=== PATIENT | female | born 1960 | race African-American/Black ===

== ENCOUNTER 2017-12-29 17:41 | Emergency (ER) | payer BC, SELFPAY ==
[2017-12-29 17:57] VITALS: BP 149/88; PULSE 87; RESP 18; TEMP 36.6; O2SAT 97; BMI 44.8
[2017-12-29 18:03] LABS: UTC Strep Screen (Rapid) Negative (Negative)
--- NOTE | 2017-12-29 18:15 | HMH.EDUTC ---
[facility] – [place] Disposition Clinical Impression: Upper respiratory infection Qualifiers: URI type: unspecified URI Qualified Code(s): J06.9 - Acute upper respiratory infection, unspecified Disposition: Home, Self-Care Condition on Discharge: Good Instructions: Sore Throat Additional Instructions: * Monitor Temp. Tylenol and/or Ibuprofen as needed. ER if fever is no less than 101 despite alternating Tylenol and Ibuprofen * Encourage fluids, water, Gatorade, powerade, pedialyte if /toddler/or child * Warm salt water gargles for throat irritation *Warm fluids *Sore throat lozenges *Sleep elevated *humidifier or vaporizer Lots of rest Increase fluids, water, Gatorade, powerade *Your throat swab was sent to lab for culture. Those results area typically sent to your primary care physician. Be sure to follow up in 2-3 days if no improvement so they can review those results and treat if necessary If you dont have primary care I recommend you get one, but in the mean time you will have to return to a walk in clinic Follow up IMMEDIATELY for new or worsening of symptoms OR no noticeable improvement over the next 48-72 hours. 911 immediately for any life threatening symptoms such as chest pain or difficulty breathing Prescriptions: Azithromycin [Z-Denzel 250mg Tab] 250 mg PO UD DOSE PK #6 tab Referrals: Cornelius Aparicio MD [Primary Care Provider] - Time of Disposition: 18:22 Medical Decision Making - Medical Records Medical records reviewed: Yes: I reviewed the patient's medical records. Vital Signs: 12/29/17 17:57 Temperature 97.9 F Temperature Source Temporal Artery Scan Pulse Rate [Right Radial] 87 Respiratory Rate 18 Blood Pressure [Right Arm] 149/88 Blood Pressure Mean [Right Arm] 108 Blood Pressure Source [Right Arm] Automatic Cuff Blood Pressure Position [Right Arm] Sitting 02 Sat by Pulse Oximetry 97 Oxygen Delivery Method Room Air - Lab Data Lab Results 12/29/17 18:02: Strep Scn Rapid Clinic Negative Orders (Tests/Meds): ORDERS Category Date Time Status Strep Screen Confirmation Stat Micro 12/29/17 18:02 Received - Cj Inquiry Pt receiving controlled substance: No Cj was queried for this patient: No [facility] – [place] HPI - General Stated complaint: sore throat Mode of Arrival: Family Vehicle Source of Information: Patient Limitations: No Limitations Description of Symptoms (Recalled from Triage Doc. by RN): PT C/O SORE THROAT AND BILATERAL EAR PAIN. HEENT Symptoms (Recalled from RN notes): Yes (SORE THROAT AND BILATERAL EAR PAIN) Resp Symptoms (Recalled from RN notes): No Skin Symptoms (Recalled from RN notes): No MS Symptoms (Recalled from RN notes): No Functional Status (Recalled from RN notes): NA - History of Present Illness Provider Complaint: Patient state that she has had sore throat now for over a week State that she has been gargling mouth wash and trying some over the counter cold medication but it has not helped State that her throat is worse and she is having pain in her ears - Related Data Home Medications Medication Instructions Recorded Confirmed Esomeprazole Magnesium 40 mg PO DAILY 12/29/17 12/29/17 Glimepiride [Glimepiride] 4 mg PO DAILY 12/29/17 12/29/17 Losartan/Hydrochlorothiazide 1 each PO DAILY 12/29/17 12/29/17 [Hyzaar 100-12.5 Tablet] Metformin HCl [Fortamet] 1,000 mg PO DAILY 12/29/17 12/29/17 Metoprolol Succinate 100 mg PO DAILY 12/29/17 12/29/17 Oxybutynin Chloride [Oxybutynin 5 mg PO DAILY 12/29/17 12/29/17 Chloride ER] Rosuvastatin Calcium 10 mg PO QHS 12/29/17 12/29/17 Previous Rx's Medication Instructions Recorded Azithromycin [Z-Denzel 250mg Tab] 250 mg PO UD DOSE PK #6 tab 12/29/17 Allergies Allergy/AdvReac Type Severity Reaction Status Date / Time amoxicillin [From AUGMENTIN] Allergy Mild NA-NAUSEA Verified 12/29/17 18:03 clavulanic acid Allergy Mild NA-NAUSEA Verified 12/29/17 18:03 [From AUGMENTIN] hydrocodone [Fr
--- NOTE | 2017-12-29 18:19 | ED_ITS ---
[facility] – [place] Clinical Impression: Upper respiratory infection Qualifiers: URI type: unspecified URI Qualified Code(s): J06.9 - Acute upper respiratory infection, unspecified Disposition: Home, Self-Care Condition on Discharge: Good Instructions: Sore Throat Additional Instructions: * Monitor Temp. Tylenol and/or Ibuprofen as needed. ER if fever is no less than 101 despite alternating Tylenol and Ibuprofen * Encourage fluids, water, Gatorade, powerade, pedialyte if /toddler/or child * Warm salt water gargles for throat irritation *Warm fluids *Sore throat lozenges *Sleep elevated *humidifier or vaporizer Lots of rest Increase fluids, water, Gatorade, powerade *Your throat swab was sent to lab for culture. Those results area typically sent to your primary care physician. Be sure to follow up in 2-3 days if no improvement so they can review those results and treat if necessary If you don? t have primary care I recommend you get one, but in the mean time you will have to return to a walk in clinic Follow up IMMEDIATELY for new or worsening of symptoms OR no noticeable improvement over the next 48-72 hours. 911 immediately for any life threatening symptoms such as chest pain or difficulty breathing Prescriptions: Azithromycin [Z-Denzel 250mg Tab] 250 mg PO UD DOSE PK #6 tab Referrals: Cornelius Aparicio MD [Primary Care Provider] - Time of Disposition: 18:22 Medical Decision Making - Medical Records Medical records reviewed: Yes: I reviewed the patient's medical records. Vital Signs: 12/29/17 17:57 Temperature 97.9 F Temperature Source Temporal Artery Scan Pulse Rate [Right Radial] 87 Respiratory Rate 18 Blood Pressure [Right Arm] 149/88 Blood Pressure Mean [Right Arm] 108 Blood Pressure Source [Right Arm] Automatic Cuff Blood Pressure Position [Right Arm] Sitting 02 Sat by Pulse Oximetry 97 Oxygen Delivery Method Room Air - Lab Data Lab Results 12/29/17 18:02: Strep Scn Rapid Clinic Negative Orders (Tests/Meds): ORDERS Category Date Time Status Strep Screen Confirmation Stat Micro 12/29/17 18:02 Received - Cj Inquiry Pt receiving controlled substance: No Cj was queried for this patient: No [facility] [place] HPI - General Stated complaint: sore throat Mode of Arrival: Family Vehicle Source of Information: Patient Limitations: No Limitations Description of Symptoms (Recalled from Triage Doc. by RN): PT C/O SORE THROAT AND BILATERAL EAR PAIN. HEENT Symptoms (Recalled from RN notes): Yes (SORE THROAT AND BILATERAL EAR PAIN ) Resp Symptoms (Recalled from RN notes): No Skin Symptoms (Recalled from RN notes): No MS Symptoms (Recalled from RN notes): No Functional Status (Recalled from RN notes): NA - History of Present Illness Provider Complaint: Patient state that she has had sore throat now for over a week State that she has been gargling mouth wash and trying some over the counter cold medication but it has not helped State that her throat is worse and she is having pain in her ears - Related Data Home Medications Medication Instructions Recorded Confirmed Esomeprazole Magnesium 40 mg PO DAILY 12/29/17 12/29/17 Glimepiride [Glimepiride] 4 mg PO DAILY 12/29/17 12/29/17 Losartan/Hydrochlorothiazide 1 each PO DAILY 12/29/17 12/29/17 [Hyzaar 100-12.5 Tablet] Metformin HCl [Fortamet] 1,00
== END 2017-12-29 18:32 | disposition home or self-care (01) ==
PROVIDERS: Emergency Provider Nurse Practitioner; Family Provider Emergency Medicine; PCP Emergency Medicine
DX: J06.9 Acute upper respiratory infection, unspecified (principal); E11.9 Type 2 diabetes mellitus without complications; Z79.84 Long term (current) use of oral hypoglycemic drugs; F17.210 Nicotine dependence, cigarettes, uncomplicated; Z88.2 Allergy status to sulfonamides; Z88.1 Allergy status to other antibiotic agents
CPT/HCPCS: 87880; 99202

== ENCOUNTER → 2018-02-27 07:22 | Outpatient (CLI) | payer BC, SELFPAY ==
[2018-02-27 08:26] LABS: Carbon Dioxide 27 mmol/L (21.0-32.0); Creatinine,Serum 0.74 mg/dL (0.55-1.02); Estimated Glomerular Filt Rate 81 ml/min (>60); GFR (African American) 99 ML/MIN (>60)
[2018-02-27 08:49] LABS: Alanine Aminotransferase 33 U/L (12-78); Albumin/Globulin Ratio 0.5 (1.1-1.8); Alkaline Phosphatase 126 U/L (46-116); Aspartate Amino Transferase 23 U/L (15-37); Bilirubin,Total 0.2 mg/dL (0.2-1.0); Blood Urea Nitrogen 18 mg/dL (7-18); Calcium 9.5 mg/dL (8.5-10.1); Chloride 100 mmol/L (98-107); Cholesterol 95 mg/dL (140-200); Globulin 5.6 gm/dl (1.3-3.2); Glucose 165 mg/dL (74-106); HDL Cholesterol 48 mg/dL (29-89); LDL Cholesterol 23 mg/dL (0-130); Sodium 138 mmol/L (136-145); T4 (Thyroxine) 7.1 ug/dl (4.7-13.3); Thyroid Stimulating Hormone 4.02 uIU/ml (0.358-3.740); Total Protein,Serum 8.6 gm/dL (6.4-8.2); Triglycerides 119 mg/dL (30-200); VLDL Cholesterol 24 mg/dL (0-40)
[2018-02-27 08:50] LABS: Basophils # 0.1 K/mm3 (0-0.2); Basophils % 0.7 % (0.1-2.0); Eosinophils # 0.2 K/mm3 (0.0-0.4); Eosinophils % 2.1 % (0.1-12.0); Hematocrit 40.4 % (37.0-47.0); Hemoglobin 12.6 g/dL (12.2-16.2); Lymphocytes # 2.4 K/mm3 (0.7-4.5); Lymphocytes % 31.2 K/mm3 (10-50); Mean Corpuscular HGB Conc 31.2 g/dL (31.8-35.4); Mean Corpuscular Hemoglobin 27.7 pg (27.0-31.2); Mean Corpuscular Volume 88.6 fl (81-99); Monocytes # 0.4 K/mm3 (0.1-1.0); Monocytes % 5.8 % (1.7-9.3); Neutrophils # 4.5 K/mm3 (1.8-7.8); Neutrophils % 60.2 % (37.0-80.0); Platelet Count 328 K/mm3 (142-424); Red Blood Count 4.56 M/mm3 (4.20-5.40); Red Cell Distribution Width 15.2 % (11.5-17.5); White Blood Count 7.5 K/mm3 (4.8-10.8)
[2018-02-28 15:40] LABS: Vitamin D 25 Hydroxy 53.5 ng/mL (30.0-100.0)
== END ==
PROVIDERS: Physician Assistant; Visit Provider Emergency Medicine
DX: E11.9 Type 2 diabetes mellitus without complications (principal)
CPT/HCPCS: 36415; 80053; 80061; 82652; 83036; 84436; 84443; 85025

== ENCOUNTER → 2018-06-27 13:39 | Outpatient (REF) | payer BC, SELFPAY ==
[2018-06-27 19:48] LABS: Free Thyroxine Index 2.5 ug/dL (5.93-13.13); T4 (Thyroxine) 8.2 ug/dl (4.7-13.3); Thyroid Stimulating Hormone 1.49 uIU/ml (0.358-3.740); Triiodothryronine (T3) Uptake 31 % (31-39)
== END ==
LOC: LAB 13:39
PROVIDERS: Visit Provider Nurse Practitioner Family
DX: E03.9 Hypothyroidism, unspecified (principal); F41.9 Anxiety disorder, unspecified
CPT/HCPCS: 84436; 84443; 84479

== ENCOUNTER → 2018-08-21 14:48 | Outpatient (REF) | payer BC, SELFPAY | LOC: LAB 14:48 | PROVIDERS: Visit Provider Physician Assistant | DX: N39.0 Urinary tract infection, site not specified (principal); N89.8 Other specified noninflammatory disorders of vagina; R35.0 Frequency of micturition | CPT/HCPCS: 87086; 87210 ==

== ENCOUNTER → 2019-04-30 18:01 | Outpatient (CLI) | payer BC, SELFPAY ==
[2019-04-30 18:38] LABS: Basophils # 0.1 K/mm3 (0-0.2); Basophils % 0.7 % (0.1-2.0); Eosinophils # 0.2 K/mm3 (0.0-0.4); Hematocrit 37.5 % (37.0-47.0); Hemoglobin 12.1 g/dL (12.2-16.2); Lymphocytes # 2.3 K/mm3 (0.7-4.5); Lymphocytes % 27.6 % (10-50); Mean Corpuscular HGB Conc 32.3 g/dL (31.8-35.4); Mean Corpuscular Hemoglobin 26.6 pg (27.0-31.2); Mean Corpuscular Volume 82.4 fl (81-99); Mean Platelet Volume 7.7 fl (7.4-10.4); Monocytes # 0.4 K/mm3 (0.1-1.0); Monocytes % 5.1 % (1.7-9.3); Neutrophils # 5.4 K/mm3 (1.8-7.8); Neutrophils % 64.7 % (37.0-80.0); Platelet Count 386 K/mm3 (142-424); Red Blood Count 4.55 M/mm3 (4.20-5.40); White Blood Count 8.3 K/mm3 (4.8-10.8)
[2019-04-30 19:37] LABS: Alanine Aminotransferase 30 U/L (12-78); Albumin Level 3.6 gm/dL (3.4-5.0); Albumin/Globulin Ratio 0.8 (1.1-1.8); Alkaline Phosphatase 152 U/L (46-116); Anion Gap 18.4 mEq/L (5-15); Aspartate Amino Transferase 22 U/L (15-37); Bilirubin,Total 0.3 mg/dL (0.2-1.0); Blood Urea Nitrogen 12 mg/dL (7-18); C-Reactive Protein 5.1 mg/L (0.0-0.9); Calcium 9.6 mg/dL (8.5-10.1); Carbon Dioxide 26 mmol/L (21.0-32.0); Chloride 104 mmol/L (98-107); Creatinine,Serum 0.87 mg/dL (0.55-1.02); Estimated Glomerular Filt Rate 67 ml/min (>60); GFR (African American) 81 ML/MIN (>60); Globulin 4.5 gm/dl (1.3-3.2); Glucose 84 mg/dL (74-106); Potassium 4.4 mmoL/L (3.5-5.1); Sodium 144 mmol/L (136-145); Total Protein,Serum 8.1 gm/dL (6.4-8.2)
[2019-04-30 19:58] LABS: Erythrocyte Sedimentation Rate > 140 mm/hr (0-30)
[2019-04-30 20:06] LABS: Hemoglobin A1C 6.8 % (0.0-7.0)
[2019-05-02 14:18] LABS: Anti-Centromere B Antibodies <0.2 AI (0.0-0.9); Anti-Jo-1 <0.2 AI (0.0-0.9); Anti-Smith Antibody <0.2 AI (0.0-0.9); Antichromatin Antibodies <0.2 AI (0.0-0.9); Antiscleroderma-70 Antibodies <0.2 AI (0.0-0.9); RNP Antibodies <0.2 AI (0.0-0.9); Sjogren's Anti-SS-A <0.2 AI (0.0-0.9); Sjogren's Anti-SS-B <0.2 AI (0.0-0.9)
[2019-05-04 06:23] LABS: RA Latex Turbid. <10.0 IU/mL (0.0-13.9); Vitamin B12 >2000 pg/mL (232-1245)
[2019-05-04 06:24] LABS: Anti-Cyclic Citrullinated Pept <1 units (0-19); Anti-DNA (DS) Ab Qn <1 IU/mL (0-9)
== END ==
LOC: LAB.DROPOF 18:01
PROVIDERS: Visit Provider Physician Assistant
DX: E03.9 Hypothyroidism, unspecified (principal); E11.9 Type 2 diabetes mellitus without complications; I10 Essential (primary) hypertension; M25.50 Pain in unspecified joint; Z79.84 Long term (current) use of oral hypoglycemic drugs
CPT/HCPCS: 80053; 82607; 83036; 85025; 85651; 86140; 86200; 86225; 86235; 86431

== ENCOUNTER → 2020-10-08 11:24 | Outpatient (CLI) | payer BC, SELFPAY ==
[2020-10-09 17:33] LABS: Covid-19 Nasal PCR Sendout Lex Not Detected
== END ==
PROVIDERS: PCP Emergency Medicine; Visit Provider Physician Assistant
DX: Z03.818 Encounter for observation for suspected exposure to other biological agents ruled out (principal)
CPT/HCPCS: U0004

== ENCOUNTER → 2021-03-02 07:11 | Outpatient (CLI) | payer BC, SELFPAY ==
--- NOTE | 2021-03-02 07:11 | CT_ITS ---
PROCEDURE: CT ABDOMEN PELVIS WO CON CLINICAL INDICATION: Possible hernia/diastasis X1yr Large bulge mid epigastric No pain per pt. COMPARISON: CT ABDPELW/O CT ABD PELVIS W/O CONTRAST from 05/21/2017 TECHNIQUE: Axial images obtained with sagittal and coronal reformats. All CT scans at the facility use one or more dose reduction, viz: automated exposure control, ma/kV adjustment per patient size (including targeted exams where dose is matched to indication, i.e. head), or iterative reconstruction technique. FINDINGS: LOWER THORAX: There is a 9 mm nodular opacity in the left lateral periareolar region of the breast. Suggest mammogram and ultrasound for further evaluation. Atelectatic or fibrotic changes are present in the right lower lobe. Calcified granulomata are present. ABDOMEN & PELVIS: Hepatic steatosis. No focal liver lesion identified. The spleen shows multiple calcified granulomata. Pancreatic head is somewhat plump and may be better evaluated with an enhanced exam. No renal or ureteral calculi. Unremarkable appearing adrenal glands. No radiopaque gallstones. There is a small appendicoliths but no evidence of appendicitis. No intestinal obstruction or free air. There are scattered colonic diverticula. No evidence of diverticulitis. There has been a prior hysterectomy. The urinary bladder is decompressed. No pelvic mass or abnormal fluid collection. Scattered small nodes are present in the retroperitoneum. There is diastasis of the lower abdominal wall. No definite abdominal wall hernia apparent. There is degenerative disc disease at L5-S1 IMPRESSION: 1. No acute finding. Diastasis of the lower ventral abdominal wall but no evidence of abdominal wall hernia. 2. 9 mm left breast nodule. Suggest mammogram and ultrasound for further evaluation. 3. Other nonacute findings as detailed above. Dictated by: Franklin Montgomery MD 03/03/2021 09:57 Franklin Montgomery MD in [facility] 03/03/2021 09:57
[2021-03-02 08:56] LABS: Creatinine,Urine Random 119 mg/dL (Not Estab.); Hemoglobin A1C 7.2 % (4.0-6.0)
[2021-03-02 09:38] LABS: Thyroid Stimulating Hormone 1.14 uIU/mL (0.465-4.68)
[2021-03-02 10:01] LABS: Vitamin B12 > 1000 pg/mL (239-931)
[2021-03-17 08:46] LABS: 25-OH Vitamin D, Total 49 ng/mL (30-100)
== END ==
LOC: RAD 07:11
PROVIDERS: PCP Emergency Medicine; Visit Provider Surgery
DX: M62.00 Separation of muscle (nontraumatic), unspecified site (principal); R80.9 Proteinuria, unspecified; I10 Essential (primary) hypertension; E11.9 Type 2 diabetes mellitus without complications; E78.5 Hyperlipidemia, unspecified; E66.01 Morbid (severe) obesity due to excess calories; Z68.42 Body mass index [BMI] 45.0-49.9, adult; Z79.84 Long term (current) use of oral hypoglycemic drugs; Z72.0 Tobacco use
CPT/HCPCS: 36415; 74176; 82043; 82306; 82570; 82607; 82652; 83036; 84443

== ENCOUNTER → 2021-03-16 07:47 | Outpatient (CLI) | payer BC, SELFPAY ==
--- NOTE | 2021-03-16 07:48 | CA_ITS ---
APPROVED REPORT EXAM: Comprehensive 2D, Doppler, and color-flow Echocardiogram Adjuster Arbitrator: RAPHAEL Jameson, RVS Ht: 5 ft 2 in Wt: 234lbs BSA: 2.04 BP: 134/71 mmHg Indications: TIA, soa, obesity, htn,DM, smoker, edema 2D Dimensions LVDd 5.28 cm LA Volume 48.80 mL Aortic Root 2.11 cm LA Volume Index 23.90 mL/m2 (M/F) 16-34 Left Atrium 3.33 cm LVOT 1.78 cm (M/F) 1.5-2.5 M-Mode Dimensions RVDd 2.31 cm (0.9-2.6) LA Diam 3.50 cm (1.9-4.0) LVDd 4.92 cm (3.5-5.7) Ao Diam 2.56 cm (2.0-3.7) LVDs 3.11 cm (3.5-5.7) IVSd 0.87 cm (0.6-1.1) PWd 0.84 cm (0.6-1.1) EF (Teich) 66.50% EPSs 0.44 cm FS 36.80% EDV (Teich) 113.90 mL TAPSE 2.15 (<1.7) ESV (Teich) 38.20 mL LV Diastology E Decel Time 187.00 (160-240 msec) E/A Ratio 1.19 MED E' 8.60 (< 7 cm/sec) MED A' 12.10 cm/s E'/MED E' Ratio 8.88 (>14) LAT E' 9.60 (<10 cm/sec) LAT A' 11.70 cm/s E/LAT E' Ratio 7.96 (>14) Aortic Valve LVOT Max 100.00 (70-110 cm/s) LVOT VTI 23.26 cm AoV Peak David. 146.00 (50-130 cm/s) AO Peak GR. 8.50 mmHg AO Mean GR. 4.30 (<5 mmHg) AO VTI 28.98 (18-25 cm) HOMAR (VTI) 2.00 (2.5-4.5 cm2) Mitral Valve MV A Velocity 64.00 (40-130 cm/s) E/A Ratio 1.19 MV Decel. Time 187.00 (160-240 ms) Pulmonary Valve PV Peak Velocity 74.00 (50-150 cm/s) Tricuspid Valve TR P. Velocity 251.00 cm/s RAP Estimate 10.00 mmHg RVSP 35.20 mmHg Left Ventricle Technically difficult study because of the patient factors and poor acoustic windows. Left atrium is mildly enlarged, left ventricle is normal size, mild concentric left ventricular hypertrophy, visually estimated ejection fraction 55% with no regional wall motion abnormality, grade 1 diastolic dysfunction seen without tissue Doppler evidence of raise left atrial pressure. Right Ventricle Right atrium and right ventricle qualitatively mildly enlarged with normal contractility. Aortic Valve Aortic valve is minimally thickened and fibrosed, there is no aortic stenosis or aortic insufficiency. Mitral Valve Mitral valve is grossly normal, there is trace mitral regurgitation. Tricuspid Valve Tricuspid grossly normal, there is trace tricuspid regurgitation, tricuspid regurgitation jet velocity is inadequate for calculation of the right ventricular systolic pressure. Pulmonic Valve Pulmonic valve is poorly visualized. Great Vessels Aortic root is normal size. Pericardium No significant pericardial effusion noted. Conclusion 1. Technically difficult study because of the patient factors and poor acoustic windows. 2. Mild biatrial enlargement, normal left ventricular size, mild concentric left ventricular hypertrophy, visually estimated ejection fraction 55% with no regional wall motion abnormality, grade 1 diastolic dysfunction seen without tissue Doppler evidence of raise left atrial pressure. 3. Mildly enlarged right ventricle with normal contractility. 4. Trace mitral and tricuspid regurgitation. 5. No significant pericardial effusion noted. Electronically signed by : Estuardo Mallory, 03/16/2021 10:08:46
[2021-03-16 08:56] LABS: Basophils # 0.1 K/mm3 (0-0.2); Basophils % 0.6 % (0.1-2.0); Eosinophils # 0.2 K/mm3 (0.0-0.4); Eosinophils % 2.4 % (0.1-12.0); Hematocrit 34.1 % (37.0-47.0); Hemoglobin 10.8 g/dL (12.2-16.2); Lymphocytes # 2.1 K/mm3 (0.7-4.5); Lymphocytes % 26.9 % (10-50); Mean Corpuscular HGB Conc 31.7 g/dL (31.8-35.4); Mean Corpuscular Hemoglobin 25.4 pg (27.0-31.2); Mean Corpuscular Volume 80.2 fl (81-99); Mean Platelet Volume 7.9 fl (7.4-10.4); Monocytes # 0.4 K/mm3 (0.1-1.0); Monocytes % 5.5 % (1.7-9.3); Neutrophils # 5.1 K/mm3 (1.8-7.8); Neutrophils % 64.6 % (37.0-80.0); Platelet Count 311 K/mm3 (142-424); Red Blood Count 4.25 M/mm3 (4.20-5.40); Red Cell Distribution Width 18.7 % (11.5-17.5); White Blood Count 7.9 K/mm3 (4.8-10.8)
[2021-03-16 09:49] LABS: Coronavirus 19 IgG Antibody Positive (Negative); Coronavirus 19 IgM Antibody Negative (Negative)
[2021-03-16 11:17] LABS: Alanine Aminotransferase 24 U/L (12-78); Albumin Level 4.2 g/dl (3.5-5.0); Albumin/Globulin Ratio 1.2 (1.1-1.8); Alkaline Phosphatase 143 U/L (38-126); Anion Gap 14.9 mEq/L (5-15); Aspartate Amino Transferase 34 U/L (14-36); Bilirubin,Total 0.3 mg/dl (0.2-1.3); Blood Urea Nitrogen 18 mg/dl (7-17); Calcium 9.7 mg/dl (8.4-10.2); Carbon Dioxide 23 mmol/L (22.0-30.0); Chloride 106 mmol/L (98-107); Estimated Glomerular Filt Rate 64 ml/min (>60); GFR (African American) 78 ML/MIN (>60); Globulin 3.6 g/dL (1.3-3.2); Glucose 126 mg/dl (74-100); Potassium 3.9 mmoL/L (3.5-5.1); Sodium 140 mmol/L (136-145); Total Protein,Serum 7.8 g/dl (6.3-8.2)
== END ==
PROVIDERS: Surgery; PCP Physician Assistant; Visit Provider Urology
DX: Z01.818 Encounter for other preprocedural examination (principal); Z20.822 Contact with and (suspected) exposure to COVID-19; R06.00 Dyspnea, unspecified; E78.5 Hyperlipidemia, unspecified; I10 Essential (primary) hypertension; R60.9 Edema, unspecified; K21.9 Gastro-esophageal reflux disease without esophagitis; Z72.0 Tobacco use; Z13.810 Encounter for screening for upper gastrointestinal disorder
CPT/HCPCS: 36415; 80053; 85025; 86328; 93306

== ENCOUNTER → 2021-03-18 07:45 | Outpatient (CLI) | payer BC, SELFPAY ==
--- NOTE | 2021-03-18 07:45 | MM_ITS ---
PROCEDURE: MM DIG MAMM BI DX W/CAD Digital Breast Tomosynthesis Included CLINICAL INDICATION: LT breast mass, and Rt breast screening COMPARISON: CT CT ABDOMEN PELVIS WO CON from 03/02/2021 US US BREAST LT COMPLETE from 03/18/2021 TECHNIQUE: Standard CC and MLO images and 3D Tomosynthesis was obtained. R2 CAD reviewed. There is spot-compression views performed on the left. FINDINGS: Average fibroglandular tissue. No malignant appearing mass is evident. There is a benign appearing 5 mm nodule in the upper aspect of the right breast. There are 2 indeterminate clusters of microcalcifications in the mid aspect of the right breast and there is an incomplete area somewhat linear calcifications noted in the deep outer aspect of the left breast near the 3 o'clock position. The patient has had a prior mammogram. Suggest obtaining nose old studies to determine if these are new or old. A nodular opacity was noted in the lateral subareolar region on the CT scan. This is not confirmed on the mammogram Left breast ultrasound: Calcification noted at 11 o'clock and may correspond to a small oil cyst seen on the mammogram no cystic or solid nodules evident in the region interest on the CT scan. There is a 7 by 7 mm subcutaneous nodule at 10 o'clock and may represent a sebaceous cyst. IMPRESSION: Nodule noted on the CT scan is not confirmed by mammogram or ultrasound may represented fibroglandular tissue. There are some indeterminate calcifications bilaterally. Need old mammograms for comparison. BI-RAD Category: 0 Need Additional Imaging Evaluation FOLLOW-UP: Recommend exhaustive search for old mammograms (A letter has been sent to the patient regarding results of the study.) The Dictated by: Franklin Montgomery MD 03/21/2021 17:12 Franklin Montgomery MD in [place] 03/21/2021 17:12
--- NOTE | 2021-03-18 07:45 | CT_ITS ---
PROCEDURE: CT ABDOMEN W CON CLINICAL HISTORY: Panc Protocol Hx IBS Diverticula Attn-pancreatic head Evaluate prominent pancreatic head COMPARISON: CT ABDPELW/O CT ABD PELVIS W/O CONTRAST from 02/26/2015 CT ABDPELW/O CT ABD PELVIS W/O CONTRAST from 05/21/[address] ABDOMEN PELVIS WO CON from 03/02/2021 TECHNIQUE: Axial images obtained with sagittal and coronal reformats. All CT scans at the facility use one or more dose reduction, viz: automated exposure control, ma/kV adjustment per patient size (including targeted exams where dose is matched to indication, i.e. head), or iterative reconstruction technique. FINDINGS: Mild fibrotic change in the right lung base. Fatty liver. No focal liver abnormalities are apparent. The spleen, adrenal glands, and kidneys have an unremarkable appearance. Prominent appearance of the pancreatic head is felt have been due to a combination of unopacified portal vein and duodenum. Along the superior aspect of the uncinate process there is a triangular-shaped area of soft tissue density measuring 14 mm. This may be due to small peripancreatic lymph node or superior lobulation of the pancreas. This is only slightly more prominent compared to an older exam of 02/26/2015. Suggest continued follow-up due to the slight increase in prominence. No pancreatic mass apparent. No ductal dilatation or peripancreatic fluid collection. IMPRESSION: No obvious pancreatic mass or ductal dilatation. Previously noted prominent appearance of the pancreatic head was due to unopacified portal vein and adjacent duodenum. Small peripancreatic nodular density superior to the uncinate process and may represent a peripancreatic lymph node or superior lobulation of the pancreas probably benign. Consider 3 to six-month CT follow-up with contrast for confirmation. Dictated by: Franklin Montgomery MD 03/20/2021 08:42 Franklin Montgomery MD in [place] 03/20/2021 08:42
== END ==
PROVIDERS: PCP Emergency Medicine; Visit Provider Surgery
DX: N63.20 Unspecified lump in the left breast, unspecified quadrant (principal); R93.5 Abnormal findings on diagnostic imaging of other abdominal regions, including retroperitoneum
CPT/HCPCS: 74160; 76641; 77062; 77066; G0279; Q9967

== ENCOUNTER 2021-03-19 06:17 | Day surgery (SDC) | payer BC, SELFPAY ==
[2021-03-12 14:34] VITALS: BMI 42.4
[2021-03-19] VITALS (7 sets, daily range): BP systolic 116–148; BP diastolic 66–88; PULSE 61–95; RESP 16–18; TEMP 36.2–36.3; O2SAT 93–100
[2021-03-19 06:56] LABS: POC Glucose,Bedside 113 (70-110)
--- NOTE | 2021-03-19 07:50 | P.PN_ITS ---
[facility] Anesthesia Checklist - Patient Identification Patient Identification: Arm Band - Structural Data Admitted From: Home Planned Operative Procedure/s: egd/colonoscopy Consent for Planned Operative Procedure(s) Verified: Yes Verified Documents: Surgical Consent, History and Physical - NPO Status Verified Time NPO: 00:00 - Additional verifications Anesthesia Reactions: No - Airway Assessment C-Spine Mobility Assessed: Yes (mp2) TMJ Mobility Assessed: Yes Dentition: Good Dentition - Neurological Assessment Level of Consciousness: Awake, Alert - Anesthesia Plan Anesthesia Risk discussed: Yes Anesthesia Plan: Verified ASA Class: III Anesthesia Type: MAC [facility] History I have reviewed the patient's past medical history: Yes Medical History: Reports:: Anxiety, Depression, Diabetes Mellitus Type 2, Hypertension, Transient Ischemic Attacks (TIA), Urinary Tract Infection Denies:: Cancer, Diabetes Mellitus Type 1, Internal Pacemaker, MRSA *Have you ever received a pneumonia vaccine?: No *Have you received a flu vaccine this season?: Yes Other Medical History: Reports: Arthritis, Hypothyroidism, Other Anesthesia experience/problems:: nac Laterality Cases: Right: Carpal Tunnel Release Other Surgeries: Yes: Cardiac Catheterization, Colonoscopy, Dilation and Curettage, EGD, Hysterectomy-Partial, Tubal Ligation. No: Pacemaker Amputation: No Fractures: No - *Social History Smoking Status: Current every day smoker Tobacco Type: cigarettes # Packs/Day (cigarettes): 1 Alcohol Intake: never Substance Use Type: denies use *Occupational Status:: unemployed Housing: house Household Members: spouse *Travel in the last 8 weeks: None - Psychiatric History Pschychiatric History:: Reports:: Anxiety, Depression Family Hx:: Diabetes
--- NOTE | 2021-03-19 08:22 | P.PCN_ITS ---
- Procedure: Date: 03/19/21 Patient Date of :: 1960 Procedure Performed:: Esophagogastroduodenoscopy with biopsy Colonoscopy with biopsy Indications:: Gastroesophageal reflux History of gastric polyps History of colon polyps Diverticulosis Performing Provider:: Harjit Garcia MD Referring Provider:: . Sedation:: Monitored anesthesia care Procedure:: After informed consent was obtained the patient was taken to the endoscopy suite. Sedation ensued after the patient was transferred to the left lateral decubitus position. Pulse, blood pressure, and oxygen saturation were monitored throughout the procedure. The endoscope was advanced beyond the duodenal bulb. Retroflexion within the gastric lumen was accomplished. The gastroscope was ca refully removed. Digital rectal exam revealed no significant abnormality. The colonoscope was placed in position. The entire colon was evaluated. The colonoscope was carefully removed and the patient was transferred to recovery in stable condition. Please see findings and specimens below for detail. Findings:: Minimal gastritis Small gastric body polyps Focal increased inflammation of antrum Bowel preparation relatively fair Significant spasticity and lack of relaxation Sigmoid diverticulosis Inflamed periappendiceal polyp Specimens:: Adjacent mid gastric body polyps Antral polyp Biopsy of focal inflammation proximal antrum Inflamed periappendiceal polyp Recommendations:: Follow-up pathology Timing of repeat colonoscopy is pending pathology but likely be around 3 years Complications:: No immediate Estimated blood obtained (mL): 1
== END 2021-03-19 09:17 | disposition home or self-care (01) ==
LOC: OUTP 06:18
PROVIDERS: PCP Physician Assistant; Visit Provider Surgery
PROC: 0DJ08ZZ Inspection of Upper Intestinal Tract, Via Natural or Artificial Opening Endoscopic (ICD-10-PCS; CPT 43235; principal; 2021-03-19 07:30)
DX: K31.7 Polyp of stomach and duodenum (principal); K31.9 Disease of stomach and duodenum, unspecified; K29.70 Gastritis, unspecified, without bleeding; K57.30 Diverticulosis of large intestine without perforation or abscess without bleeding; K63.5 Polyp of colon; K58.9 Irritable bowel syndrome, unspecified; Z86.010 Personal history of colon polyps; Z87.19 Personal history of other diseases of the digestive system; E11.9 Type 2 diabetes mellitus without complications; I10 Essential (primary) hypertension; Z86.73 Personal history of transient ischemic attack (TIA), and cerebral infarction without residual deficits; Z90.711 Acquired absence of uterus with remaining cervical stump
CPT/HCPCS: 43239; 45380; 82962; J2704

== ENCOUNTER → 2021-03-20 06:44 | Outpatient (CLI) | payer BC, SELFPAY ==
--- NOTE | 2021-03-20 06:45 | CA_ITS ---
APPROVED REPORT Exam: Pharmacologic Technologist: Yasmin Cortés, Ht: 5 ft 2 in Wt: 225 lbs BSA: 2.01 m2 Rhythm: NSR/ INF T WAVE ABNORMALITIES Medical History Medical History: HTN, Hyperlipidemia, Diabetic ??? Noninsulin Medications: Asa,,,,, Metformin,,,,, Losartan,,,,, Escitalopram,,,,, HCTZ,,,,, Magnesium,,,,, CitrIZINE,,,,, DulaGLUTIDE,,,,, RoSovastatin,,,,, Metoprol,,,,, GlimepERIDE,,,,, Levothyoxine,,,,, Cardiac Risk Factors: HTN, Hyperlipidemia, Diabetes (non-insulin) Stress Test Details Test: LEXISCAN HR Resting HR: 69 bpm Max Heart Rate (APMHR): 162.398912 bpm Max HR Achieved: 121 bpm Target HR (85% APMHR): 137.539269 bpm % of APMHR: 74.69 Recovery HR: 95 bpm BP Resting BP: 136/78 mmHg Max BP: 154/82 mmHg Recovery BP: 134.0/86.0 mmHg ECG Resting ECG: NSR/ INF T WAVE ABNORMALITIES Maximum ST Deviation: 0.0 mm Clinical Reason for Termination: Completed Protocol Exercise duration: 04:03 min Highest Stage Achieved: Stress ECG Conclusion DURING LEXISCAN PT EXPERINCED NO CP. NO ARRHYTHMIAS OR ECTOPY. <1.5MM ST SEGMENT CHANGES. NON DIAGNOSTIC. Test Summary RECOVERY 03:20 . . 95 . 140/ 80 . . REST 08:30 . . 69 . 136/ 78 . . Stage 1 01:00 . . 115 . . . . Stage 2 01:00 . . 113 . 153/ 84 . . Stage 3 01:00 . . 113 . 146/ 81 . . Stage 4 01:00 . . 102 . 145/ 81 . . Stage 4 01:03 . . 98 . 145/ 81 . Stop exercise at 04:03 RECOVERY 01:00 . . 97 . . . . RECOVERY 02:00 . . 98 . 134/ 86 . . RECOVERY 03:00 . . 102 . 140/ 80 . . RECOVERY 03:20 . . 95 . 140/ 80 . . Electronically signed by : Estuardo Mallory, 03/20/2021 10:37:41
--- NOTE | 2021-03-20 06:45 | NM_ITS ---
APPROVED REPORT Exam: Nuclear Stress Test Indication: OBESITY, HTN, DM, HYPERLIPIDEMIA, TOB USE, C.P., SOB Patient Location: Outpatient Stress Tech: Tammy Henkson OR Tech:ROCKY Johnson RT (R)(N)(M) Ht: 5 ft 2 in Wt: 225 lbs Bra Size: DDD HR: 62 bpm BP: 136/78 mmHg BSA: 2.01 m2 BMI: 41.1 History: OBESITY, HTN, DM, HYPERLIPIDEMIA, TOB USE, C.P., SOB Procedure: Patient received a 0.4 mg of intravenous Lexiscan, resting heart rate 62 bpm, resting blood pressure 136/78 mmHg, with Lexiscan maximum heart rate achived was 113 bpm which is Less than 85 % of the maximum predicted heart rate and blood pressure was 153/84 mmHg. With Lexiscan, patient denied any complaint of chest pain. Electrocardiogram Resting electrocardiogram showed sinus rhythm, with Lexiscan there is less than 1.[address] segment depression noted from the baseline EKG. The EKG portion of the Lexiscan is nondiagnostic. Cardiac Stress and Resting SPECT Images: Cardiac Stress and Resting SPECT images were obtained using technetium 99m Myoview 32.1 mCi stress and 10.38 mCi at rest. Gated SPECT for analysis of segmental wall motion and calculation of the ejection fraction also done, prone images were also obtained. Cardiac stress and resting SPECT images show uniform myocardial activity without segmental perfusion abnormality, computer derived ejection fraction is over 65% with no regional wall motion abnormality, right ventricle is normal size and contractility. Conclusion: 1. The EKG portion of the Lexiscan Myoview is nondiagnostic. 2. No scintigraphic evidence of reversible ischemia seen, computer derived ejection fraction is over 65% with no regional wall motion abnormality, right ventricle is normal size and contractility. 3. Normal Lexiscan Myoview study. Electronically signed by : Estuardo Mallory, 03/20/2021 10:40:26
== END ==
PROVIDERS: PCP Emergency Medicine; Visit Provider Urology
DX: I20.9 Angina pectoris, unspecified (principal); I10 Essential (primary) hypertension; E78.5 Hyperlipidemia, unspecified; R60.9 Edema, unspecified; Z72.0 Tobacco use
CPT/HCPCS: 78452; 93017; A9502; J2785

== ENCOUNTER 2021-04-18 21:45 | Emergency (ER) | payer BC, SELFPAY ==
[2021-04-18 21:47] VITALS: BP 151/77; PULSE 91; RESP 18; TEMP 36.8; O2SAT 98; BMI 43.0
[2021-04-18 22:09] VITALS: BP 154/70; PULSE 90; O2SAT 100
--- NOTE | 2021-04-18 22:42 | HMH.EDGENADL ---
ED Disposition Clinical Impression: Shoulder pain, right Qualifiers: Chronicity: acute Qualified Code(s): M25.511 - Pain in right shoulder Disposition: Home, Self-Care Condition on Discharge: Good Instructions: DI for Shoulder Pain Additional Instructions: see pcp and ortho Prescriptions: predniSONE [Prednisone 20mg Tab] 20 mg PO BID #10 tab Transmission Status: Pending to [id number] Referrals: Clementine Kohli PA [Primary Care Provider] - - Critical Care Critical Care Time: No Attestation: On 04/18/21, the high probability of a clinically significant, sudden or life threatening deterioration of the following system(s) required my full and direct attention, intervention and personal management. The time I documented below is in addition to time spent performing reported procedures but includes the following listed in this critical care notation. Medical Decision Making - Medical Records Medical records reviewed: Yes: I reviewed the patient's medical records. - Cj Inquiry Pt receiving controlled substance: No Vital Signs: 04/18/21 21:47 04/18/21 22:09 Temperature 98.3 F Temperature Source Oral Pulse Rate 90 Pulse Rate [Left Brachial] 91 H Respiratory Rate 18 Blood Pressure 154/70 H Blood Pressure [Left Arm] 151/77 H Blood Pressure Mean [Left Arm] 101 Blood Pressure Source [Left Arm] Automatic Cuff Blood Pressure Position [Left Arm] Supine 02 Sat by Pulse Oximetry 98 100 Oxygen Delivery Method Room Air - Lab Data Lab results reviewed: Yes: I reviewed the patient's lab results. Lab Results 04/18/21 22:40: WBC 9.5, RBC 4.19 L, Hgb 11.0 L, Hct 34.3 L, MCV 81.8, MCH 26.2 L, MCHC 32.0, RDW 18.6 H, Plt Count 298, MPV 8.5, Neut % (Auto) 68.5, Lymph % (Auto) 23.6, Coal % (Auto) 4.2, Eos % (Auto) 2.9, Baso % (Auto) 0.7, Neut # (Auto) 6.5, Lymph # (Auto) 2.2, Coal # (Auto) 0.4, Eos # (Auto) 0.3, Baso # (Auto) 0.1, ESR 106 H 04/18/21 22:40: Sodium 140, Potassium 3.9, Chloride 106, Carbon Dioxide 29, Anion Gap 8.9, BUN 16, Creatinine 1.00, Estimated Creat Clear 48, Estimated GFR 57 L, Est GFR ( Amer) 69, Glucose 100, Calcium 9.4, Total Bilirubin 0.4, AST 35, ALT 25, Alkaline Phosphatase 128 H, C-Reactive Protein 30.5 H, Total Protein 7.9, Albumin 4.2, Globulin 3.7 H, Albumin/Globulin Ratio 1.1 Result diagrams: 04/18/21 22:40 04/18/21 22:40 Orders (Tests/Meds): ED MEDICATIONS Discontinued Medications Generic Name Dose Route Start Last Admin Trade Name Cornelio PRN Reason Stop Dose Admin Acetaminophen/Codeine Phosphate 1 brandy 04/18/21 22:56 04/18/21 22:59 Acetaminophen 300mg W/Codeine 30mg Take Home Pack (6) PO 04/18/21 22:57 1 brandy ONCE ONE Administration Ketorolac Tromethamine 30 mg 04/18/21 22:50 04/18/21 22:51 Ketorolac 30mg/Ml Vial IV 04/18/21 22:51 30 mg ONCE ONE Administration Methylprednisolone Sodium Succinate 125 mg 04/18/21 22:50 04/18/21 22:51 Methylprednisolone Sod Succ 125mg Vial IV 04/18/21 22:51 125 mg ONCE ONE Administration ORDERS Category Date Time Status XR shoulder RT min 2V Stat Exams 04/18/21 22:44 Taken CRP [C-Reactive Protein] Stat Lab 04/18/21 22:40 Results Comprehensive Metabolic Panel Stat Lab 04/18/21 22:40 Results Procalcitonin Stat Lab 04/18/21 22:40 Results - Radiology Data #1 Image(s): Shoulder Image Reviewed: Yes I reviewed the patient's radiology image Preliminary Findings: Abnormal (see report ) Medical Decision Narrative: will need ortho eval and see pcp for follow up General Adult HPI - General Chief complaint: PAIN Stated complaint: pain in R arm/rotator cuff Time Seen by Provider: 04/18/21 22:00 Mode of Arrival: Ambulatory Source of Information: Patient, Relative, Medical Record Limitations: No Limitations Description of Symptoms (Recalled from ER Triage Doc. by RN): patient has pain in right shoulder that extends through to her elbow. She states she h
--- NOTE | 2021-04-18 22:44 | XR_ITS ---
PROCEDURE INFORMATION: Exam: XR Right Shoulder Exam date and time: 04/18/2021 10:44 PM Age: 61 years old Clinical indication: Patient HX: Right shoulder pain, decreased rom, HX of falls and rotator cuff injury; Additional info: Shoulder, rotator cuff prev injury TECHNIQUE: Imaging protocol: XR Right shoulder. Views: 2 or more views. Total images: 3 COMPARISON: CR ELBR3 ELBOW-RT-3 VIEWS 09/04/2016 2:36 AM FINDINGS: Bones/joints: Right sided acromioclavicular joint degeneration. Soft tissues: Unremarkable. IMPRESSION: No acute fracture identified.
[2021-04-18 22:47] LABS: Basophils # 0.1 K/mm3 (0-0.2); Basophils % 0.7 % (0.1-2.0); Eosinophils # 0.3 K/mm3 (0.0-0.4); Eosinophils % 2.9 % (0.1-12.0); Hematocrit 34.3 % (37.0-47.0); Lymphocytes # 2.2 K/mm3 (0.7-4.5); Lymphocytes % 23.6 % (10-50); Mean Corpuscular Hemoglobin 26.2 pg (27.0-31.2); Mean Corpuscular Volume 81.8 fl (81-99); Mean Platelet Volume 8.5 fl (7.4-10.4); Monocytes # 0.4 K/mm3 (0.1-1.0); Monocytes % 4.2 % (1.7-9.3); Neutrophils # 6.5 K/mm3 (1.8-7.8); Neutrophils % 68.5 % (37.0-80.0); Platelet Count 298 K/mm3 (142-424); Red Blood Count 4.19 M/mm3 (4.20-5.40); Red Cell Distribution Width 18.6 % (11.5-17.5); White Blood Count 9.5 K/mm3 (4.8-10.8)
[2021-04-18 23:02] LABS: Alanine Aminotransferase 25 U/L (12-78); Albumin Level 4.2 g/dl (3.5-5.0); Albumin/Globulin Ratio 1.1 (1.1-1.8); Alkaline Phosphatase 128 U/L (38-126); Anion Gap 8.9 mEq/L (5-15); Aspartate Amino Transferase 35 U/L (14-36); Bilirubin,Total 0.4 mg/dl (0.2-1.3); Blood Urea Nitrogen 16 mg/dl (7-17); Calcium 9.4 mg/dl (8.4-10.2); Carbon Dioxide 29 mmol/L (22.0-30.0); Chloride 106 mmol/L (98-107); Creatinine Clearance Estimated 48 mL/min (50-200); Estimated Glomerular Filt Rate 57 ml/min (>60); GFR (African American) 69 ML/MIN (>60); Globulin 3.7 g/dL (1.3-3.2); Glucose 100 mg/dl (74-100); Potassium 3.9 mmoL/L (3.5-5.1); Sodium 140 mmol/L (136-145); Total Protein,Serum 7.9 g/dl (6.3-8.2)
[2021-04-18 23:07] LABS: C-Reactive Protein 30.5 mg/L (0-4)
[2021-04-18 23:10] LABS: Erythrocyte Sedimentation Rate 106 mm/hr (0-30)
[2021-04-18 23:18] LABS: Procalcitonin 0.076 ng/mL (0.0-2.0)
[2021-04-18 23:37] VITALS: BP 153/71; PULSE 79; RESP 18; TEMP 36.8; O2SAT 99
== END 2021-04-18 23:39 | disposition home or self-care (01) ==
PROVIDERS: Emergency Provider Emergency Medicine; PCP Physician Assistant
DX: M25.511 Pain in right shoulder (principal); E11.9 Type 2 diabetes mellitus without complications; E03.9 Hypothyroidism, unspecified; I10 Essential (primary) hypertension; F41.8 Other specified anxiety disorders; F17.210 Nicotine dependence, cigarettes, uncomplicated; Z88.2 Allergy status to sulfonamides; Z88.1 Allergy status to other antibiotic agents; Z88.5 Allergy status to narcotic agent; Z79.899 Other long term (current) drug therapy
CPT/HCPCS: 73030; 80053; 84145; 85025; 85651; 86140; 96374; 96375; 99282

== ENCOUNTER → 2021-04-20 06:54 | Outpatient (CLI) | payer BC, SELFPAY ==
[2021-04-20 07:18] LABS: Hematocrit 33.2 % (37.0-47.0); Hemoglobin 10.2 g/dL (12.2-16.2)
[2021-04-20 08:04] LABS: Blood Urea Nitrogen 24 mg/dl (7-17); Estimated Glomerular Filt Rate 73 ml/min (>60); GFR (African American) 89 ML/MIN (>60)
== END ==
PROVIDERS: Visit Provider Surgery
DX: K92.1 Melena (principal)
CPT/HCPCS: 36415; 82565; 84520; 85014; 85018

== ENCOUNTER → 2021-04-20 07:45 | Outpatient (CLI) | payer BC, SELFPAY ==
[2021-04-22 08:00] LABS: Occult Blood,Stool Negative (Negative)
== END ==
PROVIDERS: Visit Provider Surgery
DX: K92.1 Melena (principal)
CPT/HCPCS: 82272; G0328

== ENCOUNTER → 2021-04-21 08:55 | Outpatient (CLI) | payer BC, SELFPAY ==
[2021-04-22 08:00] LABS: Occult Blood,Stool Negative (Negative)
== END ==
PROVIDERS: Visit Provider Surgery
DX: K92.1 Melena (principal)
CPT/HCPCS: 82272; G0328

== ENCOUNTER → 2021-04-22 07:41 | Outpatient (CLI) | payer BC, SELFPAY ==
[2021-04-22 08:00] LABS: Occult Blood,Stool Negative (Negative)
== END ==
PROVIDERS: Visit Provider Surgery
DX: K92.1 Melena (principal)
CPT/HCPCS: 82272; G0328

== ENCOUNTER → 2021-05-12 14:27 | Outpatient (CLI) | payer BC, SELFPAY ==
--- NOTE | 2021-05-12 14:32 | MM_ITS ---
PROCEDURE: REPEAT VIEW MM Digital Breast Tomosynthesis Included CLINICAL INDICATION: Patient return for magnification views of both breasts COMPARISON: MG MM DIG MAMM BI DX W/CAD from 03/18/2021 TECHNIQUE: Standard CC and MLO images and 3D Tomosynthesis was obtained. R2 CAD reviewed. FINDINGS: The microcalcifications in the right breast are better visualized on the Mag views appear to be benign. The somewhat linear collection of microcalcifications deep within the left breast have a somewhat indeterminate appearance with a few amorphous type microcalcs believe biopsy is indicated likely with stereotactic guidance. IMPRESSION: Focal area of microcalcifications with somewhat indeterminate appearance on Mag views and recommend BI-RAD Category: 4 Suspicious Abnormality - Biopsy Considered FOLLOW-UP: BIO Biopsy Recommended (A letter has been sent to the patient regarding results of the study.) Dictated by: Dr. Jose Juan Kaufman MD 05/20/2021 09:40 Dr. Jose Juan Kaufman MD in [place] 05/20/2021 09:40
== END ==
PROVIDERS: PCP Physician Assistant; Visit Provider Surgery
DX: R92.8 Other abnormal and inconclusive findings on diagnostic imaging of breast (principal)

== ENCOUNTER → 2021-05-20 13:03 | Outpatient (CLI) | payer BC, SELFPAY ==
[2021-05-20 13:23] LABS: Hematocrit 36.9 % (37.0-47.0)
== END ==
PROVIDERS: Visit Provider Surgery
DX: D64.9 Anemia, unspecified (principal)
CPT/HCPCS: 36415; 85014; 85018

== ENCOUNTER → 2021-06-02 10:51 | Outpatient (CLI) | payer BC, SELFPAY ==
--- NOTE | 2021-06-02 10:52 | MM_ITS ---
PROCEDURE: MM STEREOTACTIC LOC LT CLINICAL INDICATION: Suspicious calcifications left breast TECHNIQUE: The patient was given 1 mg of Xanax, Lortab 7.5 mg, and analgesia and minor sedation. Following obtaining informed consent and time-out procedure, patient was placed on the stereotactic table and the abnormality was localized in the most appropriate projection. The left breast was prepped in the routine manner, with sterile prep and the overlying skin anesthetized. A 3 to 4 mm skin incision was performed and the 9 gauge sorus vacuum-assisted core biopsy needle was advanced to the region of the calcification. Pre- and post fire images were obtained. After adequate positioning relative to the calcifications was ensured, multiple biopsies were obtained in the region of the calcifications specifically. The core biopsies obtained were sent for specimen mammography. After the calcifications were indeed identified on the specimen mammogram, the procedure was terminated. The patient tolerated the procedure well without complications. Specimen was sent for pathologic analysis . A tiny titanium nonferromagnetic MicroMark was positioned through the mammotome needle into the biopsy site. Pathology: Fibroadenomatoid change with associated microcalcifications, negative for atypia and malignancy IMPRESSION: 1. Successful stereotactic vacuum-assisted core biopsy of the breast calcifications. 2. Successful placement of a titanium metal MicroMark. 3. Pathology shows benign findings. 4. No noted complications. SPECIMEN RADIOGRAPH: The mammographically evident calcifications from the prior study are currently evident within the Gregor dish and within the specimens obtained during mammotome procedure. This is considered an adequate specimen and the procedure was terminated. IMPRESSION: Successful removal of described breast calcifications. BREAST MAMMOGRAM: Two-view mammogram demonstrates interval removal of the suspicious calcifications. Post biopsy changes are present in the deep outer aspect of the left breast with a clip present in the biopsy bed. 5. Adequate placement of the MicroMark clip postbiopsy. 6. Postbiopsy changes within the breast. 7. Recommend six-month follow-up per routine protocol. Dictated by: Franklin Montgomery MD 06/08/2021 09:44 Franklin Montgomery MD in [place] 06/08/2021 09:44
--- NOTE | 2021-06-02 10:55 | MM_ITS ---
This report is currently processing and should be available to review shortly.
--- NOTE | 2021-06-02 10:55 | MM_ITS ---
This report is currently processing and should be available to review shortly.
== END ==
PROVIDERS: PCP Physician Assistant; Visit Provider Surgery
DX: R92.1 Mammographic calcification found on diagnostic imaging of breast (principal)
CPT/HCPCS: 19081; 76098; 77065

== ENCOUNTER → 2021-06-08 10:06 | Outpatient (CLI) | payer BC, SELFPAY ==
--- NOTE | 2021-06-08 10:06 | MR_ITS ---
PROCEDURE: MR SHOULDER RT WO CON CLINICAL INDICATION: evaluate for a rotator cuff tear Limited range of motion and pain COMPARISON: CR XR SHOULDER RT MIN 2V from 04/18/2021 TECHNIQUE: Routine multiplanar multi echo sequences are performed without gadolinium enhancement. FINDINGS: There are prominent osteoarthritic changes of the acromioclavicular joint with prominent spurring and a small amount fluid in the AC joint space. There is severe subacromial stenosis anteriorly secondary to the spurring with resultant severe impingement of the proximal aspect of the supraspinatus tendon and the musculotendinous junction. There is some thickening with increased T2 signal involving the distal aspect of the supraspinatus. Definite tear however is not identified. The subscapularis, teres minor tendon, and infraspinatus tendons have an unremarkable appearance. Osteoarthritic changes are present at the glenohumeral joint with slightly high-riding humeral head. The bicipital tendon is in place. There does appear to be a tear of the anterior aspect of the glenoid labrum 2-3 o'clock position. IMPRESSION: Severe osteoarthritic changes of the acromioclavicular joint with bony hypertrophy causing impingement upon the supraspinatus musculotendinous junction. There is tendinopathy/tendinosis of the supraspinatus but no obvious tendon tear. Associated osteoarthritic changes of the glenohumeral joint. Nondisplaced tear of the anterior glenoid labrum at the 2 to 3 o'clock position Dictated by: Franklin Montgomery MD 06/08/2021 15:48 Franklin Montgomery MD in [place] 06/08/2021 15:48
== END ==
PROVIDERS: PCP Physician Assistant; Visit Provider Orthopaedic Surgery
DX: M25.511 Pain in right shoulder (principal)
CPT/HCPCS: 73221

== ENCOUNTER → 2021-06-24 12:00 | Outpatient (CLI) | payer BC, SELFPAY ==
[2021-06-24 12:41] LABS: Basophils # 0.1 K/mm3 (0-0.2); Eosinophils # 0.2 K/mm3 (0.0-0.4); Eosinophils % 2.3 % (0.1-12.0); Hematocrit 39.4 % (37.0-47.0); Hemoglobin 12.3 g/dL (12.2-16.2); Lymphocytes # 3.1 K/mm3 (0.7-4.5); Lymphocytes % 32.1 % (10-50); Mean Corpuscular HGB Conc 31.2 g/dL (31.8-35.4); Mean Corpuscular Hemoglobin 25.7 pg (27.0-31.2); Mean Corpuscular Volume 82.4 fl (81-99); Mean Platelet Volume 8.4 fl (7.4-10.4); Monocytes # 0.6 K/mm3 (0.1-1.0); Monocytes % 6.6 % (1.7-9.3); Neutrophils # 5.6 K/mm3 (1.8-7.8); Neutrophils % 58.1 % (37.0-80.0); Platelet Count 336 K/mm3 (142-424); Red Blood Count 4.78 M/mm3 (4.20-5.40); Red Cell Distribution Width 17.9 % (11.5-17.5); White Blood Count 9.7 K/mm3 (4.8-10.8)
[2021-06-24 12:51] LABS: Hemoglobin A1C 8.3 % (4.0-6.0)
[2021-06-24 12:59] LABS: Chloride 106 mmol/L (98-107)
[2021-06-24 13:00] LABS: Potassium 4.5 mmoL/L (3.5-5.1); Sodium 141 mmol/L (136-145)
[2021-06-24 13:02] LABS: Alanine Aminotransferase 59 U/L (12-78); Aspartate Amino Transferase 41 U/L (14-36); Blood Urea Nitrogen 35 mg/dl (7-17); Estimated Glomerular Filt Rate 64 ml/min (>60); GFR (African American) 78 ML/MIN (>60)
[2021-06-24 13:03] LABS: Albumin Level 4.8 g/dl (3.5-5.0); Albumin/Globulin Ratio 1.3 (1.1-1.8); Alkaline Phosphatase 147 U/L (38-126); Anion Gap 13.5 mEq/L (5-15); Bilirubin,Total 0.8 mg/dl (0.2-1.3); Calcium 10.2 mg/dl (8.4-10.2); Carbon Dioxide 26 mmol/L (22.0-30.0); Globulin 3.6 g/dL (1.3-3.2); Glucose 85 mg/dl (74-100); Total Protein,Serum 8.4 g/dl (6.3-8.2)
--- NOTE | 2021-06-24 13:08 | XR_ITS ---
PROCEDURE: XR WRIST RT MIN 3V CLINICAL INDICATION: right wrist pain/ CTS COMPARISON: CR XR WRIST LT MIN 3V from 06/24/2021 FINDINGS: No fracture or dislocation. No lytic or blastic change. There is normal mineralization. The joint spaces are well-preserved. No significant degenerative/arthritic changes. No erosive changes evident. Other findings:Mild ulnar minus variant. IMPRESSION: Mild ulnar minus variant otherwise negative wrist Dictated by: Franklin Montgomery MD 06/24/2021 14:01 Franklin Montgomery MD in [place] 06/24/2021 14:01
--- NOTE | 2021-06-24 13:08 | XR_ITS ---
PROCEDURE: XR CHEST 2V CLINICAL HISTORY: hypertension; smoker COMPARISON: CR CXR1 CHEST-PORTABLE from 05/28/2016 CR CXR2 CHEST-AP VIEW ONLY from 07/21/2017 CT CTAC CTA-CHEST from 08/02/2017 CR CXR1 CHEST-PORTABLE from 08/02/2017 CR XR SHOULDER RT MIN 2V from 04/18/2021 FINDINGS: The cardiomediastinal silhouette and pulmonary vascularity are within normal limits. The lungs are clear without infiltrates, suspicious nodules, or pleural effusions. Degenerative changes thoracic spine and right shoulder IMPRESSION: No acute findings. Dictated by: Franklin Montgomery MD 06/24/2021 13:58 Franklin Montgomery MD in [place] 06/24/2021 13:58
--- NOTE | 2021-06-24 13:08 | XR_ITS ---
PROCEDURE: XR WRIST LT MIN 3V CLINICAL INDICATION: left wrist pain COMPARISON: No exams were available for comparison FINDINGS: No fracture or dislocation. No lytic or blastic change. There is normal mineralization. The joint spaces are well-preserved. No significant degenerative/arthritic changes. No erosive changes evident. Other findings:None. IMPRESSION: No acute findings. Dictated by: Franklin Montgomery MD 06/24/2021 13:55 Franklin Montgomery MD in [place] 06/24/2021 13:55
== END ==
PROVIDERS: Orthopaedic Surgery; Visit Provider Surgery
DX: Z01.818 Encounter for other preprocedural examination (principal); M25.532 Pain in left wrist
CPT/HCPCS: 36415; 71046; 73110; 80053; 83036; 85025

== ENCOUNTER → 2021-06-30 09:30 | Outpatient (CLI) | payer BC, SELFPAY | PROVIDERS: Visit Provider Orthopaedic Surgery | DX: Z01.812 Encounter for preprocedural laboratory examination (principal); Z11.52 Encounter for screening for COVID-19; G56.01 Carpal tunnel syndrome, right upper limb | CPT/HCPCS: U0003 ==

== ENCOUNTER 2021-07-02 07:54 | Day surgery (SDC) | payer BC, SELFPAY ==
[2021-06-29 16:55] VITALS: BMI 42.7
[2021-07-02 09:20] VITALS: BP 114/62; PULSE 68; RESP 20; TEMP 36.1; O2SAT 97
--- NOTE | 2021-07-02 09:30 | HMH.ANESCL ---
[facility] Anesthesia Checklist - Patient Identification Patient Identification: Arm Band - Structural Data Admitted From: Home Planned Operative Procedure/s: Carpal tunnel release Consent for Planned Operative Procedure(s) Verified: Yes - NPO Status Verified Time NPO: 00:00 - Additional verifications Anesthesia Reactions: No Hx Blood Transfusions: No Blood Transfusion Reaction: No - Airway Assessment C-Spine Mobility Assessed: Yes TMJ Mobility Assessed: Yes - Neurological Assessment Level of Consciousness: Awake Hx Seizures: No Numbness or tingling in extremities: No - Anesthesia Plan Anesthesia Risk discussed: Yes Anesthesia Plan: Verified ASA Class: III Anesthesia Type: Local & MAC [facility] History I have reviewed the patient's past medical history: Yes Medical History: Reports:: Anxiety, Depression, Diabetes Mellitus Type 2, Gastroesophageal Reflux Disease(GERD), Hypertension, Renal Disease, Transient Ischemic Attacks (TIA), Urinary Tract Infection Denies:: Cancer, Diabetes Mellitus Type 1, Internal Pacemaker, MRSA, Seizures *Have you ever received a pneumonia vaccine?: No *Have you received a flu vaccine this season?: No Other Medical History: Reports: Arthritis, Hypothyroidism, Other. Denies: Blood Transfusion Reaction Anesthesia experience/problems:: None Laterality Cases: Left: Breast Biopsy, Right: Carpal Tunnel Release Other Surgeries: Yes: Cardiac Catheterization, Colonoscopy, Dilation and Curettage, EGD, Hysterectomy-Partial, Tubal Ligation. No: Pacemaker Amputation: No Fractures: No - *Social History Last grade of school completed: Advanced degree Smoking Status: Current every day smoker Tobacco Type: cigarettes # Packs/Day (cigarettes): 1 Alcohol Intake: never Substance Use Type: denies use *Occupational Status:: unemployed Housing: house Household Members: spouse *Travel in the last 8 weeks: None - Psychiatric History Pschychiatric History:: Reports:: Anxiety, Depression Family Hx:: Diabetes
[2021-07-02 09:32] LABS: POC Glucose,Bedside 106 (70-110)
[2021-07-02 12:10] VITALS: BP 113/69; PULSE 85; RESP 18; TEMP 36.1; O2SAT 92
[2021-07-02 12:20] VITALS: BP 104/73; PULSE 57; RESP 18; O2SAT 95
[2021-07-02 12:37] VITALS: BP 107/65; PULSE 61; RESP 18; O2SAT 95
[2021-07-02 12:50] VITALS: BP 111/60; PULSE 60; RESP 18; O2SAT 96
--- NOTE | 2021-07-02 12:53 | SUR.PHASEII ---
DR. MARS SAID FOR PT TO USE TYLENOL AND IBUPROFEN FOR PAIN AT HOME SINCE HAS ALLERGY TO [place]CO.
--- NOTE | 2021-07-02 20:22 | HMH.OPNOTE ---
Date of procedure: 07/02/21 Pre-op Diagnosis:: Recurrent carpal tunnel syndrome, right wrist Post-op Diagnosis:: Same Procedure performed:: Revision open carpal tunnel release, right wrist Surgeon:: Desmond Hay MD SERVICE OBSERVER CHIEF:: Liam Goodman Anesthesia: MAC, local (20 mL of 0.5% Marcaine with epinephrine) Estimated blood loss (mL): 2 Clinical Note:: Patient is a 61-year-old female with recurrent right carpal tunnel syndrome with long-standing symptoms. EMG/NCV studies confirmed moderate carpal tunnel syndrome on the right side. Patient failed to respond adequately to conservative management. Therefore, a revision carpal tunnel release surgery is necessary to relieve symptoms, preserve the remaining fibers of the median nerve, improve function and decrease the pain, paresthesias and weakness and to prevent permanent nerve damage. Operative findings:: The intraoperative findings showed a lot of scarring from the previous surgery. The median nerve was seen to be very tightly compressed and hyperemic. Adhesions and synovitis noted in the carpal tunnel. The flexor retinaculum was noted to be thick and tight. There were no space-occupying lesions within the carpal tunnel. Operative note:: On the day of the surgery the patient was met in the preoperative area. Patient was positively identified and the operative site was marked and initialed by me. A physical examination was performed and the chart was updated. I have again discussed the procedure, risks and benefits and alternatives with the patient. The complications discussed include but are not limited to- bleeding, injury to nerves, blood vessels and tendons, infection, wound dehiscence, incomplete relief/continued pain, persistent numbness, palmar hypersensitivity, pillar pain, DVT/PE, complex regional pain syndrome(CRPS), worsening of nerve damage, failure of the condition to improve, incomplete return of function, bowstringing of tendons, weakness of executive community planning strength, recurrence, failure of the surgery to accomplish the desired goals, decreased use of the hand, loss of use of the arm, loss of the hand or arm, loss of life. Likely need for further surgery in the future has been discussed. I have told her that I will be making a separate and longer incision crossing the wrist crease at an angle and have indicated to the patient where the proposed incision would be made and also discussed the possibility of extending the incision if needed to accomplish an effective release. We have discussed how the goal of surgery is to protect the fibers which have remained healthy and hopefully reverse the symptoms of the fibers which are compromised but still recoverable. We have explained that, fibers that are permanently damaged will not recover. Patient asked appropriate questions and all have been answered by me. Patient understood the risks, agreed to proceed with surgery and no guarantees or assurances were given or implied. The patient was brought to the operating room and placed supine on the operating table. The right upper extremity was placed over a side table. All the bony prominences were well-padded. The patient had a MAC anesthesia administered by the mergers and acquisitions banker. A well-padded tourniquet cuff was placed over the upper arm. The right upper extremity was prepped and draped in the usual sterile fashion. A preprocedure timeout was performed as per hospital policy. Administration of prophylactic antibiotics was confirmed with the mergers and acquisitions banker. The Cosby's landmarks and previous skin incision was marked on the skin with a marker pen. I then marked the proposed new incision more ulnar to the previous scar and extending into the forearm crossing the distal wrist crease at an angle. Local anesthesia was obtained by infiltrating 20 cc of 0.5% Marcaine with epinephrine into the soft tissue along the line of the proposed incision. The limb was exsanguinated with the Esmarch bandage and tourniquet was inflated to [address]
== END 2021-07-02 12:59 | disposition home or self-care (01) ==
PROVIDERS: PCP Physician Assistant; Visit Provider Orthopaedic Surgery
PROC: (CPT 64721; principal; 2021-07-02 09:45)
DX: G56.01 Carpal tunnel syndrome, right upper limb (principal); E11.9 Type 2 diabetes mellitus without complications; Z79.84 Long term (current) use of oral hypoglycemic drugs
CPT/HCPCS: 64721; 82962; 96374; 96375

== ENCOUNTER 2021-07-22 15:30 | Outpatient (RCR) | payer BC, SELFPAY ==
--- NOTE | 2021-05-06 14:36 | HMH.OTOPEV ---
OT Inpatient Evaluation Rehab OT Outpatient Eval Start: 05/06/21 14:23 Freq: Status: Active Protocol: Document 05/06/21 14:24 RMDARIA (Rec: 05/06/21 14:36 [id number] Electronically Signed By Eron Galdamez OT 05/06/21 14:24 Outpatient Therapy Subjective History Subjective History Pt is a 61 year old female who reprots to therapy for initial evaluation to right shoulder. Pt explains 3 years ago she fell at work injuring the right shoulder. The shoulder did heal overtime. However, within the past three weeks she has started having severe pain at right shoulder. She does not recall a specific injury causing the pain. She had so much pain, she went to ER on 04/18/21 to seek medical attention. At the ER, x-rays were taken that showed right sided AC joint degeneration. Pt was given steroids and sling. Pt has been wearing sling off and on. Pt reports her pain has improved some, but is still there daily. Pt does demonstrate with decreased AROM and strength at right shoulder; right side is dominant side. Therapist will see patient twice a week in order to address deficits. Chief Complaint Pain,Stiff,Weakness Symptom Type Ache,Throb,Sharp,Dull Symptoms Relieved By Nothing Symptoms Aggravated By Physical Activity,Lifting Prior Functional Limitations None Current Functional Limitations Reaching,Lifting,Housework, Sleeping,Recreation Activity Symptom Description Intermittent,Activity Dependent Level of pain today (0-10) 4 Pain scale - at its best (0-10) 1 Pain scale - at its worst (0-10) 10 Shoulder/Elbow Eval Shoulder Objective Measurements Shoulder ROM Right Shoulder Abduction Active Range of 95 degrees Motion (degrees) Shoulder Flexion Active Range of Motion 105 degrees (degrees) Query Text: Shoulder External Rotation Active Range 55 degrees of Motion (degrees)
--- NOTE | 2021-06-08 09:36 | HMH.RHREAS ---
Rehab Reassessment Rehab OP Re-assessment Start: 06/08/21 08:52 Freq: Status: Active Protocol: Document 06/08/21 08:52 RMMARIANNL (Rec: 06/08/21 09:36 RMARSHALL [id number]) Electronically Signed By Eron Galdamez OT 06/08/21 08:52 Rehab Re-assessment Subjective Subjective I see some improvements, but not a lot. Objective Objective Notes Pt continues to be seen twice a week in order to address right shoulder deficits. Each session, pt engages in AROM, AAROM, and strengthening exercises at right shoulder. Pt also receives modalities in order to assist with decreasing pain/inflammation. Assessment Progress Assessment Progressing as Expected Assessment Notes Pt does demonstrate some improvement with AROM at right shoulder since initial evaluation. However, pt continues to complain of significant pain causing interruption to ADLs and IADLs . Pt has had other health concerns lately. She had a left breast biopsy last Tuesday, which only allowed her to attend one therapy session last week. She did go see ortho on 06/03/21 for further evaluation to right shoulder. Doctor scheduled a MRI for right shoulder today following therapy appointment. Pt is supposed to be contacted by ortho with results from MRI. Pt still reports pain at a 8/10 at worst during functional activities. She complains of difficutly with reaching overhead in cabinets while cooking, dressing/putting on a bra, heavier home task such as laundry and vacumming ( reaching down into washer). Current AROM R shoulder Flex: 118 degrees Abd: 95 degrees ER: 70 degrees
== END 2021-07-22 15:35 | disposition home or self-care (01) ==
LOC: OT 15:30
PROVIDERS: PCP Physician Assistant; Visit Provider Physician Assistant
DX: M25.511 Pain in right shoulder (principal)
CPT/HCPCS: 97014; 97033; 97110; 97140; 97164; 97166; 97530; G0283

== ENCOUNTER → 2021-08-14 09:26 | Outpatient (CLI) | payer BC, SELFPAY | PROVIDERS: PCP Physician Assistant; Visit Provider Nurse Practitioner | DX: Z20.822 Contact with and (suspected) exposure to COVID-19 (principal) | CPT/HCPCS: C9803; U0003; U0005 ==

== ENCOUNTER → 2021-09-02 11:18 | Outpatient (CLI) | payer BC, SELFPAY ==
[2021-09-02 12:54] LABS: Blood Urea Nitrogen 18 mg/dl (7-17); Estimated Glomerular Filt Rate 86 ml/min (>60); GFR (African American) 104 ML/MIN (>60)
== END ==
PROVIDERS: Visit Provider Surgery
DX: Z01.818 Encounter for other preprocedural examination (principal)
CPT/HCPCS: 36415; 82565; 84520

== ENCOUNTER → 2021-09-03 08:47 | Outpatient (CLI) | payer BC, SELFPAY ==
--- NOTE | 2021-09-03 08:47 | CT_ITS ---
PROCEDURE INFORMATION: Exam: CT Abdomen And Pelvis With Contrast; Pancreas Exam date and time: 09/03/2021 8:47 AM Age: 61 years old Clinical indication: Other: Prominent pancreas; Additional info: Pancreatic protocol TECHNIQUE: Imaging protocol: Computed tomography of the abdomen and pelvis with intravenous contrast. Exam focused on the pancreas. Radiation optimization: All CT scans at this facility use at least one of these dose optimization techniques: automated exposure control; mA and/or kV adjustment per patient size (includes targeted exams where dose is matched to clinical indication); or iterative reconstruction. Contrast material: ISOVUE; Contrast volume: 75 ml; Contrast route: IV; COMPARISON: CT ABDOMEN W CON 03/18/2021 9:45 AM FINDINGS: Lungs: Atelectasis in the right lower lobe Liver: Normal. No mass. Gallbladder and bile ducts: Normal. No calcified stones. No ductal dilation. Pancreas: No mass in the pancreas. Spleen: Normal. No splenomegaly. Adrenals: Normal. No mass. Kidneys and ureters: Normal. No hydronephrosis. Stomach and bowel: Diverticulosis of the rectosigmoid. No alex diverticulitis. Appendix: Normal appendix Intraperitoneal space: Unremarkable. No free air. No significant fluid collection. Lymph nodes: Unremarkable. No enlarged lymph nodes. Vasculature: Unremarkable. No abdominal aortic aneurysm. Bladder: Unremarkable. Reproductive: Surgical resection of the uterus Bones/joints: Unremarkable. No acute fracture. No dislocation. Soft tissues: Unremarkable. IMPRESSION: No mass in the pancreas.
== END ==
PROVIDERS: PCP Physician Assistant; Visit Provider Surgery
DX: R92.1 Mammographic calcification found on diagnostic imaging of breast (principal); R93.5 Abnormal findings on diagnostic imaging of other abdominal regions, including retroperitoneum
CPT/HCPCS: 74177; Q9967

== ENCOUNTER → 2021-09-11 10:48 | Outpatient (CLI) | payer BC, SELFPAY ==
--- NOTE | 2021-09-11 10:49 | CA_ITS ---
APPROVED REPORT Supervisor Capacitor Processing: GERI Laterality: Bilateral Study Quality: Good Indications: dizziness Doppler Spectral Velocity Analysis dICA (R) 91.10/32.70 cm/s dICA (L) 63.80/21.80 cm/s Toña (R) 78.30/27.40 cm/s Toña (L) 79.40/29.60 cm/s pICA (R) 111.90/24.90 cm/s pICA (L) 43.30/12.70 cm/s dCCA (R) 90.10/23.60 cm/s dCCA (L) 96.80/22.70 cm/s pCCA (R) 70.50/19.10 cm/s pCCA (L) 80.10/20.30 cm/s Vert (R) 57.80/20.30 cm/s Vert (L) 68.20/20.80 cm/s ICA/CCA 1.20 ICA/CCA 0.80 Findings The right carotid arterial system appeared to be normal without stenosis of the bulb or internal carotid artery. The left carotid arterial system appeared to be normal without stenosis of the bulb or internal carotid artery. Antegrade flow seen bilateral vertebral arteries. Conclusion The right carotid arterial system appeared to be normal without stenosis of the bulb or internal carotid artery. The left carotid arterial system appeared to be normal without stenosis of the bulb or internal carotid artery. Antegrade flow seen bilateral vertebral arteries. Electronically signed by : Franklin Montgomery MD 09/11/2021 15:45:21
== END ==
PROVIDERS: PCP Physician Assistant; Visit Provider Urology
DX: R42 Dizziness and giddiness (principal)
CPT/HCPCS: 93880

== ENCOUNTER 2021-09-18 15:30 | Outpatient (RCR) | payer BC, SELFPAY ==
--- NOTE | 2021-07-22 15:48 | HMH.OTOPEV ---
OT Inpatient Evaluation Rehab OT Outpatient Eval Start: 07/22/21 15:36 Freq: Status: Active Protocol: Document 07/22/21 15:36 RMARSHALL (Rec: 07/22/21 15:[id number] Electronically Signed By Eron Galdamez OT 07/22/21 15:36 Outpatient Therapy Subjective History Subjective History Pt is a 61 year old female who reports to therapy for initial evaluation to right wrist. Pt is s/p CTR and DOS was 07/02/21. Pt has a 4 and 1/ 2 cm incision on the anterior aspect of wrist/palm of hand. Pt is right hand dominant. Pt just had stitches removed this week. Pt does have a small opening at the bottom aspect of the incision. At this time the opening looks healthy and does not have any draining fluids. Therapist placed a steristrip over this area to assist with healing. Pt does demonstrate with significant decline in AROM and strength at wrist. She is able to make a full fist, but she does have obvious swelling in the fingers. Pt c /o constant pain and continued numbness of hand. Pt will continue to be seen twice a week in order to address all deficits. Chief Complaint Pain,Stiff,Weakness,Decreased Mattress Finisher Strength,Decreased Coordination Symptom Type Ache,Throb,Sharp,Dull Symptoms Relieved By Rest/Positioning,Ice Symptoms Aggravated By Physical Activity,Lifting Prior Functional Limitations None Current Functional Limitations Reaching,Lifting,Housework, Dressing,Desk Work/Reading, Sleeping,Recreation Activity Symptom Description Constant but Variable Level of pain today (0-10) 8 Pain scale - at its best (0-10) 6 Pain scale - at its worst (0-10) 10 Wrist/Hand Eval Wrist Range of Motion Right Wrist Extension Active Range of Motion ( 20 degrees) Wrist Flexion Active Range of Motion ( 35 degrees) Wrist Radial Deviation Active Range of 10 Motion (degrees) W
--- NOTE | 2021-08-21 16:09 | HMH.RHREAS ---
Rehab Reassessment Rehab OP Re-assessment Start: 08/21/21 14:50 Freq: Status: Active Protocol: Document 08/21/21 14:50 JONATHAN (Rec: 08/21/21 16:09 RMMARIANNL [id number]) Electronically Signed By Eron Parker OT 08/21/21 14:50 Rehab Re-assessment Subjective Subjective I am still having pain. Objective Objective Notes Pt continues to be seen twice a week in order to address all deficits at right wrist. Each session, pt received scar massage and PROM manual stretching to right wrist in all directions. AROM/ strengthening exercises have been initiated at right wrist. Modalities are provided in order to decrease pain/ inflammation. Assessment Progress Assessment Progressing as Expected Assessment Notes Pt demonstrates improvement in both AROM and strength in right wrist since starting therapy after surgery. Pt continues to report pain in the wrist and numbness in her fingers. However, she does feel these symptoms have improved slightly. Pt reports her pain is a 4/10 at worst now (improved). Pt goes back to her surgeon on the for re-evaluation of the right wrist. She plans to have her L hand operated on in September for CTS as well. Current AROM and strength: Flex: 54 degrees; 3 Ext: 50 degrees; 3- RD: 18 degrees; 3- UD: 18 degrees; 3- Patient goals met ST-5 Goals Not Met See below Revised Goals LT-5 Plan Plan Continue with OT plan of care at this time. Frequency of Therapy 2x's Duration of therapy 4 more weeks Time and Billing Re-Eval Time 10 Re-Eval Billing Units 1 PHYSICIAN CERTIFICATION: I certify the specified therapy services for Apryl Serrnao are required, authorized, and reviewed every 30 days.
--- NOTE | 2021-09-16 16:31 | HMH.RHREAS ---
Rehab Reassessment Rehab OP Re-assessment Start: 08/21/21 14:50 Freq: Status: Active Protocol: Document 09/16/21 16:23 RMARSHALL (Rec: 09/16/21 16:30 RMARSHALL [id number]) Electronically Signed By Eron Parker OT 09/16/21 16:23 Rehab Re-assessment Subjective Subjective I'm still having pain. Objective Objective Notes Pt continues to be seen twice a week in order to address all deficits at right wrist. Each session, pt receives scar massage and PROM manual stretching to right wrist in all directions. AROM/ strengthening exercises are also completed. Modalities are provided in order to decrease pain/inflammation. Assessment Progress Assessment Progressing as Expected Assessment Notes Pt demonstrates improvement in both AROM and strength in right wrist since last re- assessment. Pt continues to report pain in the wrist and numbness in her fingers. She reports frustration with this. Most of her pain is right over the scar on the anterior wrist. Pt reports her pain is a 7/10 at worst now, which is an increase from last re- assessment. Pt goes back to her surgeon on the 09/22 for re-evaluation. She is planning on having a CTR at L wrist on 10/01/21 Current AROM and strength: Flex: 70 degrees; 4- Ext: 55 degrees; 4- RD: 24 degrees;4- UD: 26 degrees; 4- Patient goals met LT, 3, and 5 ST-5 Goals Not Met See below Revised Goals LT and 4 Strength at right wrist: 4/5 throughout Plan Plan Continue with OT plan of care at this time. Frequency of Therapy 2x's Duration of therapy 4 more weeks Time and Billing Re-Eval Time 10 Re-Eval Billing Units 1
== END 2021-09-18 15:35 | disposition home or self-care (01) ==
LOC: OT 15:30
PROVIDERS: PCP Physician Assistant; Visit Provider Orthopaedic Surgery
DX: G56.01 Carpal tunnel syndrome, right upper limb (principal)
CPT/HCPCS: 97010; 97014; 97035; 97110; 97140; 97164; 97166; G0283

== ENCOUNTER → 2021-09-22 16:29 | Outpatient (CLI) | payer BC, SELFPAY ==
[2021-09-22 16:56] LABS: Basophils # 0.1 K/mm3 (0-0.2); Basophils % 0.9 % (0.1-2.0); Eosinophils # 0.9 K/mm3 (0.0-0.4); Eosinophils % 8.3 % (0.1-12.0); Hematocrit 36.3 % (37.0-47.0); Hemoglobin 11.4 g/dL (12.2-16.2); Lymphocytes # 2.8 K/mm3 (0.7-4.5); Lymphocytes % 25.5 % (10-50); Mean Corpuscular HGB Conc 31.5 g/dL (31.8-35.4); Mean Corpuscular Hemoglobin 27.2 pg (27.0-31.2); Mean Corpuscular Volume 86.4 fl (81-99); Mean Platelet Volume 8.6 fl (7.4-10.4); Monocytes # 0.4 K/mm3 (0.1-1.0); Monocytes % 3.9 % (1.7-9.3); Neutrophils # 6.6 K/mm3 (1.8-7.8); Neutrophils % 61.4 % (37.0-80.0); Platelet Count 351 K/mm3 (142-424); Red Cell Distribution Width 18.4 % (11.5-17.5); White Blood Count 10.8 K/mm3 (4.8-10.8)
[2021-09-22 17:21] LABS: Chloride 104 mmol/L (98-107)
[2021-09-22 17:22] LABS: Potassium 4.4 mmoL/L (3.5-5.1); Sodium 142 mmol/L (136-145)
[2021-09-22 17:23] LABS: Hemoglobin A1C 10.7 % (4.0-6.0)
[2021-09-22 17:24] LABS: Alanine Aminotransferase 18 U/L (12-78); Alkaline Phosphatase 143 U/L (38-126); Anion Gap 16.4 mEq/L (5-15); Aspartate Amino Transferase 26 U/L (14-36); Bilirubin,Total 0.2 mg/dl (0.2-1.3); Blood Urea Nitrogen 17 mg/dl (7-17); Carbon Dioxide 26 mmol/L (22.0-30.0); Estimated Glomerular Filt Rate 46 ml/min (>60); GFR (African American) 56 ML/MIN (>60)
[2021-09-22 17:25] LABS: Albumin Level 4.1 g/dl (3.5-5.0); Albumin/Globulin Ratio 1.2 (1.1-1.8); Calcium 10.1 mg/dl (8.4-10.2); Globulin 3.4 g/dL (1.3-3.2); Glucose 92 mg/dl (74-100); Total Protein,Serum 7.5 g/dl (6.3-8.2)
== END ==
PROVIDERS: Visit Provider Orthopaedic Surgery
DX: Z01.818 Encounter for other preprocedural examination (principal)
CPT/HCPCS: 36415; 80053; 83036; 85025

== ENCOUNTER → 2021-09-29 12:18 | Outpatient (CLI) | payer BC, SELFPAY ==
[2021-09-29 16:05] LABS: Hemoglobin A1C 6.6 % (4.0-6.0)
== END ==
PROVIDERS: Physician Assistant; Visit Provider Orthopaedic Surgery
DX: Z01.818 Encounter for other preprocedural examination (principal); Z11.52 Encounter for screening for COVID-19; E11.9 Type 2 diabetes mellitus without complications; Z79.84 Long term (current) use of oral hypoglycemic drugs
CPT/HCPCS: 83036; C9803; U0003; U0005

== ENCOUNTER 2021-10-01 07:27 | Day surgery (SDC) | payer BC, SELFPAY ==
[2021-09-23 10:52] VITALS: BMI 42.7
--- NOTE | 2021-10-01 07:12 | P.PN_ITS ---
[facility] Anesthesia Checklist - Patient Identification Patient Identification: Arm Band - Structural Data Admitted From: Home Planned Operative Procedure/s: Carpal tunnel release Consent for Planned Operative Procedure(s) Verified: Yes - NPO Status Verified Time NPO: 00:00 - Additional verifications Anesthesia Reactions: No Hx Blood Transfusions: No Blood Transfusion Reaction: No - Airway Assessment C-Spine Mobility Assessed: Yes TMJ Mobility Assessed: Yes - Neurological Assessment Level of Consciousness: Awake Hx Seizures: No Numbness or tingling in extremities: No - Anesthesia Plan Anesthesia Risk discussed: Yes Anesthesia Plan: Verified ASA Class: III Anesthesia Type: MAC w/Block [facility] History I have reviewed the patient's past medical history: Yes Medical History: Reports:: Anxiety, Depression, Diabetes Mellitus Type 2, Gastroesophageal Reflux Disease(GERD), Hypertension, Renal Disease, Transient Ischemic Attacks (TIA), Urinary Tract Infection Denies:: Cancer, Diabetes Mellitus Type 1, Internal Pacemaker, MRSA, Seizures *Have you ever received a pneumonia vaccine?: No *Have you received a flu vaccine this season?: Yes Other Medical History: Reports: Arthritis, Hypothyroidism, Other. Denies: Blood Transfusion Reaction Anesthesia experience/problems:: None Laterality Cases: Left: Breast Biopsy, Right: Carpal Tunnel Release Other Surgeries: Yes: Cardiac Catheterization, Colonoscopy, Dilation and Curetta ge, EGD, Hysterectomy-Partial, Tubal Ligation. No: Pacemaker Amputation: No Fractures: No - *Social History Last grade of school completed: Advanced degree Smoking Status: Current every day smoker Tobacco Type: cigarettes # Packs/Day (cigarettes): 1 Alcohol Intake: never Substance Use Type: denies use *Occupational Status:: unemployed Housing: house Household Members: spouse *Travel in the last 8 weeks: None - Psychiatric History Pschychiatric History:: Reports:: Anxiety, Depression Family Hx:: Diabetes
[2021-10-01 07:41] VITALS: BP 147/91; PULSE 77; RESP 18; TEMP 36.2; O2SAT 95
--- NOTE | 2021-10-01 08:34 | HMH.ANESCL ---
[facility] Anesthesia Checklist - Patient Identification Patient Identification: Arm Band - Structural Data Admitted From: Home Planned Operative Procedure/s: Left CTR Consent for Planned Operative Procedure(s) Verified: Yes Verified Documents: Surgical Consent, History and Physical - NPO Status Verified Time NPO: 00:00 - Additional verifications Anesthesia Reactions: No Hx Blood Transfusions: No Blood Transfusion Reaction: No - Airway Assessment C-Spine Mobility Assessed: Yes (mp2) TMJ Mobility Assessed: Yes Dentition: Good Dentition - Neurological Assessment Level of Consciousness: Awake, Alert - Anesthesia Plan Anesthesia Risk discussed: Yes Anesthesia Plan: Verified ASA Class: III Anesthesia Type: Local & MAC [facility] History I have reviewed the patient's past medical history: Yes Medical History: Reports:: Anxiety, Depression, Diabetes Mellitus Type 2, Gastroesophageal Reflux Disease(GERD), Hypertension, Renal Disease, Transient Ischemic Attacks (TIA), Urinary Tract Infection Denies:: Cancer, Diabetes Mellitus Type 1, Internal Pacemaker, MRSA, Seizures *Have you ever received a pneumonia vaccine?: No *Have you received a flu vaccine this season?: Yes Other Medical History: Reports: Arthritis, Hypothyroidism, Other. Denies: Blood Transfusion Reaction Anesthesia experience/problems:: nac Laterality Cases: Left: Breast Biopsy, Right: Carpal Tunnel Release Other Surgeries: Yes: Cardiac Catheterization, Colonoscopy, Dilation and Curettage, EGD, Hysterectomy-Partial, Tubal Ligation. No: Pacemaker Amputation: No Fractures: No - *Social History Last grade of school completed: Advanced degree Smoking Status: Current every day smoker Tobacco Type: cigarettes # Packs/Day (cigarettes): 1 Alcohol Intake: never Substance Use Type: denies use *Occupational Status:: unemployed Housing: house Household Members: spouse *Travel in the last 8 weeks: None - Psychiatric History Pschychiatric History:: Reports:: Anxiety, Depression Family Hx:: Diabetes
[2021-10-01 10:05] VITALS: TEMP 38
[2021-10-01 10:23] VITALS: BP 93/48; PULSE 95; RESP 16; TEMP 36.3; O2SAT 89
[2021-10-01 10:38] VITALS: BP 105/59; PULSE 64; RESP 16; O2SAT 95
[2021-10-01 10:53] VITALS: BP 103/56; PULSE 61; RESP 16; O2SAT 96
[2021-10-01 11:23] VITALS: BP 110/66; PULSE 56; RESP 16; TEMP 36.3; O2SAT 98
--- NOTE | 2021-10-01 22:39 | HMH.OPNOTE ---
Date of procedure: 10/01/21 Pre-op Diagnosis:: Carpal tunnel syndrome, left Post-op Diagnosis:: Same Procedure performed:: Open carpal tunnel release, left wrist Surgeon:: Desmond Hay MD Manager Multimedia(s):: Michelle Wolf PA-C NEONATAL NURSE:: José Miguel Borges Anesthesia: LMA Estimated blood loss (mL): 2 Clinical Note:: Patient is a 61-year-old female with left carpal tunnel syndrome with long-standing symptoms. The clinical findings are consistent with the diagnosis of carpal tunnel syndrome. EMG/NCV studies confirmed moderate carpal tunnel syndrome on the LEFT side. Patient failed to respond adequately to conservative management. Therefore, carpal tunnel release surgery is necessary to relieve symptoms, preserve the remaining fibers of the median nerve, improve function and decrease the pain, paresthesias and weakness and to prevent permanent nerve damage. Patient had a revision carpal tunnel surgery on the right side couple of months ago. Please refer to my office note for full details. Operative findings:: The intraoperative findings showed the median nerve to be very tightly compressed and hyperemic. The flexor retinaculum was noted to be thick and tight. There was mild synovitis in the carpal tunnel. There was no evidence of any space-occupying lesions within the carpal tunnel. Operative note:: On the day of the surgery the patient was met in the preoperative area. Patient was positively identified and the operative site was marked and initialed by me. A physical examination was performed and the chart was updated. I have again discussed the procedure, risks, benefits and alternatives with the patient. The complications discussed include but are not limited to- bleeding, injury to nerves, blood vessels and tendons, infection, wound dehiscence, incomplete relief/continued pain, persistent numbness, palmar hypersensitivity, pillar pain, DVT/PE, complex regional pain syndrome(CRPS), worsening of nerve damage, failure of the condition to improve, incomplete return of function, bowstringing of tendons, weakness of wildlife biologist strength, recurrence, failure of the surgery to accomplish the desired goals, decreased use of the hand, loss of use of the arm, loss of the hand or arm, loss of life. Likely need for further surgery in the future has been discussed. I've indicated to the patient where the proposed incision would be made and also discussed the possibility of extending the incision if needed to accomplish an effective release. We have discussed how the goal of surgery is to protect the fibers which have remained healthy and hopefully reverse the symptoms of the fibers which are compromised but still recoverable. We have explained that, fibers that are permanently damaged will not recover. Patient asked appropriate questions and all have been answered by me. Patient wished to proceed with the surgery. Patient understood the risks, agreed to proceed with surgery and no guarantees or assurances were given or implied. The patient was brought to the operating room and placed supine on the operating table. The left upper extremity was placed over a side table. All the bony prominences were well-padded. The patient had a general anesthesia administered by the social work msw. A well-padded tourniquet cuff was placed over the upper arm. The left upper extremity was prepped and draped in the usual sterile fashion. A preprocedure timeout was performed as per hospital policy. Administration of prophylactic antibiotics was confirmed with the social work msw. The skin incision was marked using the Cosby's landmarks, just ulnar to the thenar crease. The limb was exsanguinated with the Esmarch bandage and tourniquet was inflated to 250 mmHg. Please see nursing records for the total tourniquet time. Cosby's landmarks were utilized and a skin incision was made parallel and just ulnar to the thenar crease with a 15 blade. Blunt tissue dissection was carried through the subcutaneous tissue down
[2022-08-26 10:54] LABS: POC Glucose,Bedside 138 (70-110)
== END 2021-10-01 11:25 | disposition home or self-care (01) ==
LOC: OR 07:28
PROVIDERS: PCP Physician Assistant; Visit Provider Orthopaedic Surgery
PROC: (CPT 64721; principal; 2021-10-01 09:00)
DX: G56.02 Carpal tunnel syndrome, left upper limb (principal)
CPT/HCPCS: 64721; 82962; 96374; J0131; J2405; J2704

== ENCOUNTER → 2021-12-22 11:53 | Outpatient (CLI) | payer BC, SELFPAY | PROVIDERS: PCP Physician Assistant; Visit Provider Nurse Practitioner | DX: Z20.822 Contact with and (suspected) exposure to COVID-19 (principal) | CPT/HCPCS: C9803; U0003; U0005 ==

== ENCOUNTER → 2022-01-18 13:41 | Outpatient (CLI) | payer BC, SELFPAY ==
--- NOTE | 2022-01-18 13:42 | US_ITS ---
PROCEDURE INFORMATION: Exam: US Right Breast, Complete US Left Breast, Complete MG Bilateral Diagnostic Breast Tomosynthesis Exam date and time: 01/18/2022 1:42 PM Age: 61 years old Clinical indication: Short-term follow-up for right breast calcifications TECHNIQUE: Imaging protocol: Complete ultrasound of all four quadrants of the Right breast and the retroareolar regions, including ultrasound of the axilla when performed. Complete ultrasound of all four quadrants of the Left breast and the retroareolar regions, including ultrasound of the axilla when performed. Bilateral Diagnostic tomosynthesis and 2D mammography including computer-aided detection (CAD) when performed. Unilateral or bilateral exam. COMPARISON: 1. MG MM CLIP PLACEMENT LT 06/02/2021 11:17 AM 2. MG REPEAT VIEW MM 05/12/2021 2:32 PM FINDINGS: MAMMOGRAPHY: The breast tissue is almost entirely fatty. There is no stellate mass or architectural distortion in either breast to suggest malignancy. 2 groups of punctate calcifications in the middle to posterior third of the right approximate 9 o'clock axis are approximately 2.8 cm apart and are stable compared to prior mammogram. No skin thickening or axillary adenopathy. ULTRASOUND: Sonographic images of both breasts including the retroareolar regions, all 4 quadrants and the axilla do not demonstrate any solid or cystic masses. No architectural distortion or acoustical shadowing. No skin thickening or axillary adenopathy. IMPRESSION: Stable calcifications in the right lateral breast compared to prior mammogram dated 03/18/2021. A six-month follow-up diagnostic right mammogram with magnification views are recommended for continued close surveillance unless otherwise clinically indicated.. ASSESSMENT: BI-RADS Category 3: Probably benign
== END ==
LOC: RAD 13:42
PROVIDERS: PCP Physician Assistant; Visit Provider Surgery
DX: R92.1 Mammographic calcification found on diagnostic imaging of breast (principal)
CPT/HCPCS: 76641; 77062; 77066; G0279

== ENCOUNTER 2022-02-03 18:10 | Emergency (ER) | payer BC, SELFPAY ==
[2022-02-03 19:38] VITALS: BP 149/91; PULSE 91; RESP 19; TEMP 36.8; O2SAT 95; BMI 36.9
[2022-02-03 19:51] LABS: Adenovirus,PCR Not Detected (NotDetected); Bordetella Pertussis Not Detected (NotDetected); Chlamydophila Pneumoniae, PCR Not Detected (NotDetected); Coronavirus 19, PCR Not Detected (NotDetected); Coronavirus 229E Not Detected (NotDetected); Coronavirus NL63 Not Detected (NotDetected); Coronavirus OC43 Not Detected (NotDetected); Coronovirus HKU1,PCR Not Detected (NotDetected); Human Metapneumovirus Not Detected (NotDetected); Influenza A, PCR Not Detected (NotDetected); Influenza AH1, 2009 Not Detected (NotDetected); Influenza AH1, PCR Not Detected (NotDetected); Influenza AH3,PCR Not Detected (NotDetected); Influenza B, PCR Not Detected (NotDetected); Mycoplasma Pneumoniae, PCR Not Detected (NotDetected); Parainfluenza 1, PCR Not Detected (NotDetected); Parainfluenza 2, PCR Not Detected (NotDetected); Parainfluenza 3, PCR Not Detected (NotDetected); Parainfluenza 4, PCR Not Detected (NotDetected); Respiratory Syncytial Virus Not Detected (NotDetected); Rhinovirus/Enterovirus Not Detected (NotDetected)
--- NOTE | 2022-02-03 19:53 | HMH.EDUTC ---
[facility] [place] Impression: Viral syndrome, Bronchitis Disposition: Home, Self-Care Condition on Discharge: Good Instructions: DI for Acute Bronchitis, Acute Bronchitis, DI for Viral Syndrome Additional Instructions: Drink plenty of fluids. Take tylenol for pain or fever. Take the medications as directed. Follow up with your regular doctor. GO TO THE ER FOR ANY WORSENING SYMPTOMS Quarantine until you know the results of your covid-19 test. Notify your school or workplace of your results and follow their instructions regarding return to work/school. Prescriptions: Benzonatate [Benzonatate 100mg cap] 100 mg PO TIDP PRN #30 cap PRN Reason: Cough Transmission Status: Pending to [id number] guaiFENesin [Mucinex 600mg tablet] 1 - 2 tab PO BIDP PRN #30 tab PRN Reason: Congestion Transmission Status: Pending to [facility] Azithromycin [Z-Denzel 250mg Tab*] 250 mg PO UD DOSE PK #6 tab Transmission Status: Pending to [facility] Referrals: Clementine Kohli PA [Primary Care Provider] - Time of Disposition: 21:05 Medical Decision Making - Medical Records Medical records reviewed: No: I reviewed the patient's medical records. - Cj Inquiry Pt receiving controlled substance: No Vital Signs: 02/03/22 19:38 Temperature 98.3 F Temperature Source Oral Pulse Rate [Right Radial] 91 H Respiratory Rate 19 Blood Pressure [Right Arm] 149/91 H Blood Pressure Mean [Right Arm] 110 Blood Pressure Source [Right Arm] Automatic Cuff Blood Pressure Position [Right Arm] Sitting 02 Sat by Pulse Oximetry 95 Oxygen Delivery Method Room Air - Lab Data Lab results reviewed: Yes: I reviewed the patient's lab results. Lab Results 02/03/22 20:21: Strep Scn Rapid Clinic Negative Orders (Tests/Meds): ORDERS Category Date Time Status Full Resp Panel w/COVID ([facility]) Routine Lab 02/03/22 19:44 Received Strep Screen Confirmation Stat Micro 02/03/22 20:21 [place] [facility] [place] - General Stated complaint: cough, bodyaches, headaches, congestion Time Seen by Provider: 02/03/22 19:53 Mode of Arrival: Ambulatory Source of Information: Patient Limitations: No Limitations Description of Symptoms (Recalled from Triage Doc. by RN): C/O bodyaches, chills, cough x3 days HEENT Symptoms (Recalled from RN notes): No Resp Symptoms (Recalled from RN notes): Yes (cough) Skin Symptoms (Recalled from RN notes): No MS Symptoms (Recalled from RN notes): Yes (bodyaches) Functional Status (Recalled from RN notes): n/a - History of Present Illness Provider Complaint: She has been feeling bad for the past 2 days. She has body aches, chills, low grade fever and a nonproductive cough. She has been vaccinated against covdi-19. - Related Data Home Medications Medication Instructions Recorded Confirmed Aspirin [Aspirin 81mg chewable 81 mg PO DAILY 08/03/18 12/08/21 tab] Dulaglutide [Trulicity] 0.7 units SQ WEEKLY 08/03/18 12/08/21 Glimepiride [Amaryl 2mg tablet] 2 mg PO DAILY 08/03/18 12/08/21 levothyroxine 25 mcg capsule 75 mcg PO DAILY cap 04/30/19 12/08/21 metformin 500 mg tablet 500 mg PO BID tab 03/25/21 12/08/21 Losartan Potassium [Cozaar 100mg 100 mg PO DAILY 06/29/21 12/08/21 Tablets] Rosuvastatin Calcium 10 mg PO DAILY 06/29/21 12/08/21 fluticasone propionate 50 1 spray INTRANASAL DAILY PRN ml 09/02/21 12/08/21 mcg/actuation nasal spray,suspension hydroCHLOROthiazide 12.5 mg PO DAILY 09/23/21 12/08/21 [Hydrochlorothiazide 12.5mg Tab] Previous Rx's Medication Instructions Recorded cetirizine 10 mg tablet 10 mg PO QDAY #90 tab 06/04/20 metoprolol succinate 100 mg 100 mg PO DAILY #90 tab 09/29/21 tablet,extended release 24 hr acetaminophen 300 mg-codeine 30 mg 1 tab PO Q6H PRN #14 tab 10/01/21 tablet esomeprazole magnesium 40 mg 40 mg PO DAILY #30 cap 10/20/21 capsule,delayed release oxybutynin chloride 10 mg 10 mg PO DAILY
[2022-02-03 20:34] LABS: UTC Strep Screen (Rapid) Negative (Negative)
[2022-02-03 21:05] LABS: UTC Influenza A Antigen Negative (Negative); UTC Influenza B Antigen Negative (Negative)
[2022-02-03 21:06] VITALS: BP 149/91; PULSE 91; RESP 19; TEMP 36.8; O2SAT 95
== END 2022-02-03 21:15 | disposition home or self-care (01) ==
PROVIDERS: Emergency Provider Nurse Practitioner Family; PCP Physician Assistant
DX: J20.9 Acute bronchitis, unspecified (principal); B34.9 Viral infection, unspecified; Z88.2 Allergy status to sulfonamides
CPT/HCPCS: 87581; 87632; 87798; 87804; 87880; 99212; C9803; G0463; U0003; U0005

== ENCOUNTER 2022-02-07 11:01 | Emergency (ER) | payer BC, SELFPAY ==
[2022-02-07 11:17] VITALS: BP 127/75; PULSE 85; RESP 18; TEMP 36.8; O2SAT 97; BMI 43.0
--- NOTE | 2022-02-07 11:25 | HMH.EDUTC ---
[facility] [place] Clinical Impression: Bronchitis Sinusitis Qualifiers: Sinusitis location: unspecified location Chronicity: unspecified Qualified Code(s): J32.9 - Chronic sinusitis, unspecified Disposition: Home, Self-Care Condition on Discharge: Good Instructions: Sinusitis, DI for Sinusitis, DI for Acute Bronchitis Additional Instructions: ? Start antibiotic today. Be sure to complete entire prescription even if feeling better ? Monitor temp. Tylenol every 4 hours as needed and / or ibuprofen every 6 hours as needed ( As long as your primary care physician has told you that it ok to take both. For fever/aches/pains ER if no less than 101 despite Tylenol or Motrin ? Humidifier/vaporizer or hot steamy shower *Tessalon Perles will not cause drowsiness but use at bedtime to help stop cough so that you may get some rest. *Start steroid today. Helps with inflammation therefore, cough and wheezing. Follow directions on the package. Reviewed side effects. Patient reports taking them before. Follow up IMMEDIATELY for new or worsening of symptoms OR no noticeable improvement over the next 48-72 hours. 911 immediately for any life threatening symptoms such as chest pain or difficulty breathing Prescriptions: Doxycycline Monohydrate [Doxycycline [place] 100mg Tab] 100 mg PO BID #20 tab [facility] Status[id number] predniSONE [Prednisone 20mg Tab] 20 mg PO BID #10 tab Transmission Status: Pending to [id number] Referrals: Clementine Kohli PA [Primary Care Provider] - As needed Time of Disposition: 11:38 Medical Decision Making - Cj Inquiry Pt receiving controlled substance: No Cj was queried for this patient: No Vital Signs: 02/07/22 11:17 Temperature 98.2 F Temperature Source Oral Pulse Rate [Left] 85 Respiratory Rate 18 Blood Pressure [Right Arm] 127/75 Blood Pressure Mean [Right Arm] 92 02 Sat by Pulse Oximetry 97 Medical Decision Narrative: Patient states that she is a diabetic but has taken steriods in the past also has taken Doxy without complications [facility] [place] - General Stated complaint: cough, congestion, sore throat, fever, [place] Time Seen by Provider: 02/07/22 11:25 Mode of Arrival: Ambulatory Source of Information: Patient Limitations: No Limitations Description of Symptoms (Recalled from Triage Doc. by RN): pt states she is being treated for a URI on the . pt states her symptoms are persisting. HEENT Symptoms (Recalled from RN notes): Yes Resp Symptoms (Recalled from RN notes): Yes Skin Symptoms (Recalled from RN notes): No MS Symptoms (Recalled from RN notes): No Functional Status (Recalled from RN notes): wnl - History of Present Illness Provider Complaint: Patient state that she was treated for URI on 02/03 States that she only has a dose left of her azithromycin and she is still not feeling any better States that she is still having sinus pain and pressure along with drainage in the back of her throat and feels like it is trying to move into her chest States that she isnt coughing anything up but wanted to come back in to see if there is another medication that she can take that may help better and her PCP sometimes gives her steriods to help dry her up - Related Data Home Medications Medication Instructions Recorded Confirmed Aspirin [Aspirin 81mg chewable 81 mg PO DAILY 08/03/18 12/08/21 tab] Dulaglutide [Trulicity] 0.7 units SQ WEEKLY 08/03/18 12/08/21 Glimepiride [Amaryl 2mg tablet] 2 mg PO DAILY 08/03/18 12/08/21 levothyroxine 25 mcg capsule 75 mcg PO DAILY cap 04/30/19 12/08/21 metformin 500 mg tablet 500 mg PO BID tab 03/25/21 12/08/21 Losartan Potassium [Cozaar 100mg 100 mg PO DAILY 06/29/21 12/08/21 Tablets] Rosuvastatin Calcium 10 mg PO DAILY 06/29/21 12/08/21 fluticasone propionate 50 1 spray INTRANASAL DAILY PRN ml 09/02/21 12/08/21 mcg/actuation nasal spray,suspension hydroCHLOROthiazide 12.5 mg PO DELMAR
[2022-02-07 11:46] VITALS: BP 127/75; PULSE 85; RESP 18; TEMP 36.8
== END 2022-02-07 11:49 | disposition home or self-care (01) ==
PROVIDERS: Emergency Provider Nurse Practitioner; PCP Physician Assistant
DX: J20.9 Acute bronchitis, unspecified (principal); J32.9 Chronic sinusitis, unspecified; F41.8 Other specified anxiety disorders; E11.9 Type 2 diabetes mellitus without complications; K21.9 Gastro-esophageal reflux disease without esophagitis; I10 Essential (primary) hypertension; E03.9 Hypothyroidism, unspecified; F17.210 Nicotine dependence, cigarettes, uncomplicated; Z79.899 Other long term (current) drug therapy
CPT/HCPCS: 99213; G0463

== ENCOUNTER → 2022-02-15 12:19 | Outpatient (CLI) | payer BC, SELFPAY ==
[2022-02-15 12:54] LABS: Basophils # 0.1 K/mm3 (0-0.2); Basophils % 0.9 % (0.1-2.0); Eosinophils # 0.4 K/mm3 (0.0-0.4); Eosinophils % 4.6 % (0.1-12.0); Hematocrit 36.7 % (37.0-47.0); Hemoglobin 11.5 g/dL (12.2-16.2); Lymphocytes # 2.5 K/mm3 (0.7-4.5); Lymphocytes % 31.4 % (10-50); Mean Corpuscular HGB Conc 31.4 g/dL (31.8-35.4); Mean Corpuscular Hemoglobin 26.2 pg (27.0-31.2); Mean Corpuscular Volume 83.6 fl (81-99); Mean Platelet Volume 8.7 fl (7.4-10.4); Monocytes # 0.5 K/mm3 (0.1-1.0); Monocytes % 5.6 % (1.7-9.3); Neutrophils # 4.6 K/mm3 (1.8-7.8); Neutrophils % 57.5 % (37.0-80.0); Platelet Count 287 K/mm3 (142-424); Red Blood Count 4.39 M/mm3 (4.20-5.40); Red Cell Distribution Width 18.8 % (11.5-17.5)
[2022-02-15 13:29] LABS: Alanine Aminotransferase 39 U/L (12-78); Albumin Level 3.5 g/dl (3.5-5.0); Albumin/Globulin Ratio 1.3 (1.1-1.8); Alkaline Phosphatase 128 U/L (38-126); Aspartate Amino Transferase 34 U/L (14-36); Bilirubin,Total 0.3 mg/dl (0.2-1.3); Blood Urea Nitrogen 14 mg/dl (7-17); Calcium 9.6 mg/dl (8.4-10.2); Carbon Dioxide 29 mmol/L (22.0-30.0); Chloride 102 mmol/L (98-107); Chol/HDL Ratio 2.3 (1-3.5); Cholesterol 89 mg/dl (140-200); Estimated Glomerular Filt Rate 73 ml/min (>60); GFR (African American) 89 ML/MIN (>60); Globulin 2.7 g/dL (1.3-3.2); Glucose 189 mg/dl (74-100); HDL Cholesterol 38 mg/dl (40-60); Sodium 138 mmol/L (136-145); Total Protein,Serum 6.2 g/dl (6.3-8.2); Triglycerides 214 mg/dl (30-150); VLDL Cholesterol 43 mg/dL (0-40)
[2022-02-15 13:42] LABS: Direct LDL Cholesterol < 30.00 mg/dL (100-129)
[2022-02-15 13:47] LABS: 25-OH Vitamin D, Total 48.5 ng/mL (30-100)
[2022-02-15 14:00] LABS: Thyroid Stimulating Hormone 2.14 uIU/mL (0.465-4.68)
[2022-02-15 14:18] LABS: Vitamin B12 878 pg/mL (239-931)
[2022-02-15 14:23] LABS: Hemoglobin A1C 8.5 % (4.0-6.0)
== END ==
LOC: LAB 12:20
PROVIDERS: Visit Provider Physician Assistant
DX: E11.9 Type 2 diabetes mellitus without complications (principal); E66.9 Obesity, unspecified; Z68.41 Body mass index [BMI] 40.0-44.9, adult; Z79.84 Long term (current) use of oral hypoglycemic drugs
CPT/HCPCS: 36415; 80053; 80061; 82043; 82306; 82607; 83036; 84443; 85025

== ENCOUNTER → 2022-05-20 07:14 | Outpatient (CLI) | payer BC, SELFPAY ==
[2022-05-19 17:23] LABS: Basophils # 0.1 K/mm3 (0-0.2); Basophils % 1.7 % (0.1-2.0); Eosinophils # 0.3 K/mm3 (0.0-0.4); Eosinophils % 3.6 % (0.1-12.0); Hematocrit 33.7 % (37.0-47.0); Hemoglobin 10.8 g/dL (12.2-16.2); Lymphocytes % 26.2 % (10-50); Mean Corpuscular HGB Conc 32.1 g/dL (31.8-35.4); Mean Corpuscular Hemoglobin 26.8 pg (27.0-31.2); Mean Corpuscular Volume 83.6 fl (81-99); Mean Platelet Volume 8.4 fl (7.4-10.4); Monocytes # 0.5 K/mm3 (0.1-1.0); Monocytes % 7.1 % (1.7-9.3); Neutrophils # 4.6 K/mm3 (1.8-7.8); Neutrophils % 61.4 % (37.0-80.0); Platelet Count 314 K/mm3 (142-424); Red Blood Count 4.03 M/mm3 (4.20-5.40); Red Cell Distribution Width 18.5 % (11.5-17.5); White Blood Count 7.5 K/mm3 (4.8-10.8)
[2022-05-19 18:21] LABS: Alanine Aminotransferase 30 U/L (12-78); Albumin Level 3.8 g/dl (3.5-5.0); Albumin/Globulin Ratio 1.2 (1.1-1.8); Alkaline Phosphatase 134 U/L (38-126); Anion Gap 12.4 mEq/L (5-15); Aspartate Amino Transferase 30 U/L (14-36); Blood Urea Nitrogen 17 mg/dl (7-17); Calcium 9.6 mg/dl (8.4-10.2); Carbon Dioxide 26 mmol/L (22.0-30.0); Chloride 108 mmol/L (98-107); Chol/HDL Ratio 2.4 (1-3.5); Cholesterol 88 mg/dl (140-200); Estimated Glomerular Filt Rate 64 ml/min (>60); GFR (African American) 77 ML/MIN (>60); Globulin 3.3 g/dL (1.3-3.2); Glucose 86 mg/dl (74-100); HDL Cholesterol 37 mg/dl (40-60); Potassium 4.4 mmoL/L (3.5-5.1); Sodium 142 mmol/L (136-145); Total Protein,Serum 7.1 g/dl (6.3-8.2); Triglycerides 105 mg/dl (30-150); VLDL Cholesterol 21 mg/dL (0-40)
[2022-05-19 18:22] LABS: Bilirubin,Total < 0.1 mg/dl (0.2-1.3)
[2022-05-19 18:26] LABS: Erythrocyte Sedimentation Rate 140 mm/hr (0-30)
[2022-05-19 18:33] LABS: C-Reactive Protein 67.3 mg/L (0-4)
[2022-05-19 18:39] LABS: 25-OH Vitamin D, Total 65.2 ng/mL (30-100)
[2022-05-19 18:43] LABS: Direct LDL Cholesterol < 30.00 mg/dL (100-129)
[2022-05-19 18:52] LABS: Thyroid Stimulating Hormone 0.58 uIU/mL (0.465-4.68)
[2022-05-19 19:11] LABS: Vitamin B12 750 pg/mL (239-931)
[2022-05-19 19:29] LABS: Hemoglobin A1C 7.2 % (4.0-6.0)
[2022-05-21 09:34] LABS: RA Latex Turbid. <10.0 IU/mL (<14.0)
[2022-05-21 12:10] LABS: Anti-Centromere B Antibodies <0.2 AI (0.0-0.9); Anti-DNA (DS) Ab Qn <1 IU/mL (0-9); Anti-Jo-1 <0.2 AI (0.0-0.9); Anti-Smith Antibody <0.2 AI (0.0-0.9); Antichromatin Antibodies <0.2 AI (0.0-0.9); Antiscleroderma-70 Antibodies <0.2 AI (0.0-0.9); RNP Antibodies 0.2 AI (0.0-0.9); Sjogren's Anti-SS-A <0.2 AI (0.0-0.9); Sjogren's Anti-SS-B <0.2 AI (0.0-0.9)
[2022-05-22 00:08] LABS: Anti-Cyclic Citrullinated Pept 4 units (0-19)
== END ==
LOC: LAB.DROPOF 07:14
PROVIDERS: PCP Physician Assistant; Visit Provider Physician Assistant
DX: M25.50 Pain in unspecified joint (principal); R29.90 Unspecified symptoms and signs involving the nervous system; E11.9 Type 2 diabetes mellitus without complications; E66.9 Obesity, unspecified; I10 Essential (primary) hypertension; Z68.41 Body mass index [BMI] 40.0-44.9, adult; Z79.84 Long term (current) use of oral hypoglycemic drugs; B96.20 Unspecified Escherichia coli [E. coli] as the cause of diseases classified elsewhere
CPT/HCPCS: 80053; 80061; 82306; 82607; 83036; 84443; 85025; 85651; 86140; 86200; 86225; 86235; 86431; 87086; 87088; 87186

== ENCOUNTER 2022-05-21 01:48 | Emergency (ER) | payer BC, SELFPAY ==
[2022-05-21 02:11] VITALS: BP 118/70; PULSE 83; RESP 18; TEMP 36.8; O2SAT 97; BMI 42.0
[2022-05-21 02:32] LABS: Basophils # 0.1 K/mm3 (0-0.2); Basophils % 1.4 % (0.1-2.0); Eosinophils # 0.4 K/mm3 (0.0-0.4); Eosinophils % 3.7 % (0.1-12.0); Hematocrit 38.6 % (37.0-47.0); Hemoglobin 12.2 g/dL (12.2-16.2); Lymphocytes # 2.3 K/mm3 (0.7-4.5); Lymphocytes % 22.2 % (10-50); Mean Corpuscular HGB Conc 31.5 g/dL (31.8-35.4); Mean Corpuscular Hemoglobin 26.3 pg (27.0-31.2); Mean Corpuscular Volume 83.5 fl (81-99); Mean Platelet Volume 7.9 fl (7.4-10.4); Monocytes # 0.4 K/mm3 (0.1-1.0); Neutrophils # 7.2 K/mm3 (1.8-7.8); Neutrophils % 68.7 % (37.0-80.0); Platelet Count 377 K/mm3 (142-424); Red Blood Count 4.63 M/mm3 (4.20-5.40); Red Cell Distribution Width 18.3 % (11.5-17.5); White Blood Count 10.4 K/mm3 (4.8-10.8)
[2022-05-21 02:33] LABS: Microscopic, Urine URINE MICROSCOPIC (MICROSCOPIC)
[2022-05-21 02:39] LABS: Appearance,Urine CLEAR (Clear); Bilirubin,Urine Negative (Negative); Blood, Urine Negative (Negative); Color,Urine YELLOW (Yellow); Glucose,Urine (UA) Negative (Negative); Ketones,Urine Negative (Negative); Leukocyte Esterase,Urine Negative (Negative); Nitrate,Urine Negative (Negative); Protein,Urine Negative (Negative); Specific Gravity, Urine >= 1.030 (1.005-1.030); Urobilinogen,Urine 0.2 EU/dl (0.2)
--- NOTE | 2022-05-21 02:42 | ECG_ITS ---
APPROVED REPORT Exam: Resting ECG HR:75 bpm ECG Measurements Heart Rate 75 AXES [place] 186 P 41 QRSd 115 QRS -23 QT 376 T -12 QTc 406 Conclusion SINUS RHYTHM MODERATE VOLTAGE CRITERIA FOR LVH, Old anteroseptal changes BORDERLINE ECG UNCONFIRMED REPORT Electronically signed by : Giuseppe Perez MD 05/21/2022 17:31:08
[2022-05-21 02:44] LABS: Alanine Aminotransferase 30 U/L (12-78); Albumin Level 4.2 g/dl (3.5-5.0); Albumin/Globulin Ratio 1.1 (1.1-1.8); Alkaline Phosphatase 146 U/L (38-126); Amylase 73 U/L (30-110); Anion Gap 14.2 mEq/L (5-15); Aspartate Amino Transferase 32 U/L (14-36); Blood Urea Nitrogen 20 mg/dl (7-17); Carbon Dioxide 27 mmol/L (22.0-30.0); Chloride 102 mmol/L (98-107); Creatinine Clearance Estimated 47 mL/min (50-200); Estimated Glomerular Filt Rate 57 ml/min (>60); GFR (African American) 68 ML/MIN (>60); Glucose 130 mg/dl (74-100); Lipase 253 U/L (23-300); Potassium 4.2 mmoL/L (3.5-5.1); Sodium 139 mmol/L (136-145); Total Protein,Serum 8.2 g/dl (6.3-8.2)
[2022-05-21 02:46] LABS: Bilirubin,Total < 0.1 mg/dl (0.2-1.3)
[2022-05-21 02:50] LABS: C-Reactive Protein 61.7 mg/L (0-4)
[2022-05-21 02:57] LABS: Erythrocyte Sedimentation Rate 73 mm/hr (0-30); Troponin I < 0.01 ng/ml (0.00-0.034)
[2022-05-21 03:01] LABS: Procalcitonin 0.106 ng/mL (0.0-2.0)
--- NOTE | 2022-05-21 03:06 | PC.NURSE ---
Pt given pillow and blanket for comfort. No new needs at this time.
--- NOTE | 2022-05-21 03:07 | HMH.EDNVD ---
ED Disposition Clinical Impression: Abdominal pain Qualifiers: Abdominal location: epigastric Qualified Code(s): R10.13 - Epigastric pain Disposition: Home, Self-Care Condition on Discharge: Good Instructions: DI for Abdominal Pain-Adult Additional Instructions: fluids and call pcp for urine culture results Referrals: Clementine Kohli PA [Primary Care Provider] - - Critical Care Critical Care Time: No Attestation: On 05/21/22, the high probability of a clinically significant, sudden or life threatening deterioration of the following system(s) required my full and direct attention, intervention and personal management. The time I documented below is in addition to time spent performing reported procedures but includes the following listed in this critical care notation. Medical Decision Making - Medical Records Medical records reviewed: Yes: I reviewed the patient's medical records. - Cj Inquiry Pt receiving controlled substance: No Vital Signs: 05/21/22 02:11 Temperature 98.2 F Temperature Source Oral Pulse Rate [Apical] 83 Respiratory Rate 18 Blood Pressure [Right Arm] 118/70 Blood Pressure Mean [Right Arm] 86 Blood Pressure Source [Right Arm] Automatic Cuff Blood Pressure Position [Right Arm] Sitting 02 Sat by Pulse Oximetry 97 - Lab Data Lab results reviewed: Yes: I reviewed the patient's lab results. Lab Results 05/21/22 02:05: Urine Color Yellow, Urine Appearance Clear, Urine pH 6.0, Ur Specific Se[place] >= 1.030, Urine Protein Negative, Urine Glucose (UA) Negative, Urine Ketones Negative, Urine Blood Negative, Urine Nitrate Negative, Urine Bilirubin Negative, Urine Urobilinogen 0.2, Ur Leukocyte Esterase Negative, Urine WBC 3-5, Ur Squamous Epith Cells 3-5, Urine Bacteria 1+, Urine Mucus 1+ 05/21/22 02:24: WBC 10.4 D, RBC 4.63, Hgb 12.2, Hct 38.6, MCV 83.5, MCH 26.3 L, MCHC 31.5 L, RDW 18.3 H, Plt Count 377, MPV 7.9, Neut % (Auto) 68.7, Lymph % (Auto) 22.2, [place] % (Auto) 4.0, Eos % (Auto) 3.7, Baso % (Auto) 1.4, Neut # (Auto) 7.2, Lymph # (Auto) 2.3, [place] # (Auto) 0.4, Eos # (Auto) 0.4, Baso # (Auto) 0.1 05/21/22 02:24: Sodium 139, Potassium 4.2, Chloride 102, Carbon Dioxide 27, Anion Gap 14.2, BUN 20 H, Creatinine 1.00, Estimated Creat Clear 47, Estimated GFR 57 L, Est GFR ( Amer) 68, Glucose 130 H, Calcium 10.0, Total Bilirubin < 0.1 L, AST 32, ALT 30, Alkaline Phosphatase 146 H, Total Protein 8.2, Albumin 4.2 D, Globulin 4.0 H, Albumin/Globulin Ratio 1.1, Amylase 73, Lipase 253 05/21/22 02:24: ESR 73 H 05/21/22 02:24: Troponin I < 0.01, C-Reactive Protein 61.7 H, Procalcitonin 0.106 Result diagrams: 05/21/22 02:24 05/21/22 02:24 Orders (Tests/Meds): ED MEDICATIONS Generic Name Dose Route Start Last Admin Trade Name Freq PRN Reason Stop Dose Admin Sodium Chloride 1,000 mls @ 999 mls/hr 05/21/22 02:30 05/21/22 02:29 Sod Chlor 0.9% 1000ml Bag IV 05/21/22 03:30 999 mls/hr .Q1H1M VARGHESE Administration Sodium Chloride 8 ml 05/21/22 02:35 Sodium Chloride 0.9% 10ml Vial IV 06/20/22 02:34 NEEDED PRN dilute pepcid Discontinued Medications Generic Name Dose Route Start Last Admin Trade Name Freq PRN Reason Stop Dose Admin Famotidine 20 mg 05/21/22 02:35 05/21/22 02:43 Famotidine 20mg/2ml Vial IV 05/21/22 02:36 20 mg ONCE ONE Administration Ketorolac Tromethamine 30 mg 05/21/22 02:35 05/21/22 02:44 Ketorolac 30mg/Ml Vial IV 05/21/22 02:36 30 mg ONCE ONE Administration Metoclopramide HCl 10 mg 05/21/22 02:35 05/21/22 02:42 Metoclopramide Hcl 10mg/2ml Vial IVP 05/21/22 02:36 10 mg ONCE ONE Administration Ondansetron HCl 4 mg 05/21/22 02:20 05/21/22 02:29 Ondansetron 4mg/2ml Vial IV 05/21/22 02:21 4 mg ONCE ONE Administration ORDERS Category Date Time Status CT abdomen pelvis w con Stat Cat Scan 05/21/22 03:13 Stop Req Troponin I Q3H Lab 05/21/22 05:45 Ordered Troponin I Q3H Lab 05/21/22
[2022-05-21 03:10] LABS: Bacteria,Urine 1+ /lpf; Mucus,Urine 1+ /lpf
--- NOTE | 2022-05-21 03:13 | PC.NURSE ---
Patient refused ct of abdomen pelvis
[2022-05-21 03:29] VITALS: BP 115/68; PULSE 79; RESP 18; TEMP 36.8; O2SAT 99
== END 2022-05-21 03:36 | disposition home or self-care (01) ==
PROVIDERS: Emergency Provider Emergency Medicine; PCP Physician Assistant
DX: R10.13 Epigastric pain (principal); R11.2 Nausea with vomiting, unspecified; R19.7 Diarrhea, unspecified; Z88.1 Allergy status to other antibiotic agents; Z88.2 Allergy status to sulfonamides; Z88.6 Allergy status to analgesic agent; Z88.8 Allergy status to other drugs, medicaments and biological substances; F41.9 Anxiety disorder, unspecified; F32.A Depression, unspecified; E11.9 Type 2 diabetes mellitus without complications; I10 Essential (primary) hypertension; K21.9 Gastro-esophageal reflux disease without esophagitis
CPT/HCPCS: 80053; 81001; 82150; 83690; 84145; 84484; 85025; 85651; 86140; 87086; 93005; 96365; 96375; 99284; J2405

== ENCOUNTER → 2022-07-14 19:08 | Outpatient (CLI) | payer BC, SELFPAY | PROVIDERS: PCP Physician Assistant; Visit Provider Physician Assistant | DX: R39.9 Unspecified symptoms and signs involving the genitourinary system (principal); B96.29 Other Escherichia coli [E. coli] as the cause of diseases classified elsewhere | CPT/HCPCS: 87086; 87088; 87186 ==

== ENCOUNTER → 2022-07-19 13:30 | Outpatient (CLI) | payer BC, SELFPAY ==
--- NOTE | 2022-07-19 13:31 | MM_ITS ---
PROCEDURE INFORMATION: Exam: MG Right Diagnostic Breast Tomosynthesis Exam date and time: 07/19/2022 1:33 PM Age: 62 years old Clinical indication: Short-term radiographic followup; Right breast; calcifications TECHNIQUE: Imaging protocol: Right Diagnostic tomosynthesis and 2D mammography including computer-aided detection (CAD) when performed. Unilateral or bilateral exam. COMPARISON: 1. MG MM DIG MAMM BI DX W/CAD 01/18/2022 2:03 PM 2. MG REPEAT VIEW MM 05/12/2021 2:32 PM FINDINGS: MAMMOGRAPHY: The breast tissue is almost entirely fatty. There is no stellate mass or architectural distortion to suggest malignancy. Magnification views of the posterior right upper outer quadrant demonstrates 2 stable clusters of calcifications. No new calcifications are seen. No skin thickening or axillary adenopathy. IMPRESSION: Stable calcifications in the right breast compared to prior mammograms dating back to and including 05/12/2021. A six-month follow-up diagnostic bilateral mammogram with magnification views of the right breast are recommended for continued close surveillance of the right-sided calcifications as well as part of an annual screening schedule ASSESSMENT: BI-RADS Category 3: Probably benign
== END ==
LOC: RAD 13:31
PROVIDERS: PCP Physician Assistant; Visit Provider Surgery
DX: R92.8 Other abnormal and inconclusive findings on diagnostic imaging of breast (principal)
CPT/HCPCS: 77061; 77065; G0279

== ENCOUNTER 2022-07-25 09:09 | Emergency (ER) | payer BC, SELFPAY ==
[2022-07-25 09:26] VITALS: BP 153/83; PULSE 82; RESP 17; TEMP 36.7; O2SAT 96; BMI 41.5
--- NOTE | 2022-07-25 09:38 | EXP.UTC ---
Discharge Plan Disposition Patient Disposition: Home, Self-Care Condition: Good Prescriptions Prescriptions: New benzonatate [benzonatate] 100 mg capsule 100 mg PO TIDP PRN (Reason: Cough) Qty: 30 0RF ondansetron 4 mg Tablet,Disintegrating 4 mg PO Q8H PRN (Reason: Nausea) Qty: 20 0RF No Action levothyroxine [Euthyrox] 75 mcg tablet 75 mcg PO DAILY Label Comments: TAKE 1 TABLET BY MOUTH ONCE DAILY IN THE MORNING ON AN EMPTY STOMACH 30-60 MINUTES BEFORE EATING. MUST KEEP FOLLOW-UP APPOINTMENT FOR REFILLS metformin 500 mg tablet 500 mg PO BID fluticasone propionate 50 mcg/actuation spray,suspension 1 spray NS DAILY PRN (Reason: allergies) Rx Instructions: administer into each nostril cetirizine 10 mg tablet 10 mg PO QDAY Qty: 90 0RF metoprolol succinate 100 mg tablet extended release 24 hr 100 mg PO DAILY Qty: 90 3RF Rx Instructions: Take 1 tablet by mouth once daily esomeprazole magnesium 40 mg capsule,delayed release(DR/EC) 40 mg PO DAILY Qty: 30 5RF escitalopram oxalate 20 mg tablet 20 mg PO DAILY Qty: 90 0RF rosuvastatin 10 mg tablet See Rx Instructions .ROUTE .COMPLEX Qty: 90 0RF Dose Instruction: TAKE 1 TABLET BY MOUTH AT BEDTIME FOR CHOLESTEROL Rx Instructions: TAKE 1 TABLET BY MOUTH AT BEDTIME FOR CHOLESTEROL nitrofurantoin monohyd/m-cryst [Macrobid] 100 mg capsule 100 mg PO BID 10 Days Qty: 20 0RF Rx Instructions: must administer with a meal/food glimepiride 2 tablet 2 mg PO DAILY aspirin 81 MG tablet,chewable 81 mg PO DAILY dulaglutide 1.5 pen injector 0.7 units SQ WEEKLY losartan 100 MG tablet See Rx Instructions .Route .COMPLEX Rx Instructions: Take 1 tablet by mouth once daily hydrochlorothiazide 12.5 MG tablet See Rx Instructions .Route .COMPLEX Rx Instructions: Take 1 tablet by mouth once daily Referrals Follow up/Referrals: Clementine Kohli PA [Primary Care Provider] - See instructions Activity Restrictions/Add. Instructions Additional Instructions/Restrictions: Drink plenty of fluids. Take tylenol or ibuprofen for pain or fever. Take the medications as directed. Follow up with your regular doctor. GO TO THE ER FOR ANY WORSENING SYMPTOMS Quarantine until you know the results of your covid-19 test. Notify your school or workplace of your results and follow their instructions regarding return to work/school. Clinical Impressions Clinical Impression: COVID-19 Instructions Patient Instructions: Coronavirus Disease 2019, Preventing the Spread of Coronavirus Discharge Instructions Discharge ED Provider: Kvng [place] [facility] [place] Stated complaint: no taste or smell,body aches,sore throat Mode of Arrival: Ambulatory Source of Information: Patient Limitations: No Limitations Time Seen by Provider: 07/25/22 09:26 Description of Symptoms (Recalled from Triage Doc. by RN): pt here for pcr covid test. pt had at home positive test last night. HEENT Symptoms (Recalled from RN notes): Yes Resp Symptoms (Recalled from RN notes): Yes Skin Symptoms (Recalled from RN notes): No MS Symptoms (Recalled from RN notes): No Functional Status (Recalled from RN notes): n/a History of Present Illness Provider Complaint: She is here to have a pcr covid test for her employer. She started feeling bad 2 days ago. She tested positive on a covid-19 test last night. Related Data Home Medications Medication Instructions Recorded Confirmed aspirin 81 mg chewable tablet 81 mg PO DAILY Blood thinner 08/03/18 07/14/22 dulaglutide 1.5 mg/0.5 mL 0.7 units SQ WEEKLY Diabetes 08/03/18 07/14/22 subcutaneous pen injector glimepiride 2 mg tablet 2 mg PO DAILY Diabetes 08/03/18 07/14/22 metformin 500 mg tablet 500 mg PO BID Diabetes 03/25/21 07/14/22 fluticasone propionate 50 1 spray intranasal DAILY PRN 09/02/21 07/14/22 mcg/actuation nasal allerg
[2022-07-25 09:42] VITALS: BP 153/83; PULSE 82; RESP 17; TEMP 36.7
== END 2022-07-25 09:51 | disposition home or self-care (01) ==
PROVIDERS: Emergency Provider Nurse Practitioner Family; PCP Physician Assistant
DX: U07.1 COVID-19 (principal); E11.65 Type 2 diabetes mellitus with hyperglycemia; L30.1 Dyshidrosis [pompholyx]; J02.9 Acute pharyngitis, unspecified; M79.10 Myalgia, unspecified site; R05.9 Cough, unspecified; R11.0 Nausea; Z79.84 Long term (current) use of oral hypoglycemic drugs; Z79.899 Other long term (current) drug therapy; Z88.0 Allergy status to penicillin; Z88.1 Allergy status to other antibiotic agents; Z88.2 Allergy status to sulfonamides; Z88.3 Allergy status to other anti-infective agents; Z88.6 Allergy status to analgesic agent; Z88.8 Allergy status to other drugs, medicaments and biological substances
CPT/HCPCS: 99213; C9803; G0463; U0003; U0005

== ENCOUNTER 2022-09-14 15:08 | Emergency (ER) | payer BC, SELFPAY ==
--- NOTE | 2022-09-14 16:21 | PC.NURSE ---
Pt brought back to room at this time. Pt was delayed coming back to bed due to ED volume and no bed availability.
--- NOTE | 2022-09-14 16:40 | HMH.EDGENADL ---
Discharge Plan Disposition Patient Disposition: Home, Self-Care Condition: Fair Prescriptions Prescriptions: New ondansetron [ondansetron] 4 mg tablet,disintegrating 4 mg PO TIDP PRN (Reason: Nausea) Qty: 10 0RF No Action levothyroxine [Euthyrox] 75 mcg tablet 75 mcg PO DAILY Label Comments: TAKE 1 TABLET BY MOUTH ONCE DAILY IN THE MORNING ON AN EMPTY STOMACH 30-60 MINUTES BEFORE EATING. MUST KEEP FOLLOW-UP APPOINTMENT FOR REFILLS metformin 500 mg tablet 500 mg PO BID fluticasone propionate 50 mcg/actuation spray,suspension 1 spray NS DAILY PRN (Reason: allergies) Rx Instructions: administer into each nostril cetirizine 10 mg tablet 10 mg PO QDAY Qty: 90 0RF metoprolol succinate 100 mg tablet extended release 24 hr 100 mg PO DAILY Qty: 90 3RF Rx Instructions: Take 1 tablet by mouth once daily nitrofurantoin monohyd/m-cryst [Macrobid] 100 mg capsule 100 mg PO BID 10 Days Qty: 20 0RF Rx Instructions: must administer with a meal/food cefdinir 300 mg capsule 300 mg PO BID 10 Days Qty: 20 0RF doxycycline monohydrate 100 mg tablet 100 mg PO BID Qty: 20 0RF escitalopram oxalate 20 mg tablet 20 mg PO DAILY Qty: 90 0RF esomeprazole magnesium 40 mg capsule,delayed release(DR/EC) 40 mg PO DAILY Qty: 30 5RF rosuvastatin 10 mg tablet See Rx Instructions .ROUTE .COMPLEX Qty: 90 0RF Dose Instruction: TAKE 1 TABLET BY MOUTH AT BEDTIME FOR CHOLESTEROL Rx Instructions: TAKE 1 TABLET BY MOUTH AT BEDTIME FOR CHOLESTEROL glimepiride 2 tablet 2 mg PO DAILY aspirin 81 MG tablet,chewable 81 mg PO DAILY dulaglutide 1.5 pen injector 0.7 units SQ WEEKLY losartan 100 MG tablet See Rx Instructions .Route .COMPLEX Rx Instructions: Take 1 tablet by mouth once daily hydrochlorothiazide 12.5 MG tablet See Rx Instructions .Route .COMPLEX Rx Instructions: Take 1 tablet by mouth once daily benzonatate [benzonatate] 100 mg capsule 100 mg PO TIDP PRN (Reason: Cough) Qty: 30 0RF ondansetron 4 mg Tablet,Disintegrating 4 mg PO Q8H PRN (Reason: Nausea) Qty: 20 0RF Referrals Follow up/Referrals: Clementine Kohli PA [Primary Care Provider] - See instructions Activity Restrictions/Add. Instructions Additional Instructions/Restrictions: You have been diagnosed with enteritis which could also be contributed with your IBS. I recommend that he continue to do your symptomatic care but I also arrange for a prescription for Zofran to help with any nausea. This should resolve over the next couple of days. Please return with any new or worsening symptoms. Clinical Impressions Clinical Impression: Enteritis Instructions Patient Instructions: DI for Acute Abdominal Pain Discharge ED Provider: Vaibhav Miller General Adult HPI General Chief complaint: Abdominal Pain Stated complaint: ibs FLARE UP WITH DIARRHEANWITHMBLOOD Time Seen by Provider: 09/14/22 16:35 History of Present Illness HPI narrative: Patient is a 62-year-old female with a past medical history of diabetes, hypertension, hypothyroidism, CVA who presents with concern for IBS flare. She says that she has a history of IBS and has had flareups like this before. Usually resolves with ibuprofen and heat pack on her abdomen. She says that she was concerned because she started to have diarrhea today after she ate and noticed that her stools were a little elmo colored. She says that she is having diffuse abdominal pain that might be a little bit worse than her epigastrium and right upper quadrant. She denies any fever or chills. Denies any chest pain or shortness of breath. She has never noticed that she has had elmo colored stools in the past. Denies any bright red blood per rectum. Related Data Home Medications Medication Instructions Recorded Confirmed aspirin 81 mg chewable tablet 81 mg PO DAILY Blood thinner
[2022-09-14 16:42] VITALS: BP 146/81; PULSE 82; RESP 18; TEMP 36.8; O2SAT 97; BMI 42.2
--- NOTE | 2022-09-14 16:47 | CT_ITS ---
PROCEDURE INFORMATION: Exam: CT Abdomen And Pelvis With Contrast Exam date and time: 09/14/2022 5:07 PM Age: 62 years old Clinical indication: Other: Diarrhea; Abdominal pain; Additional info: Abdominal pain; Diarrhea TECHNIQUE: Imaging protocol: Computed tomography of the abdomen and pelvis with contrast. Radiation optimization: All CT scans at this facility use at least one of these dose optimization techniques: automated exposure control; mA and/or kV adjustment per patient size (includes targeted exams where dose is matched to clinical indication); or iterative reconstruction. Contrast material: ISOVUE; Contrast volume: 75 ml; Contrast route: IV; COMPARISON: CT ABDOMEN PELVIS W CON 09/03/2021 8:54 AM FINDINGS: Liver: Possible hepatic steatosis. Gallbladder and bile ducts: Normal. No calcified stones. No ductal dilation. Pancreas: Normal. No ductal dilation. Spleen: Normal. No splenomegaly. Adrenal glands: Normal. No mass. Kidneys and ureters: Normal. No hydronephrosis. Stomach and bowel: Moderate sigmoid diverticulosis without diverticulitis. Liquid fecal contents of the colon most likely representing diarrhea. Fluid-filled and mildly dilated segments of distal small bowel without a transition point suggest ileus. Widespread small bowel wall thickening. Small amount of free fluid in the abdomen and pelvis likely related to bowel pathology. Appendix: Unremarkable appendix. Intraperitoneal space: Unremarkable. No free air. No significant fluid collection. Vasculature: The arteries demonstrate mild atherosclerotic disease. Lymph nodes: Unremarkable. No enlarged lymph nodes. Urinary bladder: Unremarkable as visualized. Reproductive: Status post hysterectomy. Bones/joints: Unremarkable. No acute fracture. Soft tissues: Unremarkable. Other findings: Stigmata of old granulomatous disease. IMPRESSION: Findings most likely represent enteritis with ileus.
[2022-09-14 16:56] LABS: Basophils # 0.1 K/mm3 (0-0.2); Basophils % 0.7 % (0.1-2.0); Eosinophils # 0.2 K/mm3 (0.0-0.4); Eosinophils % 2.9 % (0.1-12.0); Hematocrit 38.5 % (37.0-47.0); Lymphocytes # 1.7 K/mm3 (0.7-4.5); Lymphocytes % 21.1 % (10-50); Mean Corpuscular HGB Conc 31.1 g/dL (31.8-35.4); Mean Corpuscular Hemoglobin 25.7 pg (27.0-31.2); Mean Corpuscular Volume 82.6 fl (81-99); Mean Platelet Volume 8.3 fl (7.4-10.4); Monocytes # 0.4 K/mm3 (0.1-1.0); Monocytes % 4.2 % (1.7-9.3); Neutrophils # 5.9 K/mm3 (1.8-7.8); Neutrophils % 71.1 % (37.0-80.0); Platelet Count 359 K/mm3 (142-424); Red Blood Count 4.66 M/mm3 (4.20-5.40); Red Cell Distribution Width 18.8 % (11.5-17.5); White Blood Count 8.2 K/mm3 (4.8-10.8)
[2022-09-14 17:01] LABS: Alanine Aminotransferase 25 U/L (12-78); Albumin/Globulin Ratio 1.1 (1.1-1.8); Alkaline Phosphatase 132 U/L (38-126); Anion Gap 14.1 mEq/L (5-15); Aspartate Amino Transferase 34 U/L (14-36); Bilirubin,Total 0.4 mg/dl (0.2-1.3); Blood Urea Nitrogen 22 mg/dl (7-17); Carbon Dioxide 27 mmol/L (22.0-30.0); Chloride 103 mmol/L (98-107); Creatinine Clearance Estimated 59 mL/min (50-200); Estimated Glomerular Filt Rate 73 ml/min (>60); GFR (African American) 89 ML/MIN (>60); Globulin 3.8 g/dL (1.3-3.2); Glucose 182 mg/dl (74-100); Lipase 426 U/L (23-300); Potassium 4.1 mmoL/L (3.5-5.1); Sodium 140 mmol/L (136-145); Total Protein,Serum 7.8 g/dl (6.3-8.2)
[2022-09-14 17:07] LABS: C-Reactive Protein 35.7 mg/L (0-4)
[2022-09-14 17:18] LABS: Troponin I < 0.01 ng/ml (0.00-0.034)
[2022-09-14 18:27] LABS: Microscopic, Urine URINE MICROSCOPIC (MICROSCOPIC)
[2022-09-14 18:29] LABS: Appearance,Urine CLEAR (Clear); Bilirubin,Urine Negative (Negative); Blood, Urine Negative (Negative); Color,Urine YELLOW (Yellow); Glucose,Urine (UA) Negative (Negative); Ketones,Urine Negative (Negative); Leukocyte Esterase,Urine Negative (Negative); Nitrate,Urine Negative (Negative); Protein,Urine Negative (Negative); Urobilinogen,Urine 0.2 EU/dl (0.2)
--- NOTE | 2022-09-14 18:47 | PC.NURSE ---
ROUNDED ON PT AT THIS TIME. PT ON PHONE, DENIES NEEDS AT THIS TIME
--- NOTE | 2022-09-14 19:04 | PC.NURSE ---
PT DOING A PO CHALLENGE AT THIS TIME
[2022-09-14 19:05] LABS: Bacteria,Urine 3+ /lpf
--- NOTE | 2022-09-14 19:33 | PC.NURSE ---
Second trop drawn and sent to lab
[2022-09-14 20:07] LABS: Troponin I < 0.01 ng/ml (0.00-0.034)
[2022-09-14 20:56] VITALS: BP 146/81; PULSE 81; RESP 18; TEMP 36.6; O2SAT 98
== END 2022-09-14 20:59 | disposition home or self-care (01) ==
PROVIDERS: Emergency Provider Student in an Organized Health Care Education/Training Program; PCP Physician Assistant
DX: K58.9 Irritable bowel syndrome, unspecified (principal); R05.9 Cough, unspecified; I10 Essential (primary) hypertension; E03.9 Hypothyroidism, unspecified; E11.9 Type 2 diabetes mellitus without complications; G62.9 Polyneuropathy, unspecified; L30.1 Dyshidrosis [pompholyx]; Z79.51 Long term (current) use of inhaled steroids; Z79.52 Long term (current) use of systemic steroids; Z88.0 Allergy status to penicillin; Z79.899 Other long term (current) drug therapy; Z88.1 Allergy status to other antibiotic agents; Z88.2 Allergy status to sulfonamides; Z88.3 Allergy status to other anti-infective agents; Z88.5 Allergy status to narcotic agent; Z88.6 Allergy status to analgesic agent; Z88.8 Allergy status to other drugs, medicaments and biological substances; Z86.73 Personal history of transient ischemic attack (TIA), and cerebral infarction without residual deficits
CPT/HCPCS: 74177; 80053; 81001; 83690; 84484; 85025; 86140; 87086; 87088; 87186; 96361; 96374; 99285; J2405; Q9967

== ENCOUNTER 2022-11-09 16:00 | Outpatient (RCR) | payer BC, SELFPAY | END 2022-11-09 16:05 | disposition home or self-care (01) | LOC: PT 16:00 | PROVIDERS: PCP Physician Assistant; Visit Provider Physician Assistant | DX: M25.561 Pain in right knee (principal); M25.562 Pain in left knee; G89.29 Other chronic pain | CPT/HCPCS: 97010; 97014; 97110; 97163; 97164; G0283 ==

== ENCOUNTER 2022-11-18 18:44 | Emergency (ER) | payer BC, SELFPAY ==
--- NOTE | 2022-11-18 19:18 | EXP.UTC ---
Discharge Plan Disposition Patient Disposition: Home, Self-Care Condition: Good Prescriptions Prescriptions: New promethazine-DM 6.25-15 mg/5 mL Syrup 5 ml PO Q6H PRN (Reason: Cough) Qty: 240 0RF azithromycin [Zithromax] 250 mg tablet 250 mg PO UD DOSE PK Qty: 6 0RF Rx Instructions: Take two (2) tablets today, then one (1) tablet days #2 thru #5 benzonatate [benzonatate] 100 mg capsule 100 mg PO TIDP PRN (Reason: Cough) Qty: 30 0RF methylprednisolone 4 mg Tablets,Dose Pack 4 mg PO DIRECTED Qty: 21 0RF No Action levothyroxine [Euthyrox] 75 mcg tablet 75 mcg PO DAILY Label Comments: TAKE 1 TABLET BY MOUTH ONCE DAILY IN THE MORNING ON AN EMPTY STOMACH 30-60 MINUTES BEFORE EATING. MUST KEEP FOLLOW-UP APPOINTMENT FOR REFILLS metformin 500 mg tablet 500 mg PO BID cetirizine 10 mg tablet 10 mg PO QDAY Qty: 90 0RF nitrofurantoin monohyd/m-cryst [Macrobid] 100 mg capsule 100 mg PO BID 10 Days Qty: 20 0RF Rx Instructions: must administer with a meal/food cefdinir 300 mg capsule 300 mg PO BID 10 Days Qty: 20 0RF escitalopram oxalate 20 mg tablet 20 mg PO DAILY Qty: 90 0RF esomeprazole magnesium 40 mg capsule,delayed release(DR/EC) 40 mg PO DAILY Qty: 30 5RF rosuvastatin 10 mg tablet See Rx Instructions .ROUTE .COMPLEX Qty: 90 0RF Dose Instruction: TAKE 1 TABLET BY MOUTH AT BEDTIME FOR CHOLESTEROL Rx Instructions: TAKE 1 TABLET BY MOUTH AT BEDTIME FOR CHOLESTEROL metoprolol succinate 100 mg tablet extended release 24 hr 100 mg PO DAILY Qty: 90 3RF Rx Instructions: Take 1 tablet by mouth once daily Mucinex DM 30-600 mg tablet extended release 12 hr 1 tab PO Q12H Qty: 20 0RF fluticasone propionate [Flonase Allergy Relief] 50 mcg/actuation spray,suspension 1 spray intranasal QDAY 30 Days Qty: 9.9 0RF Rx Instructions: administer into each nostril doxycycline monohydrate 100 mg tablet 100 mg PO BID Qty: 20 0RF glimepiride 2 tablet 2 mg PO DAILY aspirin 81 MG tablet,chewable 81 mg PO DAILY dulaglutide 1.5 pen injector 0.7 units SQ WEEKLY losartan 100 MG tablet See Rx Instructions .Route .COMPLEX Rx Instructions: Take 1 tablet by mouth once daily hydrochlorothiazide 12.5 MG tablet See Rx Instructions .Route .COMPLEX Rx Instructions: Take 1 tablet by mouth once daily benzonatate [benzonatate] 100 mg capsule 100 mg PO TIDP PRN (Reason: Cough) Qty: 30 0RF ondansetron 4 mg Tablet,Disintegrating 4 mg PO Q8H PRN (Reason: Nausea) Qty: 20 0RF ondansetron [ondansetron] 4 mg tablet,disintegrating 4 mg PO TIDP PRN (Reason: Nausea) Qty: 10 0RF Referrals Follow up/Referrals: Clementine Kohli PA [Primary Care Provider] - See instructions Activity Restrictions/Add. Instructions Additional Instructions/Restrictions: Drink plenty of fluids. Take tylenol for pain or fever. Take the medications as directed. Follow up with your regular doctor. GO TO THE ER FOR ANY WORSENING SYMPTOMS Azithromycine (z-pack) is the antibiotic. The Methylprednisone is the oral steroids. The cough medication (promethazine dm) will make you drowsy, so don't drive or operate heavy machinery after taking it. Clinical Impressions Clinical Impression: Sinusitis, Bronchitis Instructions Patient Instructions: Sinusitis, DI for Sinusitis, DI for Acute Bronchitis Discharge ED Provider: Kvng Glasgow [facility] [place] HPI General Stated complaint: COUGH, CONGESTION, RUNNY NOSE Time Seen by Provider: 11/18/22 19:18 Description of Symptoms (Recalled from Triage Doc. by RN): She states that for the past 1 week she has had sinus congestion and a productive cough. Related Data Home Medications Medication Instructions Recorded Confirmed aspirin 81 mg chewable tablet 81 mg PO DAILY Blood thinner 08/03/18 07/14/22 dulaglutide 1.5 mg/0.5 mL 0.7 units
[2022-11-18 19:20] VITALS: BP 125/78; PULSE 95; RESP 17; TEMP 36.9; O2SAT 100; BMI 40.2
[2022-11-18 20:07] VITALS: BP 125/78; PULSE 95; RESP 17; TEMP 36.9
== END 2022-11-18 20:08 | disposition home or self-care (01) ==
PROVIDERS: Emergency Provider Nurse Practitioner Family; PCP Physician Assistant
DX: J40 Bronchitis, not specified as acute or chronic (principal); J32.9 Chronic sinusitis, unspecified
CPT/HCPCS: 96372; 99212; G0463

== ENCOUNTER 2022-12-05 19:22 | Emergency (ER) | payer BC, SELFPAY ==
[2022-12-05] VITALS (10 sets, daily range): BP systolic 111–135; BP diastolic 59–91; PULSE 61–88; RESP 16; TEMP 36.3; O2SAT 97–99; BMI 42.0
[2022-12-05 19:42] LABS: POC Glucose,Bedside 276 (70-110)
--- NOTE | 2022-12-05 19:49 | CT_ITS ---
PROCEDURE INFORMATION: Exam: CT Abdomen And Pelvis With Contrast Exam date and time: 12/05/2022 8:25 PM Age: 62 years old Clinical indication: Abdominal pain; Additional info: Abd pain v/d TECHNIQUE: Imaging protocol: Computed tomography of the abdomen and pelvis with contrast. Radiation optimization: All CT scans at this facility use at least one of these dose optimization techniques: automated exposure control; mA and/or kV adjustment per patient size (includes targeted exams where dose is matched to clinical indication); or iterative reconstruction. Contrast material: ISOVUE; Contrast volume: 75 ml; Contrast route: IV; COMPARISON: CT ABDOMEN PELVIS W CON 09/14/2022 5:07 PM FINDINGS: Liver: Normal. No mass. Gallbladder and bile ducts: Normal. No calcified stones. No ductal dilation. Pancreas: Normal. No ductal dilation. Spleen: Normal. No splenomegaly. Adrenal glands: Normal. No mass. Kidneys and ureters: Normal. No hydronephrosis. Stomach and bowel: There is moderate sigmoid diverticulosis, without evidence of diverticulitis. No evidence of bowel obstruction. Appendix: No evidence of appendicitis. Intraperitoneal space: Unremarkable. No free air. No significant fluid collection. Vasculature: Unremarkable. No abdominal aortic aneurysm. Lymph nodes: Unremarkable. No enlarged lymph nodes. Urinary bladder: Unremarkable as visualized. Reproductive: The uterus is surgically absent. No adnexal abnormality seen. Bones/joints: Significant degenerative changes are noted in the bilateral sacroiliac joints, pubic symphysis, L4-L5 disc space and bilateral L4-L5 facet joints. Ossification of the ligamentum flavum produces stable severe central canal stenosis in the lower thoracic spine. Soft tissues: Unremarkable. IMPRESSION: Stable chronic findings, including severe degenerative changes of the lumbosacral junction and bony pelvis as well as stable chronic spinal stenosis in the lower thoracic region. No acute abnormality evident in the abdomen or pelvis.
[2022-12-05 19:59] LABS: Basophils # 0.1 K/mm3 (0-0.2); Basophils % 1.5 % (0.1-2.0); Eosinophils # 0.2 K/mm3 (0.0-0.4); Eosinophils % 2.8 % (0.1-12.0); Hematocrit 38.5 % (37.0-47.0); Hemoglobin 12.2 g/dL (12.2-16.2); Lymphocytes # 0.8 K/mm3 (0.7-4.5); Lymphocytes % 15.6 % (10-50); Mean Corpuscular HGB Conc 31.7 g/dL (31.8-35.4); Mean Corpuscular Volume 81.9 fl (81-99); Mean Platelet Volume 8.5 fl (7.4-10.4); Monocytes # 0.3 K/mm3 (0.1-1.0); Monocytes % 5.5 % (1.7-9.3); Neutrophils % 74.7 % (37.0-80.0); Platelet Count 287 K/mm3 (142-424); Red Cell Distribution Width 19.1 % (11.5-17.5); White Blood Count 5.4 K/mm3 (4.8-10.8)
[2022-12-05 20:09] LABS: Alanine Aminotransferase 38 U/L (12-78); Albumin/Globulin Ratio 1.1 (1.1-1.8); Alkaline Phosphatase 129 U/L (38-126); Anion Gap 14.6 mEq/L (5-15); Aspartate Amino Transferase 35 U/L (14-36); Bilirubin,Total 0.4 mg/dl (0.2-1.3); Blood Urea Nitrogen 25 mg/dl (7-17); Calcium 8.6 mg/dl (8.4-10.2); Carbon Dioxide 25 mmol/L (22.0-30.0); Chloride 103 mmol/L (98-107); Creatinine Clearance Estimated 47 mL/min (50-200); Estimated Glomerular Filt Rate 57 ml/min (>60); GFR (African American) 68 ML/MIN (>60); Globulin 3.5 g/dL (1.3-3.2); Glucose 296 mg/dl (74-100); Potassium 3.6 mmoL/L (3.5-5.1); Sodium 139 mmol/L (136-145); Total Protein,Serum 7.5 g/dl (6.3-8.2)
[2022-12-05 20:23] LABS: Erythrocyte Sedimentation Rate 54 mm/hr (0-30)
[2022-12-05 20:27] LABS: Procalcitonin 0.315 ng/mL (0.0-2.0)
[2022-12-05 20:40] LABS: Acetone, Serum (Rapid) None Detected (None Detect)
--- NOTE | 2022-12-05 20:52 | HMH.EDGENADL ---
Discharge Plan Disposition Patient Disposition: Home, Self-Care Prescriptions Prescriptions: New clindamycin HCl 300 mg capsule 300 mg PO Q8H Qty: 30 0RF No Action levothyroxine [Euthyrox] 75 mcg tablet 75 mcg PO DAILY Label Comments: TAKE 1 TABLET BY MOUTH ONCE DAILY IN THE MORNING ON AN EMPTY STOMACH 30-60 MINUTES BEFORE EATING. MUST KEEP FOLLOW-UP APPOINTMENT FOR REFILLS metformin 500 mg tablet 500 mg PO BID cetirizine 10 mg tablet 10 mg PO QDAY Qty: 90 0RF nitrofurantoin monohyd/m-cryst [Macrobid] 100 mg capsule 100 mg PO BID 10 Days Qty: 20 0RF Rx Instructions: must administer with a meal/food cefdinir 300 mg capsule 300 mg PO BID 10 Days Qty: 20 0RF escitalopram oxalate 20 mg tablet 20 mg PO DAILY Qty: 90 0RF esomeprazole magnesium 40 mg capsule,delayed release(DR/EC) 40 mg PO DAILY Qty: 30 5RF rosuvastatin 10 mg tablet See Rx Instructions .ROUTE .COMPLEX Qty: 90 0RF Dose Instruction: TAKE 1 TABLET BY MOUTH AT BEDTIME FOR CHOLESTEROL Rx Instructions: TAKE 1 TABLET BY MOUTH AT BEDTIME FOR CHOLESTEROL metoprolol succinate 100 mg tablet extended release 24 hr 100 mg PO DAILY Qty: 90 3RF Rx Instructions: Take 1 tablet by mouth once daily Mucinex DM 30-600 mg tablet extended release 12 hr 1 tab PO Q12H Qty: 20 0RF fluticasone propionate [Flonase Allergy Relief] 50 mcg/actuation spray,suspension 1 spray intranasal QDAY 30 Days Qty: 9.9 0RF Rx Instructions: administer into each nostril doxycycline monohydrate 100 mg tablet 100 mg PO BID Qty: 20 0RF glimepiride 2 tablet 2 mg PO DAILY aspirin 81 MG tablet,chewable 81 mg PO DAILY dulaglutide 1.5 pen injector 0.7 units SQ WEEKLY losartan 100 MG tablet See Rx Instructions .Route .COMPLEX Rx Instructions: Take 1 tablet by mouth once daily hydrochlorothiazide 12.5 MG tablet See Rx Instructions .Route .COMPLEX Rx Instructions: Take 1 tablet by mouth once daily benzonatate [benzonatate] 100 mg capsule 100 mg PO TIDP PRN (Reason: Cough) Qty: 30 0RF ondansetron 4 mg Tablet,Disintegrating 4 mg PO Q8H PRN (Reason: Nausea) Qty: 20 0RF promethazine-DM 6.25-15 mg/5 mL Syrup 5 ml PO Q6H PRN (Reason: Cough) Qty: 240 0RF azithromycin [Zithromax] 250 mg tablet 250 mg PO UD DOSE PK Qty: 6 0RF Rx Instructions: Take two (2) tablets today, then one (1) tablet days #2 thru #5 benzonatate [benzonatate] 100 mg capsule 100 mg PO TIDP PRN (Reason: Cough) Qty: 30 0RF methylprednisolone 4 mg Tablets,Dose Pack 4 mg PO DIRECTED Qty: 21 0RF ondansetron [ondansetron] 4 mg tablet,disintegrating 4 mg PO TIDP PRN (Reason: Nausea) Qty: 10 0RF Referrals Follow up/Referrals: Clementine Kohli PA [Primary Care Provider] - See instructions Clinical Impressions Clinical Impression: Dental infection, Diabetes Instructions Patient Instructions: DI for Dental Pain Discharge ED Provider: Cornelius Aparicio General Adult HPI General Chief complaint: PAIN Stated complaint: vomiting, sweating, Time Seen by Provider: 12/05/22 20:52 Mode of Arrival: Ambulatory Source of Information: Patient and Medical Record Limitations: No Limitations Description of Symptoms (Recalled from ER Triage Doc. by RN): pt c/o increasing blood sugar after taking steriods, abd pain with v/d, and lost filling in bottom rt tooth and causing pain History of Present Illness HPI narrative: has dental pain on rt lower and also has some abd pain with vomiting - pt is diabetic Onset (ago): hour(s) Location: abdomen Severity: moderate Associated symptoms: denies other symptoms Related Data Home Medications Medication Instructions Recorded Confirmed aspirin 81 mg chewable tablet 81 mg PO DAILY Blood thinner 08/03/18 07/14/22 dulaglutide 1.5 mg/0.5 mL 0.7 units SQ WEEKLY Diabetes 08/03/18 07/14/22 subcutaneous pen in
== END 2022-12-05 23:32 | disposition home or self-care (01) ==
PROVIDERS: Emergency Provider Emergency Medicine; PCP Physician Assistant
DX: K04.7 Periapical abscess without sinus (principal); E11.40 Type 2 diabetes mellitus with diabetic neuropathy, unspecified; F17.210 Nicotine dependence, cigarettes, uncomplicated
CPT/HCPCS: 74177; 80053; 82009; 82962; 84145; 85025; 85651; 86140; 96360; 99285; J0696; Q9967

== ENCOUNTER → 2023-01-21 15:07 | Outpatient (CLI) | payer BC, SELFPAY ==
--- NOTE | 2023-01-21 15:07 | MM_ITS ---
PROCEDURE INFORMATION: Exam: MG Bilateral Diagnostic Breast Tomosynthesis Exam date and time: 01/21/2023 3:12 PM Age: 62 years old Clinical indication: Six-month follow-up for right breast calcifications from 03/18/2021. History of benign left needle biopsy. TECHNIQUE: Imaging protocol: Bilateral Diagnostic tomosynthesis and 2D mammography including computer-aided detection (CAD) when performed. Unilateral or bilateral exam. Limited positioning related to mobility impairment.Magnification views added. COMPARISON: 1. MG MM DIG MAMM DX UNILAT RT CAD 07/19/2022 1:33 PM 2. MG MM DIG MAMM BI DX W/CAD 01/18/2022 2:03 PM 3. MG MM STEREOTACTIC LOC LT 06/02/2021 12:11 PM MG REPEAT VIEW MM 05/12/2021 2:32 PM MG MM DIG MAMM BI DX W/CAD 03/18/2021 7:50 AM FINDINGS: MAMMOGRAPHY: Breast composition: The breasts are almost entirely fatty. Mass: No suspicious mass. Architectural distortion: None. Calcifications: 2 groupings of punctate calcifications in the middle to posterior 3rd of the right breast at approximately 9 o'clock, 2-3 cm part, show no significant change compared to magnification views of 01/18/2022 and 05/12/2021. No suspicious calcifications. Asymmetric density: None. Skin thickening: None. Axillary adenopathy: None. IMPRESSION: Stable probably benign right calcifications since 05/12/2021, continued six-month follow-up right diagnostic magnification views in CC and true lateral are recommended, unless otherwise clinically indicated. ASSESSMENT: BI-RADS Category 3: Probably benign
== END ==
LOC: RAD 15:07
PROVIDERS: PCP Physician Assistant; Visit Provider Surgery
DX: R92.8 Other abnormal and inconclusive findings on diagnostic imaging of breast (principal)
CPT/HCPCS: 77062; 77066; G0279

== ENCOUNTER 2023-02-09 11:06 | Emergency (ER) | payer BC, SELFPAY ==
[2023-02-09 11:15] VITALS: BP 117/69; PULSE 102; RESP 20; TEMP 37.1; O2SAT 96; BMI 43.5
--- NOTE | 2023-02-09 11:25 | EXP.UTC ---
Discharge Plan Disposition Patient Disposition: Home, Self-Care Condition: Good Prescriptions Prescriptions: New clindamycin HCl 300 mg capsule 300 mg PO Q8H Qty: 30 0RF methylprednisolone 4 mg Tablets,Dose Pack 4 mg PO DIRECTED Qty: 21 0RF No Action levothyroxine [Euthyrox] 75 mcg tablet 75 mcg PO DAILY Label Comments: TAKE 1 TABLET BY MOUTH ONCE DAILY IN THE MORNING ON AN EMPTY STOMACH 30-60 MINUTES BEFORE EATING. MUST KEEP FOLLOW-UP APPOINTMENT FOR REFILLS metformin 500 mg tablet 500 mg PO BID cetirizine 10 mg tablet 10 mg PO QDAY Qty: 90 0RF esomeprazole magnesium 40 mg capsule,delayed release(DR/EC) 40 mg PO DAILY Qty: 30 5RF metoprolol succinate 100 mg tablet extended release 24 hr 100 mg PO DAILY Qty: 90 3RF Rx Instructions: Take 1 tablet by mouth once daily fluticasone propionate [Flonase Allergy Relief] 50 mcg/actuation spray,suspension 1 spray intranasal QDAY 30 Days Qty: 9.9 0RF Rx Instructions: administer into each nostril escitalopram oxalate 20 mg tablet See Rx Instructions .ROUTE .COMPLEX Qty: 90 0RF Dose Instruction: Take 1 tablet by mouth once daily Rx Instructions: Take 1 tablet by mouth once daily rosuvastatin 10 mg tablet See Rx Instructions .ROUTE .COMPLEX Qty: 90 3RF Dose Instruction: TAKE 1 TABLET BY MOUTH AT BEDTIME FOR CHOLESTEROL Rx Instructions: TAKE 1 TABLET BY MOUTH AT BEDTIME FOR CHOLESTEROL glimepiride 2 tablet 2 mg PO DAILY aspirin 81 MG tablet,chewable 81 mg PO DAILY dulaglutide 1.5 pen injector 0.7 units SQ WEEKLY losartan 100 MG tablet See Rx Instructions .Route .COMPLEX Rx Instructions: Take 1 tablet by mouth once daily hydrochlorothiazide 12.5 MG tablet See Rx Instructions .Route .COMPLEX Rx Instructions: Take 1 tablet by mouth once daily Referrals Follow up/Referrals: Clementine Kohli PA [Primary Care Provider] - See instructions Activity Restrictions/Add. Instructions Additional Instructions/Restrictions: Drink plenty of fluids. Take tylenol or ibuprofen for pain or fever. Take the medications as directed. Follow up with your regular doctor. GO TO THE ER FOR ANY WORSENING SYMPTOMS Throw your tooth brush away and get a new one. Clinical Impressions Clinical Impression: Strep throat Stand Alone Forms Stand Alone Forms: Work/School Release Instructions Patient Instructions: DI for Strep Throat Discharge ED Provider: Kvng Glasgow [facility] [place] HPI General Stated complaint: sore throat, dizzy, chills Time Seen by Provider: 02/09/23 11:23 History of Present Illness Provider Complaint: She states that for the past 2 days she has had worsening sore throat, chills and a cough. Related Data Home Medications Medication Instructions Recorded Confirmed aspirin 81 mg chewable tablet 81 mg PO DAILY Blood thinner 08/03/18 07/14/22 dulaglutide 1.5 mg/0.5 mL 0.7 units SQ WEEKLY Diabetes 08/03/18 07/14/22 subcutaneous pen injector glimepiride 2 mg tablet 2 mg PO DAILY Diabetes 08/03/18 07/14/22 metformin 500 mg tablet 500 mg PO BID Diabetes 03/25/21 07/14/22 levothyroxine 75 mcg tablet 75 mcg PO DAILY hypothyroidism 05/19/22 07/14/22 (Euthyrox) hydrochlorothiazide 12.5 mg tablet See Rx Instructions .Route 05/21/22 07/14/22 .COMPLEX htn losartan 100 mg tablet See Rx Instructions .Route 05/21/22 07/14/22 .COMPLEX htn Previous Rx's Medication Instructions Recorded cetirizine 10 mg tablet 10 mg PO QDAY allergies #90 tabs 06/04/20 esomeprazole magnesium 40 mg 40 mg PO DAILY ACID REFLUX #30 caps 09/01/22 capsule,delayed release metoprolol succinate 100 mg 100 mg PO DAILY High blood 10/01/22 tablet,extended release 24 hr pressure #90 tabs fluticasone propionate 50 1 spray intranasal QDAY 30 days 11/16/22 mcg/actuation nasal #9.9 grams spray,suspension (Flonase Allergy Relief) es
[2023-02-09 11:33] LABS: UTC Strep Screen (Rapid) Positive (Negative)
[2023-02-09 12:19] VITALS: BP 117/69; PULSE 102; RESP 20; TEMP 37.1; O2SAT 96
== END 2023-02-09 12:19 | disposition home or self-care (01) ==
PROVIDERS: Emergency Provider Nurse Practitioner Family; PCP Physician Assistant
DX: J02.0 Streptococcal pharyngitis (principal); R42 Dizziness and giddiness; R11.0 Nausea; R50.9 Fever, unspecified; F17.210 Nicotine dependence, cigarettes, uncomplicated
CPT/HCPCS: 87880; 99212; 99214; G0463

== ENCOUNTER 2023-02-17 19:42 | Emergency (ER) | payer BC, SELFPAY ==
[2023-02-17 19:56] VITALS: BP 157/83; PULSE 96; RESP 18; TEMP 36.6; O2SAT 97; BMI 43.5
--- NOTE | 2023-02-17 20:13 | EXP.UTC ---
Discharge Plan Disposition Patient Disposition: Home, Self-Care Condition: Good Prescriptions Prescriptions: No Action levothyroxine [Euthyrox] 75 mcg tablet 75 mcg PO DAILY Label Comments: TAKE 1 TABLET BY MOUTH ONCE DAILY IN THE MORNING ON AN EMPTY STOMACH 30-60 MINUTES BEFORE EATING. MUST KEEP FOLLOW-UP APPOINTMENT FOR REFILLS metformin 500 mg tablet 500 mg PO BID cetirizine 10 mg tablet 10 mg PO QDAY Qty: 90 0RF esomeprazole magnesium 40 mg capsule,delayed release(DR/EC) 40 mg PO DAILY Qty: 30 5RF metoprolol succinate 100 mg tablet extended release 24 hr 100 mg PO DAILY Qty: 90 3RF Rx Instructions: Take 1 tablet by mouth once daily fluticasone propionate [Flonase Allergy Relief] 50 mcg/actuation spray,suspension 1 spray intranasal QDAY 30 Days Qty: 9.9 0RF Rx Instructions: administer into each nostril escitalopram oxalate 20 mg tablet See Rx Instructions .ROUTE .COMPLEX Qty: 90 0RF Dose Instruction: Take 1 tablet by mouth once daily Rx Instructions: Take 1 tablet by mouth once daily rosuvastatin 10 mg tablet See Rx Instructions .ROUTE .COMPLEX Qty: 90 3RF Dose Instruction: TAKE 1 TABLET BY MOUTH AT BEDTIME FOR CHOLESTEROL Rx Instructions: TAKE 1 TABLET BY MOUTH AT BEDTIME FOR CHOLESTEROL hydrochlorothiazide 12.5 mg tablet See Rx Instructions .Route .COMPLEX Qty: 90 3RF Rx Instructions: Take 1 tablet by mouth once daily losartan 100 mg tablet See Rx Instructions .Route .COMPLEX Qty: 90 3RF Rx Instructions: Take 1 tablet by mouth once daily glimepiride 2 tablet 2 mg PO DAILY aspirin 81 MG tablet,chewable 81 mg PO DAILY dulaglutide 1.5 pen injector 0.7 units SQ WEEKLY clindamycin HCl 300 mg capsule 300 mg PO Q8H Qty: 30 0RF methylprednisolone 4 mg Tablets,Dose Pack 4 mg PO DIRECTED Qty: 21 0RF Referrals Follow up/Referrals: Clementine Kohli PA [Primary Care Provider] - See instructions Activity Restrictions/Add. Instructions Additional Instructions/Restrictions: DO not stick anything in your Ear Follow up with your Family Doctor or ENT if you continue to have problems Return if needed Straight to ER if any life threatening symptoms Clinical Impressions Clinical Impression: Ear problem Discharge ED Provider: Lilia Charles [facility] [place] HPI General Stated complaint: LT ear bleeding Mode of Arrival: Ambulatory Source of Information: Patient Limitations: No Limitations Time Seen by Provider: 02/17/23 20:13 Description of Symptoms (Recalled from Triage Doc. by RN): pt reports bleeding in her L ear that started today HEENT Symptoms (Recalled from RN notes): Yes Resp Symptoms (Recalled from RN notes): No Skin Symptoms (Recalled from RN notes): No MS Symptoms (Recalled from RN notes): No Functional Status (Recalled from RN notes): wnl History of Present Illness Provider Complaint: Patient states that she was using a qtip to clean her ear and she noticed some blood on her qtip states that she waited a minute and again noticed small amount of blood on her qtip States that he ear isnt hurting or anything but it scared her due to seeing the blood so she came in to get it looked at Related Data Home Medications Medication Instructions Recorded Confirmed aspirin 81 mg chewable tablet 81 mg PO DAILY Blood thinner 08/03/18 07/14/22 dulaglutide 1.5 mg/0.5 mL 0.7 units SQ WEEKLY Diabetes 08/03/18 07/14/22 subcutaneous pen injector glimepiride 2 mg tablet 2 mg PO DAILY Diabetes 08/03/18 07/14/22 metformin 500 mg tablet 500 mg PO BID Diabetes 03/25/21 07/14/22 levothyroxine 75 mcg tablet 75 mcg PO DAILY hypothyroidism 05/19/22 07/14/22 (Euthyrox) Previous Rx's Medication Instructions Recorded cetirizine 10 mg tablet 10 mg PO QDAY allergies #90 tabs 06/04/20 esomeprazole magnesium 40 mg 40 mg PO DAILY ACID REFLUX #30 caps 09/01/22 capsule,delayed release
[2023-02-17 20:34] VITALS: BP 152/80; PULSE 82; RESP 18; TEMP 37; O2SAT 98
== END 2023-02-17 20:45 | disposition home or self-care (01) ==
PROVIDERS: Emergency Provider Nurse Practitioner; PCP Physician Assistant
DX: S00.412A Abrasion of left ear, initial encounter (principal)
CPT/HCPCS: 99212; G0463

== ENCOUNTER 2023-05-11 18:19 | Emergency (ER) | payer BC, SELFPAY ==
[2023-05-11 18:21] VITALS: BP 138/80; PULSE 84; RESP 17; TEMP 36.8; O2SAT 96; BMI 43.3
[2023-05-11 18:32] LABS: POC Glucose,Bedside 256 (70-110)
[2023-05-11 18:42] LABS: Basophils # 0.1 K/mm3 (0-0.2); Basophils % 0.6 % (0.1-2.0); Eosinophils # 0.3 K/mm3 (0.0-0.4); Eosinophils % 3.5 % (0.1-12.0); Hematocrit 37.5 % (37.0-47.0); Hemoglobin 11.8 g/dL (12.2-16.2); Lymphocytes # 2.2 K/mm3 (0.7-4.5); Lymphocytes % 24.4 % (10-50); Mean Corpuscular HGB Conc 31.5 g/dL (31.8-35.4); Mean Corpuscular Hemoglobin 25.8 pg (27.0-31.2); Mean Corpuscular Volume 81.8 fl (81-99); Mean Platelet Volume 8.7 fl (7.4-10.4); Monocytes # 0.4 K/mm3 (0.1-1.0); Neutrophils # 5.9 K/mm3 (1.8-7.8); Neutrophils % 67.5 % (37.0-80.0); Platelet Count 302 K/mm3 (142-424); Red Blood Count 4.58 M/mm3 (4.20-5.40); Red Cell Distribution Width 18.7 % (11.5-17.5); White Blood Count 8.8 K/mm3 (4.8-10.8)
[2023-05-11 18:43] LABS: Acetone, Serum (Rapid) None Detected (None Detect)
[2023-05-11 18:49] LABS: Alanine Aminotransferase 39 U/L (12-78); Albumin Level 4.5 g/dl (3.5-5.0); Albumin/Globulin Ratio 1.1 (1.1-1.8); Alkaline Phosphatase 149 U/L (38-126); Aspartate Amino Transferase 47 U/L (14-36); Bilirubin,Total 0.3 mg/dl (0.2-1.3); Blood Urea Nitrogen 16 mg/dl (7-17); Calcium 9.2 mg/dl (8.4-10.2); Carbon Dioxide 26 mmol/L (22.0-30.0); Chloride 101 mmol/L (98-107); Creatinine Clearance Estimated 47 mL/min (50-200); Estimated Glomerular Filt Rate 73 ml/min (>60); GFR (African American) 88 ML/MIN (>60); Glucose 223 mg/dl (74-100); Sodium 140 mmol/L (136-145); Total Protein,Serum 8.5 g/dl (6.3-8.2)
[2023-05-11 19:09] LABS: Hemoglobin A1C 8.2 % (4.0-6.0)
--- NOTE | 2023-05-11 19:37 | HMH.EDGENADL ---
Discharge Plan Disposition Patient Disposition: Home, Self-Care Condition: Good Prescriptions Prescriptions: New moxifloxacin 400 mg tablet 400 mg PO DAILY 10 Days Qty: 10 0RF prednisone 50 mg tablet 50 mg PO DAILY 7 Days Qty: 7 0RF No Action levothyroxine [Euthyrox] 75 mcg tablet 75 mcg PO DAILY Label Comments: TAKE 1 TABLET BY MOUTH ONCE DAILY IN THE MORNING ON AN EMPTY STOMACH 30-60 MINUTES BEFORE EATING. MUST KEEP FOLLOW-UP APPOINTMENT FOR REFILLS metformin 500 mg tablet 500 mg PO BID cetirizine 10 mg tablet 10 mg PO QDAY Qty: 90 0RF metoprolol succinate 100 mg tablet extended release 24 hr 100 mg PO DAILY Qty: 90 3RF Rx Instructions: Take 1 tablet by mouth once daily fluticasone propionate [Flonase Allergy Relief] 50 mcg/actuation spray,suspension 1 spray intranasal QDAY 30 Days Qty: 9.9 0RF Rx Instructions: administer into each nostril rosuvastatin 10 mg tablet See Rx Instructions .ROUTE .COMPLEX Qty: 90 3RF Dose Instruction: TAKE 1 TABLET BY MOUTH AT BEDTIME FOR CHOLESTEROL Rx Instructions: TAKE 1 TABLET BY MOUTH AT BEDTIME FOR CHOLESTEROL hydrochlorothiazide 12.5 mg tablet See Rx Instructions .Route .COMPLEX Qty: 90 3RF Rx Instructions: Take 1 tablet by mouth once daily losartan 100 mg tablet See Rx Instructions .Route .COMPLEX Qty: 90 3RF Rx Instructions: Take 1 tablet by mouth once daily esomeprazole magnesium 40 mg capsule,delayed release(DR/EC) 40 mg PO DAILY Qty: 30 5RF azithromycin [Zithromax Z-Denzel] 250 mg tablet See Rx Instructions PO .COMPLEX Qty: 6 0RF Rx Instructions: For 250 mg dose pack: take 500 mg today (day 1), then 250 mg for 4 days (days 2-5) PO escitalopram oxalate 20 mg tablet See Rx Instructions .ROUTE .COMPLEX Qty: 90 0RF Dose Instruction: Take 1 tablet by mouth once daily Rx Instructions: Take 1 tablet by mouth once daily glimepiride 2 tablet 2 mg PO DAILY aspirin 81 MG tablet,chewable 81 mg PO DAILY dulaglutide 1.5 pen injector 0.7 units SQ WEEKLY Referrals Follow up/Referrals: Joellen Haley PA [Primary Care Provider] - See instructions Clinical Impressions Clinical Impression: Acute sinusitis, Hyperglycemia Instructions Patient Instructions: Sinus Headache, DI for Sinusitis, DI for Hyperglycemia -- Adult Discharge ED Provider: Jose Whitfield General Adult HPI General Chief complaint: Hyper/Hypoglycemia Stated complaint: sugar is high, headache on right side, shoulder pa Time Seen by Provider: 05/11/23 19:25 Mode of Arrival: Ambulatory Source of Information: Patient Limitations: No Limitations Description of Symptoms (Recalled from ER Triage Doc. by RN): 63 F presents from home with complaints of chronic pain to her shoulders, issues with her glucose levels being too high or too low, and a new headache to the right side of her head which has almost gone at this point. History of Present Illness HPI narrative: This is a 63-year-old female with a history of chronic pain who stated that she has been treated for a sinus infection but has not gotten better. Patient also states that she had a hard time controlling her glucose level when asked what they used to treated for her sinus infection she said Z-Denzel. Patient in no obvious distress patient with a lot of complaints. Related Data Home Medications Medication Instructions Recorded Confirmed aspirin 81 mg chewable tablet 81 mg PO DAILY Blood thinner 08/03/18 07/14/22 dulaglutide 1.5 mg/0.5 mL 0.7 units SQ WEEKLY Diabetes 08/03/18 07/14/22 subcutaneous pen injector glimepiride 2 mg tablet 2 mg PO DAILY Diabetes 08/03/18 07/14/22 metformin 500 mg tablet 500 mg PO BID Diabetes 03/25/21 07/14/22 levothyroxine 75 mcg tablet 75 mcg PO DAILY hypothyroidism 05/19/22 07/14/22 (Euthyrox) Previous Rx's Medication Instructions Recorded cetirizine 10 mg tabl
[2023-05-11 19:41] LABS: POC Glucose,Bedside 195 (70-110)
[2023-05-11 20:10] VITALS: BP 121/72; PULSE 81; RESP 17; TEMP 36.8; O2SAT 96
== END 2023-05-11 20:11 | disposition home or self-care (01) ==
PROVIDERS: Emergency Provider Emergency Medicine; PCP Physician Assistant
DX: E11.65 Type 2 diabetes mellitus with hyperglycemia (principal); J01.90 Acute sinusitis, unspecified; E11.40 Type 2 diabetes mellitus with diabetic neuropathy, unspecified; F17.210 Nicotine dependence, cigarettes, uncomplicated
CPT/HCPCS: 80053; 82009; 82962; 83036; 85025; 96361; 96374; 99284; 99285

== ENCOUNTER → 2023-06-01 14:32 | Outpatient (CLI) | payer BC, SELFPAY ==
[2023-06-01 13:16] LABS: Creatinine,Urine Random 153 mg/dL (Not Estab.); Microalbumin/Creatinine Ratio 46.1
[2023-06-01 13:21] LABS: Basophils % 0.6 % (0.1-2.0); Eosinophils # 0.3 K/mm3 (0.0-0.4); Eosinophils % 3.8 % (0.1-12.0); Hematocrit 38.7 % (37.0-47.0); Hemoglobin 11.9 g/dL (12.2-16.2); Lymphocytes # 1.6 K/mm3 (0.7-4.5); Lymphocytes % 22.2 % (10-50); Mean Corpuscular HGB Conc 30.9 g/dL (31.8-35.4); Mean Corpuscular Hemoglobin 25.6 pg (27.0-31.2); Mean Corpuscular Volume 82.9 fl (81-99); Mean Platelet Volume 9.2 fl (7.4-10.4); Monocytes # 0.4 K/mm3 (0.1-1.0); Monocytes % 6.1 % (1.7-9.3); Neutrophils # 4.8 K/mm3 (1.8-7.8); Neutrophils % 67.3 % (37.0-80.0); Platelet Count 230 K/mm3 (142-424); Red Blood Count 4.66 M/mm3 (4.20-5.40); Red Cell Distribution Width 18.6 % (11.5-17.5); White Blood Count 7.1 K/mm3 (4.8-10.8)
[2023-06-01 14:08] LABS: Alanine Aminotransferase 34 U/L (12-78); Albumin Level 4.1 g/dl (3.5-5.0); Albumin/Globulin Ratio 1.3 (1.1-1.8); Alkaline Phosphatase 159 U/L (38-126); Anion Gap 16.5 mEq/L (5-15); Aspartate Amino Transferase 32 U/L (14-36); Bilirubin,Total 0.2 mg/dl (0.2-1.3); Blood Urea Nitrogen 16 mg/dl (7-17); C-Reactive Protein 32.5 mg/L (0-4); Calcium 9.4 mg/dl (8.4-10.2); Carbon Dioxide 26 mmol/L (22.0-30.0); Chloride 102 mmol/L (98-107); Estimated Glomerular Filt Rate 85 ml/min (>60); GFR (African American) 103 ML/MIN (>60); Globulin 3.2 g/dL (1.3-3.2); Glucose 253 mg/dl (74-100); Potassium 4.5 mmoL/L (3.5-5.1); Sodium 140 mmol/L (136-145); Total Protein,Serum 7.3 g/dl (6.3-8.2)
[2023-06-01 14:53] LABS: Erythrocyte Sedimentation Rate 45 mm/hr (0-30)
[2023-06-01 14:54] LABS: Vitamin B12 923 pg/mL (239-931)
[2023-06-01 14:57] LABS: Folate 8.99 ng/mL
[2023-06-02 09:53] LABS: Intact Parathyroid Hormone 58.7 pg/mL (7.5-53.5)
[2023-06-02 12:11] LABS: Anti-Cyclic Citrullinated Pept 3 units (0-19)
[2023-06-02 15:47] LABS: Anti-Centromere B Antibodies <0.2 AI (0.0-0.9); Anti-DNA (DS) Ab Qn <1 IU/mL (0-9); Anti-Jo-1 <0.2 AI (0.0-0.9); Anti-Smith Antibody <0.2 AI (0.0-0.9); Antichromatin Antibodies <0.2 AI (0.0-0.9); Antiscleroderma-70 Antibodies <0.2 AI (0.0-0.9); RA Latex Turbid. <10.0 IU/mL (<14.0); RNP Antibodies <0.2 AI (0.0-0.9); Sjogren's Anti-SS-A <0.2 AI (0.0-0.9); Sjogren's Anti-SS-B <0.2 AI (0.0-0.9)
[2023-06-03 13:10] LABS: Peripheral Smear Review Scanned Result
== END ==
LOC: LAB.DROPOF 14:33
PROVIDERS: PCP Physician Assistant; Visit Provider Physician Assistant
DX: M25.50 Pain in unspecified joint (principal); E11.9 Type 2 diabetes mellitus without complications; Z79.84 Long term (current) use of oral hypoglycemic drugs
CPT/HCPCS: 80053; 82043; 82570; 82607; 82746; 83970; 85025; 85651; 86140; 86200; 86225; 86235; 86431; 87086

== ENCOUNTER → 2023-06-16 09:11 | Outpatient (CLI) | payer BC, SELFPAY ==
--- NOTE | 2023-06-16 09:31 | NM_ITS ---
FINAL REPORT CLINICAL HISTORY: Elevated PTH 10:15 am 20.8 mci tc sestamibi injected into rt ant FINDINGS: 20.8 mCi Technetium Sestamibi was administered. Planar imaging was performed early and two-hour delayed of the neck and upper thorax. Early imaging shows physiologic uptake within the upper neck involving the salivary glands and lower neck involving the thyroid gland. On delayed imaging there is no abnormal retained activity in the lower neck or mediastinum to localize parathyroid adenoma. IMPRESSION: No scintigraphic evidence of parathyroid adenoma. Reviewed, Interpreted and Dictated by Taryn Castillo MD Transcribed by Bianka Turk Authenticated and [facility]
[2023-06-16 10:29] LABS: Alanine Aminotransferase 32 U/L (12-78); Alkaline Phosphatase 149 U/L (38-126); Aspartate Amino Transferase 33 U/L (14-36); Bilirubin,Indirect 0.2 mg/dL (0.0-0.9); Bilirubin,Total 0.2 mg/dl (0.2-1.3); Bilirubin,Unconjugated 0.3 mg/dL (0.0-1.1); Estimated Glomerular Filt Rate 73 ml/min (>60); GFR (African American) 88 ML/MIN (>60); Total Protein,Serum 6.9 g/dl (6.3-8.2)
[2023-06-16 16:22] LABS: Basophils # 0.1 K/mm3 (0-0.2); Basophils % 0.7 % (0.1-2.0); Eosinophils # 0.2 K/mm3 (0.0-0.4); Eosinophils % 2.9 % (0.1-12.0); Hematocrit 39.1 % (37.0-47.0); Hemoglobin 11.7 g/dL (12.2-16.2); Lymphocytes # 1.9 K/mm3 (0.7-4.5); Lymphocytes % 24.6 % (10-50); Mean Corpuscular Hemoglobin 25.8 pg (27.0-31.2); Mean Corpuscular Volume 85.8 fl (81-99); Mean Platelet Volume 9.5 fl (7.4-10.4); Monocytes # 0.5 K/mm3 (0.1-1.0); Monocytes % 6.3 % (1.7-9.3); Neutrophils # 4.9 K/mm3 (1.8-7.8); Neutrophils % 65.4 % (37.0-80.0); Platelet Count 353 K/mm3 (142-424); Red Blood Count 4.55 M/mm3 (4.20-5.40); Red Cell Distribution Width 17.9 % (11.5-17.5); White Blood Count 7.5 K/mm3 (4.8-10.8)
== END ==
LOC: RAD 09:12
PROVIDERS: Physician Assistant; PCP Physician Assistant; Visit Provider Physician Assistant
DX: R79.89 Other specified abnormal findings of blood chemistry (principal)
CPT/HCPCS: 36415; 78070; 80076; 82565; 85025; A9500

== ENCOUNTER → 2023-06-24 10:42 | Outpatient (CLI) | payer BC, SELFPAY ==
[2023-06-26 21:07] LABS: Calprotectin, Fecal 228 ug/g (0-120)
[2023-06-27 22:41] LABS: Pancreatic Elastase, Fecal 202 (>200)
== END ==
PROVIDERS: PCP Physician Assistant; Visit Provider Nurse Practitioner
DX: R10.9 Unspecified abdominal pain (principal); K58.9 Irritable bowel syndrome, unspecified
CPT/HCPCS: 82656; 83993

== ENCOUNTER → 2023-06-30 08:54 | Outpatient (CLI) | payer BC, SELFPAY ==
--- NOTE | 2023-06-30 08:55 | XR_ITS ---
FINAL REPORT CLINICAL HISTORY: elevated liver enzymes COMPARISON: None FINDINGS: Using L1-4, the bone mineral density of the spine is 1.123 g/cm2, corresponding to T-score of 0.7, within normal limits. Using the left hip, the bone mineral density of the femoral neck is 0.791 g/cm2, corresponding to a T-score of -0.5, within normal limits. Using the right hip, the bone mineral density of the femoral neck is 0.803 g/cm2, corresponding to a T-score of -0.4, within normal limits. FRAX not reported as all T-scores are at or above -1.0. NOTE: T-score: Standard deviation compared with peak bone mass of young adult mean. *Following the recommendations of the International Society of Bone densitometry, classification of hip BMD is based on the lower of two T-scores; total hip or femoral neck. IMPRESSION: Normal bone mineral density of the lumbar spine and hips. Reviewed, Interpreted and Dictated by Will Hansen III, MD Transcribed by Luly May Authenticated and . [facility]
--- NOTE | 2023-06-30 08:55 | MM_ITS ---
PROCEDURE INFORMATION: Exam: MG Right Diagnostic Breast Tomosynthesis Exam date and time: 06/30/2023 8:48 AM Age: 63 years old Clinical indication: Short-term radiographic followup; Right breast; calcifications TECHNIQUE: Imaging protocol: Right Diagnostic tomosynthesis and 2D mammography including computer-aided detection (CAD) when performed. Unilateral or bilateral exam. COMPARISON: 1. MG MM DIG MAMM BI DX W/CAD 01/21/2023 3:12 PM 2. MG MM DIG MAMM DX UNILAT RT CAD 07/19/2022 1:33 PM FINDINGS: MAMMOGRAPHY: The breast tissue is almost entirely fatty. There is no stellate mass or architectural distortion to suggest malignancy. Magnification views of the right breast demonstrate 2 stable groupings of calcifications. Their long-term stability are compatible with a benign etiology. No skin thickening or axillary adenopathy. IMPRESSION: No mammographic evidence of malignancy. Benign calcifications.Annual bilateral mammographic screening is recommended in December 2023 unless otherwise clinically indicated. ASSESSMENT: BI-RADS Category 2: Benign
== END ==
LOC: RAD 08:55
PROVIDERS: PCP Physician Assistant; Visit Provider Physician Assistant
DX: R92.1 Mammographic calcification found on diagnostic imaging of breast (principal); R74.8 Abnormal levels of other serum enzymes
CPT/HCPCS: 77061; 77065; 77080; G0279

== ENCOUNTER → 2023-07-05 15:08 | Outpatient (POV) | payer BC, SELFPAY | PROVIDERS: Visit Provider Dermatology | DX: Z00.00 Encounter for general adult medical examination without abnormal findings (principal) ==

== ENCOUNTER → 2023-07-06 10:43 | Outpatient (CLI) | payer BC, SELFPAY ==
[2023-07-06 11:28] LABS: Basophils # 0.1 K/mm3 (0-0.2); Basophils % 0.9 % (0.1-2.0); Eosinophils # 0.5 K/mm3 (0.0-0.4); Eosinophils % 6.5 % (0.1-12.0); Hematocrit 38.2 % (37.0-47.0); Hemoglobin 11.6 g/dL (12.2-16.2); Lymphocytes # 2.1 K/mm3 (0.7-4.5); Lymphocytes % 27.9 % (10-50); Mean Corpuscular HGB Conc 30.4 g/dL (31.8-35.4); Mean Corpuscular Hemoglobin 25.7 pg (27.0-31.2); Mean Corpuscular Volume 84.7 fl (81-99); Mean Platelet Volume 9.1 fl (7.4-10.4); Monocytes # 0.3 K/mm3 (0.1-1.0); Monocytes % 3.9 % (1.7-9.3); Neutrophils # 4.5 K/mm3 (1.8-7.8); Neutrophils % 60.8 % (37.0-80.0); Platelet Count 285 K/mm3 (142-424); Red Blood Count 4.51 M/mm3 (4.20-5.40); Red Cell Distribution Width 17.9 % (11.5-17.5); White Blood Count 7.3 K/mm3 (4.8-10.8)
[2023-07-06 13:01] LABS: Alanine Aminotransferase 29 U/L (12-78); Albumin Level 3.9 g/dl (3.5-5.0); Albumin/Globulin Ratio 1.3 (1.1-1.8); Alkaline Phosphatase 165 U/L (38-126); Anion Gap 15.6 mEq/L (5-15); Aspartate Amino Transferase 31 U/L (14-36); Bilirubin,Total 0.2 mg/dl (0.2-1.3); Blood Urea Nitrogen 17 mg/dl (7-17); Calcium 9.6 mg/dl (8.4-10.2); Carbon Dioxide 26 mmol/L (22.0-30.0); Chloride 104 mmol/L (98-107); Estimated Glomerular Filt Rate 85 ml/min (>60); GFR (African American) 103 ML/MIN (>60); Globulin 3.1 g/dL (1.3-3.2); Glucose 243 mg/dl (74-100); Potassium 4.6 mmoL/L (3.5-5.1); Sodium 141 mmol/L (136-145)
[2023-07-09 12:58] LABS: QuantiFERON-TB Gold Plus Negative (Negative)
== END ==
PROVIDERS: PCP Physician Assistant; Referring Provider Physician Assistant; Visit Provider Dermatology
DX: L40.0 Psoriasis vulgaris (principal); Z79.899 Other long term (current) drug therapy
CPT/HCPCS: 36415; 80053; 85025; 86480

== ENCOUNTER → 2023-10-18 15:48 | Outpatient (CLI) | payer BC, SELFPAY ==
[2023-10-18 18:15] LABS: Alanine Aminotransferase 35 U/L (12-78); Albumin Level 4.2 g/dl (3.5-5.0); Albumin/Globulin Ratio 1.3 (1.1-1.8); Alkaline Phosphatase 201 U/L (38-126); Anion Gap 14.8 mEq/L (5-15); Aspartate Amino Transferase 43 U/L (14-36); Bilirubin,Total 0.2 mg/dl (0.2-1.3); Blood Urea Nitrogen 20 mg/dl (7-17); Calcium 9.5 mg/dl (8.4-10.2); Carbon Dioxide 29 mmol/L (22.0-30.0); Chloride 100 mmol/L (98-107); Estimated Glomerular Filt Rate 56 ml/min (>60); GFR (African American) 68 ML/MIN (>60); Globulin 3.3 g/dL (1.3-3.2); Glucose 196 mg/dl (74-100); Potassium 4.8 mmoL/L (3.5-5.1); Sodium 139 mmol/L (136-145); Total Protein,Serum 7.5 g/dl (6.3-8.2)
[2023-10-18 18:20] LABS: 25-OH Vitamin D, Total 57.1 ng/mL (30-100)
[2023-10-18 18:24] LABS: Free T4 (Free Thyroxine) 1.21 ng/dl (0.78-2.19)
[2023-10-18 18:40] LABS: Thyroid Stimulating Hormone 0.82 uIU/mL (0.465-4.68)
== END ==
LOC: LAB 15:49
PROVIDERS: PCP Physician Assistant; Visit Provider Internal Medicine Endocrinology, Diabetes & Metabolism
DX: E11.9 Type 2 diabetes mellitus without complications (principal); E03.8 Other specified hypothyroidism; E06.3 Autoimmune thyroiditis; Z68.41 Body mass index [BMI] 40.0-44.9, adult; Z79.84 Long term (current) use of oral hypoglycemic drugs; Z79.85 Long-term (current) use of injectable non-insulin antidiabetic drugs
CPT/HCPCS: 36415; 80053; 82306; 84439; 84443

== ENCOUNTER → 2023-11-15 23:00 | Outpatient (CLI) | payer BC, SELFPAY ==
[2023-11-15 18:30] LABS: Adenovirus,PCR Not Detected (NotDetected); Coronavirus 19, PCR Not Detected (NotDetected); Coronavirus 229E Not Detected (NotDetected); Coronavirus NL63 Not Detected (NotDetected); Coronavirus OC43 Not Detected (NotDetected); Coronovirus HKU1,PCR Not Detected (NotDetected); Human Metapneumovirus Not Detected (NotDetected); Influenza A, PCR Not Detected (NotDetected); Influenza AH1, PCR Not Detected (NotDetected); Influenza AH3,PCR Not Detected (NotDetected); Influenza B, PCR Not Detected (NotDetected); Parainfluenza 1, PCR Not Detected (NotDetected); Parainfluenza 2, PCR Not Detected (NotDetected); Parainfluenza 3, PCR Not Detected (NotDetected); Parainfluenza 4, PCR Not Detected (NotDetected); Respiratory Syncytial Virus Not Detected (NotDetected); Rhinovirus/Enterovirus Not Detected (NotDetected)
[2023-11-15 21:23] LABS: Influenza AH1, 2009 Detected (NotDetected)
== END ==
LOC: LAB.DROPOF 11-16 00:02
PROVIDERS: PCP Physician Assistant; Visit Provider Internal Medicine
DX: R05.1 Acute cough (principal); J09.X2 Influenza due to identified novel influenza A virus with other respiratory manifestations
CPT/HCPCS: 87632; 87635

== ENCOUNTER 2024-01-19 18:12 | Emergency (ER) | payer BC, SELFPAY ==
[2024-01-19 19:30] VITALS: BP 121/86; PULSE 89; RESP 18; TEMP 36.8; O2SAT 100; BMI 34.9
--- NOTE | 2024-01-19 19:47 | EXP.UTC ---
Discharge Plan Disposition Patient Disposition: Home, Self-Care Condition: Good Prescriptions Prescriptions: New azithromycin [Zithromax Z-Denzel] 250 mg tablet See Rx Instructions .ROUTE .COMPLEX 5 Days Qty: 6 0RF Rx Instructions: For 250 mg dose pack: take 500 mg today (day 1), then 250 mg for 4 days (days 2-5) No Action levothyroxine [Euthyrox] 75 mcg tablet 75 mcg PO DAILY Patient Comments: TAKE 1 TABLET BY MOUTH ONCE DAILY IN THE MORNING ON AN EMPTY STOMACH 30-60 MINUTES BEFORE EATING. MUST KEEP FOLLOW-UP APPOINTMENT FOR REFILLS meloxicam 7.5 mg tablet 7.5 mg PO DAILY Jardiance 10 mg tablet 10 mg PO DAILY insulin glargine [Basaglar KwikPen U-100 Insulin] 100 unit/mL (3 mL) insulin pen 16 unit SQ DAILY Patient Comments: INJECT 10 UNITS UNDER THE SKIN ONE TIMES EACH DAY IN THE MORNING. TOTAL DAILY DOSE 30 UNITS benzonatate 100 mg capsule 100 mg PO TID PRN (Reason: cough) Qty: 30 2RF fluticasone propionate [Flonase Allergy Relief] 50 mcg/actuation spray,suspension 1 spray intranasal QDAY 30 Days Qty: 9.9 0RF Rx Instructions: administer into each nostril metformin 500 mg tablet 500 mg PO BID dicyclomine 10 mg capsule 20 mg PO TID PRN (Reason: abdominal pain) Qty: 90 2RF Rx Instructions: Use no more than 3 times a day as needed for abdominal cramping. Tremfya 100 mg/mL auto-injector 100 mg SQ clobetasol 0.05 % ointment topical rosuvastatin [Crestor] 5 mg tablet 5 mg PO DAILY hydrochlorothiazide 12.5 mg tablet See Rx Instructions .Route .COMPLEX Qty: 90 3RF Rx Instructions: Take 1 tablet by mouth once daily losartan 100 mg tablet See Rx Instructions .Route .COMPLEX Qty: 90 3RF Rx Instructions: Take 1 tablet by mouth once daily esomeprazole magnesium 40 mg capsule,delayed release(DR/EC) 40 mg PO DAILY Qty: 30 12RF metoprolol succinate 100 mg tablet extended release 24 hr 100 mg PO DAILY Qty: 30 5RF Rx Instructions: Take 1 tablet by mouth once daily escitalopram oxalate 20 mg tablet See Rx Instructions .ROUTE .COMPLEX Qty: 90 0RF Dose Instruction: Take 1 tablet by mouth once daily Rx Instructions: Take 1 tablet by mouth once daily dulaglutide 1.5 pen injector 0.7 units SQ WEEKLY Referrals Follow up/Referrals: Clementine Kohli PA [Primary Care Provider] - See instructions Activity Restrictions/Add. Instructions Additional Instructions/Restrictions: *Monitor Temp, Over the counter Motrin or Tylenol as directed/as needed Tylenol every 4 hours and Motrin every 6 hours (as long as your family doctor has told you that you can take it) for fever or pain. and straight to ER if unable to lower temp less than 101.0 after medication given *Warm salt water gargles may help to soothe the throat *Throat Lozenges? *Warm fluids like tea with honey may help to soothe the throat? *Sleep elevated *Humidifier/Vaporizer *Take medication as prescribed Your throat swab was sent for culture. Those results are typically sent to your primary care. Be sure to follow up in 2-3 days with your family doctor/primary care physician if no improvement so they can review those result and treat if necessary. If you don?t have a primary care doctor, I recommend you get one but in the mean time, you will have to return to a walk in clinic Follow up IMMEDIATELY for new or worsening symptoms or no Noticeable improvement over the next 48-72 hours. 911 for difficulty breathing or swallowing Clinical Impressions Clinical Impression: Otitis media Qualifiers: Otitis media type: unspecified Laterality: right Qualified Code(s): H66.91 - Otitis media, unspecified, right ear Instructions Patient Instructions: Middle Ear Infection, Sore Throat Discharge ED Provider: Lilia Charles [facility] General Stated complaint: sore throat, ear ache Mode of Arrival: Ambulatory Source of Information: Patient Limitations: No Limitations Time Seen by Provider: 01/19/24 19:47 Description of Symptoms (Recalled from Triage Doc. by RN): PATIENT C/O EAR PAIN AND SORE THROAT X 2 DAYS HEENT Symptoms (Recalled from RN notes): Yes Resp Symptoms (Recalled from RN notes): No Skin Symptoms (Recalled from RN notes): No MS Symptoms (Recalled from RN notes): No Functional Status (Recalled from RN notes): WNL History of Present Illness Provider Complaint: Patient states that she has been having pain in her right ear States that she had school nurse to look at it and she told her it looked red and she was around her son that has strep throat so she came in to get it checked Related Data Home Medications Medication Instructions Recorded Confirmed dulaglutide 1.5 mg/0.5 mL 0.7 units SQ WEEKLY Diabetes 08/03/18 11/15/23 subcutaneous pen injector metformin 500 mg tablet 500 mg PO BID Diabetes 03/25/21 11/15/23 levothyroxine 75 mcg tablet 75 mcg PO DAILY hypothyroidism 05/19/22 11/15/23 (Euthyrox) meloxicam 7.5 mg tablet 7.5 mg PO DAILY 06/01/23 11/15/23 clobetasol 0.05 % topical ointment topical 08/04/23 11/15/23 guselkumab 100 mg/mL subcutaneous 100 mg SQ 08/04/23 11/15/23 auto-injector (Tremfya) rosuvastatin 5 mg tablet (Crestor) 5 mg PO DAILY 08/04/23 11/15/23 empagliflozin 10 mg tablet 10 mg PO DAILY 11/15/23 11/15/23 (Jardiance) insulin glargine 100 unit/mL (3 16 unit SQ DAILY 11/15/23 11/15/23 mL) subcutaneous pen (Basaglar KwikPen U-100 Insulin) Previous Rx's Medication Instructions Recorded hydrochlorothiazide 12.5 mg tablet See Rx Instructions .Route 02/16/23 .COMPLEX htn #90 tabs losartan 100 mg tablet See Rx Instructions .Route 02/16/23 .COMPLEX htn #90 tabs dicyclomine 10 mg capsule 20 mg PO TID PRN abdominal pain 06/23/23 #90 caps esomeprazole magnesium 40 mg 40 mg PO DAILY ACID REFLUX #30 caps 07/26/23 capsule,delayed release metoprolol succinate 100 mg 100 mg PO DAILY High blood 11/09/23 tablet,extended release 24 hr pressure #30 tabs benzonatate 100 mg capsule 100 mg PO TID PRN cough #30 caps 11/15/23 fluticasone propionate 50 1 spray intranasal QDAY 30 days 11/15/23 mcg/actuation nasal #9.9 grams spray,suspension (Flonase Allergy Relief) escitalopram oxalate 20 mg tablet See Rx Instructions .Route 12/06/23 .COMPLEX #90 tabs azithromycin 250 mg tablet See Rx Instructions PO .COMPLEX 5 01/19/24 (Zithromax Z-Denzel) days #6 tabs Allergies Allergy/AdvReac Type Severity Reaction Status Date / Time amoxicillin [From AUGMENTIN] Allergy Mild NA-NAUSEA Verified 08/04/23 15:39 cefdinir Allergy Mild Verified 08/04/23 15:39 clavulanic acid Allergy Mild NA-NAUSEA Verified 08/04/23 15:39 [From AUGMENTIN] hydrocodone [From NORCO] Allergy Mild HIVES,ITCHI Verified 08/04/23 15:39 NG naproxen [NAPROXEN] Allergy Mild HIVES,ITCHI Verified 08/04/23 15:39 NG Sulfa (Sulfonamide Allergy Mild HIVES,ITCHI Verified 08/04/23 15:39 Antibiotics) NG [SULFA (SULFONAMIDE ANTIBIOTICS)] aspirin Allergy Verified 08/04/23 15:39 Cephalosporins Allergy unknown Verified 08/04/23 15:39 Worker's Comp Is this a Worker's Comp case?: No [facility] Disclaimer: The information contained in this section may have been updated after the patient was seen, as this information can be updated by other users. Medical History Diabetes Dyshidrotic eczema Elevated parathyroid hormone Encounter for screening breast examination Neuropathy Polyarthralgia Surgical History History of colonoscopy Social History Smoking Status: Current every day smoker tobacco type: cigarettes packs per day: 1 second hand exposure: No alcohol intake: never substance use type: denies use current occupational status: unemployed Travel in the last 8 weeks: None household members: spouse housing: house current occupation: school system current occupational exposures/hazards: No caffeine: Yes ROS Obtained: Yes All systems reviewed & no additional complaints except as documented and Yes Systems reviewed as appropriate & no additional complaints except as documented Constitutional Constitutional: Reports system reviewed and no additional complaints, except as documented and Reports as per HPI ENT Ears, Nose, Mouth, and Throat: Reports system reviewed and no additional complaints, except as documented, Reports as per HPI, Reports otalgia and Reports sore throat Cardiovascular Cardiovascular: Reports system reviewed and no additional complaints, except as documented and Reports as per HPI Respiratory Respiratory: Reports system reviewed and no additional complaints, except as documented and Reports as per HPI Gastrointestinal Gastrointestingal: Reports system reviewed and no additional complaints, except as documented and as per HPI Genitourinary Female Genitourinary: Reports system reviewed and no additional complaints, except as documented and Reports as per HPI Physical Exam General General appearance: alert and in no apparent distress ENT ENT exam: Present mucous membranes moist Expanded ENT Exam TM/Canal exam: Right TM: erythema and bulging Throat exam: Present tonsillar erythema Respiratory Respiratory exam: Present normal lung sounds bilaterally; Absent respiratory distress or wheezes Cardiovascular Cardiovascular exam: Present regular rate, normal rhythm and normal heart sounds Neurological Exam Neurological exam: Present alert, oriented X3 and normal gait Medical Decision Making Cj Inquiry Pt receiving controlled substance: No Cj was queried for this patient: No Vital Signs: 01/19/24 19:30 Temperature 98.3 F Temperature Source Oral Pulse Rate [Left Brachial] 89 Respiratory Rate 18 Blood Pressure [Left Arm] 121/86 Blood Pressure Mean [Left Arm] 97 Blood Pressure Source [Left Arm] Automatic Cuff Blood Pressure Position [Left Arm] Sitting 02 Sat by Pulse Oximetry 100 Oxygen Delivery Method Room Air Lab Data Lab results reviewed: Yes I reviewed the patient's lab results. Medical Decision Narrative: Patient states that she has taken azithromycin in the past without complications or reactions with her current medications
[2024-01-19 19:53] LABS: UTC Strep Screen (Rapid) Negative (Negative)
[2024-01-19 19:58] VITALS: BP 121/86; PULSE 89; RESP 18; TEMP 36.8; O2SAT 100
== END 2024-01-19 20:04 | disposition home or self-care (01) ==
PROVIDERS: Emergency Provider Nurse Practitioner; PCP Physician Assistant
DX: H66.91 Otitis media, unspecified, right ear (principal); R07.0 Pain in throat; F17.210 Nicotine dependence, cigarettes, uncomplicated; E11.9 Type 2 diabetes mellitus without complications; E03.9 Hypothyroidism, unspecified; Z79.84 Long term (current) use of oral hypoglycemic drugs; Z79.4 Long term (current) use of insulin
CPT/HCPCS: 87880; 99212; 99214; G0463

== ENCOUNTER 2024-01-23 12:57 | Outpatient (CLI) | payer BC, SELFPAY ==
--- NOTE | 2024-01-23 12:57 | MM_ITS ---
PROCEDURE INFORMATION: Exam: MG Bilateral Screening 3D Mammography Exam date and time: 01/23/2024 12:45 PM Age: 63 years old Clinical indication: Screening. History benign left biopsy. TECHNIQUE: Imaging protocol: Bilateral Screening tomosynthesis and 2D mammography including computer-aided detection (CAD) when performed. COMPARISON: 1. MG MM DIG MAMM DX UNILAT RT CAD 06/30/2023 8:48 AM 2. MG MM DIG MAMM BI DX W/CAD 01/21/2023 3:12 PM 3. MG MM DIG MAMM DX UNILAT RT CAD 07/19/2022 1:33 PM 4. MG MM DIG MAMM BI DX W/CAD 01/18/2022 2:03 PM FINDINGS: MAMMOGRAPHY: Breast composition: The breasts are almost entirely fatty. Mass: No suspicious mass. Architectural distortion: None. Calcifications: No suspicious calcifications. Asymmetric density: None. Skin thickening: None. Axillary adenopathy: None. IMPRESSION: No mammographic evidence of malignancy, annual screening mammogram recommended unless otherwise clinically indicated. ASSESSMENT: BI-RADS Category 1: Negative
== END 2024-01-23 23:59 ==
LOC: RAD 12:57
PROVIDERS: PCP Physician Assistant; Visit Provider Surgery
DX: Z12.31 Encounter for screening mammogram for malignant neoplasm of breast (principal)
CPT/HCPCS: 77063; 77067

== ENCOUNTER 2024-03-24 02:53 | Emergency (ER) | payer BC, SELFPAY ==
[2024-03-24 02:54] VITALS: BP 135/77; PULSE 75; RESP 18; TEMP 36.4; O2SAT 95; BMI 41.8
[2024-03-24 02:58] VITALS: BP 135/77; PULSE 75; RESP 18; O2SAT 95
[2024-03-24 03:00] VITALS: BP 128/76; PULSE 78; RESP 16; O2SAT 95
--- NOTE | 2024-03-24 03:11 | HMH.EDGENADL ---
Discharge Plan Disposition Patient Disposition: Left Against Medical Advice Prescriptions Prescriptions: New ondansetron HCl 4 mg tablet 4 mg PO Q8H PRN (Reason: nausea and vomiting) 5 Days Qty: 30 0RF No Action levothyroxine [Euthyrox] 75 mcg tablet 75 mcg PO DAILY Patient Comments: TAKE 1 TABLET BY MOUTH ONCE DAILY IN THE MORNING ON AN EMPTY STOMACH 30-60 MINUTES BEFORE EATING. MUST KEEP FOLLOW-UP APPOINTMENT FOR REFILLS meloxicam 7.5 mg tablet 7.5 mg PO DAILY Jardiance 10 mg tablet 10 mg PO DAILY insulin glargine [Basaglar KwikPen U-100 Insulin] 100 unit/mL (3 mL) insulin pen 16 unit SQ DAILY Patient Comments: INJECT 10 UNITS UNDER THE SKIN ONE TIMES EACH DAY IN THE MORNING. TOTAL DAILY DOSE 30 UNITS benzonatate 100 mg capsule 100 mg PO TID PRN (Reason: cough) Qty: 30 2RF fluticasone propionate [Flonase Allergy Relief] 50 mcg/actuation spray,suspension 1 spray intranasal QDAY 30 Days Qty: 9.9 0RF Rx Instructions: administer into each nostril metformin 500 mg tablet 500 mg PO BID dicyclomine 10 mg capsule 20 mg PO TID PRN (Reason: abdominal pain) Qty: 90 2RF Rx Instructions: Use no more than 3 times a day as needed for abdominal cramping. Tremfya 100 mg/mL auto-injector 100 mg SQ clobetasol 0.05 % ointment topical esomeprazole magnesium 40 mg capsule,delayed release(DR/EC) 40 mg PO DAILY Qty: 30 12RF metoprolol succinate 100 mg tablet extended release 24 hr 100 mg PO DAILY Qty: 30 5RF Rx Instructions: Take 1 tablet by mouth once daily rosuvastatin [Crestor] 5 mg tablet 5 mg PO DAILY Qty: 90 0RF losartan 100 mg tablet See Rx Instructions .ROUTE .COMPLEX Qty: 90 3RF Dose Instruction: Take 1 tablet by mouth once daily Rx Instructions: Take 1 tablet by mouth once daily hydrochlorothiazide 12.5 mg tablet See Rx Instructions .ROUTE .COMPLEX Qty: 90 3RF Dose Instruction: Take 1 tablet by mouth once daily Rx Instructions: Take 1 tablet by mouth once daily escitalopram oxalate 20 mg tablet See Rx Instructions .ROUTE .COMPLEX Qty: 90 3RF Dose Instruction: Take 1 tablet by mouth once daily Rx Instructions: Take 1 tablet by mouth once daily fluconazole 150 mg tablet 150 mg PO Q3D Qty: 2 0RF Rx Instructions: may repeat second dose 72 hrs after first dose if symptoms persist varenicline [Chantix Starting Month Box] 0.5 mg (11)- 1 mg (42) tablets,dose pack See Rx Instructions PO PER PKG DIR Qty: 53 0RF Rx Instructions: PO PER PKG DIR dulaglutide 1.5 pen injector 0.7 units SQ WEEKLY Referrals Follow up/Referrals: Clementine Kohli PA [Primary Care Provider] - See instructions Activity Restrictions/Add. Instructions Additional Instructions/Restrictions: Please return to the emergency department if you develop any new or worsening symptoms or become concerned for your health. Please take Zofran as needed for nausea and vomiting. Clinical Impressions Clinical Impression: Dilated bowel Abdominal pain Qualifiers: Abdominal location: generalized Qualified Code(s): R10.84 - Generalized abdominal pain Instructions Patient Instructions: DI for Acute Abdominal Pain Discharge ED Provider: Austin Phillips Adult HPI General Chief complaint: Abdominal Pain Stated complaint: abd pain, nausea, sweats Time Seen by Provider: 03/24/24 02:55 Mode of Arrival: Ambulatory Source of Information: Patient Limitations: No Limitations Description of Symptoms (Recalled from ER Triage Doc. by RN): Pt states she has stomach pain that started approx 6 hours ago. Pt states she takes Dicyclomine for stomach pain and it's not working this morning. Pt is A&O*4 at this time. History of Present Illness HPI narrative: 63-year-old female with history of IBS, obesity, diabetes, diverticulitis, on Ozempic presents with generalized abdominal pain, bloating, cramping. Symptoms started around 9 PM, approximately 6 hours ago she reports nausea but denies vomiting. She had a small bowel movement earlier after onset of pain but reports it did not help her symptoms. She reports that the cramps come and go. She has had issues like this before but never this severe. she took her dicyclomine but it did not help at all. She denies any recent fever or illness. She denies any history of abdominal surgery. She denies any urinary symptoms. Related Data Home Medications Medication Instructions Recorded Confirmed dulaglutide 1.5 mg/0.5 mL 0.7 units SQ WEEKLY Diabetes 08/03/18 02/01/24 subcutaneous pen injector metformin 500 mg tablet 500 mg PO BID Diabetes 03/25/21 02/01/24 levothyroxine 75 mcg tablet 75 mcg PO DAILY hypothyroidism 05/19/22 02/01/24 (Euthyrox) meloxicam 7.5 mg tablet 7.5 mg PO DAILY 06/01/23 02/01/24 clobetasol 0.05 % topical ointment topical 08/04/23 02/01/24 guselkumab 100 mg/mL subcutaneous 100 mg SQ 08/04/23 02/01/24 auto-injector (Tremfya) empagliflozin 10 mg tablet 10 mg PO DAILY 11/15/23 02/01/24 (Jardiance) insulin glargine 100 unit/mL (3 16 unit SQ DAILY 11/15/23 02/01/24 mL) subcutaneous pen (Basaglar KwikPen U-100 Insulin) Previous Rx's Medication Instructions Recorded dicyclomine 10 mg capsule 20 mg (2 x 10 mg) PO TID PRN 06/23/23 abdominal pain #90 caps esomeprazole magnesium 40 mg 40 mg PO DAILY ACID REFLUX #30 caps 07/26/23 capsule,delayed release metoprolol succinate 100 mg 100 mg PO DAILY High blood 11/09/23 tablet,extended release 24 hr pressure #30 tabs benzonatate 100 mg capsule 100 mg PO TID PRN cough #30 caps 11/15/23 fluticasone propionate 50 1 spray intranasal QDAY 30 days 11/15/23 mcg/actuation nasal #9.9 grams spray,suspension (Flonase Allergy Relief) rosuvastatin 5 mg tablet (Crestor) 5 mg PO DAILY Cholesterol #90 tabs 01/27/24 hydrochlorothiazide 12.5 mg tablet See Rx Instructions .Route 02/20/24 .COMPLEX #90 tabs losartan 100 mg tablet See Rx Instructions .Route 02/20/24 .COMPLEX #90 tabs escitalopram oxalate 20 mg tablet See Rx Instructions .Route 02/24/24 .COMPLEX #90 tabs fluconazole 150 mg tablet 150 mg PO Q3D yeast infection 2 03/09/24 doses #2 tabs varenicline 0.5 mg (11)-1 mg (42) See Rx Instructions PO PER PKG DIR 03/14/24 tablets in a dose pack (Chantix #53 tabs Starting Month Box) ondansetron HCl 4 mg tablet 4 mg PO Q8H PRN nausea and 03/24/24 vomiting 5 days #30 tabs Allergies Allergy/AdvReac Type Severity Reaction Status Date / Time amoxicillin [From AUGMENTIN] Allergy Mild NA-NAUSEA Verified 02/01/24 15:15 cefdinir Allergy Mild Verified 02/01/24 15:15 clavulanic acid Allergy Mild NA-NAUSEA Verified 02/01/24 15:15 [From AUGMENTIN] hydrocodone [From NORCO] Allergy Mild HIVES,ITCHI Verified 02/01/24 15:15 NG naproxen [NAPROXEN] Allergy Mild HIVES,ITCHI Verified 02/01/24 15:15 NG Sulfa (Sulfonamide Allergy Mild HIVES,ITCHI Verified 02/01/24 15:15 Antibiotics) NG [SULFA (SULFONAMIDE ANTIBIOTICS)] aspirin Allergy Verified 02/01/24 15:15 Cephalosporins Allergy unknown Verified 02/01/24 15:15 [facility] Disclaimer: The information contained in this section may have been updated after the patient was seen, as this information can be updated by other users. Medical History Elevated parathyroid hormone Encounter for screening breast examination Dyshidrotic eczema Neuropathy Polyarthralgia Diabetes Surgical History History of colonoscopy Social History Smoking Status: Current every day smoker tobacco type: cigarettes packs per day: 1 second hand exposure: No alcohol intake: never substance use type: denies use current occupational status: unemployed Travel in the last 8 weeks: None household members: spouse housing: house current occupation: school system current occupational exposures/hazards: No caffeine: Yes ROS Obtained: Yes All systems reviewed & no additional complaints except as documented Physical Exam General General appearance: alert and obese Comment: Uncomfortable appearing Head Head exam: atraumatic and normocephalic Eye Eye exam: Present normal appearance, PERRL and EOMI ENT ENT exam: Present normal oropharynx and normal external ear exam Neck Neck exam: Present normal inspection and full ROM Chest Chest inspection: Present normal inspection and symmetric chest wall rise; Absent tenderness Respiratory Respiratory exam: Present normal lung sounds bilaterally; Absent respiratory distress Cardiovascular Cardiovascular exam: Present regular rate and normal rhythm Abdominal Exam Abdominal exam: Present soft, distention and tenderness (Generalized, without peritonitis); Absent guarding Extremities Exam Extremities exam: Present normal inspection; Absent edema or joint swelling Back Exam Back exam: Present normal inspection; Absent tenderness Neurological Exam Neurological exam: Present alert and oriented X3; Absent motor sensory deficit Psychiatric Psychiatric exam: Present normal affect and normal mood Skin Skin exam: Present warm, dry and normal color Lymphatic Lymphatic Findings: no adenopathy Medical Decision Making Medical Records Medical records reviewed: Yes I reviewed the patient's medical records. Cj Inquiry Pt receiving controlled substance: No Cj was queried for this patient: No Vital Signs: 03/24/24 02:54 03/24/24 02:58 03/24/24 03:00 Temperature 97.6 F Temperature Source Oral Pulse Rate 75 78 Pulse Rate [Left] 75 Respiratory Rate 18 18 16 Blood Pressure 135/77 128/76 Blood Pressure [Right Arm] 135/77 Blood Pressure Mean 100 92 Blood Pressure Mean [Right Arm] 96 02 Sat by Pulse Oximetry 95 95 95 Oxygen Delivery Method Room Air Room Air Room Air Lab Data Lab results reviewed: Yes I reviewed the patient's lab results. Lab Results 03/24/24 03:02: WBC 11.6 H, RBC 5.38, Hgb 13.7, Hct 44.7, MCV 83.1, MCH 25.4 L, MCHC 30.5 L, RDW 18.1 H, Plt Count 358, MPV 8.4, Neut % (Auto) 82.2 H, Lymph % (Auto) 11.1, Wharton % (Auto) 3.6, Eos % (Auto) 2.3, Baso % (Auto) 0.8, Neut # (Auto) 9.5 H, Lymph # (Auto) 1.3, Wharton # (Auto) 0.4, Eos # (Auto) 0.3, Baso # (Auto) 0.1, Sodium 140, Potassium 4.6, Chloride 103, Carbon Dioxide 29, Anion Gap 12.6, BUN 23 H, Creatinine 1.00, Estimated Creat Clear 47, Estimated GFR 56 L, Est GFR ( Amer) 68, Glucose 288 H, Calcium 10.5 H, Total Bilirubin 0.4, AST 35, ALT 36, Alkaline Phosphatase 153 H, Total Protein 8.8 H, Albumin 4.5, Globulin 4.3 H, Albumin/Globulin Ratio 1.0 L, Lipase 314 H 03/24/24 03:02 03/24/24 03:02 Orders (Tests/Meds): ED MEDICATIONS Generic Name Dose Route Start Last Admin Trade Name Freq PRN Reason Stop Dose Admin Sodium Chloride 10 ml 03/24/24 03:31 03/24/24 03:32 Sodium Chloride 0.9% 10ml Syr (Rad Only) IV 04/23/24 03:30 10 ml NEEDED PRN Administration Maintain IV Site Discontinued Medications Generic Name Dose Route Start Last Admin Trade Name Freq PRN Reason Stop Dose Admin Lactated Ringer's 1,000 mls @ 999 mls/hr 03/24/24 03:15 03/24/24 03:56 Lactated Ringer's 1000 Ml Bag IV 03/24/24 04:15 999 mls/hr .Q1H1M VARGHESE Administration Iopamidol 100 ml 03/24/24 03:31 03/24/24 03:32 Iopamidol-370 (76%);100ml Bottle IV 03/24/24 03:32 100 ml ONCE ONE Administration Ondansetron HCl 4 mg 03/24/24 03:09 03/24/24 03:56 Ondansetron 4mg/2ml Vial IV 03/24/24 03:10 4 mg ONCE ONE Administration Sodium Chloride 50 ml 03/24/24 03:31 03/24/24 03:32 0.9 % Sodium Chloride 50 Ml Vial IV 03/24/24 03:32 50 ml ONCE ONE Administration ORDERS Category Date Time Status CT angio abdomen pelvis Stat Cat Scan 03/24/24 03:12 Completed CBC w/Auto Diff [Complete Blood Count Auto Diff] Stat Lab 03/24/24 03:02 Completed CMP [Comprehensive Metabolic Panel] Stat Lab 03/24/24 03:02 Completed Lipase Stat Lab 03/24/24 03:02 Completed Medical Decision Narrative: 63-year-old female, presentation complicated by history of IBS diabetes on Ozempic diverticulitis obesity above presents with acute onset severe generalized abdominal pain, cramping. History was obtained interactive discussion with patient, chart review. On arrival, patient is [afebrile, hemodynamically stable, satting appropriately, alert, oriented x4, GCS 15], moving all extremities spontaneously. Full physical exam performed and significant for abdominal distention, soft, mild generalized tenderness. Differential includes but is not limited to gastroenteritis, pancreatitis, cholecystitis, appendicitis, diverticulitis bowel obstruction, IBS, mesenteric ischemia. Patient was given Zofran, fluid bolus for symptomatic management and correction of underlying abnormalities. Workup initiated including CBC CMP lipase CT angio abdomen and pelvis.. On re-evaluation, patient sleeping comfortably, reports symptomatic improvement but not resolution. Continues to have abdominal distention, tenderness improved, no peritonitis Laboratory workup independently interpreted by me and significant for minimally elevated lipase, not consistent with pancreatitis, improved from prior, minimal leukocytosis, minimally elevated alk phos Imaging independently interpreted by me and significant for no evidence of acute aortic pathology to suggest mesenteric ischemia. Diffusely dilated and fluid-filled small and large bowel noted without obvious transition point. No evidence of cholecystitis, appendicitis, pancreatitis, diverticulitis. I had an interactive discussion with radiology who reports concern for a small bowel obstruction with a transition point in the lower abdomen. Given the diffuse nature of the dilated bowel, there is also concern for enteritis/colitis. Given patient history, exam and workup, patient's presentation most likely represents enteritis/colitis, with concern for focal small bowel obstruction. She is still passing gas, is reporting improvement in her abdominal pain. I had extensive and repeated discussion with patient regarding her presentation. I am concerned she could have small bowel obstruction and repeatedly recommended that she be admitted to the hospital for observation/further evaluation. I communicated to patient the risk of injury or if she left. She reports that she understands these dangers and that she feels much better than she when she came in. She reports that she lives very close and will just come back if she feels worse. Given this, patient ultimately decided to leave [facility]. I prescribed her Zofran. Procedures Risk/Benefits of Procedure(s) Were Explained: Yes Critical Care Critical Care Time Critical Care Time: No
--- NOTE | 2024-03-24 03:12 | CT_ITS ---
PROCEDURE INFORMATION: Exam: CTA Abdomen and Pelvis With Contrast Exam date and time: 03/24/2024 3:23 AM Age: 63 years old Clinical indication: Abdominal pain; Acute; Additional info: Severe abd pain, cramping TECHNIQUE: Imaging protocol: Computed tomographic angiography of the abdomen and pelvis with contrast. Exam focused on the arteries. 3D rendering (Not supervised by radiologist): MIP and/or 3D reconstructed images were created by the technologist. Radiation optimization: All CT scans at this facility use at least one of these dose optimization techniques: automated exposure control; mA and/or kV adjustment per patient size (includes targeted exams where dose is matched to clinical indication); or iterative reconstruction. Contrast material: ISOUVE 370; Contrast volume: 100 ml; Contrast route: INTRAVENOUS (IV); COMPARISON: CT ABDOMEN PELVIS W CON 12/05/2022 8:25 PM FINDINGS: Lungs: Lingular scarring/atelectasis. [id number]-left basilar scarring/atelectasis. Aorta: No aortic aneurysm. No aortic dissection. Celiac trunk and mesenteric arteries: No occlusion or significant stenosis. Renal arteries: No occlusion or significant stenosis. Right iliac arteries: No occlusion or significant stenosis. Left iliac arteries: No occlusion or significant stenosis. Liver: Diffuse hepatic steatosis. Gallbladder and bile ducts: Unremarkable. No calcified stones. No ductal dilation. Pancreas: Unremarkable. No mass. No ductal dilation. Spleen: Multiple calcified splenic granulomas. Adrenal glands: Unremarkable. No mass. Kidneys and ureters: Unremarkable. No solid mass. No hydronephrosis. Stomach and bowel: Diverticulosis without evidence of diverticulitis. Colon is filled with fluid. Lower abdominal short-segment dilated loop of small bowel reaching up to 3.1 cm in dilation. There is no focal transition point, gradual transition is noted at both ends of the dilated loops. No associated wall thickening or concerning enhancement. There is mild interloop ascites, as well as mesenteric mild inflammatory change. Scattered fluid-filled loops of small bowel throughout the abdomen is additionally noted. Appendix: No evidence of appendicitis. Intraperitoneal space: See Stomach and bowel finding. Lymph nodes: Unremarkable. No enlarged lymph nodes. Urinary bladder: Unremarkable. No mass. Reproductive: Unremarkable as visualized. Bones/joints: Diffuse degenerative change of the visualized osseous structures, most severe at the lower lumbar spine sequela of granulomatous disease. Osteitis condensans ophelia. Soft tissues: Unremarkable. IMPRESSION: 1. Findings suspicious for small bowel obstruction in the lower abdomen without transition points. Recommend surgical consultation. 2. Additional findings of enteritis and colitis are appreciated. Correlate with clinical history. 3. Additional findings as above.
[2024-03-24 03:17] LABS: Chloride 103 mmol/L (98-107); Potassium 4.6 mmoL/L (3.5-5.1); Sodium 140 mmol/L (136-145)
[2024-03-24 03:18] LABS: Basophils # 0.1 K/mm3 (0-0.2); Basophils % 0.8 % (0.1-2.0); Eosinophils # 0.3 K/mm3 (0.0-0.4); Eosinophils % 2.3 % (0.1-12.0); Hematocrit 44.7 % (37.0-47.0); Hemoglobin 13.7 g/dL (12.2-16.2); Lymphocytes # 1.3 K/mm3 (0.7-4.5); Lymphocytes % 11.1 % (10-50); Mean Corpuscular HGB Conc 30.5 g/dL (31.8-35.4); Mean Corpuscular Hemoglobin 25.4 pg (27.0-31.2); Mean Corpuscular Volume 83.1 fl (81-99); Mean Platelet Volume 8.4 fl (7.4-10.4); Monocytes # 0.4 K/mm3 (0.1-1.0); Monocytes % 3.6 % (1.7-9.3); Neutrophils # 9.5 K/mm3 (1.8-7.8); Neutrophils % 82.2 % (37.0-80.0); Platelet Count 358 K/mm3 (142-424); Red Blood Count 5.38 M/mm3 (4.20-5.40); Red Cell Distribution Width 18.1 % (11.5-17.5); White Blood Count 11.6 K/mm3 (4.8-10.8)
[2024-03-24 03:19] LABS: Blood Urea Nitrogen 23 mg/dl (7-17)
[2024-03-24 03:20] LABS: Alanine Aminotransferase 36 U/L (12-78); Albumin Level 4.5 g/dl (3.5-5.0); Alkaline Phosphatase 153 U/L (38-126); Anion Gap 12.6 mEq/L (5-15); Aspartate Amino Transferase 35 U/L (14-36); Bilirubin,Total 0.4 mg/dl (0.2-1.3); Calcium 10.5 mg/dl (8.4-10.2); Carbon Dioxide 29 mmol/L (22.0-30.0); Creatinine Clearance Estimated 47 mL/min (50-200); Estimated Glomerular Filt Rate 56 ml/min (>60); GFR (African American) 68 ML/MIN (>60); Globulin 4.3 g/dL (1.3-3.2); Glucose 288 mg/dl (74-100); Lipase 314 U/L (23-300); Total Protein,Serum 8.8 g/dl (6.3-8.2)
[2024-03-24] MEDS: IOPAMIDOL-370 (76%);100ML BOTTLE 100 ML IV (03:32)
[2024-03-24] MEDS: 0.9 % SODIUM CHLORIDE 50 ML VIAL IV (03:32)
[2024-03-24] MEDS: SODIUM CHLORIDE 0.9% 10ML SYR (RAD ONLY) 10 ML IV (03:32)
[2024-03-24] MEDS: LACTATED RINGERS 1000ML 1,000 ML 999 ML IV (03:56)
[2024-03-24] MEDS: ONDANSETRON 4MG/2ML VIAL 4 MG IV (03:56)
[2024-03-24 04:39] VITALS: BP 117/62; PULSE 79; RESP 18; TEMP 36.4; O2SAT 100
== END 2024-03-24 04:48 | disposition left against medical advice (07) ==
PROVIDERS: Emergency Provider Emergency Medicine; PCP Physician Assistant
DX: R10.84 Generalized abdominal pain (principal); K59.39 Other megacolon; E11.40 Type 2 diabetes mellitus with diabetic neuropathy, unspecified; F17.210 Nicotine dependence, cigarettes, uncomplicated; Z79.84 Long term (current) use of oral hypoglycemic drugs; Z79.85 Long-term (current) use of injectable non-insulin antidiabetic drugs
CPT/HCPCS: 74174; 80053; 83690; 85025; 96361; 96374; 99284; J2405; Q9967

== ENCOUNTER 2024-03-30 06:57 | Outpatient (CLI) | payer BC, SELFPAY ==
[2024-03-30 07:59] LABS: INR 0.91 (0.9-1.1); Prothrombin Time 9.9 seconds (10.1-12.5)
[2024-03-31 08:16] LABS: AFP, Tumor Marker <1.8 ng/mL (0.0-9.2)
[2024-04-05 15:20] LABS: Fibrosis Score 0.02; Fibrosis Stage F0-NO FIBROSIS
[2024-04-05 15:21] LABS: NASH Grade N1-MILD NASH; NASH Score 0.34; Steatosis Grade S2-S3; Steatosis Score 0.67
[2024-04-05 15:22] LABS: Alpha 2-Macroglobulins, Qn 155; Apolipoprotein A-1 148; Bilirubin, Total 0.1; GGT 13; Haptoglobin 371
[2024-04-05 15:23] LABS: ALT (SGPT) P5P 18; AST (SGOT) P5P 20; Cholesterol, Total 99; Triglycerides 139
[2024-04-05 15:24] LABS: Glucose 186
== END 2024-03-30 23:59 | disposition home or self-care (01) ==
PROVIDERS: PCP Physician Assistant; Visit Provider Nurse Practitioner
DX: K76.0 Fatty (change of) liver, not elsewhere classified (principal)
CPT/HCPCS: 36415; 82105; 85610

== ENCOUNTER 2024-04-06 08:34 | Outpatient (CLI) | payer BC, SELFPAY ==
--- NOTE | 2024-04-06 08:35 | FL_ITS ---
FINAL REPORT CLINICAL HISTORY: eval SBO- previous loop and fluid collect 03/24 3.49 min DAP 9272.31 FINDINGS: UPPER GI WITH SBFT UPPER GI EXAM HISTORY: Abdominal pain, nausea. PROCEDURE: The patient ingested barium. Effervescent crystals were also administered. Spot and overhead films were obtained. FINDINGS: The esophagus is normal. There is no hiatal hernia. There is moderate gastroesophageal reflux. Peristalsis is normal. The rugal fold pattern of the stomach is normal. There are prominent thickened duodenal folds. Fluoroscopy time: 3.49 minutes Fluoro dose: 9272.31 DAP in uGym2 IMPRESSION: 1. Moderate gastroesophageal reflux. 2. Thickened duodenal folds may represent enteritis. 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 There is no evidence of obstruction. Again noted are prominent and thickened duodenal folds which may represent enteritis. The patient experienced discomfort with palpation of the terminal ileum but no definite radiographic abnormality is noted in this region. IMPRESSION: Prominent duodenal folds may represent enteritis. Films reviewed , interpreted and dictated by Dr. Hansen Transcribed by Mark Culp PA-C. Reviewed, Interpreted and Dictated by Will Hansen III, MD Transcribed by HORACE Ramos Authenticated and [facility]
[2024-04-06] MEDS: BARIUM SULFATE(LIQUID E-Z-PAQUE);355ML BOTTLE 355 ML PO (09:07)
[2024-04-06] MEDS: BARIUM SULFATE (E-Z-HD 340GM);135ML BOTTLE 135 ML PO (09:08)
[2024-04-06] MEDS: E-Z-GASII EFFERVESCENT GRANULES;1PK 1 EACH PO (09:08)
[2024-04-06] MEDS: DIATRIZOATE MEG 66% & DIATRIZOATE NA 10% 30ML UDC 15 ML PO (09:41)
== END 2024-04-06 23:59 | disposition home or self-care (01) ==
LOC: RAD 08:35
PROVIDERS: PCP Physician Assistant; Visit Provider Nurse Practitioner
DX: R10.9 Unspecified abdominal pain (principal)
CPT/HCPCS: 74246; 74248

== ENCOUNTER 2024-05-07 10:01 | Inpatient (IN) | payer BC, SELFPAY ==
[2024-05-07] VITALS (11 sets, daily range): BP systolic 97–145; BP diastolic 44–84; PULSE 64–80; RESP 16–18; TEMP 36.4–36.7; O2SAT 91–98; BMI 41.7; BMI 42.5
--- NOTE | 2024-05-07 10:14 | PC.NURSE ---
dr cruz at bedside
--- NOTE | 2024-05-07 10:19 | CT_ITS ---
FINAL REPORT TECHNIQUE: After the administration of intravenous contrast, axial images were obtained through the abdomen and pelvis by computed tomography. This study was performed with technique to keep radiation doses as low as reasonably achievable, (ALARA). Individualized dose reduction techniques using automated exposure control or adjustment of the MA and/or KV according to the patient's size were employed. CLINICAL HISTORY: diffuse abd pain COMPARISON: 12/06/2022 FINDINGS: Abdomen: The lung bases are clear. The liver is fatty infiltrated with sparing adjacent to the gallbladder fossa.. The spleen is unremarkable. The adrenals are normal. The pancreas is unremarkable. The kidneys enhance appropriately. The aorta is normal in caliber. There is no free fluid or adenopathy. There are multiple colonic diverticula. Moderate distention is seen of air and fluid-filled small bowel loops. Distal small bowel is decompressed. Findings are consistent with partial small bowel obstruction. Pelvis: The appendix is normal. There is wall thickening of the small bowel at the transition point which may represent inflammatory bowel disease or other inflammatory process. Neoplasm considered less likely. Patient is status post hysterectomy. The urinary bladder is unremarkable. There is no free fluid or adenopathy. IMPRESSION: Wall thickening of the small bowel at transition point which may represent inflammatory bowel disease or other inflammatory process. Neoplasm considered less likely. Moderate distention of air and fluid-filled small bowel loops, distal small bowel decompressed. Findings consistent with small bowel obstruction. Reviewed, Interpreted and Dictated by Will Hansen III, MD Transcribed by Peyton Mcgowan Authenticated and [facility]
--- NOTE | 2024-05-07 10:19 | HMH.EDGENADL ---
Discharge Plan Disposition Patient Disposition: Admitted Prescriptions Prescriptions: No Action levothyroxine [Euthyrox] 75 mcg tablet 75 mcg PO DAILY Patient Comments: TAKE 1 TABLET BY MOUTH ONCE DAILY IN THE MORNING ON AN EMPTY STOMACH 30-60 MINUTES BEFORE EATING. MUST KEEP FOLLOW-UP APPOINTMENT FOR REFILLS fluticasone propionate [Flonase Allergy Relief] 50 mcg/actuation spray,suspension 1 spray intranasal QDAY 30 Days Qty: 9.9 0RF Rx Instructions: administer into each nostril insulin glargine [Basaglar KwikPen U-100 Insulin] 100 unit/mL (3 mL) insulin pen 30 unit SQ DAILY Patient Comments: INJECT 10 UNITS UNDER THE SKIN ONE TIMES EACH DAY IN THE MORNING. TOTAL DAILY DOSE 30 UNITS Tremfya 100 mg/mL auto-injector See Rx Instructions .ROUTE .COMPLEX Rx Instructions: see rx instructions Ozempic 0.25 mg or 0.5 mg (2 mg/3 mL) pen injector See Rx Instructions .ROUTE .COMPLEX Patient Comments: INJECT 0.5 MG SUBCUTANEOUSLY ONCE A WEEK Rx Instructions: see rx instructions metformin 500 mg tablet extended release 24 hr 500 mg PO TID Jardiance 25 mg tablet 25 mg PO DAILY esomeprazole magnesium 40 mg capsule,delayed release(DR/EC) 40 mg PO DAILY Qty: 30 12RF metoprolol succinate 100 mg tablet extended release 24 hr 100 mg PO DAILY Qty: 30 5RF Rx Instructions: Take 1 tablet by mouth once daily losartan 100 mg tablet See Rx Instructions .ROUTE .COMPLEX Qty: 90 3RF Dose Instruction: Take 1 tablet by mouth once daily Rx Instructions: Take 1 tablet by mouth once daily hydrochlorothiazide 12.5 mg tablet See Rx Instructions .ROUTE .COMPLEX Qty: 90 3RF Dose Instruction: Take 1 tablet by mouth once daily Rx Instructions: Take 1 tablet by mouth once daily escitalopram oxalate 20 mg tablet See Rx Instructions .ROUTE .COMPLEX Qty: 90 3RF Dose Instruction: Take 1 tablet by mouth once daily Rx Instructions: Take 1 tablet by mouth once daily rosuvastatin 5 mg tablet See Rx Instructions .ROUTE .COMPLEX Qty: 90 0RF Dose Instruction: TAKE 1 TABLET BY MOUTH ONCE DAILY FOR CHOLESTEROL Rx Instructions: TAKE 1 TABLET BY MOUTH ONCE DAILY FOR CHOLESTEROL fluconazole 100 mg tablet 100 mg PO DAILY 3 Days Qty: 3 0RF phenazopyridine [Pyridium] 200 mg tablet 200 mg PO Q8H 2 Days Qty: 6 0RF nitrofurantoin monohyd/m-cryst [Macrobid] 100 mg Capsule 100 mg PO BID Qty: 10 0RF Rx Instructions: must administer with a meal/food Referrals Follow up/Referrals: Clementine Kohli PA [Primary Care Provider] - See instructions Clinical Impressions Clinical Impression: Small bowel obstruction Instructions Patient Instructions: DI for Acute Abdominal Pain Discharge ED Provider: Silvino Chauhan General Adult HPI General Chief complaint: Abdominal Pain Stated complaint: abd pain Time Seen by Provider: 05/07/24 10:14 Mode of Arrival: Ambulatory Source of Information: Patient Limitations: No Limitations Description of Symptoms (Recalled from ER Triage Doc. by RN): Patient reports she thinks that she has gastritis again. States that her stomach began hurting yesterday and began getting worse this morning. States she took a bentyl with no relief of her cramping. Complaint of some nausea, but denies vomiting or diarrhea. History of Present Illness HPI narrative: Patient is a 64-year-old female presents today with abdominal pain. States she has had intermittent episodes of abdominal pain for several years she is followed by gastroenterology and general surgery. Of note she was recently in the ED at the end of February where she had a CT scan that was concerning for possible small bowel obstruction the patient decided to leave [place]. She did however follow-up with Dr. Romero had a small bowel follow-through which was unremarkable there were evidence of dilated loops of bowel but no definitive evidence of a high-grade small bowel obstruction. Patient states that her pain worsened yesterday. It is diffuse in nature. She has not had any significant changes in her bowel movements or flatus. No vomiting no fevers or chills. Denies any melena hematochezia hematemesis etc. States that she has been treated for IBS in the past. Her medications at home including dicyclomine have not been helpful. Related Data Home Medications Medication Instructions Recorded Confirmed levothyroxine 75 mcg tablet 75 mcg PO DAILY hypothyroidism 05/19/22 04/28/24 (Euthyrox) guselkumab 100 mg/mL subcutaneous See Rx Instructions .Route .COMPLEX 08/04/23 04/28/24 auto-injector (Tremfya) empagliflozin 25 mg tablet 25 mg PO DAILY 03/29/24 04/28/24 (Jardiance) insulin glargine 100 unit/mL (3 30 unit SQ DAILY 03/29/24 04/28/24 mL) subcutaneous pen (Basaglar KwikPen U-100 Insulin) metformin 500 mg tablet,extended 500 mg PO TID 03/29/24 04/28/24 release 24 hr semaglutide 0.25 mg or 0.5 mg (2 See Rx Instructions .Route .COMPLEX 03/29/24 04/28/24 mg/3 mL) subcutaneous pen injector (Ozempic) Previous Rx's Medication Instructions Recorded esomeprazole magnesium 40 mg 40 mg PO DAILY ACID REFLUX #30 caps 07/26/23 capsule,delayed release metoprolol succinate 100 mg 100 mg PO DAILY High blood 11/09/23 tablet,extended release 24 hr pressure #30 tabs fluticasone propionate 50 1 spray intranasal QDAY 30 days 11/15/23 mcg/actuation nasal #9.9 grams spray,suspension (Flonase Allergy Relief) hydrochlorothiazide 12.5 mg tablet See Rx Instructions .Route 02/20/24 .COMPLEX #90 tabs losartan 100 mg tablet See Rx Instructions .Route 02/20/24 .COMPLEX #90 tabs escitalopram oxalate 20 mg tablet See Rx Instructions .Route 02/24/24 .COMPLEX #90 tabs rosuvastatin 5 mg tablet See Rx Instructions .Route 04/24/24 .COMPLEX #90 tabs fluconazole 100 mg tablet 100 mg PO DAILY 3 days #3 tabs 04/28/24 nitrofurantoin 100 mg PO BID #10 caps 04/28/24 monohydrate/macrocrystals 100 mg capsule (Macrobid) phenazopyridine 200 mg tablet 200 mg PO Q8H 2 days #6 tabs 04/28/24 (Pyridium) Allergies Allergy/AdvReac Type Severity Reaction Status Date / Time amoxicillin [From AUGMENTIN] Allergy Mild NA-NAUSEA Verified 04/28/24 11:20 cefdinir Allergy Mild Verified 04/28/24 11:20 clavulanic acid Allergy Mild NA-NAUSEA Verified 04/28/24 11:20 [From AUGMENTIN] hydrocodone [From NORCO] Allergy Mild HIVES,ITCHI Verified 04/28/24 11:20 NG naproxen [NAPROXEN] Allergy Mild HIVES,ITCHI Verified 04/28/24 11:20 NG Sulfa (Sulfonamide Allergy Mild HIVES,ITCHI Verified 04/28/24 11:20 Antibiotics) NG [SULFA (SULFONAMIDE ANTIBIOTICS)] aspirin Allergy Verified 04/28/24 11:20 Cephalosporins Allergy unknown Verified 04/28/24 11:20 [facility] Disclaimer: The information contained in this section may have been updated after the patient was seen, as this information can be updated by other users. Medical History Constipation Abdominal pain Elevated parathyroid hormone Encounter for screening breast examination Dyshidrotic eczema Neuropathy Polyarthralgia Diabetes Surgical History History of colonoscopy Family History Family/Other Bleeding disorder Diabetes FHx: mental illness Hypertension Mother Tuberculosis Social History Smoking Status: Current every day smoker tobacco type: cigarettes packs per day: 1 second hand exposure: No alcohol intake: never substance use type: denies use current occupational status: unemployed Travel in the last 8 weeks: None household members: spouse housing: house current occupation: school system current occupational exposures/hazards: No caffeine: Yes ROS Obtained: Yes All systems reviewed & no additional complaints except as documented Physical Exam General General appearance: alert Respiratory Respiratory exam: Present normal lung sounds bilaterally Cardiovascular Cardiovascular exam: Present regular rate and normal rhythm Abdominal Exam Abdominal exam: Present soft and tenderness (Patient diffusely tender in all quadrants no rebound or guarding) Neurological Exam Neurological exam: Present alert and oriented X3 Medical Decision Making Cj Inquiry Pt receiving controlled substance: No Vital Signs: 05/07/24 10:01 05/07/24 10:30 05/07/24 10:45 Temperature 97.5 F L Temperature Source Oral Pulse Rate 66 64 Pulse Rate [Radial] 70 Respiratory Rate 16 16 Blood Pressure 139/78 139/78 Blood Pressure [Right Arm] 134/78 Blood Pressure Mean Blood Pressure Mean [Right Arm] 96 Blood Pressure Source [Right Arm] Automatic Cuff Blood Pressure Position [Right Arm] Sitting 02 Sat by Pulse Oximetry 96 98 93 L Oxygen Delivery Method Room Air Room Air 05/07/24 11:30 Temperature Temperature Source Pulse Rate 64 Pulse Rate [Radial] Respiratory Rate Blood Pressure 129/64 Blood Pressure [Right Arm] Blood Pressure Mean 85 Blood Pressure Mean [Right Arm] Blood Pressure Source [Right Arm] Blood Pressure Position [Right Arm] 02 Sat by Pulse Oximetry 92 L Oxygen Delivery Method Lab Data Lab results reviewed: Yes I reviewed the patient's lab results. Lab Results 05/07/24 10:20: WBC 8.4, RBC 4.93, Hgb 12.6, Hct 40.6, MCV 82.4, MCH 25.6 L, MCHC 31.0 L, RDW 19.2 H, Plt Count 328, MPV 8.6, Neut % (Auto) 70.7, Lymph % (Auto) 20.4, [place] % (Auto) 3.7, Eos % (Auto) 4.2, Baso % (Auto) 1.0, Neut # (Auto) 5.9, Lymph # (Auto) 1.7, [place] # (Auto) 0.3, Eos # (Auto) 0.4, Baso # (Auto) 0.1, Sodium 140, Potassium 4.3, Chloride 104, Carbon Dioxide 26, Anion Gap 14.3, BUN 22 H, Creatinine 1.10 H, Estimated Creat Clear 42, Estimated GFR 50 L, Est GFR ( Amer) 61, Glucose 219 H, Lactate 1.5, Calcium 9.9, Total Bilirubin 0.4, AST 30, ALT 27, Alkaline Phosphatase 148 H, Troponin I < 0.01, Total Protein 8.7 H, Albumin 4.5, Globulin 4.2 H, Albumin/Globulin Ratio 1.1 05/07/24 10:20 05/07/24 10:20 Orders (Tests/Meds): ED MEDICATIONS Generic Name Dose Route Start Last Admin Trade Name Freq PRN Reason Stop Dose Admin Lactated Ringer's 1,000 mls @ 75 mls/hr 05/07/24 13:15 Lactated Ringer's 1000 Ml Bag IV 06/06/24 13:14 .[id number] VARGHESE Sodium Chloride 10 ml 05/07/24 10:26 Sodium Chloride 0.9% 10ml Flush Syringe IV 06/06/24 10:25 NEEDED PRN Maintain IV Site Sodium Chloride 10 ml 05/07/24 11:00 05/07/24 11:05 Sodium Chloride 0.9% 10ml Syr (Rad Only) IV 06/06/24 10:59 10 ml NEEDED PRN Administration Maintain IV Site Discontinued Medications Generic Name Dose Route Start Last Admin Trade Name Freq PRN Reason Stop Dose Admin Belladonna Alkaloids 60 ml 05/07/24 10:19 05/07/24 10:33 Belladonna Alkaloids 60 Ml Ml PO 05/07/24 10:20 60 ml ONCE ONE Administration Lactated Ringer's 1,000 mls @ 999 mls/hr 05/07/24 10:30 05/07/24 10:33 Lactated Ringer's 1000 Ml Bag IV 05/07/24 11:30 999 mls/hr .Q1H1M VARGHESE Administration Iopamidol 75 ml 05/07/24 11:00 05/07/24 11:05 Iopamidol-370 (76%);100ml Bottle IV 05/07/24 11:01 75 ml ONCE ONE Administration Morphine Sulfate 4 mg 05/07/24 10:19 05/07/24 10:33 Morphine 4mg/Ml Syringe IV 05/07/24 10:20 4 mg ONCE ONE Administration Ondansetron HCl 4 mg 05/07/24 10:19 05/07/24 10:33 Ondansetron 4mg/2ml Vial IV 05/07/24 10:20 4 mg ONCE ONE Administration ORDERS Category Date Time Status CT abdomen pelvis w con Stat Cat Scan 05/07/24 10:19 Completed CBC w/Auto Diff [Complete Blood Count Auto Diff] Stat Lab 05/07/24 10:20 Completed CMP [Comprehensive Metabolic Panel] Stat Lab 05/07/24 10:20 Completed Complete Blood Count Auto Diff AMLAB Lab 05/08/24 06:00 Ordered Comprehensive Metabolic Panel AMLAB Lab 05/08/24 06:00 Ordered Lactic Acid Stat Lab 05/07/24 10:20 Completed Magnesium AMLAB Lab 05/08/24 06:00 Ordered Trop I [Troponin I] Stat Lab 05/07/24 10:20 Completed Troponin I Q3H Lab 05/07/24 13:30 Ordered Troponin I Q3H Lab 05/07/24 16:30 Ordered Medical Decision Narrative: Patient is a 64-year-old female presenting today with diffuse abdominal pain. She was recently evaluated for possible partial small bowel obstruction and ultimately was deemed to not have a large or high-grade small bowel obstruction was treated nonoperatively. Worsening of this condition is on the differential. Colitis diverticulitis cholecystitis appendicitis ruptured or perforated viscus etc. are on the differential as well will obtain a CT scan with contrast for further evaluation and management of this. IV fluids pain medicine nausea medicine including a GI cocktail have been administered and will reassess. CT scan performed which I personally interpreted. There is evidence of a small bowel obstruction. Stomach is relatively decompressed. I spoke with Dr. Tsang who is on-call we will place an NG tube and will admit the patient to hospital medicine for further evaluation and treatment. She does feel somewhat better abdominal exam while not benign is improved still has some tenderness but is not peritonitic. Critical Care Critical Care Time Critical Care Time: Yes Attestation: On 05/07/24, the high probability of a clinically significant, sudden or life threatening deterioration of the following system(s) required my full and direct attention, intervention and personal management. The time I documented below is in addition to time spent performing reported procedures but includes the following listed in this critical care notation. Total Time Total Critical Care Time: 35
[2024-05-07 10:32] LABS: Basophils # 0.1 K/mm3 (0-0.2); Eosinophils # 0.4 K/mm3 (0.0-0.4); Eosinophils % 4.2 % (0.1-12.0); Hematocrit 40.6 % (37.0-47.0); Hemoglobin 12.6 g/dL (12.2-16.2); Lymphocytes # 1.7 K/mm3 (0.7-4.5); Lymphocytes % 20.4 % (10-50); Mean Corpuscular Hemoglobin 25.6 pg (27.0-31.2); Mean Corpuscular Volume 82.4 fl (81-99); Mean Platelet Volume 8.6 fl (7.4-10.4); Monocytes # 0.3 K/mm3 (0.1-1.0); Monocytes % 3.7 % (1.7-9.3); Neutrophils # 5.9 K/mm3 (1.8-7.8); Neutrophils % 70.7 % (37.0-80.0); Platelet Count 328 K/mm3 (142-424); Red Blood Count 4.93 M/mm3 (4.20-5.40); Red Cell Distribution Width 19.2 % (11.5-17.5); White Blood Count 8.4 K/mm3 (4.8-10.8)
[2024-05-07] MEDS: BELLADONNA ALKALOIDS 60 ML ML PO (10:33)
[2024-05-07] MEDS: ONDANSETRON 4MG/2ML VIAL 4 MG IV (10:33)
[2024-05-07] MEDS: MORPHINE 4MG/ML SYRINGE 4 MG IV ×3 (10:33→21:42)
[2024-05-07] MEDS: LACTATED RINGERS 1000ML 1,000 ML 999 ML IV (10:33)
[2024-05-07 10:40] LABS: Chloride 104 mmol/L (98-107); Potassium 4.3 mmoL/L (3.5-5.1); Sodium 140 mmol/L (136-145)
[2024-05-07 10:43] LABS: Alanine Aminotransferase 27 U/L (12-78); Albumin Level 4.5 g/dl (3.5-5.0); Albumin/Globulin Ratio 1.1 (1.1-1.8); Alkaline Phosphatase 148 U/L (38-126); Anion Gap 14.3 mEq/L (5-15); Aspartate Amino Transferase 30 U/L (14-36); Bilirubin,Total 0.4 mg/dl (0.2-1.3); Blood Urea Nitrogen 22 mg/dl (7-17); Carbon Dioxide 26 mmol/L (22.0-30.0); Creatinine Clearance Estimated 42 mL/min (50-200); Estimated Glomerular Filt Rate 50 ml/min (>60); GFR (African American) 61 ML/MIN (>60); Globulin 4.2 g/dL (1.3-3.2); Total Protein,Serum 8.7 g/dl (6.3-8.2)
[2024-05-07 10:44] LABS: Calcium 9.9 mg/dl (8.4-10.2); Glucose 219 mg/dl (74-100); Lactic Acid 1.5 mmol/L (0.7-2.1)
--- NOTE | 2024-05-07 10:57 | PC.NURSE ---
Patient to radiology.
[2024-05-07 11:00] LABS: Troponin I < 0.01 ng/ml (0.00-0.034)
[2024-05-07] MEDS: SODIUM CHLORIDE 0.9% 10ML SYR (RAD ONLY) 10 ML IV (11:05)
[2024-05-07] MEDS: IOPAMIDOL-370 (76%);100ML BOTTLE 75 ML IV (11:05)
--- NOTE | 2024-05-07 12:14 | PC.NURSE ---
Rounded on pt and pt asked for some blankets.. some were delivered to her
--- NOTE | 2024-05-07 12:30 | PC.NURSE ---
Dr. Tsang pagelópez
--- NOTE | 2024-05-07 12:31 | PC.NURSE ---
Dr. Chauhan speaking with Dr. Tsang
--- NOTE | 2024-05-07 12:34 | PC.NURSE ---
Dr. Chauhan called to speak with hospitalist, but was unavailable at this time and would call back when available.
--- NOTE | 2024-05-07 12:45 | EXP.SURG.CON ---
History of Present Illness *Admission Date: 05/07/24 *Reason for visit:: Possible bowel obstruction *History of present illness: Patient is a 64-year-old female with a relatively longstanding history of abdominal pain with bloating and distention. She has been seen by Dr. Garcia for variety of issues but had noted these type symptoms as early as 2021 according to the record. She had a couple of ER visits in 2021 for these type symptoms and had been able to be managed as an outpatient. She has seen Jazlyn Sullivan for the symptoms and managed for functional bowel disorder/irritable bowel syndrome. More recently there were concerns for a possible mechanical obstruction as she described the symptoms along with foul breath odor and feculent taste in her mouth. She had a CT scan done on 03/04/2024 revealed findings suspicious for small bowel obstruction in the lower abdomen. She subsequently did follow-up in the digestive health clinic and it was at that time there was concern for possible mechanical etiology for her symptoms. She did have an upper GI with small bowel follow-through as an outpatient on 04/06/2024 which revealed moderate gastroesophageal reflux and thickened duodenal folds without any evidence of bowel obstruction. She had followed up with Dr. Garcia after that. Consideration was being given for possible EGD and colonoscopy by gastroenterology/digestive health service as an outpatient. Patient has never had any abdominal surgery. Patient present to the emergency department today with onset of abdominal pain beginning in the evening of 05/06/2024 and worsening today. Described as diffuse. She had taken Bentyl with no relief. She underwent a CT scan which revealed wall thickening of the small bowel at transition point which may represent inflammatory bowel disease or other inflammatory process. Neoplasm considered less likely. Moderate distention of air and fluid-filled small bowel loops, distal small bowel decompressed. Findings consistent with small bowel obstruction. Arrangements are being made for admission to hospitalist service and surgical consultation was requested. [facility] Disclaimer: The information contained in this section may have been updated after the patient was seen, as this information can be updated by other users. Medical History Constipation Abdominal pain Elevated parathyroid hormone Encounter for screening breast examination Dyshidrotic eczema Neuropathy Polyarthralgia Diabetes Surgical History History of colonoscopy Family History Family/Other Bleeding disorder Diabetes FHx: mental illness Hypertension Mother Tuberculosis Social History Smoking Status: Current every day smoker tobacco type: cigarettes packs per day: 1 second hand exposure: No alcohol intake: never substance use type: denies use current occupational status: unemployed Travel in the last 8 weeks: None household members: spouse housing: house 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 current occupational exposures/hazards: No caffeine: Yes Meds Home Medications and Allergies Home Medications Medication Instructions Recorded Confirmed Type levothyroxine 75 mcg tablet 75 mcg PO DAILY 05/19/22 05/07/24 History (Euthyrox) guselkumab 100 mg/mL subcutaneous 100 mg SQ DIRECTED 08/04/23 05/07/24 History auto-injector (Tremfya) empagliflozin 25 mg tablet 25 mg PO DAILY 03/29/24 05/07/24 History (Jardiance) insulin glargine 100 unit/mL (3 34 unit SQ DAILY 03/29/24 05/07/24 History mL) subcutaneous pen (Basaglar KwikPen U-100 Insulin) metformin 500 mg tablet,extended 100 mg PO QPMWITHMEAL 03/29/24 05/07/24 History release 24 hr semaglutide 0.25 mg or 0.5 mg (2 0.5 mg SQ WEEKLY 03/29/24 05/07/24 History mg/3 mL) subcutaneous pen injector (Ozempic) escitalopram oxalate 20 mg tablet 20 mg PO DAILY 05/07/24 05/07/24 History esomeprazole magnesium 40 mg 40 mg PO DAILY 05/07/24 05/07/24 History capsule,delayed release hydrochlorothiazide 12.5 mg tablet 12.5 mg PO DAILY 05/07/24 05/07/24 History losartan 100 mg tablet 100 mg PO DAILY 05/07/24 05/07/24 History metformin 500 mg tablet 500 mg PO DAILY 05/07/24 05/07/24 History metoprolol succinate 100 mg 100 mg PO DAILY 05/07/24 05/07/24 History tablet,extended release 24 hr rosuvastatin 5 mg tablet 5 mg PO DAILY 05/07/24 05/07/24 History New Prescriptions to Start Prescriptions: Allergies Allergy/AdvReac Type Severity Reaction Status Date / Time amoxicillin [From AUGMENTIN] Allergy Mild NA-NAUSEA Verified 04/28/24 11:20 cefdinir Allergy Mild Verified 04/28/24 11:20 clavulanic acid Allergy Mild NA-NAUSEA Verified 04/28/24 11:20 [From AUGMENTIN] hydrocodone [From NORCO] Allergy Mild HIVES,ITCHI Verified 04/28/24 11:20 NG naproxen [NAPROXEN] Allergy Mild HIVES,ITCHI Verified 04/28/24 11:20 NG Sulfa (Sulfonamide Allergy Mild HIVES,ITCHI Verified 04/28/24 11:20 Antibiotics) NG [SULFA (SULFONAMIDE ANTIBIOTICS)] aspirin Allergy Verified 04/28/24 11:20 Cephalosporins Allergy unknown Verified 04/28/24 11:20 Exam (Inpt) Vital signs and Labs for Last 24 Hours: Temp Pulse Resp BP Pulse Ox O2 Del Method 97.5 F L 64 16 129/64 92 L Room Air 05/07/24 10:01 05/07/24 11:30 05/07/24 10:30 05/07/24 11:30 05/07/24 11:30 05/07/24 10:30 Laboratory Results - last 24 hr 05/07/24 10:20: WBC 8.4, RBC 4.93, Hgb 12.6, Hct 40.6, MCV 82.4, MCH 25.6 L, MCHC 31.0 L, RDW 19.2 H, Plt Count 328, MPV 8.6, Neut % (Auto) 70.7, Lymph % (Auto) 20.4, [place] % (Auto) 3.7, Eos % (Auto) 4.2, Baso % (Auto) 1.0, Neut # (Auto) 5.9, Lymph # (Auto) 1.7, [place] # (Auto) 0.3, Eos # (Auto) 0.4, Baso # (Auto) 0.1, Sodium 140, Potassium 4.3, Chloride 104, Carbon Dioxide 26, Anion Gap 14.3, BUN 22 H, Creatinine 1.10 H, Estimated Creat Clear 42, Estimated GFR 50 L, Est GFR ( Amer) 61, Glucose 219 H, Lactate 1.5, Calcium 9.9, Total Bilirubin 0.4, AST 30, ALT 27, Alkaline Phosphatase 148 H, Troponin I < 0.01, Total Protein 8.7 H, Albumin 4.5, Globulin 4.2 H, Albumin/Globulin Ratio 1.1 I & O for Labs for Last 24 Hours: Intake & Output 05/05/24 05/06/24 05/07/24 05/08/24 11:59 11:59 11:59 11:59 Weight 228 lb Constitutional: no acute distress GI: Present soft Comments:: Abdomen slightly distended. Diffuse tenderness without guarding or rebound seemingly most apparent in the mid upper abdomen. Relatively normal bowel sounds. Results Labs 05/07/24 10:20 05/07/24 10:20 Labs: Laboratory Results - last 24 hr 05/07/24 10:20: WBC 8.4, RBC 4.93, Hgb 12.6, Hct 40.6, MCV 82.4, MCH 25.6 L, MCHC 31.0 L, RDW 19.2 H, Plt Count 328, MPV 8.6, Neut % (Auto) 70.7, Lymph % (Auto) 20.4, [place] % (Auto) 3.7, Eos % (Auto) 4.2, Baso % (Auto) 1.0, Neut # (Auto) 5.9, Lymph # (Auto) 1.7, [place] # (Auto) 0.3, Eos # (Auto) 0.4, Baso # (Auto) 0.1, Sodium 140, Potassium 4.3, Chloride 104, Carbon Dioxide 26, Anion Gap 14.3, BUN 22 H, Creatinine 1.10 H, Estimated Creat Clear 42, Estimated GFR 50 L, Est GFR ( Amer) 61, Glucose 219 H, Lactate 1.5, Calcium 9.9, Total Bilirubin 0.4, AST 30, ALT 27, Alkaline Phosphatase 148 H, Troponin I < 0.01, Total Protein 8.7 H, Albumin 4.5, Globulin 4.2 H, Albumin/Globulin Ratio 1.1 Assessment and Plan *Assessment and plan (1) Small bowel obstruction: Status: Acute Category: Medical Code(s): K56.609 - Unspecified intestinal obstruction, unspecified as to partial versus complete obstruction Plan No indications for surgical intervention at this time. Plan for nasogastric tube placement with serial abdominal exams.
--- NOTE | 2024-05-07 13:02 | PC.NURSE ---
DR LUGO SPEAKING WITH DR HENDRICKSON FOR ADMISSION
--- NOTE | 2024-05-07 13:03 | PC.NURSE ---
DR LUGO AT BEDSIDE TO UPDATE PT
--- NOTE | 2024-05-07 13:05 | EXP.HP ---
History of Present Illness *Admission Date: 05/07/24 *Reason for visit:: abdominal pain, nausea *History of present illness: Ms. gutiérrez is a pleasant 64-year-old female with history of diabetes, hypertension, hypothyroid. Has previously been seen by GI and surgery for abdominal pain and bloating and distention. Recently seen by Dr. Romero for a variety of issues with her abdomen. Symptoms with her abdomen began over 2 years ago. Was seen in the ER today due to worsening abdominal pain and nausea. CT obtained showing bowel obstruction with air-fluid levels. Medicine and surgery consulted for admission and further management. NG placed for decompression. Review of her chart shows that she recently saw GI at [facility] with concern for IBS and functional bowel disorder. Possible mechanical obstruction given foul breath and feculent taste in her mouth. Previous CT in February showed findings suspicious for small bowel obstruction. Small bowel follow-through however as an outpatient in March showed GERD but no evidence of obstruction. Upon arrival to the floor, patient is complaining of sore throat from her NG. Denies any nausea. Does complain of some pain. No shortness of breath, confusion, chest pain, weakness. Reports long history of poorly controlled diabetes. Most recent A1c a month ago of 8. States this is the best that numbers been since she was diagnosed with diabetes. -Last bowel movement this morning, reports constipation PFSH PFSH Disclaimer: The information contained in this section may have been updated after the patient was seen, as this information can be updated by other users. Medical History Constipation Abdominal pain Elevated parathyroid hormone Encounter for screening breast examination Dyshidrotic eczema Neuropathy Polyarthralgia Diabetes Surgical History History of colonoscopy Family History Family/Other Bleeding disorder Diabetes FHx: mental illness Hypertension Mother Tuberculosis Social History Smoking Status: Current every day smoker tobacco type: cigarettes packs per day: 1 second hand exposure: No alcohol intake: never substance use type: denies use current occupational status: unemployed Travel in the last 8 weeks: None household members: spouse housing: house current occupation: school system current occupational exposures/hazards: No caffeine: Yes Review of Systems Review of Systems Review of systems (narrative): 14 point review of systems performed, pertinent positives and negatives as per [facility] Meds Home Medications and Allergies Home Medications Medication Instructions Recorded Confirmed Type levothyroxine 75 mcg tablet 75 mcg PO DAILY 05/19/22 05/07/24 History (Euthyrox) guselkumab 100 mg/mL subcutaneous 100 mg SQ DIRECTED 08/04/23 05/07/24 History auto-injector (Tremfya) empagliflozin 25 mg tablet 25 mg PO DAILY 03/29/24 05/07/24 History (Jardiance) insulin glargine 100 unit/mL (3 34 unit SQ DAILY 03/29/24 05/07/24 History mL) subcutaneous pen (Basaglar KwikPen U-100 Insulin) metformin 500 mg tablet,extended 100 mg PO QPMWITHMEAL 03/29/24 05/07/24 History release 24 hr semaglutide 0.25 mg or 0.5 mg (2 0.5 mg SQ WEEKLY 03/29/24 05/07/24 History mg/3 mL) subcutaneous pen injector (Ozempic) escitalopram oxalate 20 mg tablet 20 mg PO DAILY 05/07/24 05/07/24 History esomeprazole magnesium 40 mg 40 mg PO DAILY 05/07/24 05/07/24 History capsule,delayed release hydrochlorothiazide 12.5 mg tablet 12.5 mg PO DAILY 05/07/24 05/07/24 History losartan 100 mg tablet 100 mg PO DAILY 05/07/24 05/07/24 History metformin 500 mg tablet 500 mg PO DAILY 05/07/24 05/07/24 History metoprolol succinate 100 mg 100 mg PO DAILY 05/07/24 05/07/24 History tablet,extended release 24 hr rosuvastatin 5 mg tablet 5 mg PO DAILY 05/07/24 05/07/24 History New Prescriptions to Start Prescriptions: Allergies Allergy/AdvReac Type Severity Reaction Status Date / Time amoxicillin [From AUGMENTIN] Allergy Mild NA-NAUSEA Verified 04/28/24 11:20 cefdinir Allergy Mild Verified 04/28/24 11:20 clavulanic acid Allergy Mild NA-NAUSEA Verified 04/28/24 11:20 [From AUGMENTIN] hydrocodone [From NORCO] Allergy Mild HIVES,ITCHI Verified 04/28/24 11:20 NG naproxen [NAPROXEN] Allergy Mild HIVES,ITCHI Verified 04/28/24 11:20 NG Sulfa (Sulfonamide Allergy Mild HIVES,ITCHI Verified 04/28/24 11:20 Antibiotics) NG [SULFA (SULFONAMIDE ANTIBIOTICS)] aspirin Allergy Verified 04/28/24 11:20 Cephalosporins Allergy unknown Verified 04/28/24 11:20 Exam Data for Last 24 hours Vital signs and Labs for Last 24 Hours: Temp Pulse Resp BP Pulse Ox O2 Del Method 97.5 F L 64 16 129/64 92 L Room Air 05/07/24 10:01 05/07/24 11:30 05/07/24 10:30 05/07/24 11:30 05/07/24 11:30 05/07/24 10:30 Laboratory Results - last 24 hr 05/07/24 10:20: WBC 8.4, RBC 4.93, Hgb 12.6, Hct 40.6, MCV 82.4, MCH 25.6 L, MCHC 31.0 L, RDW 19.2 H, Plt Count 328, MPV 8.6, Neut % (Auto) 70.7, Lymph % (Auto) 20.4, [place] % (Auto) 3.7, Eos % (Auto) 4.2, Baso % (Auto) 1.0, Neut # (Auto) 5.9, Lymph # (Auto) 1.7, [place] # (Auto) 0.3, Eos # (Auto) 0.4, Baso # (Auto) 0.1, Sodium 140, Potassium 4.3, Chloride 104, Carbon Dioxide 26, Anion Gap 14.3, BUN 22 H, Creatinine 1.10 H, Estimated Creat Clear 42, Estimated GFR 50 L, Est GFR ( Amer) 61, Glucose 219 H, Lactate 1.5, Calcium 9.9, Total Bilirubin 0.4, AST 30, ALT 27, Alkaline Phosphatase 148 H, Troponin I < 0.01, Total Protein 8.7 H, Albumin 4.5, Globulin 4.2 H, Albumin/Globulin Ratio 1.1 I & O for Last 24 hours: Intake & Output 05/04/24 05/05/24 05/06/24 05/07/24 23:59 23:59 23:59 23:59 Weight 103.419 kg Constitutional Constitutional: no acute distress, obese and cooperative *Routine HEENT Exam Head: Present normocephalic Eye: Present EOMI and PERRL ENT: Present mucous membranes moist Comments: NG in right nare *Routine Neck Exam Neck: Present supple; Absent lymphadenopathy *Routine Respiratory Exam Respiratory: Present CTA bilaterally; Absent rhonchi, wheezes or crackles *Routine Cardiovascular Exam Cardiovascular: Present RRR *Routine Abdominal Exam Abdominal: Present soft and tenderness (Epigastric) Comments: Hypoactive bowel sounds *Routine Rectal Exam Rectal:: deferred *Routine Genitalia Exam Genitalia:: deferred *Routine Extremities Exam Extremities: Absent cyanosis, clubbing or edema *Routine Skin Exam Skin: Present warm; Absent rash *Routine Neurological Exam Neurological: Present alert, oriented X3 and moving all extremities; Absent altered mental status Assessment and Plan *Assessment and plan (1) Small bowel obstruction: Status: Acute Category: Medical Code(s): K56.609 - Unspecified intestinal obstruction, unspecified as to partial versus complete obstruction (2) Constipation: Status: Acute Qualifiers: Constipation type: unspecified constipation type Qualified Code(s): K59.00 - Constipation, unspecified Category: Medical Code(s): K59.00 - Constipation, unspecified (3) HLD (hyperlipidemia): Status: Chronic Qualifiers: Hyperlipidemia type: mixed hyperlipidemia Qualified Code(s): E78.2 - Mixed hyperlipidemia Category: Medical Code(s): E78.5 - Hyperlipidemia, unspecified (4) Hypothyroidism: Status: Chronic Qualifiers: Hypothyroidism type: unspecified Qualified Code(s): E03.9 - Hypothyroidism, unspecified Category: Medical Code(s): E03.9 - Hypothyroidism, unspecified (5) Type 2 diabetes mellitus: Status: Chronic Category: Medical Code(s): E11.9 - Type 2 diabetes mellitus without complications (6) Hypertension: Status: Chronic Qualifiers: Hypertension type: unspecified Qualified Code(s): I10 - Essential (primary) hypertension Category: Medical Code(s): I10 - Essential (primary) hypertension (7) Anxiety: Status: Chronic Category: Medical Code(s): F41.9 - Anxiety disorder, unspecified (8) Class 3 obesity: Status: Acute Category: Medical Code(s): E66.01 - Morbid (severe) obesity due to excess calories Plan 64-year-old female with diabetes, hypertension, hypothyroid, obesity who presented with abdominal pain and nausea. CT image showed concern for small bowel obstruction with transition zone. Discussed case with ER physician, request admission for serial exams and decompression. Surgery consulted to assist with care. NG in place. Patient's last bowel movement this morning. No vomiting at this time. Still having abdominal pain and cramping. Problems addressed as follows: Small bowel obstruction -Patient has been seen by GI and surgery previously with small bowel follow-through with no identified etiology for her abdominal pain and previous episode. -CT personally reviewed showing air-fluid levels and transition point. -Continue NG to low wall suction -Zofran 4 mg as needed every 8 hours for nausea -Morphine 4 mg every 4 hours as needed IV for pain, monitor for toxicity -N.p.o. Monitor for bowel output and volume of NG output. -Surgery consulted to assist with care, serial exams. Reevaluate in the morning for possible intervention versus medical management and decompression -Etiologies include but are not exhaustive concerning for medication induced secondary to her Ozempic, gastroparesis due to her uncontrolled diabetes, infectious etiology/viral gastroenteritis Type 2 diabetes: A1c pending. Fingerstick glucose with sliding scale insulin. Resume Lantus at lower dose of 10 units nightly. Resume empagliflozin 25 mg daily; holding Ozempic, will consider discontinuing at discharge pending management of bowel obstruction Anxiety: Continue Lexapro 20 mg daily Hypothyroid: TSH pending. Continue levothyroxine 75 mcg daily Hypertension: Continue metoprolol 100 mg daily and irbesartan at decreased dose of 75 mg daily (formulary conversion for losartan) Hyperlipidemia: Continue Crestor 5 mg daily Class III obesity complicates all of her care Full code N.p.o. Holding anticoagulation in the setting of possible surgery
--- NOTE | 2024-05-07 13:08 | PC.NURSE ---
FOOT DOCTOR NOTIFIED OF ADMISSION
--- NOTE | 2024-05-07 13:20 | HMH.PHAINT1 ---
Pharmacy Intervention Comments: MEDICATION RECONCILIATION COMPLETED ON PATIENT USING EXTERNAL FILL HISTORY FROM PHARMACY. -SHAKIRA DINH, PAXTOND
--- NOTE | 2024-05-07 13:30 | PC.NURSE ---
Report called to Sharifa Wells RN on Med Surg.
--- NOTE | 2024-05-07 13:38 | PC.NURSE ---
arrived by w/c from ED
--- NOTE | 2024-05-07 14:24 | XR_ITS ---
FINAL REPORT CLINICAL HISTORY: new placement on NG COMPARISON: None FINDINGS: SINGLE VIEW ABDOMEN A single view of the abdomen was obtained. NG tube is present with the tip in the body of the stomach. IMPRESSION: NG tube tip in the body of the stomach. Reviewed, Interpreted and Dictated by Will Hansen III, MD Transcribed by Luly May Authenticated and [facility]
[2024-05-07] MEDS: LACTATED RINGERS 1000ML 1,000 ML 75 ML IV (14:46)
[2024-05-07 16:54] LABS: POC Glucose,Bedside 119 (70-110)
[2024-05-07] MEDS: BENZOCAINE 20% 57GM SPRAY MM ×2 (17:03→21:51)
--- NOTE | 2024-05-07 17:30 | PC.NURSE ---
Pt sitting up in bed. 16 fr NG to (R) nare @ 58 cm to continuous low wall suction. Pt has c/o abdominal and back discomfort this evening. notified. New orders received and carried out. Pt was also educated on NPO status and to pause on eating ice chips at this time.
[2024-05-07 17:58] LABS: Thyroid Stimulating Hormone 0.63 uIU/mL (0.465-4.68)
[2024-05-07] MEDS: PANTOPRAZOLE 40MG TABLET 40 MG PO (21:41)
[2024-05-07] MEDS: ATORVASTATIN 10MG TABLET 10 MG PO (21:43)
[2024-05-07 23:03] LABS: POC Glucose,Bedside 120 (70-110)
[2024-05-08 04:00] VITALS: BP 112/54; PULSE 66; RESP 16; TEMP 36.7; O2SAT 94; BMI 42.5
[2024-05-08] MEDS: MORPHINE 4MG/ML SYRINGE 4 MG IV ×2 (04:47→22:11)
[2024-05-08] MEDS: LACTATED RINGERS 1000ML 1,000 ML 75 ML IV (04:55)
[2024-05-08 05:55] LABS: POC Glucose,Bedside 115 (70-110)
--- NOTE | 2024-05-08 06:24 | PC.NURSE ---
Pt is alert and oriented and tolerating room air. Pt has called out twice for abdominal pain and meds provided via MAR. Pt has an NG in the right fields and is currently on low wall suction. Pt states she has been passing gas throughout the night.
[2024-05-08 06:58] LABS: Basophils # 0.1 K/mm3 (0-0.2); Basophils % 0.7 % (0.1-2.0); Eosinophils # 0.1 K/mm3 (0.0-0.4); Eosinophils % 1.7 % (0.1-12.0); Hematocrit 36.3 % (37.0-47.0); Lymphocytes # 1.8 K/mm3 (0.7-4.5); Lymphocytes % 24.1 % (10-50); Mean Corpuscular HGB Conc 31.1 g/dL (31.8-35.4); Mean Corpuscular Hemoglobin 25.2 pg (27.0-31.2); Mean Corpuscular Volume 81.1 fl (81-99); Mean Platelet Volume 8.4 fl (7.4-10.4); Monocytes # 0.4 K/mm3 (0.1-1.0); Monocytes % 5.1 % (1.7-9.3); Neutrophils # 5.2 K/mm3 (1.8-7.8); Neutrophils % 68.5 % (37.0-80.0); Platelet Count 289 K/mm3 (142-424); Red Blood Count 4.48 M/mm3 (4.20-5.40); Red Cell Distribution Width 19.3 % (11.5-17.5); White Blood Count 7.6 K/mm3 (4.8-10.8)
[2024-05-08 07:07] LABS: Chloride 105 mmol/L (98-107); Potassium 3.6 mmoL/L (3.5-5.1); Sodium 139 mmol/L (136-145)
--- NOTE | 2024-05-08 07:07 | EXP.SURG.PN ---
Subjective Patient reports: no new complaints and flatus Exam Data for Last 24 hours Vital signs and Labs for Last 24 Hours: Temp Pulse Resp BP Pulse Ox O2 Del Method 98.1 F 66 16 112/54 L 94 L Room Air 05/08/24 04:00 05/08/24 04:00 05/08/24 04:00 05/08/24 04:00 05/08/24 04:00 05/08/24 07:00 Laboratory Results - last 24 hr 05/07/24 10:20: WBC 8.4, RBC 4.93, Hgb 12.6, Hct 40.6, MCV 82.4, MCH 25.6 L, MCHC 31.0 L, RDW 19.2 H, Plt Count 328, MPV 8.6, Neut % (Auto) 70.7, Lymph % (Auto) 20.4, [place] % (Auto) 3.7, Eos % (Auto) 4.2, Baso % (Auto) 1.0, Neut # (Auto) 5.9, Lymph # (Auto) 1.7, [place] # (Auto) 0.3, Eos # (Auto) 0.4, Baso # (Auto) 0.1, Sodium 140, Potassium 4.3, Chloride 104, Carbon Dioxide 26, Anion Gap 14.3, BUN 22 H, Creatinine 1.10 H, Estimated Creat Clear 42, Estimated GFR 50 L, Est GFR ( Amer) 61, Glucose 219 H, Hemoglobin A1c 9.0 H, Lactate 1.5, Calcium 9.9, Total Bilirubin 0.4, AST 30, ALT 27, Alkaline Phosphatase 148 H, Troponin I < 0.01, Total Protein 8.7 H, Albumin 4.5, Globulin 4.2 H, Albumin/Globulin Ratio 1.1, TSH 0.63 05/07/24 16:45: POC Glucose 119 H 05/07/24 22:55: POC Glucose 120 H 05/08/24 04:57: POC Glucose 115 H I & O for Last 24 hours: Intake & Output 05/05/24 05/06/24 05/07/24 05/08/24 11:59 11:59 11:59 11:59 Intake Total 995 / 995 Output Total 600 / 600 Balance 395 / 395 Weight 228 lb 231 lb 4 oz Constitutional Constitutional: no acute distress *Routine Respiratory Exam Respiratory: Absent respiratory distress *Routine Cardiovascular Exam Cardiovascular: Absent tachycardia *Routine Abdominal Exam Abdominal: Present soft Progress Note: A&P Assessment and plan (1) Small bowel obstruction: Status: Acute Assessment and plan: She continues to pass flatus. Small bowel follow-through last month revealed no evidence of obstruction. Most recent CT scan reveals some small bowel thickening at transition to nondistended bowel concerning for possible inflammatory bowel disease or other inflammatory process. Overall, the patient has evidence of a chronic gastrointestinal anomaly that is waxing and waning . Continue medical management Recommend gastroenterology evaluation for possible inflammatory bowel disease (or other chronic anomaly) She continues to pass flatus and has no evidence of complete obstruction; however, if she does not continue to improve she will benefit from transfer to tertiary center with full gastroenterology and complex surgical capabilities. (2) Constipation: Status: Acute (3) HLD (hyperlipidemia): Status: Chronic (4) Hypothyroidism: Status: Chronic (5) Type 2 diabetes mellitus: Status: Chronic (6) Hypertension: Status: Chronic (7) Anxiety: Status: Chronic (8) Class 3 obesity: Status: Acute
[2024-05-08 07:09] LABS: Alanine Aminotransferase 19 U/L (12-78); Aspartate Amino Transferase 26 U/L (14-36); Blood Urea Nitrogen 15 mg/dl (7-17); Creatinine Clearance Estimated 44 mL/min (50-200); Estimated Glomerular Filt Rate 63 ml/min (>60); GFR (African American) 77 ML/MIN (>60)
[2024-05-08 07:10] LABS: Albumin Level 3.9 g/dl (3.5-5.0); Albumin/Globulin Ratio 1.1 (1.1-1.8); Alkaline Phosphatase 113 U/L (38-126); Anion Gap 12.6 mEq/L (5-15); Bilirubin,Total 0.4 mg/dl (0.2-1.3); Calcium 9.3 mg/dl (8.4-10.2); Carbon Dioxide 25 mmol/L (22.0-30.0); Globulin 3.6 g/dL (1.3-3.2); Glucose 112 mg/dl (74-100); Total Protein,Serum 7.5 g/dl (6.3-8.2)
[2024-05-08 07:28] LABS: Hemoglobin 11.3 g/dL (12.2-16.2)
[2024-05-08 08:00] VITALS: BP 131/68; PULSE 72; RESP 20; TEMP 36.5; O2SAT 100
[2024-05-08] MEDS: EMPAGLIFLOZIN 10MG TABLET 20 MG PO (09:34)
[2024-05-08] MEDS: CITALOPRAM 40MG TABLET 40 MG PO (09:34)
[2024-05-08] MEDS: IRBESARTAN 75MG TABLET 75 MG PO (09:34)
[2024-05-08] MEDS: METOPROLOL SUCCINATE XL 100MG TABLET 100 MG PO (09:34)
[2024-05-08] MEDS: INSULIN GLARGINE 100 UNITS/ML 3ML FLEXPEN 10 UNIT SQ (09:34)
[2024-05-08] MEDS: LEVOTHYROXINE 75MCG (0.075MG) TAB 75 MCG PO (09:36)
[2024-05-08] MEDS: BENZOCAINE 20% 57GM SPRAY MM (09:37)
[2024-05-08 09:55] LABS: POC Glucose,Bedside 118 (70-110)
[2024-05-08 11:34] LABS: POC Glucose,Bedside 121 (70-110)
--- NOTE | 2024-05-08 14:00 | PC.NURSE ---
Removed patient NG tube at 1230. Patient tolerated well. Complains of pain in the throat from tube, educated on NG effects and numbing spray provided.
[2024-05-08 16:00] VITALS: BP 110/64; PULSE 76; RESP 18; TEMP 36.7; O2SAT 93
[2024-05-08 16:33] LABS: POC Glucose,Bedside 102 (70-110)
--- NOTE | 2024-05-08 16:45 | P.PN_ITS ---
Subjective *Date: 05/08/24 *Time: 16:45 Interval history: patient is seen at bedside, denied Nausea vomiting, complains of abdominal pain Exam Data for Last 24 hours Vital signs and Labs for Last 24 Hours: Temp Pulse Resp BP Pulse Ox O2 Del Method 98.1 F 76 18 110/64 93 L Room Air 05/08/24 16:00 05/08/24 16:00 05/08/24 16:00 05/08/24 16:00 05/08/24 16:00 05/08/24 16:00 Laboratory Results - last 24 hr 05/07/24 10:20: Hemoglobin A1c 9.0 H, TSH 0.63 05/07/24 16:45: POC Glucose 119 H 05/07/24 22:55: POC Glucose 120 H 05/08/24 04:57: POC Glucose 115 H 05/08/24 05:39: WBC 7.6, RBC 4.48, Hgb 11.3 L D, Hct 36.3 L, MCV 81.1, MCH 25.2 L, MCHC 31.1 L, RDW 19.3 H, Plt Count 289, MPV 8.4, Neut % (Auto) 68.5, Lymph % (Auto) 24.1, [place] % (Auto) 5.1, Eos % (Auto) 1.7, Baso % (Auto) 0.7, Neut # (Auto) 5.2, Lymph # (Auto) 1.8, [place] # (Auto) 0.4, Eos # (Auto) 0.1, Baso # (Auto) 0.1, Sodium 139, Potassium 3.6, Chloride 105, Carbon Dioxide 25, Anion Gap 12.6, BUN 15 D, Creatinine 0.90, Estimated Creat Clear 44, Estimated GFR 63, Est GFR ( Amer) 77 D, Glucose 112 H D, Calcium 9.3, Magnesium 2.0, Total Bilirubin 0.4, AST 26, ALT 19 D, Alkaline Phosphatase 113, Total Protein 7.5, Albumin 3.9 D, Globulin 3.6 H, Albumin/Globulin Ratio 1.1 05/08/24 09:45: POC Glucose 118 H 05/08/24 11:20: POC Glucose 121 H 05/08/24 16:26: POC Glucose 102 I & O for Last 24 hours: Intake & Output 05/05/24 05/06/24 05/07/24 05/08/24 23:59 23:59 23:59 23:59 Intake Total 995 / 995 Output Total 350 / 350 250 / 250 Balance -350 / -350 745 / 745 Weight 104.78 kg 104.893 kg *Routine Abdominal Exam Comments: mild tenderness generalized Assessment and Plan *Assessment and plan (1) Small bowel obstruction: Status: Acute Category: Medical Code(s): K56.609 - Unspecified intestinal obstruction, unspecified as to partial versus complete obstruction (2) Constipation: Status: Acute Qualifiers: Constipation type: unspecified constipation type Qualified Code(s): K59.00 - Constipation, unspecified Category: Medical Code(s): K59.00 - Constipation, unspecified (3) HLD (hyperlipidemia): Status: Chronic Qualifiers: Hyperlipidemia type: mixed hyperlipidemia Qualified Code(s): E78.2 - Mixed hyperlipidemia Category: Medical Code(s): E78.5 - Hyperlipidemia, unspecified (4) Hypothyroidism: Status: Chronic Qualifiers: Hypothyroidism type: unspecified Qualified Code(s): E03.9 - Hypothyroi dism, unspecified Category: Medical Code(s): E03.9 - Hypothyroidism, unspecified (5) Type 2 diabetes mellitus: Status: Chronic Category: Medical Code(s): E11.9 - Type 2 diabetes mellitus without complications (6) Hypertension: Status: Chronic Qualifiers: Hypertension type: unspecified Qualified Code(s): I10 - Essential (primary) hypertension Category: Medical Code(s): I10 - Essential (primary) hypertension (7) Anxiety: Status: Chronic Category: Medical Code(s): F41.9 - Anxiety disorder, unspecified (8) Class 3 obesity: Status: Acute Category: Medical Code(s): E66.01 - Morbid (severe) obesity due to excess calories Plan 64-year-old female with diabetes, hypertension, hypothyroid, obesity who presented with abdominal pain and nausea. CT image showed concern for small bowel obstruction with transition zone. Discussed case with ER physician, reque st admission for serial exams and decompression. Surgery consulted to assist with care. NG in place. Patient's last bowel movement this morning. No vomiting at this time. Still having abdominal pain and cramping. Problems addressed as follows: Small bowel obstruction -Patient has been seen by GI and surgery previously with small bowel follow- through with no identified etiology for her abdominal pain and previous episode. -CT personally reviewed showing air-fluid levels and transition point. -Continue NG to low wall suction -Zofran 4 mg as needed every 8 hours for nausea -Morphine 4 mg every 4 hours as needed IV for pain, monitor for toxicity -N.p.o. Monitor for bowel output and volume of NG output. -Surgery consulted to assist with care, serial exams. Reevaluate in the morning for possible intervention versus medical management and decompression -Etiologies include but are not exhaustive concerning for medication induced secondary to her Ozempic, gastroparesis due to her uncontrolled diabetes, infectious etiology/viral gastroenteritis Type 2 diabetes: A1c pending. Fingerstick glucose with sliding scale insulin. Resume Lantus at lower dose of 10 units nightly. Resume empagliflozin 25 mg daily; holding Ozempic, will consider discontinuing at discharge pending management of bowel obstruction Anxiety: Continue Lexapro 20 mg daily Hypothyroid: TSH pending. Continue levothyroxine 75 mcg daily Hypertension: Continue metoprolol 100 mg daily and irbesartan at decreased dose of 75 mg daily (formulary conversion for losartan) Hyperlipidemia: Continue Crestor 5 mg daily Class III obesity complicates all of her care Full code N.p.o. Holding anticoagulation in the setting of possible surgery if no improvement by tomorrow will likely transfer for GI evaluation
[2024-05-08 20:00] VITALS: BP 121/66; PULSE 80; RESP 18; TEMP 36.6; O2SAT 94
[2024-05-08 20:37] LABS: POC Glucose,Bedside 121 (70-110)
[2024-05-08] MEDS: PANTOPRAZOLE 40MG TABLET 40 MG PO (20:56)
[2024-05-08] MEDS: ATORVASTATIN 10MG TABLET 10 MG PO (20:56)
--- NOTE | 2024-05-09 01:09 | PC.NURSE ---
PATIENT C/O NOT ABLE TO SLEEP. Silvino HARVEY ACNP NOTIFIED.
[2024-05-09] MEDS: TRAZODONE 50MG TABLET 50 MG PO (01:16)
[2024-05-09] MEDS: LACTATED RINGERS 1000ML 1,000 ML 75 ML IV (01:19)
[2024-05-09 04:00] VITALS: BP 115/59; PULSE 81; RESP 18; TEMP 36.7; O2SAT 95; BMI 42.9
--- NOTE | 2024-05-09 05:01 | PC.NURSE ---
medicated at 2211 with morphine 4 mg ivp for pain/cramping lower abdomen 06/06. Med effective. No further c/o pain. Vital signs stable/afebrile. Reports passing gas. Hypoactive bowel sounds x 4. No reports of N/V. Tolerating clear liq diet.
[2024-05-09 05:43] LABS: POC Glucose,Bedside 95 (70-110)
[2024-05-09] MEDS: LEVOTHYROXINE 75MCG (0.075MG) TAB 75 MCG PO (06:25)
--- NOTE | 2024-05-09 06:47 | EXP.SURG.PN ---
Subjective Narrative: Overall, she states that she feels somewhat better. She continues to pass flatus and is less cramping . She still has some mild lower abdominal cramping. Her nasogastric tube was removed yesterday and she has experienced no emesis and essentially no nausea since. Exam Data for Last 24 hours Vital signs and Labs for Last 24 Hours: Temp Pulse Resp BP Pulse Ox O2 Del Method 98.1 F 81 18 115/59 L 95 Room Air 05/09/24 04:00 05/09/24 04:00 05/09/24 04:00 05/09/24 04:00 05/09/24 04:00 05/09/24 06:43 Laboratory Results - last 24 hr 05/08/24 05:39: WBC 7.6, RBC 4.48, Hgb 11.3 L D, Hct 36.3 L, MCV 81.1, MCH 25.2 L, MCHC 31.1 L, RDW 19.3 H, Plt Count 289, MPV 8.4, Neut % (Auto) 68.5, Lymph % (Auto) 24.1, [place] % (Auto) 5.1, Eos % (Auto) 1.7, Baso % (Auto) 0.7, Neut # (Auto) 5.2, Lymph # (Auto) 1.8, [place] # (Auto) 0.4, Eos # (Auto) 0.1, Baso # (Auto) 0.1, Sodium 139, Potassium 3.6, Chloride 105, Carbon Dioxide 25, Anion Gap 12.6, BUN 15 D, Creatinine 0.90, Estimated Creat Clear 44, Estimated GFR 63, Est GFR ( Amer) 77 D, Glucose 112 H D, Calcium 9.3, Magnesium 2.0, Total Bilirubin 0.4, AST 26, ALT 19 D, Alkaline Phosphatase 113, Total Protein 7.5, Albumin 3.9 D, Globulin 3.6 H, Albumin/Globulin Ratio 1.1 05/08/24 09:45: POC Glucose 118 H 05/08/24 11:20: POC Glucose 121 H 05/08/24 16:26: POC Glucose 102 05/08/24 20:30: POC Glucose 121 H 05/09/24 05:32: POC Glucose 95 I & O for Last 24 hours: Intake & Output 05/06/24 05/07/24 05/08/2412/24 11:59 11:59 11:59 11:59 Intake Total 995 / 995 2610 / 2610 Output Total 600 / 600 Balance 395 / 395 2607 / 2607 Weight 228 lb 231 lb 4 oz 233 lb 3.2 oz Constitutional Constitutional: no acute distress *Routine Respiratory Exam Respiratory: Absent respiratory distress *Routine Cardiovascular Exam Cardiovascular: Absent tachycardia *Routine Abdominal Exam Abdominal: Present soft Progress Note: A&P Assessment and plan (1) Small bowel obstruction: Status: Acute Assessment and plan: She continues to pass flatus. Symptoms somewhat improved this a.m. Small bowel follow-through last month revealed no evidence of obstruction. Most recent CT scan reveals some small bowel thickening at transition to nondistended bowel concerning for possible inflammatory bowel disease or other inflammatory process. Overall, the patient has evidence of a chronic gastrointestinal anomaly that is waxing and waning . Continue medical management Recommend gastroenterology evaluation for possible inflammatory bowel disease (or other chronic anomaly) She continues to pass flatus and has no evidence of complete obstruction. She has improved over the last 24 hours in terms of symptomatology. Possibly stable for discharge soon with outpatient (gastroenterology) follow-up. However, if she does not continue to improve she will benefit from transfer to tertiary center with full gastroenterology and complex surgical capabilities. (2) Constipation: Status: Acute
[2024-05-09 08:00] VITALS: BP 123/66; PULSE 80; RESP 17; TEMP 36.7; O2SAT 92
[2024-05-09] MEDS: IRBESARTAN 75MG TABLET 75 MG PO (09:36)
[2024-05-09] MEDS: CITALOPRAM 40MG TABLET 40 MG PO (09:36)
[2024-05-09] MEDS: METOPROLOL SUCCINATE XL 100MG TABLET 100 MG PO (09:36)
[2024-05-09] MEDS: EMPAGLIFLOZIN 10MG TABLET 20 MG PO (09:36)
[2024-05-09] MEDS: INSULIN GLARGINE 100 UNITS/ML 3ML FLEXPEN 10 UNIT SQ (09:40)
[2024-05-09 09:44] LABS: POC Glucose,Bedside 209 (70-110)
[2024-05-09 11:39] LABS: POC Glucose,Bedside 198 (70-110)
--- NOTE | 2024-05-09 11:52 | P.DS_ITS ---
General Admission date:: 05/07/24 Discharge date: 05/09/24 HPI HPI HPI: Ms. gutiérrez is a pleasant 64-year-old female with history of diabetes, hypertension, hypothyroid. Has previously been seen by GI and surgery for abdominal pain and bloating and distention. Recently seen by Dr. Romero for a variety of issues with her abdomen. Symptoms with her abdomen began over 2 years ago. Was seen in the ER today due to worsening abdominal pain and nausea. CT obtained showing bowel obstruction with air-fluid levels. Medicine and surgery consulted for admission and further management. NG placed for decompression. Review of her chart shows that she recently saw GI at [facility] with concern for IBS and functional bowel disorder. Possible mechanical obstruction given foul breath and feculent taste in her mouth. Previous CT in February showed findings suspicious for small bowel obstruction. Small bowel follow-through however as an outpatient in March showed GERD but no evidence of obstruction. Upon arrival to the floor, patient is complaining of sore throat from her NG. Denies any nausea. Does complain of some pain. No shortness of breath, confusion, chest pain, weakness. Reports long history of poorly controlled diabetes. Most recent A1c a month ago of 8. States this is the best that numbers been since she was diagnosed with diabetes. -Last bowel movement this morning, reports constipation Hospital Course Hospital Course Hospital Course: 64-year-old female with diabetes, hypertension, hypothyroid, obesity who presented with abdominal pain and nausea. CT image showed concern for small bowel obstruction with transition zone. Discussed case with ER physician, request admission for serial exams and decompression. Surgery consulted to assist with care. NG in place. Patient's last bowel movement this morning. No vomiting at this time. Still having abdominal pain and cramping. Problems addressed as follows: Small bowel obstruction According to the patient her abdominal pain has resolved and she has been passing flatus, she has regular diabetic diet in the morning which she tolerated, patient also had lunch which was tolerated, patient wants to be discharged, general surgery cleared patient for dc given patient is improving Exam Data for Last 24 hours Vital signs and Labs for Last 24 Hours: Temp Pulse Resp BP Pulse Ox O2 Del Method 98.0 F 80 17 123/66 92 L Room Air 05/09/24 08:00 05/09/24 08:00 05/09/24 08:00 05/09/24 08:00 05/09/24 08:00 05/09/24 11:00 Laboratory Results - last 24 hr 05/08/24 16:26: POC Glucose 102 05/08/24 20:30: POC Glucose 121 H 05/09/24 05:32: POC Glucose 95 05/09/24 09:29: POC Glucose 209 H 05/09/24 11:28: POC Glucose 198 H I & O for Last 24 hours: Intake & Output 05/06/24 05/07/24 05/08/24 05/09/24 23:59 23:59 23:59 23:59 Intake Total 2454 / 3079 1511 / 1511 Output Total 350 / 350 252 / 252 Balance -350 / -350 2202 / 2827 1510 / 1510 Weight 104.78 kg 104.893 kg 105.778 kg Constitutional Constitutional: no acute distress *Routine HEENT Exam Head: Present normocephalic Eye: Present EOMI and PERRL ENT: Present mucous membranes moist *Routine Neck Exam Neck: Present supple; Absent lymphadenopathy *Routine Respiratory Exam Respiratory: Present CTA bilaterally *Routine Cardiovascular Exam Cardiovascular: Present RRR *Routine Abdominal Exam Abdominal: Present soft and normoactive bowel sounds; Absent tenderness *Routine Extremities Exam Extremities: Absent cyanosis, clubbing or edema *Routine Skin Exam Skin: Present warm; Absent rash *Routine Neurological Exam Neurological: Present alert and oriented X3 Results Data Completed and Pending Labs on day of discharge: Labs from last 24 hours 05/09/24 05/09/24 05/09/24 11:28 09:29 05:32 POC Glucose 198 H 209 H 95 05/08/24 05/08/24 20:30 16:26 POC Glucose 121 H 102 DS: Diagnosis Discharge Diagnosis (1) Small bowel obstruction: Status: Acute Code(s): K56.609 - Unspecified intestinal obstruction, unspecified as to partial versus complete obstruction (2) Constipation: Status: Acute Code(s): K59.00 - Constipation, unspecified Qualifiers: Constipation type: unspecified constipation type Qualified Code(s): K59.00 - Constipation, unspecified Meds Home Medications and Allergies Home Medications Medication Instructions Recorded Confirmed Type levothyroxine 75 mcg tablet 75 mcg PO DAILY 05/19/22 05/07/24 History (Euthyrox) guselkumab 100 mg/mL subcutaneous 100 mg SQ DIRECTED 08/04/23 05/07/24 History auto-injector (Tremfya) empagliflozin 25 mg tablet 25 mg PO DAILY 03/29/24 05/07/24 History (Jardiance) insulin glargine 100 unit/mL (3 34 unit SQ DAILY 03/29/24 05/07/24 History mL) subcutaneous pen (Basaglar KwikPen U-100 Insulin) metformin 500 mg tablet,extended 100 mg PO QPMWITHMEAL 03/29/24 05/07/24 History release 24 hr semaglutide 0.25 mg or 0.5 mg (2 0.5 mg SQ WEEKLY 03/29/24 05/07/24 History mg/3 mL) subcutaneous pen injector (Ozempic) escitalopram oxalate 20 mg tablet 20 mg PO DAILY 05/07/24 05/07/24 History esomeprazole magnesium 40 mg 40 mg PO DAILY 05/07/24 05/07/24 History capsule,delayed release hydrochlorothiazide 12.5 mg tablet 12.5 mg PO DAILY 05/07/24 05/07/24 History losartan 100 mg tablet 100 mg PO DAILY 05/07/24 05/07/24 History metformin 500 mg tablet 500 mg PO DAILY 05/07/24 05/07/24 History metoprolol succinate 100 mg 100 mg PO DAILY 05/07/24 05/07/24 History tablet,extended release 24 hr rosuvastatin 5 mg tablet 5 mg PO DAILY 05/07/24 05/07/24 History New Prescriptions to Start Prescriptions: Allergies Allergy/AdvReac Type Severity Reaction Status Date / Time amoxicillin [From AUGMENTIN] Allergy Mild NA-NAUSEA Verified 04/28/24 11:20 cefdinir Allergy Mild Verified 04/28/24 11:20 clavulanic acid Allergy Mild NA-NAUSEA Verified 04/28/24 11:20 [From AUGMENTIN] hydrocodone [From NORCO] Allergy Mild HIVES,ITCHI Verified 04/28/24 11:20 NG naproxen [NAPROXEN] Allergy Mild HIVES,ITCHI Verified 04/28/24 11:20 NG Sulfa (Sulfonamide Allergy Mild HIVES,ITCHI Verified 04/28/24 11:20 Antibiotics) NG [SULFA (SULFONAMIDE ANTIBIOTICS)] aspirin Allergy Verified 04/28/24 11:20 Cephalosporins Allergy unknown Verified 04/28/24 11:20 Discharge Plan Disposition Patient Disposition: Home, Self-Care Condition: Good Discharge Order Discharge Orders: Discharge Order (Routine); Ordered 05/09/24 Ordered By: Alok Tobin Follow up Plan Follow up with: Clementine Kohli PA [Primary Care Provider] - 1 week Prescriptions/Medication Reconciliation: Continued levothyroxine [Euthyrox] 75 mcg tablet 75 mcg PO DAILY insulin glargine [Basaglar KwikPen U-100 Insulin] 100 unit/mL (3 mL) insulin pen 34 unit SQ DAILY Tremfya 100 mg/mL auto-injector 100 mg SQ DIRECTED Ozempic 0.25 mg or 0.5 mg (2 mg/3 mL) pen injector 0.5 mg SQ WEEKLY metformin 500 mg tablet extended release 24 hr 100 mg PO QPMWITHMEAL Jardiance 25 mg tablet 25 mg PO DAILY metformin 500 mg tablet 500 mg PO DAILY Patient Comments: TAKE 1 TABLET BY MOUTH TWICE DAILY WITH BREAKFAST AND 2 TABLETS BY MOUTH WITH SUPPER metoprolol succinate 100 mg tablet extended release 24 hr 100 mg PO DAILY esomeprazole magnesium 40 mg capsule,delayed release(DR/EC) 40 mg PO DAILY losartan 100 mg tablet 100 mg PO DAILY escitalopram oxalate 20 mg tablet 20 mg PO DAILY rosuvastatin 5 mg tablet 5 mg PO DAILY hydrochlorothiazide 12.5 mg tablet 12.5 mg PO DAILY Problem Reconciliation Problems Reviewed?: Yes Patient Discharge Instructions ACTIVITY: Ambulate as tolerated DIET: continue same diet Patient Instructions: Small Bowel Obstruction, DI for Small Bowel Obstruction Providers Primary Care Provider: Clementine Kohli Admit Provider: Kvng Hoffmann Attending Provider: Kvng Hoffmann
[2024-05-09] MEDS: humaLOG 100 UNITS/ML 10ML VIAL (SSI) SQ (11:58)
--- NOTE | 2024-05-10 15:07 | CARE MANAGER ---
Called and spoke with patient regarding recent discharge. Patient states that she is doing better today and was aware of scheduled f/u appt. No questions or concerns voiced at this time.
== END 2024-05-09 13:15 | disposition home or self-care (01) | DRG 390 ==
LOC: ER 13:08 → 2ND 13:24
PROVIDERS: Admitting Provider Internal Medicine Adolescent Medicine; Emergency Provider Student in an Organized Health Care Education/Training Program; PCP Physician Assistant; Visit Provider Internal Medicine Adolescent Medicine
DX: K56.609 Unspecified intestinal obstruction, unspecified as to partial versus complete obstruction (principal); E11.40 Type 2 diabetes mellitus with diabetic neuropathy, unspecified; F17.210 Nicotine dependence, cigarettes, uncomplicated; E03.9 Hypothyroidism, unspecified; Z79.85 Long-term (current) use of injectable non-insulin antidiabetic drugs; Z79.4 Long term (current) use of insulin; Z79.84 Long term (current) use of oral hypoglycemic drugs
CPT/HCPCS: 36415; 74018; 74177; 80053; 82962; 83036; 83605; 83735; 84443; 84484; 85025; 99291; J2270; J2405; J7120; Q9967

== ENCOUNTER 2024-05-17 09:19 | Day surgery (SDC) | payer BC, SELFPAY ==
[2024-05-17 10:01] VITALS: BP 115/66; PULSE 64; RESP 18; TEMP 36.2; O2SAT 100; BMI 42.0
[2024-05-17] MEDS: LACTATED RINGERS 1000ML 1,000 ML 25 ML IV (10:06)
--- NOTE | 2024-05-17 10:17 | EXP.ANES.CKL ---
[facility] Disclaimer: The information contained in this section may have been updated after the patient was seen, as this information can be updated by other users. Medical History (Updated 05/17/24 @ 09:51 by Sada Harley RN) History of left heart catheterization (LHC) Constipation Abdominal pain Elevated parathyroid hormone Encounter for screening breast examination Dyshidrotic eczema Neuropathy Polyarthralgia Diabetes Surgical History (Updated 05/17/24 @ 09:51 by Sada Harley RN) H/O tubal ligation History of hysterectomy History of colonoscopy Family History Family/Other Bleeding disorder Diabetes FHx: mental illness Hypertension Mother Tuberculosis Social History Smoking Status: Current every day smoker tobacco type: cigarettes packs per day: 1 second hand exposure: No alcohol intake: never substance use type: denies use current occupational status: unemployed Travel in the last 8 weeks: None household members: spouse housing: house current occupation: school system current occupational exposures/hazards: No caffeine: Yes [facility] Anesthesia Checklist Patient Identification Patient Identification: Arm Band Structural Data Admitted From: Home Planned Operative Procedure/s: EGD/Colonoscopy Consent for Planned Operative Procedure(s) Verified: Yes Verified Documents: Surgical Consent and History and Physical NPO Status Verified Time NPO: 00:00 Additional verifications Anesthesia Reactions: No Hx Blood Transfusions: No Blood Transfusion Reaction: No Airway Assessment Mallampati Score:: Class II C-Spine Mobility Assessed: Yes TMJ Mobility Assessed: Yes Dentition: Good Dentition Neurological Assessment Level of Consciousness: Awake, Alert and Appropriate Anesthesia Plan Anesthesia Risk discussed: Yes Anesthesia Plan: Verified ASA Class: III Anesthesia Type: MAC
[2024-05-17 10:19] VITALS: O2SAT 100
--- NOTE | 2024-05-17 10:42 | HMH.SCOPE ---
Procedure: Date: 05/17/24 Patient Date of :: 1960 Procedure Performed:: EGD & biopsies Indications:: Abdominal pain Performing Provider:: Jose Valadez MD Referring Provider:: Jazlyn Valadez APRN Sedation:: Propofol Procedure:: The gastroscope was gently passed through the incisoral orifice into the oral cavity and under direct visualization the esophagus was intubated. The endoscope was passed down the esophagus, through the stomach, and into the duodenum. Color, texture, mucosa, and anatomy of the esophagus, stomach, and duodenum were carefully examined with the scope. Findings:: Oropharynx: normal Esophagus: normal EG Junction: intact at 40 cm Cardia: normal Fundus: normal Body: normal, biopsied for h.pylori Antrum: normal Duodenal bulb: normal Duodenum (second and third portion): normal Impression: Normal EGD, no evidence of outlet obstruction Gastroparesis Symptoms secondary to Ozempic Specimens:: Gastric Recommendations:: Avoid Ozempic type medication due to adverse reactions Complications:: None Estimated blood obtained (mL): 0 Colonoscopy Component Colonoscopy Component Was a colonoscopy performed during today's procedure?: No
[2024-05-17 10:45] VITALS: BP 93/63; PULSE 80; RESP 16; TEMP 36.2; O2SAT 94
--- NOTE | 2024-05-17 10:45 | HMH.SCOPE ---
Procedure: Date: 05/17/24 Patient Date of :: 1960 Procedure Performed:: Screening colonoscopy Indications:: Colon cancer screening Recent xrays showing evidence of SBO Performing Provider:: Jose Valadez MD Referring Provider:: Jazlyn Valadez APRN Sedation:: Propofol Procedure:: After placing the patient in the left lateral decubitus position, the colonoscopy was gently inserted into the rectum and under direct visualization advanced to the cecum which was identified by transillumination in the right lower quadrant, identification of the ileocecal valve, appendiceal orifice, and cecal strap. Color, texture, mucosa, and anatomy of the colon were carefully examined with the scope. Findings:: Anal canal: normal Rectum: normal Sigmoid colon: normal without polyps or inflammatory changes Descending colon: normal without polyps or inflammatory changes Splenic flexure: normal Transverse colon: normal without polyps or inflammatory changes Hepatic flexure: normal Ascending colon: normal without polyps or inflammatory changes Cecum: normal Terminal ileum: not visualized Impression: Normal colonoscopy Ileus type symptoms likely related to Ozempic use Recommendations:: Follow up examination in about TEN years or so, sooner if clinically indicated. Complications:: None Estimated blood obtained (mL): 0 Colonoscopy Component Colonoscopy Component Was a colonoscopy performed during today's procedure?: Yes Recommended follow up colonoscopy of at least 10 years?: Yes
[2024-05-17 10:50] VITALS: BP 102/63; PULSE 81; RESP 18; O2SAT 96
[2024-05-17 11:05] VITALS: BP 113/71; PULSE 74; RESP 18; O2SAT 96
[2024-05-17 11:15] VITALS: BP 118/71; PULSE 64; RESP 18; O2SAT 96
[2024-05-17 18:48] LABS: POC Glucose,Bedside 105 (70-110)
== END 2024-05-17 11:15 | disposition home or self-care (01) ==
PROVIDERS: PCP Physician Assistant; Visit Provider Internal Medicine Gastroenterology
PROC: 0DJ08ZZ Inspection of Upper Intestinal Tract, Via Natural or Artificial Opening Endoscopic (ICD-10-PCS; CPT 43235; principal; 2024-05-17 10:30)
DX: R10.9 Unspecified abdominal pain (principal); Z79.85 Long-term (current) use of injectable non-insulin antidiabetic drugs; R93.5 Abnormal findings on diagnostic imaging of other abdominal regions, including retroperitoneum; E11.9 Type 2 diabetes mellitus without complications
CPT/HCPCS: 43239; 45378; 82962; J7120

== ENCOUNTER 2024-06-04 13:56 | Outpatient (CLI) | payer BC, SELFPAY | END 2024-06-04 23:59 | disposition home or self-care (01) | LOC: LAB.DROPOF 13:56 | PROVIDERS: PCP Physician Assistant; Visit Provider Physician Assistant | DX: N39.0 Urinary tract infection, site not specified (principal); B37.31 Acute candidiasis of vulva and vagina | CPT/HCPCS: 87086; 87088; 87186 ==

== ENCOUNTER 2024-07-19 16:42 | Emergency (ER) | payer BC, SELFPAY ==
[2024-07-19 16:42] VITALS: BP 131/65; PULSE 77; RESP 19; TEMP 36.6; O2SAT 98; BMI 43.4
--- NOTE | 2024-07-19 16:42 | ECG_ITS ---
APPROVED REPORT Exam: Resting ECG HR:73 bpm ECG Measurements Heart Rate 73 AXES UT 164 P 47 QRSd 90 QRS -19 QT 364 T -6 QTc 390 Conclusion SINUS RHYTHM LOW QRS VOLTAGE IN PRECORDIAL LEADS [QRS DEFLECTION < 1.0 mV IN CHEST LEADS] MODERATE VOLTAGE CRITERIA FOR LVH, CONSIDER NORMAL VARIANT [MEETS CRITERIA IN ONE OF: R(aVL), S(V1), R(V5), R(V5/V6)+S(V1)] POSSIBLE ANTERIOR MYOCARDIAL INFARCTION , PROBABLY OLD [30 ms Q WAVE IN V3/V4, OR R < 0.2 mV IN V4] BORDERLINE ECG Electronically signed by : KRISTINA MARIE, 07/20/2024 23:19:37
[2024-07-19 17:00] VITALS: BP 113/63; PULSE 70; RESP 22; O2SAT 96
--- NOTE | 2024-07-19 17:04 | XR_ITS ---
PROCEDURE INFORMATION: Exam: XR Chest Exam date and time: 07/19/2024 5:08 PM Age: 64 years old Clinical indication: Pain; Chest pressure; Additional info: Chest tightness TECHNIQUE: Imaging protocol: Radiologic exam of the chest. Views: 2 views. COMPARISON: CR XR CHEST 2V 06/24/2021 1:24 PM FINDINGS: Lungs: No evidence of acute pulmonary disease or infiltrates Pleural spaces: No large effusion or pneumothorax. Heart/Mediastinum: No evidence of mediastinal widening or cardiac silhouette enlargement; the mediastinum and heart appear within normal limits for contour and size. Bones/joints: No evidence of acute osseous abnormalities within the visualized portions of the thoracic spine and ribs. Osseous structures appear appropriate for patient age. IMPRESSION: No dense parenchymal consolidation, pleural effusion, or pneumothorax.
[2024-07-19 17:11] LABS: Albumin Level 4.3 g/dl (3.5-5.0); Chloride 107 mmol/L (98-107); Sodium 140 mmol/L (136-145)
[2024-07-19 17:16] LABS: Basophils # 0.1 K/mm3 (0-0.2); Eosinophils # 0.2 K/mm3 (0.0-0.4); Eosinophils % 3.1 % (0.1-12.0); Hematocrit 39.7 % (37.0-47.0); Hemoglobin 11.7 g/dL (12.2-16.2); Lymphocytes # 1.6 K/mm3 (0.7-4.5); Lymphocytes % 22.6 % (10-50); Mean Corpuscular HGB Conc 29.4 g/dL (31.8-35.4); Mean Corpuscular Hemoglobin 24.8 pg (27.0-31.2); Mean Corpuscular Volume 84.2 fl (81-99); Monocytes # 0.3 K/mm3 (0.1-1.0); Monocytes % 4.4 % (1.7-9.3); Neutrophils % 68.9 % (37.0-80.0); Platelet Count 374 K/mm3 (142-424); Red Blood Count 4.71 M/mm3 (4.20-5.40); Red Cell Distribution Width 18.8 % (11.5-17.5); White Blood Count 7.2 K/mm3 (4.8-10.8)
[2024-07-19 17:18] LABS: Coronavirus 19, PCR Not Detected (NotDetected); Influenza A, PCR Not Detected (NotDetected); Influenza B, PCR Not Detected (NotDetected)
[2024-07-19 17:30] VITALS: BP 105/64; RESP 14
[2024-07-19 17:30] LABS: Alanine Aminotransferase 21 U/L (12-78); Albumin/Globulin Ratio 1.1 (1.1-1.8); Aspartate Amino Transferase 30 U/L (14-36); Bilirubin,Total 0.4 mg/dl (0.2-1.3); Blood Urea Nitrogen 24 mg/dl (7-17); Carbon Dioxide 25 mmol/L (22.0-30.0); Creatinine Clearance Estimated 44 mL/min (50-200); Estimated Glomerular Filt Rate 63 ml/min (>60); GFR (African American) 77 ML/MIN (>60); Globulin 3.9 g/dL (1.3-3.2); Glucose 293 mg/dl (74-100); Total Protein,Serum 8.2 g/dl (6.3-8.2); Troponin I < 0.01 ng/ml (0.00-0.034)
[2024-07-19 17:31] LABS: Alkaline Phosphatase 128 U/L (38-126)
[2024-07-19 18:00] VITALS: BP 112/62; PULSE 63; RESP 20; O2SAT 97
--- NOTE | 2024-07-19 18:23 | HMH.EDGENADL ---
Discharge Plan Disposition Patient Disposition: Home, Self-Care Prescriptions Prescriptions: No Action levothyroxine [Euthyrox] 75 mcg tablet 75 mcg PO DAILY insulin glargine [Basaglar KwikPen U-100 Insulin] 100 unit/mL (3 mL) insulin pen 30 unit SQ DAILY Tremfya 100 mg/mL auto-injector 100 mg SQ DIRECTED Jardiance 25 mg tablet 25 mg PO DAILY insulin aspart U-100 [Novolog FlexPen U-100 Insulin] 100 unit/mL (3 mL) insulin pen SQ Patient Comments: INJECT 10 UNITS SUBCUTANEOUSLY THREE TIMES DAILY WITH MEALS levofloxacin 500 mg tablet 500 mg PO Q24H 7 Days Qty: 7 0RF fluconazole 150 mg tablet 150 mg PO .QOD 6 Days Qty: 3 0RF rosuvastatin 5 mg tablet See Rx Instructions .ROUTE .COMPLEX Qty: 90 0RF Dose Instruction: TAKE 1 TABLET BY MOUTH ONCE DAILY FOR CHOLESTEROL Rx Instructions: TAKE 1 TABLET BY MOUTH ONCE DAILY FOR CHOLESTEROL aspirin 81 mg Capsule 81 mg PO DAILY metformin 500 mg tablet 500 mg PO BID Patient Comments: TAKE 1 TABLET BY MOUTH TWICE DAILY WITH BREAKFAST AND 2 TABLETS BY MOUTH WITH SUPPER metoprolol succinate 100 mg tablet extended release 24 hr 100 mg PO DAILY esomeprazole magnesium 40 mg capsule,delayed release(DR/EC) 40 mg PO DAILY losartan 100 mg tablet 100 mg PO DAILY escitalopram oxalate 20 mg tablet 20 mg PO DAILY hydrochlorothiazide 12.5 mg tablet 12.5 mg PO DAILY Referrals Follow up/Referrals: Clementine Kohli PA [Primary Care Provider] - See instructions Activity Restrictions/Add. Instructions Additional Instructions/Restrictions: No emergent medical condition identified today your symptoms are most likely secondary to a viral syndrome. Please take Tylenol and ibuprofen as needed at home return with any significant worsening of your symptoms such as inability to keep fluids down persistent diarrhea or low blood pressure with systolic blood pressures less than 90 on a consistent fashion or other concerns. Clinical Impressions Clinical Impression: Headache, Atypical chest pain, Diarrhea, Dehydration, Acute hypotension Print Language Print Language: Hungarian Discharge ED Provider: Silvino Chauhan General Adult HPI General Chief complaint: Chest Pain Stated complaint: chest pain Time Seen by Provider: 07/19/24 18:05 Mode of Arrival: Ambulatory Source of Information: Patient Limitations: No Limitations Description of Symptoms (Recalled from ER Triage Doc. by RN): pt presents to ED with c/o chest tightness, hypotension, headache, fever, chills, possible UTI. pt reports all symptoms began today History of Present Illness HPI narrative: Patient is a 64-year-old female present today with multiple complaints. Primarily she is complaining of hypotension. States her blood pressure typically runs about 110 systolic but it has been running anywhere from 70-90 systolic at home. She is complaining of multiple other things including diarrhea little bit of chest discomfort and a mild headache. Blood pressure prior to my evaluation was normal from historical standpoint. Tmax is 99 at home she states. Related Data Home Medications ?Medication ?Instructions ?Recorded ?Confirmed levothyroxine 75 mcg tablet 75 mcg PO DAILY 05/19/22 06/04/24 (Euthyrox) guselkumab 100 mg/mL subcutaneous 100 mg SQ DIRECTED 08/04/23 06/04/24 auto-injector (Tremfya) empagliflozin 25 mg tablet 25 mg PO DAILY 03/29/24 06/04/24 (Jardiance) insulin glargine 100 unit/mL (3 30 unit SQ DAILY 03/29/24 06/04/24 mL) subcutaneous pen (Basaglar KwikPen U-100 Insulin) escitalopram oxalate 20 mg tablet 20 mg PO DAILY 05/07/24 06/04/24 esomeprazole magnesium 40 mg 40 mg PO DAILY 05/07/24 06/04/24 capsule,delayed release hydrochlorothiazide 12.5 mg tablet 12.5 mg PO DAILY 05/07/24 06/04/24 losartan 100 mg tablet 100 mg PO DAILY 05/07/24 06/04/24 metformin 500 mg tablet 500 mg PO BID 05/07/24 06/04/24 metoprolol succinate 100 mg 100 mg PO DAILY 05/07/24 06/04/24 tablet,extended release 24 hr aspirin 81 mg capsule 81 mg PO DAILY 05/17/24 06/04/24 insulin aspart U-100 100 unit/mL SQ 06/04/24 06/04/24 (3 mL) subcutaneous pen (Novolog FlexPen U-100 Insulin aspart) Previous Rx's ?Medication ?Instructions ?Recorded fluconazole 150 mg tablet 150 mg PO .QOD 6 days #3 tabs 06/04/24 levofloxacin 500 mg tablet 500 mg PO Q24H 7 days #7 tabs 06/04/24 rosuvastatin 5 mg tablet See Rx Instructions .Route 07/18/24 .COMPLEX #90 tabs Allergies Allergy/AdvReac Type Severity Reaction Status Date / Time amoxicillin [From AUGMENTIN] Allergy Mild NA-NAUSEA Verified 06/04/24 12:58 cefdinir Allergy Mild Verified 06/04/24 12:58 clavulanic acid Allergy Mild NA-NAUSEA Verified 06/04/24 12:58 [From AUGMENTIN] hydrocodone [From NORCO] Allergy Mild HIVES,ITCHI Verified 06/04/24 12:58 NG naproxen [NAPROXEN] Allergy Mild HIVES,ITCHI Verified 06/04/24 12:58 NG Sulfa (Sulfonamide Allergy Mild HIVES,ITCHI Verified 06/04/24 12:58 Antibiotics) NG [SULFA (SULFONAMIDE ANTIBIOTICS)] aspirin Allergy Verified 06/04/24 12:58 Cephalosporins Allergy unknown Verified 06/04/24 12:58 [facility] Disclaimer: The information contained in this section may have been updated after the patient was seen, as this information can be updated by other users. Medical History (Updated 07/19/24 @ 18:26 by Silvino Chauhan MD) History of left heart catheterization (LHC) Constipation Abdominal pain Elevated parathyroid hormone Encounter for screening breast examination Dyshidrotic eczema Neuropathy Polyarthralgia Diabetes Surgical History H/O tubal ligation History of hysterectomy History of colonoscopy Family History Family/Other Bleeding disorder Diabetes FHx: mental illness Hypertension Mother Tuberculosis Social History Smoking Status: Current every day smoker tobacco type: cigarettes packs per day: 1 second hand exposure: No alcohol intake: never substance use type: denies use current occupational status: unemployed Travel in the last 8 weeks: None household members: spouse housing: house current occupation: school system current occupational exposures/hazards: No caffeine: Yes ROS Obtained: Yes All systems reviewed & no additional complaints except as documented Physical Exam General General appearance: alert and in no apparent distress Respiratory Respiratory exam: Present normal lung sounds bilaterally; Absent respiratory distress Cardiovascular Cardiovascular exam: Present regular rate; Absent normal rhythm Abdominal Exam Abdominal exam: Present soft; Absent distention or tenderness Neurological Exam Neurological exam: Present alert, oriented X3 and normal gait; Absent CN II-XII intact or motor sensory deficit Medical Decision Making Cj Inquiry Pt receiving controlled substance: No Vital Signs: 07/19/24 16:42 07/19/24 17:00 07/19/24 17:30 Temperature 97.8 F Temperature Source Oral Pulse Rate 70 Pulse Rate [Left Radial] 77 Respiratory Rate 19 22 14 Blood Pressure 113/63 105/64 L Blood Pressure [Right Arm] 131/65 Blood Pressure Mean [Right Arm] 87 02 Sat by Pulse Oximetry 98 96 Oxygen Delivery Method Room Air 07/19/24 18:00 07/19/24 18:30 Temperature Temperature Source Pulse Rate 63 69 Pulse Rate [Left Radial] Respiratory Rate 20 13 Blood Pressure 112/62 120/73 Blood Pressure [Right Arm] Blood Pressure Mean [Right Arm] 02 Sat by Pulse Oximetry 97 98 Oxygen Delivery Method Room Air Lab Data Lab results reviewed: Yes I reviewed the patient's lab results. Lab Results 07/19/24 16:46: WBC 7.2, RBC 4.71, Hgb 11.7 L, Hct 39.7, MCV 84.2, MCH 24.8 L, MCHC 29.4 L, RDW 18.8 H, Plt Count 374, MPV 8.0, Neut % (Auto) 68.9, Lymph % (Auto) 22.6, [place] % (Auto) 4.4, Eos % (Auto) 3.1, Baso % (Auto) 1.0, Neut # (Auto) 5.0, Lymph # (Auto) 1.6, [place] # (Auto) 0.3, Eos # (Auto) 0.2, Baso # (Auto) 0.1, Sodium 140, Potassium 4.0, Chloride 107, Carbon Dioxide 25, Anion Gap 12.0, BUN 24 H, Creatinine 0.90, Estimated Creat Clear 44, Estimated GFR 63, Est GFR ( Amer) 77, Glucose 293 H, Calcium 9.0, Total Bilirubin 0.4, AST 30, ALT 21, Alkaline Phosphatase 128 H, Troponin I < 0.01, Total Protein 8.2, Albumin 4.3, Globulin 3.9 H, Albumin/Globulin Ratio 1.1 07/19/24 17:10: SARS-CoV-2 (PCR) Not detected, Influenza A Untype (PCR) Not detected, Influenza Type B (PCR) Not detected 07/19/24 16:46 07/19/24 16:46 Orders (Tests/Meds): ED MEDICATIONS Discontinued Medications Generic Name Dose Route Start Last Admin Trade Name Cornelio PRN Reason Stop Dose Admin Diphenhydramine HCl 12.5 mg 07/19/24 18:22 07/19/24 18:41 Diphenhydramine 50mg/Ml Vial IV 07/19/24 18:23 12.5 mg ONCE ONE Administration Lactated Ringer's 1,000 mls @ 999 mls/hr 07/19/24 18:30 07/19/24 18:40 Lactated Ringer's 1000 Ml Bag IV 07/19/24 19:30 999 mls/hr .Q1H1M VARGHESE Administration Ondansetron HCl 4 mg 07/19/24 18:22 07/19/24 18:41 Ondansetron 4mg/2ml Vial IV 07/19/24 18:23 4 mg ONCE ONE Administration Prochlorperazine Edisylate 5 mg 07/19/24 18:22 07/19/24 18:42 Prochlorperazine 10mg/2ml Vial IV 07/19/24 18:23 5 mg ONCE ONE Administration ORDERS Category Date Time Status XR chest 2V Stat Exams 07/19/24 17:04 Completed Complete Blood Count Auto Diff Stat Lab 07/19/24 16:46 Completed Comprehensive Metabolic Panel Stat Lab 07/19/24 16:46 Completed Rapid PCR Covid and Flu A/B Stat Lab 07/19/24 17:10 Completed Troponin I Q3H Lab 07/19/24 20:15 Ordered Troponin I Q3H Lab 07/19/24 23:15 Ordered Troponin I Stat Lab 07/19/24 16:46 Completed Urinalysis and Microscopic Stat Lab 07/19/24 17:04 Ordered Medical Decision Narrative: Well-appearing 64-year-old female presented with motor complaints including headache mild chest discomfort diarrhea low-grade fever which she states is a Tmax of 99 and subjective hypotension with her home monitor. She is normotensive here and is very nontoxic as benign abdominal exam normal cardiovascular exam and is nonfocal from a neurologic standpoint. Will give her a migraine cocktail and assess for possible acute coronary syndrome which is extremely unlikely and will get basic blood work and obtain rapid COVID and flu as her symptoms are most likely consistent with a viral syndrome. Will reassess Reassessment 7:33 PM patient feeling significantly better after migraine cocktail. Chest x-ray was performed to person interpreted also reviewed radiology read which was unremarkable. Labs unremarkable including negative COVID and flu test and negative troponin. Overall this is not consistent with a emergent medical condition at this point. Most likely a viral syndrome she has been offered symptomatic medicines to go home with but declined. Patient was discharged in stable and improved condition with return precautions emphasized Critical Care Critical Care Time Critical Care Time: No
[2024-07-19 18:30] VITALS: BP 120/73; PULSE 69; RESP 13; O2SAT 98
[2024-07-19] MEDS: LACTATED RINGERS 1000ML 1,000 ML 999 ML IV (18:40)
[2024-07-19] MEDS: diphenhydrAMINE 50MG/ML VIAL 12.5 MG IV (18:41)
[2024-07-19] MEDS: ONDANSETRON 4MG/2ML VIAL 4 MG IV (18:41)
[2024-07-19] MEDS: PROCHLORPERAZINE 10MG/2ML VIAL 5 MG IV (18:42)
[2024-07-19 19:45] VITALS: BP 108/62; PULSE 70; RESP 22; TEMP 36.6; O2SAT 96
== END 2024-07-19 19:45 | disposition home or self-care (01) ==
PROVIDERS: Emergency Provider Student in an Organized Health Care Education/Training Program; PCP Physician Assistant
DX: R07.9 Chest pain, unspecified (principal); I95.9 Hypotension, unspecified; R51.9 Headache, unspecified; E86.0 Dehydration; R19.7 Diarrhea, unspecified; F17.210 Nicotine dependence, cigarettes, uncomplicated
CPT/HCPCS: 71046; 80053; 84484; 85025; 87636; 93005; 96361; 96374; 96375; 99284; J0780; J1200; J2405; J7120

== ENCOUNTER 2024-08-28 13:45 | Outpatient (CLI) | payer BC, SELFPAY ==
[2024-08-28 13:54] LABS: Basophils # 0.1 K/mm3 (0-0.2); Basophils % 0.8 % (0.1-2.0); Eosinophils # 0.2 K/mm3 (0.0-0.4); Eosinophils % 3.3 % (0.1-12.0); Hematocrit 37.8 % (37.0-47.0); Hemoglobin 11.5 g/dL (12.2-16.2); Lymphocytes # 1.8 K/mm3 (0.7-4.5); Lymphocytes % 25.5 % (10-50); Mean Corpuscular HGB Conc 30.4 g/dL (31.8-35.4); Mean Corpuscular Hemoglobin 25.6 pg (27.0-31.2); Mean Corpuscular Volume 84.3 fl (81-99); Mean Platelet Volume 8.4 fl (7.4-10.4); Monocytes # 0.4 K/mm3 (0.1-1.0); Monocytes % 6.1 % (1.7-9.3); Neutrophils # 4.6 K/mm3 (1.8-7.8); Neutrophils % 64.3 % (37.0-80.0); Platelet Count 322 K/mm3 (142-424); Red Blood Count 4.48 M/mm3 (4.20-5.40); Red Cell Distribution Width 18.9 % (11.5-17.5); White Blood Count 7.2 K/mm3 (4.8-10.8)
[2024-08-28 14:03] LABS: Alanine Aminotransferase 17 U/L (12-78); Albumin Level 4.1 g/dl (3.5-5.0); Albumin/Globulin Ratio 1.2 (1.1-1.8); Alkaline Phosphatase 126 U/L (38-126); Anion Gap 9.7 mEq/L (5-15); Aspartate Amino Transferase 25 U/L (14-36); Bilirubin,Total 0.4 mg/dl (0.2-1.3); Blood Urea Nitrogen 21 mg/dl (7-17); Calcium 9.9 mg/dl (8.4-10.2); Carbon Dioxide 30 mmol/L (22.0-30.0); Chloride 104 mmol/L (98-107); Chol/HDL Ratio 1.9 (1-3.5); Cholesterol 118 mg/dl (140-200); Estimated Glomerular Filt Rate 56 ml/min (>60); GFR (African American) 68 ML/MIN (>60); Globulin 3.4 g/dL (1.3-3.2); Glucose 135 mg/dl (74-100); HDL Cholesterol 61 mg/dl (40-60); Potassium 4.7 mmoL/L (3.5-5.1); Sodium 139 mmol/L (136-145); Total Protein,Serum 7.5 g/dl (6.3-8.2); Triglycerides 100 mg/dl (30-150); VLDL Cholesterol 20 mg/dL (0-40)
[2024-08-28 14:16] LABS: Direct LDL Cholesterol < 30.00 mg/dL (100-129)
[2024-08-28 14:20] LABS: Free T4 (Free Thyroxine) 1.41 ng/dl (0.78-2.19)
[2024-08-28 14:34] LABS: Thyroid Stimulating Hormone 0.81 uIU/mL (0.465-4.68)
[2024-08-28 14:41] LABS: Hemoglobin A1C 8.7 % (4.0-6.0)
[2024-08-28 16:37] LABS: 25-OH Vitamin D, Total 53.8 ng/mL (30-100)
== END 2024-08-28 23:59 | disposition home or self-care (01) ==
LOC: LAB.DROPOF 13:46
PROVIDERS: PCP Internal Medicine; Visit Provider Internal Medicine
DX: Z00.00 Encounter for general adult medical examination without abnormal findings (principal); Z13.29 Encounter for screening for other suspected endocrine disorder; Z13.21 Encounter for screening for nutritional disorder; Z13.220 Encounter for screening for lipoid disorders; E11.9 Type 2 diabetes mellitus without complications; Z79.84 Long term (current) use of oral hypoglycemic drugs; Z79.4 Long term (current) use of insulin
CPT/HCPCS: 80050; 80053; 80061; 82306; 83036; 84439; 84443; 85025

== ENCOUNTER 2024-10-04 19:35 | Emergency (ER) | payer BC, SELFPAY ==
[2024-10-04 19:54] VITALS: BP 135/67; PULSE 91; RESP 20; TEMP 36.8; O2SAT 99; BMI 46.4
[2024-10-04 20:06] LABS: Microscopic, Urine URINE MICROSCOPIC (MICROSCOPIC)
[2024-10-04 20:08] LABS: Appearance,Urine CLEAR (Clear); Bilirubin,Urine Negative (Negative); Blood, Urine 3+ (Negative); Color,Urine YELLOW (Yellow); Glucose,Urine (UA) 3+ (Negative); Ketones,Urine Negative (Negative); Leukocyte Esterase,Urine Negative (Negative); Nitrate,Urine Negative (Negative); Protein,Urine Negative (Negative); Specific Gravity, Urine 1.015 (1.005-1.030); Urobilinogen,Urine 0.2 EU/dl (0.2)
[2024-10-04 20:22] LABS: Bacteria,Urine 1+ /lpf; RBC,Urine TNTC #/hpf (0-3); Yeast,Urine 1+ /lpf
--- NOTE | 2024-10-04 20:52 | ED_ITS ---
Discharge Plan Disposition Patient Disposition: Home, Self-Care Chief Complaint: Vaginal Bleeding Prescriptions Prescriptions: No Action levothyroxine [Euthyrox] 75 mcg tablet 75 mcg PO DAILY insulin glargine [Basaglar KwikPen U-100 Insulin] 100 unit/mL (3 mL) insulin pen 30 unit SQ DAILY magnesium 250 mg tablet 250 mg PO DAILY famotidine 20 mg tablet 20 mg PO DAILY cholecalciferol (vitamin D3) 50 mcg (2,000 unit) capsule 50 mcg PO DAILY B-complex with vitamin C Tablet 1 tab PO DAILY (DME) Dexcom G7 Cafeteria Worker Misc See Rx Instructions .Route Qty: 1 0RF Rx Instructions: As directed (DME) pen needle, diabetic [BD Ultra-Fine Micro Pen Needle] 32 gauge x 1/4 needle See Rx Instructions .ROUTE .MEDSUPPLY Qty: 100 Patient Comments: USE 1 PEN NEEDLE 4 TIMES DAILY Rx Instructions: As directed conjugated estrogens 0.625 mg/gram cream 0.625 mg vaginal DAILY Qty: 30 2RF Rx Instructions: discard applicator. insert blueberry sized amount into the vagina nightly for 2 weeks, then twice weekly. Jardiance 25 mg tablet 25 mg PO DAILY metoprolol succinate 25 mg tablet extended release 24 hr 25 mg PO DAILY Qty: 30 2RF Trulicity 0.75 mg/0.5 mL pen injector 0.75 mg SQ WEEKLY Qty: 2.5 0RF rosuvastatin 5 mg tablet See Rx Instructions .ROUTE .COMPLEX Qty: 90 0RF Dose Instruction: TAKE 1 TABLET BY MOUTH ONCE DAILY FOR CHOLESTEROL Rx Instructions: TAKE 1 TABLET BY MOUTH ONCE DAILY FOR CHOLESTEROL (DME) Omnipod 5 G6 Pods (Gen 5) Cartridge See Rx Instructions .Route Qty: 5 0RF Rx Instructions: As directed (DME) Omnipod 5 G6 Intro Kit (Gen 5) Cartridge See Rx Instructions .ROUTE .COMPLEX Qty: 1 0RF Dose Instruction: USE DIRECTED Rx Instructions: USE DIRECTED (DME) Dexcom G7 Sensor Device See Rx Instructions .Route Qty: 9 1RF Rx Instructions: As directed estradiol [Vagifem] 10 mcg tablet 10 mcg vaginal .twice weekly Qty: 30 1RF aspirin 81 mg Capsule 81 mg PO DAILY metformin 500 mg tablet 500 mg PO BID Patient Comments: TAKE 1 TABLET BY MOUTH TWICE DAILY WITH BREAKFAST AND 2 TABLETS BY MOUTH WITH SUPPER esomeprazole magnesium 40 mg capsule,delayed release(DR/EC) 40 mg PO DAILY losartan 100 mg tablet 100 mg PO DAILY escitalopram oxalate 20 mg tablet 20 mg PO DAILY hydrochlorothiazide 12.5 mg tablet 12.5 mg PO DAILY Referrals Follow up/Referrals: Prasad Preston DO [Primary Care Provider] - See instructions Activity Restrictions/Add. Instructions Additional Instructions/Restrictions: Call your family doctor to establish care for this visit to the emergency department and schedule follow-up within 48 hours to ensure improvement. If you have any worsening of your condition or any other concerning signs or symptoms, return to the emergency department or your primary care doctor for further evaluation. Clinical Impressions Clinical Impression: Vaginal laceration Print Language Print Language: Indian Discharge ED Provider: Colt Bean General Adult HPI General Chief complaint: Vaginal Bleeding Stated complaint: put on new medicine now with heavy vaginal bleedin Time Seen by Provider: 10/04/24 19:39 Mode of Arrival: Ambulatory Source of Information: Patient Limitations: No Limitations Description of Symptoms (Recalled from ER Triage Doc. by RN): Pt ambulatory to ED with cc of vaginal bleeding. Pt states she started vaginal estrogen approx 14 days ago. Pt states she had some spotting but starting today she has had heavy bleeding. Pt states she has bleed through 2 pads in 3hrs. Pt states when she wipes the toilet paper is full. Pt states the blood is bright red. Pt reports having a partial hysterectomy with removal of her uterus. Pt reports having light cramping. Pt also reports having a sinus infection for approx a week. History of Present Illness HPI narrative: Please note that above description of symptoms, in this electronic medical record under categorization of recalled from ER triage doctor by RN are reflective of an initial nursing assessment, however, is not reflective of my full history and physical exam that was personally taken and clarified. Consequentially, this preceding description of symptoms, which may include the patient's categorized chief complaint in the EMR, do not reflect my personal clinical impression, and the ultimate description of history of present illness and patient stated complaints should be deferred to this section of the note. Unless stated otherwise or congruent with this section of the note, additional signs, symptoms, or incongruence should be interpreted as inaccurate with my clinical impression. Related Data Home Medications ?Medication ?Instructions ?Recorded ?Confirmed levothyroxine 75 mcg tablet 75 mcg PO DAILY 05/19/22 09/26/24 (Euthyrox) empagliflozin 25 mg tablet 25 mg PO DAILY 03/29/24 09/26/24 (Jardiance) insulin glargine 100 unit/mL (3 30 unit SQ DAILY 03/29/24 09/26/24 mL) subcutaneous pen (Basaglar KwikPen U-100 Insulin) escitalopram oxalate 20 mg tablet 20 mg PO DAILY 05/07/24 09/26/24 esomeprazole magnesium 40 mg 40 mg PO DAILY 05/07/24 09/26/24 capsule,delayed release hydrochlorothiazide 12.5 mg tablet 12.5 mg PO DAILY 05/07/24 09/26/24 losartan 100 mg tablet 100 mg PO DAILY 05/07/24 09/26/24 metformin 500 mg tablet 500 mg PO BID 05/07/24 09/26/24 aspirin 81 mg capsule 81 mg PO DAILY 05/17/24 09/26/24 B-complex with vitamin C 1 tab PO DAILY 08/23/24 09/26/24 cholecalciferol (vitamin D3) 50 50 mcg PO DAILY 08/23/24 09/26/24 mcg (2,000 unit) capsule famotidine 20 mg tablet 20 mg PO DAILY Stomach problems 08/23/24 09/26/24 magnesium 250 mg tablet 250 mg PO DAILY Leg cramps 08/23/24 09/26/24 pen needle, diabetic 32 gauge x #100 ea 09/13/24 09/26/2412/01 (BD Ultra-Fine Micro Pen Needle) Previous Rx's ?Medication ?Instructions ?Recorded rosuvastatin 5 mg tablet See Rx Instructions .Route 07/18/24 .COMPLEX #90 tabs blood-glucose meter,continuous #1 ea 08/23/24 (Dexcom G7 Cafeteria Worker) insulin pump cart,automated,BT #5 ea 08/30/24 (Omnipod 5 G6 Pods (Gen 5) subcutaneous cartridge) metoprolol succinate 25 mg 25 mg PO DAILY #30 tabs 09/11/24 tablet,extended release 24 hr conjugated estrogens 0.625 mg/gram 0.625 mg vaginal DAILY #30 grams 09/13/24 vaginal cream insulin pump cartridge,automated #1 ea 09/25/24 dose,BT with controller subcutaneous (Omnipod 5 G6 Intro Kit (Gen 5) subcutaneous cartridge with controller) dulaglutide 0.75 mg/0.5 mL 0.75 mg (0.5 mL) SQ WEEKLY #2.5 mL 09/26/24 subcutaneous pen injector (TrSibaritus) blood-glucose sensor (Dexcom G7 #9 ea 10/01/24 Sensor device) estradiol 10 mcg vaginal tablet 10 mcg vaginal .twice weekly #30 10/03/24 (Vagifem) tabs Allergies Allergy/AdvReac Type Severity Reaction Status Date / Time amoxicillin [From AUGMENTIN] Allergy Mild NA-NAUSEA Verified 09/26/24 15:31 cefdinir Allergy Mild Verified 09/26/24 15:31 clavulanic acid Allergy Mild NA-NAUSEA Verified 09/26/24 15:31 [From AUGMENTIN] hydrocodone [From NORCO] Allergy Mild HIVES,ITCHI Verified 09/26/24 15:31 NG naproxen [NAPROXEN] Allergy Mild HIVES,ITCHI Verified 09/26/24 15:31 NG Sulfa (Sulfonamide Allergy Mild HIVES,ITCHI Verified 09/26/24 15:31 Antibiotics) NG [SULFA (SULFONAMIDE ANTIBIOTICS)] aspirin Allergy Verified 09/26/24 15:31 Cephalosporins Allergy unknown Verified 09/26/24 15:31 [facility] Disclaimer: The information contained in this section may have been updated after the patient was seen, as this information can be updated by other users. Medical History History of left heart catheterization (LHC) Constipation Abdominal pain Elevated parathyroid hormone Encounter for screening breast examination Dyshidrotic eczema Neuropathy Polyarthralgia Diabetes Surgical History H/O tubal ligation History of hysterectomy History of colonoscopy Family History Family/Other Bleeding disorder Diabetes FHx: mental illness Hypertension Mother Tuberculosis Social History Smoking Status: Current every day smoker tobacco type: cigarettes packs per day: 1 second hand exposure: No alcohol intake: never substance use type: denies use current occupational status: unemployed Travel in the last 8 weeks: None household members: spouse housing: house current occupation: school system current occupational exposures/hazards: No caffeine: Yes Other Medical History Have you received the Flu Vaccine for this season: No Have you received the Pneumonia Vaccine: No ROS Obtained: Yes All systems reviewed & no additional complaints except as documented Physical Exam General General appearance: alert Head Head exam: atraumatic and normocephalic Eye Eye exam: Present normal appearance, PERRL and EOMI Neck Neck exam: Present normal inspection, full ROM and trachea midline Respiratory Respiratory exam: Absent respiratory distress, wheezes, stridor, accessory muscle use or prolonged expiratory phase Cardiovascular Cardiovascular exam: Present other (Pulses equal symmetric in upper and lower extremities) Abdominal Exam Abdominal exam: Present soft; Absent distention, tenderness or pulsatile mass Extremities Exam Extremities exam: Absent edema Neurological Exam Neurological exam: Present alert, oriented X3 and CN II-XII intact; Absent motor sensory deficit Skin Skin exam: Present warm and dry; Absent diaphoresis or erythema Medical Decision Making Medical Records Medical records reviewed: Yes I reviewed the patient's medical records. Screening: Per USPSTF and CDC recommendations, given the prevalence of disease in our region, it is our hospital?s policy to screen for HIV and viral Hepatitis for all patients aged 18 and over and those with ongoing risk factors. Cj Inquiry Pt receiving controlled substance: No Cj was queried for this patient: No Vital Signs: 10/04/24 19:54 Temperature 98.2 F Temperature Source Oral Pulse Rate [Left Radial] 91 H Respiratory Rate 20 Blood Pressure [Right Arm] 135/67 Blood Pressure Mean [Right Arm] 89 Blood Pressure Source [Right Arm] Automatic Cuff Blood Pressure Position [Right Arm] Sitting 02 Sat by Pulse Oximetry 99 Oxygen Delivery Method Room Air Lab Data Lab Results 10/04/24 19:58: Urine Color Yellow, Urine Appearance Clear, Urine pH 6.0, Ur Specific [place] 1.015, Urine Protein Negative, Urine Glucose (UA) 3+, Urine Ketones Negative, Urine Blood 3+ A, Urine Nitrate Negative, Urine Bilirubin Negative, Urine Urobilinogen 0.2, Ur Leukocyte Esterase Negative, Urine RBC Tntc, Urine WBC 3-5, Ur Squamous Epith Cells 5-10, Urine Bacteria 1+, Urine Yeast 1+ Orders (Tests/Meds): ORDERS Category Date Time Status UA [Urinalysis and Microscopic] Stat Lab 10/04/24 19:58 Completed Medical Decision Narrative: This is a 64-year-old female history of hysterectomy, atrophic vaginitis currently on vaginal estrogen presenting with vaginal bleeding. Patient states that she started vaginal estrogen about 14 days ago. Now having vaginal bleeding. Started yesterday, with spotting and through today, larger clots are passing. No abdominal pain, cramping, urinary symptoms, or any other concern. History obtained the patient. On arrival, patient very well-appearing. She states that OIL EXTRACTOR recommended she come in given the vaginal bleeding. States that she has been saturating about 1 pad an hour. Intermittent pains when administering the vaginal estrogen, however no current pain in bleeding seems to be painless. Abdomen soft, nontender, nondistended. No overlying skin changes. Vaginal exam with vaginal laceration superficially extending from right labia minora proximally into the vagina approximately 3 to 4 cm. No active bleeding. differential includes vaginal laceration, malignancy, cuff dehiscence, among others. Because patient has uncomplicated nonbleeding vaginal laceration that superficial and does not violate subcutaneous tissue, no need for repair. Patient deemed appropriate for outpatient management. Because patient at baseline without signs or symptoms of clinical decompensation, deemed appropriate for discharge. Results were relayed to patient who voiced understanding and were agreeable to outpatient management and follow up. I discussed my clinical impression with patient and answered all questions. At this time, the evidence for any other entities in the differential is insufficient to warrant any further testing or ED observation. This was expl ained as well. Advisory was given that persistent or worsening symptoms require further evaluation. I confirmed the understanding of this discussion. Community Support Specialist disclaimer Much of this encounter note is an electronic protection manager spoken language to printed text. Electronic protection manager of the spoken language may permit errors. Although I have reviewed the note, some errors may still exist. Critical Care Critical Care Time Critical Care Time: No
[2024-10-04 21:51] VITALS: BP 126/68; PULSE 90; RESP 20; TEMP 36.8; O2SAT 96
[2024-10-04] MEDS: DEXAMETHASONE 4MG TABLET 10 MG PO (21:51)
== END 2024-10-04 21:53 | disposition home or self-care (01) ==
PROVIDERS: Emergency Provider Emergency Medicine; PCP Internal Medicine
DX: N93.9 Abnormal uterine and vaginal bleeding, unspecified (principal)
CPT/HCPCS: 81001; 99283; J8540

== ENCOUNTER 2024-10-10 03:12 | Emergency (ER) | payer BC, SELFPAY ==
[2024-10-10 03:14] VITALS: BP 148/89; PULSE 72; RESP 20; TEMP 36.6; O2SAT 97; BMI 43.3
--- NOTE | 2024-10-10 03:18 | ED_ITS ---
Discharge Plan Disposition Patient Disposition: Home, Self-Care Prescriptions Prescriptions: New doxycycline hyclate 100 mg capsule 100 mg PO BID 7 Days Qty: 14 0RF No Action levothyroxine [Euthyrox] 75 mcg tablet 75 mcg PO DAILY insulin glargine [Basaglar KwikPen U-100 Insulin] 100 unit/mL (3 mL) insulin pen 30 unit SQ DAILY magnesium 250 mg tablet 250 mg PO DAILY famotidine 20 mg tablet 20 mg PO DAILY cholecalciferol (vitamin D3) 50 mcg (2,000 unit) capsule 50 mcg PO DAILY B-complex with vitamin C Tablet 1 tab PO DAILY (DME) Dexcom G7 Oil Truck Driver Misc See Rx Instructions .Route Qty: 1 0RF Rx Instructions: As directed (DME) pen needle, diabetic [BD Ultra-Fine Micro Pen Needle] 32 gauge x 1/4 needle See Rx Instructions .ROUTE .MEDSUPPLY Qty: 100 Patient Comments: USE 1 PEN NEEDLE 4 TIMES DAILY Rx Instructions: As directed conjugated estrogens 0.625 mg/gram cream 0.625 mg vaginal DAILY Qty: 30 2RF Rx Instructions: discard applicator. insert blueberry sized amount into the vagina nightly for 2 weeks, then twice weekly. Jardiance 25 mg tablet 25 mg PO DAILY metoprolol succinate 25 mg tablet extended release 24 hr 25 mg PO DAILY Qty: 30 2RF Trulicity 0.75 mg/0.5 mL pen injector 0.75 mg SQ WEEKLY Qty: 2.5 0RF rosuvastatin 5 mg tablet See Rx Instructions .ROUTE .COMPLEX Qty: 90 0RF Dose Instruction: TAKE 1 TABLET BY MOUTH ONCE DAILY FOR CHOLESTEROL Rx Instructions: TAKE 1 TABLET BY MOUTH ONCE DAILY FOR CHOLESTEROL (DME) Omnipod 5 G6 Pods (Gen 5) Cartridge See Rx Instructions .Route Qty: 5 0RF Rx Instructions: As directed (DME) Omnipod 5 G6 Intro Kit (Gen 5) Cartridge See Rx Instructions .ROUTE .COMPLEX Qty: 1 0RF Dose Instruction: USE DIRECTED Rx Instructions: USE DIRECTED (DME) Dexcom G7 Sensor Device See Rx Instructions .Route Qty: 9 1RF Rx Instructions: As directed estradiol [Vagifem] 10 mcg tablet 10 mcg vaginal .twice weekly Qty: 30 1RF aspirin 81 mg Capsule 81 mg PO DAILY metformin 500 mg tablet 500 mg PO BID Patient Comments: TAKE 1 TABLET BY MOUTH TWICE DAILY WITH BREAKFAST AND 2 TABLETS BY MOUTH WITH SUPPER esomeprazole magnesium 40 mg capsule,delayed release(DR/EC) 40 mg PO DAILY losartan 100 mg tablet 100 mg PO DAILY escitalopram oxalate 20 mg tablet 20 mg PO DAILY hydrochlorothiazide 12.5 mg tablet 12.5 mg PO DAILY Referrals Follow up/Referrals: Prasad Preston DO [Primary Care Provider] - See instructions Activity Restrictions/Add. Instructions Additional Instructions/Restrictions: Please take antibiotics as prescribed for treatment of sinusitis. Please follow-up with your primary care provider. Please return to the emergency department if you develop any new or worsening symptoms or become concerned for your health. Clinical Impressions Clinical Impression: Sinusitis Qualifiers: Sinusitis location: frontal Chronicity: acute Print Language Print Language: Luxembourgish Discharge ED Provider: Austin Phillips General Adult HPI General Chief complaint: Upper Respiratory Infection Stated complaint: cough, congestion, runny nose, sore throat, ears Time Seen by Provider: 10/10/24 03:18 History of Present Illness HPI narrative: 64-year-old female with a variety comorbidities presents with persistent nasal congestion, intermittent frontal headaches, concern for sinus infection. She reports the symptoms been ongoing for at least 7 days. She has been taking her nasal decongestants as prescribed. She was also prescribed a steroid which she feels has not helped. She denies any significant shortness of breath, chest pain. She reports she does sometimes have postnasal drip and a cough. Related Data Home Medications ?Medication ?Instructions ?Recorded ?Confirmed levothyroxine 75 mcg tablet 75 mcg PO DAILY 05/19/22 09/26/24 (Euthyrox) empagliflozin 25 mg tablet 25 mg PO DAILY 03/29/24 09/26/24 (Jardiance) insulin glargine 100 unit/mL (3 30 unit SQ DAILY 03/29/24 09/26/24 mL) subcutaneous pen (Basaglar KwikPen U-100 Insulin) escitalopram oxalate 20 mg tablet 20 mg PO DAILY 05/07/24 09/26/24 esomeprazole magnesium 40 mg 40 mg PO DAILY 05/07/24 09/26/24 capsule,delayed release hydrochlorothiazide 12.5 mg tablet 12.5 mg PO DAILY 05/07/24 09/26/24 losartan 100 mg tablet 100 mg PO DAILY 05/07/24 09/26/24 metformin 500 mg tablet 500 mg PO BID 05/07/24 09/26/24 aspirin 81 mg capsule 81 mg PO DAILY 05/17/24 09/26/24 B-complex with vitamin C 1 tab PO DAILY 08/23/24 09/26/24 cholecalciferol (vitamin D3) 50 50 mcg PO DAILY 08/23/24 09/26/24 mcg (2,000 unit) capsule famotidine 20 mg tablet 20 mg PO DAILY Stomach problems 08/23/24 09/26/24 magnesium 250 mg tablet 250 mg PO DAILY Leg cramps 08/23/24 09/26/24 pen needle, diabetic 32 gauge x #100 ea 09/13/24 09/26/2412/01 (BD Ultra-Fine Micro Pen Needle) Previous Rx's ?Medication ?Instructions ?Recorded rosuvastatin 5 mg tablet See Rx Instructions .Route 07/18/24 .COMPLEX #90 tabs blood-glucose meter,continuous #1 ea 08/23/24 (Dexcom G7 Oil Truck Driver) insulin pump cart,automated,BT #5 ea 08/30/24 (Omnipod 5 G6 Pods (Gen 5) subcutaneous cartridge) metoprolol succinate 25 mg 25 mg PO DAILY #30 tabs 09/11/24 tablet,extended release 24 hr conjugated estrogens 0.625 mg/gram 0.625 mg vaginal DAILY #30 grams 09/13/24 vaginal cream insulin pump cartridge,automated #1 ea 09/25/24 dose,BT with controller subcutaneous (Omnipod 5 G6 Intro Kit (Gen 5) subcutaneous cartridge with controller) dulaglutide 0.75 mg/0.5 mL 0.75 mg (0.5 mL) SQ WEEKLY #2.5 mL 09/26/24 subcutaneous pen injector (ulicHYGIEIA) blood-glucose sensor (Dexcom G7 #9 ea 10/01/24 Sensor device) estradiol 10 mcg vaginal tablet 10 mcg vaginal .twice weekly #30 10/03/24 (Vagifem) tabs doxycycline hyclate 100 mg capsule 100 mg PO BID 7 days #14 caps 10/10/24 Allergies Allergy/AdvReac Type Severity Reaction Status Date / Time amoxicillin [From AUGMENTIN] Allergy Mild NA-NAUSEA Verified 09/26/24 15:31 cefdinir Allergy Mild Verified 09/26/24 15:31 clavulanic acid Allergy Mild NA-NAUSEA Verified 09/26/24 15:31 [From AUGMENTIN] hydrocodone [From NORCO] Allergy Mild HIVES,ITCHI Verified 09/26/24 15:31 NG naproxen [NAPROXEN] Allergy Mild HIVES,ITCHI Verified 09/26/24 15:31 NG Sulfa (Sulfonamide Allergy Mild HIVES,ITCHI Verified 09/26/24 15:31 Antibiotics) NG [SULFA (SULFONAMIDE ANTIBIOTICS)] aspirin Allergy Verified 09/26/24 15:31 Cephalosporins Allergy unknown Verified 09/26/24 15:31 [facility] Disclaimer: The information contained in this section may have been updated after the patient was seen, as this information can be updated by other users. Medical History History of left heart catheterization (LHC) Constipation Abdominal pain Elevated parathyroid hormone Encounter for screening breast examination Dyshidrotic eczema Neuropathy Polyarthralgia Diabetes Surgical History H/O tubal ligation History of hysterectomy History of colonoscopy Family History Family/Other Bleeding disorder Diabetes FHx: mental illness Hypertension Mother Tuberculosis Social History Smoking Status: Current every day smoker tobacco type: cigarettes packs per day: 1 second hand exposure: No alcohol intake: never substance use type: denies use current occupational status: unemployed Travel in the last 8 weeks: None household members: spouse housing: house current occupation: school system current occupational exposures/hazards: No caffeine: Yes Other Medical History Have you received the Flu Vaccine for this season: No Have you received the Pneumonia Vaccine: No ROS Obtained: Yes All systems reviewed & no additional complaints except as documented Physical Exam General General appearance: alert and in no apparent distress Head Head exam: atraumatic and normocephalic Eye Eye exam: Present normal appearance, PERRL and EOMI ENT ENT exam: Present normal oropharynx, normal external ear exam and other (Nasal congestion noted, pain with tapping of the frontal sinuses) Neck Neck exam: Present normal inspection and full ROM Chest Chest inspection: Present normal inspection and symmetric chest wall rise; Absent tenderness Respiratory Respiratory exam: Present normal lung sounds bilaterally; Absent respiratory distress Cardiovascular Cardiovascular exam: Present regular rate and normal rhythm Abdominal Exam Abdominal exam: Present soft; Absent distention, tenderness or guarding Extremities Exam Extremities exam: Present normal inspection; Absent edema or joint swelling Back Exam Back exam: Present normal inspection; Absent tenderness Neurological Exam Neurological exam: Present alert and oriented X3; Absent motor sensory deficit Psychiatric Psychiatric exam: Present normal affect and normal mood Skin Skin exam: Present warm, dry and normal color Lymphatic Lymphatic Findings: no adenopathy Medical Decision Making Medical Records Medical records reviewed: Yes I reviewed the patient's medical records. Screening: Per USPSTF and CDC recommendations, given the prevalence of disease in our region, it is our hospital?s policy to screen for HIV and viral Hepatitis for all patients aged 18 and over and those with ongoing risk factors. Cj Inquiry Pt receiving controlled substance: No Cj was queried for this patient: No Vital Signs: 10/10/24 03:14 10/10/24 03:32 Temperature 97.9 F 97.9 F Temperature Source Oral Pulse Rate 72 Pulse Rate [Right] 72 Respiratory Rate 20 20 Blood Pressure 148/89 H Blood Pressure [Right Arm] 148/89 H Blood Pressure Mean [Right Arm] 108 02 Sat by Pulse Oximetry 97 Oxygen Delivery Method Room Air Room Air Lab Data Lab results reviewed: Yes I reviewed the patient's lab results. Orders (Tests/Meds): ED MEDICATIONS Discontinued Medications Generic Name Dose Route Start Last Admin Trade Name Freq PRN Reason Stop Dose Admin Doxycycline Hyclate 100 mg 10/10/24 03:30 10/10/24 03:31 Doxycycline Hycl 100 Mg Tablet PO 10/10/24 03:31 100 mg ONCE ONE Administration Medical Decision Narrative: 64-year-old female with history of type 2 diabetes, hypertension, hyperlipidemia, prior stroke presents for persistent nasal congestion and drainage, intermittent frontal headaches, intermittent cough. History was obtained via interactive discussion with patient, chart review. On arrival, patient is [afebrile, hemodynamically stable, satting appropriately, alert, oriented x4, GCS 15], moving all extremities spontaneously. Full physical exam performed and significant for clear lungs bilaterally, nasal congestion noted, pain with palpation of the frontal sinuses Differential includes but is not limited to viral/bacterial sinusitis, pneumonia, COVID, flu. Blood work, viral swabs, chest imaging was considered, but deemed unnecessary due to history and exam.. Given patient history, exam and workup, patient's presentation most likely represents sinusitis given location and duration of symptoms. Given patient's medication allergies, we will treat empirically with doxycycline. These fines were communicated to patient, she was given a dose of doxycycline and discharged with prescription for same. Return precautions given. Procedures Risk/Benefits of Procedure(s) Were Explained: Yes Critical Care Critical Care Time Critical Care Time: No
[2024-10-10] MEDS: DOXYCYCLINE HYCL 100 MG TABLET PO (03:31)
[2024-10-10 03:32] VITALS: BP 148/89; PULSE 72; RESP 20; TEMP 36.6; O2SAT 97
== END 2024-10-10 03:33 | disposition home or self-care (01) ==
PROVIDERS: Emergency Provider Emergency Medicine; PCP Internal Medicine
DX: J32.9 Chronic sinusitis, unspecified (principal); R09.81 Nasal congestion; R51.9 Headache, unspecified; R05.9 Cough, unspecified; R09.82 Postnasal drip
CPT/HCPCS: 99283

== ENCOUNTER 2024-11-19 10:41 | Emergency (ER) | payer BC, SELFPAY ==
--- NOTE | 2024-11-19 12:00 | ED_ITS ---
Discharge Plan Disposition Patient Disposition: Home, Self-Care Condition: Good Prescriptions Prescriptions: New fluconazole 150 mg tablet 150 mg PO Q3D Qty: 2 2RF nitrofurantoin monohyd/m-cryst [Macrobid] 100 mg capsule 100 mg PO Q12H 7 Days Qty: 14 0RF Rx Instructions: must administer with a meal/food No Action insulin glargine [Basaglar KwikPen U-100 Insulin] 100 unit/mL (3 mL) insulin pen 30 unit SQ DAILY magnesium 250 mg tablet 250 mg PO DAILY famotidine 20 mg tablet 20 mg PO DAILY cholecalciferol (vitamin D3) 50 mcg (2,000 unit) capsule 50 mcg PO DAILY B-complex with vitamin C Tablet 1 tab PO DAILY (DME) Dexcom G7 Boiling House Oiler Misc See Rx Instructions .Route Qty: 1 0RF Rx Instructions: As directed (DME) pen needle, diabetic [BD Ultra-Fine Micro Pen Needle] 32 gauge x 1/4 needle See Rx Instructions .ROUTE .MEDSUPPLY Qty: 100 Patient Comments: USE 1 PEN NEEDLE 4 TIMES DAILY Rx Instructions: As directed conjugated estrogens 0.625 mg/gram cream 0.625 mg vaginal DAILY Qty: 30 2RF Rx Instructions: discard applicator. insert blueberry sized amount into the vagina nightly for 2 weeks, then twice weekly. metoprolol succinate 25 mg tablet extended release 24 hr 25 mg PO DAILY Qty: 30 2RF (DME) Omnipod 5 G6 Intro Kit (Gen 5) Cartridge See Rx Instructions .ROUTE .COMPLEX Qty: 1 0RF Dose Instruction: USE DIRECTED Rx Instructions: USE DIRECTED (DME) Dexcom G7 Sensor Device See Rx Instructions .Route Qty: 9 1RF Rx Instructions: As directed estradiol [Vagifem] 10 mcg tablet 10 mcg vaginal .twice weekly Qty: 30 1RF (DME) Omnipod 5 G6-G7 Pods (Gen 5) Cartridge See Rx Instructions .ROUTE .COMPLEX Qty: 5 5RF Dose Instruction: USE DIRECTED Rx Instructions: USE DIRECTED rosuvastatin 5 mg tablet See Rx Instructions .ROUTE .COMPLEX Qty: 90 0RF Dose Instruction: TAKE 1 TABLET BY MOUTH ONCE DAILY FOR CHOLESTEROL Rx Instructions: TAKE 1 TABLET BY MOUTH ONCE DAILY FOR CHOLESTEROL metformin 500 mg tablet 500 mg PO BID Qty: 60 2RF fluconazole 150 mg tablet 150 mg PO Q3D Qty: 2 0RF Rx Instructions: repeat dose in 72 hours if symptoms persist Trulicity 0.75 mg/0.5 mL pen injector 0.75 mg SQ WEEKLY Qty: 2.5 0RF Jardiance 25 mg tablet 25 mg PO DAILY Qty: 30 3RF levothyroxine [Euthyrox] 75 mcg tablet 75 mcg PO DAILY Qty: 90 1RF aspirin 81 mg Capsule 81 mg PO DAILY doxycycline hyclate 100 mg capsule 100 mg PO BID 7 Days Qty: 14 0RF esomeprazole magnesium 40 mg capsule,delayed release(DR/EC) 40 mg PO DAILY losartan 100 mg tablet 100 mg PO DAILY escitalopram oxalate 20 mg tablet 20 mg PO DAILY hydrochlorothiazide 12.5 mg tablet 12.5 mg PO DAILY Referrals Follow up/Referrals: Prasad Preston DO [Primary Care Provider] - See instructions Activity Restrictions/Add. Instructions Additional Instructions/Restrictions: Drink plenty of fluids. Take tylenol for pain. Take the medications as directed. Follow up with your regular doctor. GO TO THE ER FOR ANY WORSENING SYMPTOMS We will culture the urine. That will tell what bacteria is causing your infection and which antibiotics will treat it best.This test takes 3 days to complete. Clinical Impressions Clinical Impression: Vagina, candidiasis Instructions Patient Instructions: Vaginal Yeast Infection, DI for Vaginal Yeast Infection, Fluconazole Print Language Print Language: Upper Sorbian Discharge ED Provider: Kvng Glasgow [facility] General Stated complaint: pain and frequent urin, yeast inf. Time Seen by Provider: 11/19/24 12:00 Related Data Home Medications ?Medication ?Instructions ?Recorded ?Confirmed insulin glargine 100 unit/mL (3 30 unit SQ DAILY 03/29/24 09/26/24 mL) subcutaneous pen (Basaglar KwikPen U-100 Insulin) escitalopram oxalate 20 mg tablet 20 mg PO DAILY 05/07/24 09/26/24 esomeprazole magnesium 40 mg 40 mg PO DAILY 05/07/24 09/26/24 capsule,delayed release hydrochlorothiazide 12.5 mg tablet 12.5 mg PO DAILY 05/07/24 09/26/24 losartan 100 mg tablet 100 mg PO DAILY 05/07/24 09/26/24 aspirin 81 mg capsule 81 mg PO DAILY 05/17/24 09/26/24 B-complex with vitamin C 1 tab PO DAILY 08/23/24 09/26/24 cholecalciferol (vitamin D3) 50 50 mcg PO DAILY 08/23/24 09/26/24 mcg (2,000 unit) capsule famotidine 20 mg tablet 20 mg PO DAILY Stomach problems 08/23/24 09/26/24 magnesium 250 mg tablet 250 mg PO DAILY Leg cramps 08/23/24 09/26/24 pen needle, diabetic 32 gauge x #100 ea 09/13/24 09/26/2412/01 (BD Ultra-Fine Micro Pen Needle) Previous Rx's ?Medication ?Instructions ?Recorded blood-glucose meter,continuous #1 ea 08/23/24 (Dexcom G7 Boiling House Oiler) metoprolol succinate 25 mg 25 mg PO DAILY #30 tabs 09/11/24 tablet,extended release 24 hr conjugated estrogens 0.625 mg/gram 0.625 mg vaginal DAILY #30 grams 09/13/24 vaginal cream insulin pump cartridge,automated #1 ea 09/25/24 dose,BT with controller subcutaneous (Omnipod 5 G6 Intro Kit (Gen 5) subcutaneous cartridge with controller) blood-glucose sensor (Dexcom G7 #9 ea 10/01/24 Sensor device) estradiol 10 mcg vaginal tablet 10 mcg vaginal .twice weekly #30 10/03/24 (Vagifem) tabs doxycycline hyclate 100 mg capsule 100 mg PO BID 7 days #14 caps 10/10/24 insulin pump cart,auto,BT,G6/7 #5 ea 10/10/24 (Omnipod 5 G6-G7 Pods (Gen 5) subcutaneous cartridge) metformin 500 mg tablet 500 mg PO BID #60 tabs 10/17/24 rosuvastatin 5 mg tablet See Rx Instructions .Route 10/17/24 .COMPLEX #90 tabs fluconazole 150 mg tablet 150 mg PO Q3D 2 doses #2 tabs 10/19/24 dulaglutide 0.75 mg/0.5 mL 0.75 mg (0.5 mL) SQ WEEKLY #2.5 mL 10/23/24 subcutaneous pen injector (Trulicity) empagliflozin 25 mg tablet 25 mg PO DAILY #30 tabs 10/23/24 (Jardiance) levothyroxine 75 mcg tablet 75 mcg PO DAILY #90 tabs 10/31/24 (Euthyrox) fluconazole 150 mg tablet 150 mg PO Q3D 2 doses #2 tabs 11/19/24 nitrofurantoin 100 mg PO Q12H 7 days #14 caps 11/22/24 monohydrate/macrocrystals 100 mg capsule (Macrobid) Allergies Allergy/AdvReac Type Severity Reaction Status Date / Time amoxicillin (From AUGMENTIN) Allergy Mild NA-NAUSEA Verified 09/26/24 15:31 cefdinir Allergy Mild Verified 09/26/24 15:31 clavulanic acid (From Allergy Mild NA-NAUSEA Verified 09/26/24 15:31 AUGMENTIN) hydrocodone (From NORCO) Allergy Mild HIVES,ITCHI Verified 09/26/24 15:31 NG naproxen (NAPROXEN) Allergy Mild HIVES,ITCHI Verified 09/26/24 15:31 NG Sulfa (Sulfonamide Allergy Mild HIVES,ITCHI Verified 09/26/24 15:31 Antibiotics) (SULFA NG (SULFONAMIDE ANTIBIOTICS)) aspirin Allergy Verified 09/26/24 15:31 Cephalosporins Allergy unknown Verified 09/26/24 15:31 [facility] Disclaimer: The information contained in this section may have been updated after the patient was seen, as this information can be updated by other users. Medical History History of left heart catheterization (LHC) Constipation Abdominal pain Elevated parathyroid hormone Encounter for screening breast examination Dyshidrotic eczema Neuropathy Polyarthralgia Diabetes Surgical History H/O tubal ligation History of hysterectomy History of colonoscopy Family History Family/Other Bleeding disorder Diabetes FHx: mental illness Hypertension Mother Tuberculosis Social History Smoking Status: Current every day smoker tobacco type: cigarettes packs per day: 1 second hand exposure: No alcohol intake: never substance use type: denies use current occupational status: unemployed Travel in the last 8 weeks: None household members: spouse housing: house current occupation: school system current occupational exposures/hazards: No caffeine: Yes Have you lived/traveled outside [place] in past 30 days?: No Contact w/someone who lives/traveled outside [place] past 30 days?: No Exposure to someone with infectious disease in past 14 days?: No Do you have a fever (greater than 100.4 F or 38 C)?: No Have you tested positive for COVID-19: No Exposed to someone with COVID-19 in past 14 days?: No Do you have a sore throat?: No Do you have a cough?: No Do you have any weakness?: No Do you have any diarrhea?: No Are you experiencing any unusual bleeding?: No Do you have any muscle aches/pain?: No Do you have any abdominal pain?: No Are you experiencing loss of taste or smell?: No ROS Obtained: Yes All systems reviewed & no additional complaints except as documented Constitutional Constitutional: Denies chills and Denies fever(s) Eyes Eyes: Denies eye discharge ENT Ears, Nose, Mouth, and Throat: Denies dizziness, Denies otalgia and Denies sore throat Cardiovascular Cardiovascular: Denies chest pain Respiratory Respiratory: Denies shortness of breath, Denies chest congestion, Denies cough, Denies stridor and Denies wheezing Gastrointestinal Gastrointestingal: Denies nausea or vomiting Genitourinary Female Genitourinary: Reports as per HPI Musculoskeletal Musculoskeletal: Reports system reviewed and no additional complaints, except as documented and Denies arthralgias Integumentary/Breasts Skin/Breast: Denies rash Neurologic Neurologic: Denies dizziness and Denies paresthesias Allergic/Immunologic Allergic/Immunologic: Denies wheezing Physical Exam General General appearance: alert and in no apparent distress Head Head exam: atraumatic, normocephalic and normal inspection Eye Eye exam: Present normal appearance, PERRL and EOMI ENT ENT exam: Present normal exam, normal oropharynx, mucous membranes moist, TM's normal bilaterally and normal external ear exam Neck Neck exam: Present normal inspection, full ROM and trachea midline; Absent meningismus or lymphadenopathy Chest Chest inspection: Present normal inspection and symmetric chest wall rise; Absent tenderness Respiratory Respiratory exam: Present normal lung sounds bilaterally; Absent respiratory distress Cardiovascular Cardiovascular exam: Present regular rate and normal rhythm; Absent JVD Abdominal Exam Abdominal exam: Present soft and normal bowel sounds; Absent distention, tenderness or guarding Extremities Exam Extremities exam: Present normal inspection, full ROM and normal capillary refill; Absent calf tenderness Back Exam Back exam: Present normal inspection; Absent tenderness Neurological Exam Neurological exam: Present alert and oriented X3 Psychiatric Psychiatric exam: Present normal affect and normal mood Skin Skin exam: Present warm, dry, intact and normal color Lymphatic Lymphatic Findings: no adenopathy Medical Decision Making Medical Records Medical records reviewed: No I reviewed the patient's medical records. Screening: Per USPSTF and CDC recommendations, given the prevalence of disease in our region, it is our hospital?s policy to screen for HIV and viral Hepatitis for all patients aged 18 and over and those with ongoing risk factors. Cj Inquiry Pt receiving controlled substance: No Lab Data Lab results reviewed: Yes I reviewed the patient's lab results.
[2024-11-19 12:04] VITALS: BP 120/60; PULSE 70; RESP 20; TEMP 36.6; O2SAT 98; BMI 43.1
[2024-11-19 12:10] LABS: Apearance,Urine Clear (Clear); Color,Urine Yellow (Yellow); PH,Urine 5.5 (5.0-8.5)
[2024-11-19 12:11] LABS: Bilirubin,Urine Negative (Negative); Blood, Urine Negative (Negative); Glucose,Urine (UA) 1000 (Negative); Ketones,Urine Negative (Negative); Protein,Urine Negative (Negative); Specific Gravity, Urine 1.015 (1.005-1.030); UTC Leukocyte Esterase,Urine Negative (Negative); UTC Nitrate,Urine Negative (Negative); Urobilinogen,Urine 0.2 EU/dl (0.2)
[2024-11-19 12:41] VITALS: BP 120/60; PULSE 70; RESP 20; TEMP 36.6
--- NOTE | 2024-11-22 11:22 | PC.NURSE ---
PER Chnug STOUT APRN, URINE CULTURE REVIEWED AND MACROBID SENT IN. PATIENT NOTIFIED
== END 2024-11-19 12:41 | disposition home or self-care (01) ==
PROVIDERS: Emergency Provider Nurse Practitioner Family; PCP Internal Medicine
DX: B37.31 Acute candidiasis of vulva and vagina (principal)
CPT/HCPCS: 81003; 87086; 87088; 87186; 99212; G0381

== ENCOUNTER 2024-12-18 16:40 | Outpatient (CLI) | payer BC, SELFPAY | END 2024-12-18 23:59 | disposition home or self-care (01) | LOC: LAB.DROPOF 16:41 | PROVIDERS: PCP Obstetrics & Gynecology; Visit Provider Obstetrics & Gynecology | DX: Z01.411 Encounter for gynecological examination (general) (routine) with abnormal findings (principal) | CPT/HCPCS: 87086; 87088; 87186 ==

== ENCOUNTER 2025-01-22 19:07 | Outpatient (CLI) | payer BC, SELFPAY | END 2025-01-22 23:59 | disposition home or self-care (01) | LOC: LAB.DROPOF 19:07 | PROVIDERS: PCP Nurse Practitioner; Visit Provider Nurse Practitioner | DX: B35.1 Tinea unguium (principal); L60.8 Other nail disorders | CPT/HCPCS: 87102; 87206; 87220 ==

== ENCOUNTER 2025-01-25 12:29 | Outpatient (CLI) | payer BC, SELFPAY ==
--- NOTE | 2025-01-25 12:30 | MM_ITS ---
PROCEDURE INFORMATION: Exam: MG Bilateral Screening 3D Mammography Exam date and time: 01/25/2025 1:04 PM Age: 64 years old Clinical indication: Screening. No family history of breast cancer. TECHNIQUE: Imaging protocol: Bilateral Screening tomosynthesis and 2D mammography including computer-aided detection (CAD) when performed. COMPARISON: 1. MG MM DIG SCREENING MAMM BI W/CAD 01/23/2024 12:45 PM 2. MG MM DIG MAMM DX UNILAT RT CAD 06/30/2023 8:48 AM 3. MG MM DIG MAMM BI DX W/CAD 01/21/2023 3:12 PM 4. MG MM DIG MAMM DX UNILAT RT CAD 07/19/2022 1:33 PM FINDINGS: MAMMOGRAPHY: Breast composition: The breasts are almost entirely fatty. The very medial posterior aspect of both breasts is not included in the CC projections. IMPRESSION: Technical recall for additional craniocaudad views to include the medial posterior aspect of both breasts. A complete mammogram report will be made as an addendum when these images are provided. ASSESSMENT: BI-RADS Category 0: Incomplete: Need additional imaging evaluation - Technical Recall.
== END 2025-01-25 23:59 | disposition home or self-care (01) ==
LOC: RAD 12:30
PROVIDERS: PCP Internal Medicine; Visit Provider Surgery
DX: Z12.31 Encounter for screening mammogram for malignant neoplasm of breast (principal)
CPT/HCPCS: 77063; 77067

== ENCOUNTER 2025-01-29 15:47 | Outpatient (CLI) | payer BC, SELFPAY | END 2025-01-29 23:59 | disposition home or self-care (01) | LOC: RAD 15:49 | PROVIDERS: PCP Internal Medicine; Visit Provider Surgery | DX: Z12.31 Encounter for screening mammogram for malignant neoplasm of breast (principal) ==

== ENCOUNTER 2025-05-22 08:21 | Outpatient (CLI) | payer BC, SELFPAY ==
[2025-05-22 13:19] LABS: Basophils # 0.1 K/mm3 (0-0.2); Basophils % 0.9 % (0.1-2.0); Eosinophils # 0.3 Kmm3 (0.0-0.4); Eosinophils % 3.3 % (0.1-12.0); Hematocrit 41.9 % (37.0-47.0); Hemoglobin 12.5 g/dL (12.2-16.2); Immature Granulocytes # 0.04 10^3uL; Immature Granulocytes % 0.5 %; Lymphocytes # 1.6 K/mm3 (0.7-4.5); Lymphocytes % 18.8 % (10-50); Mean Corpuscular HGB Conc 29.8 g/dL (31.8-35.4); Mean Corpuscular Hemoglobin 24.2 pg (27.0-31.2); Mean Platelet Volume 10.1 fl (7.4-10.4); Monocytes # 0.7 K/mm3 (0.1-1.0); Monocytes % 8.6 % (1.7-9.3); Neutrophils # 5.7 K/mm3 (1.8-7.8); Neutrophils % 67.9 % (37.0-80.0); Nucleated Red Blood Cells # 0 10^3/uL; Nucleated Red Blood Cells % 0 %; Platelet Count 334 K/mm3 (142-424); Red Blood Count 5.17 M/mm3 (4.20-5.40); Red Cell Distribution Width 19.9 % (11.5-17.5); White Blood Count 8.5 K/mm3 (4.8-10.8)
[2025-05-22 14:07] LABS: Alanine Aminotransferase 21 U/L (12-78); Albumin Level 4.2 g/dl (3.5-5.0); Albumin/Globulin Ratio 1.2 (1.1-1.8); Alkaline Phosphatase 125 U/L (38-126); Anion Gap 14.6 mEq/L (5-15); Aspartate Amino Transferase 28 U/L (14-36); Bilirubin,Total 0.6 mg/dl (0.2-1.3); Blood Urea Nitrogen 17 mg/dl (7-17); Calcium 10.3 mg/dl (8.4-10.2); Carbon Dioxide 28 mmol/L (22.0-30.0); Chloride 100 mmol/L (98-107); Chol/HDL Ratio 2.6 (1-3.5); Cholesterol 92 mg/dl (140-200); Estimated Glomerular Filt Rate 63 ml/min (>60); GFR (African American) 77 ML/MIN (>60); Globulin 3.6 g/dL (1.3-3.2); Glucose 123 mg/dl (74-100); HDL Cholesterol 36 mg/dl (40-60); Potassium 4.6 mmoL/L (3.5-5.1); Sodium 138 mmol/L (136-145); Total Protein,Serum 7.8 g/dl (6.3-8.2); Triglycerides 118 mg/dl (30-150); VLDL Cholesterol 24 mg/dL (0-40)
[2025-05-22 14:23] LABS: 25-OH Vitamin D, Total 55.8 ng/mL (30-100)
[2025-05-22 14:31] LABS: Direct LDL Cholesterol < 30.00 mg/dL (100-129)
[2025-05-22 14:58] LABS: Vitamin B12 885 pg/mL (239-931)
[2025-05-22 15:06] LABS: Hemoglobin A1C 10.7 % (4.0-6.0)
--- OUTSIDE RECORDS SUMMARY | 2025-05-24 08:24 | XMS_ITS | Encounter Summary ---
Author Organization Healthcare Address [address] [place] [address] Care Team Providers Care Tafe Registrar Name Role Phone Cornelius Aparicio MD Primary Care Provider [phone] Reason for Visit * Reason Comments Med Refill Encounter Details Date Type Department Care Team (Late st Contact Info) Description 09/25/2023 Refill [facility] [address] [place] [address] Alivia Troy L, WHEEL ADJUSTER [address] [place] [address] Primary osteoarthritis involving multiple joints Social History Tobacco Use Types Packs/Day Years Used Date Smoking Tobacco: Every Day Cigarettes 0.5 40 Smokeless Tobacco: Never Alcohol Use Standard Drinks/Week Comments Not Currently 0 (1 standard drink = 0.6 oz pure alcohol) Alcoholic Drinks/day: History of alcohol use PHQ-2 Answer Date Recorded Patient Health Questionnaire-2 Score 2 05/17/2023 PHQ-2A Answer Date Recorded Patient Health Questionnaire-2 Score 2 05/17/2023 Comments Unknown Sex and Gender Information Value Date Recorded Sex Assigned at Not on file Legal Sex Female 8:16 PM EDT Gender Identity Not on file Sexual Orientation Not on file documented as of this encounter Miscellaneous Notes * Telephone Encounter - Kelsi Oscar - 09/26/2023 9:02 AM EDT Spoke w/ patient. F/u scheduled 11/04 w/ Obdulia Shah APRN. documented in this encounter Plan of Treatment Not on file documented as of this encounter Visit Diagnoses Diagnosis Primary osteoarthritis involving multiple joints documented in this encounter Additional Health Concerns Assessment Noted Time A fall risk assessment has been complete d for the patient 05/17/2023 11:14 AM EDT A Body Mass Index follow-up plan has been documented for the patient 05/17/2023 12:14 PM EDT documented as of this encounter Care Teams Tafe Registrar Relationship Specialty Start Date End Date Cornelius Aparicio MD [address] [place] [address] PCP - General 04/10/21 documented as of this encounter
--- OUTSIDE RECORDS SUMMARY | 2025-05-24 08:24 | XMS_ITS | Encounter Summary ---
Author Organization [facility] Address [address] [place] [address] Care Team Providers Care Warehouse Driver Name Role Phone Cornelius Aparicio MD Primary Care Provider [phone] Reason for Referral * Consultation (Routine) - Closed Specialty Diagnoses / Procedures Referred By Enmanuel rich Referred To Contact Rheumatology Diagnoses Elevated sed rate Elevated C-reactive protein Clementine Kohli PA [address] [place] [address] Phone: tel: fax: Referral ID Status Reason Start Date Expiration Date V isits Requested Visits Authorized [id number] Closed Specialty Services Required 06/02/2022 12/02/2023 1 1 Encounter Details Date Type Department Care Team (Late st Contact Info) Description 06/02/2022 Community [facility] [address] [place] [address] Clementine Kohli PA [address] [place] [address] Elevated sed rate (Primary Dx); Elevated C-reactive protein Social History Tobacco Use Types Packs/Day Years Used Date Smoking Tobacco: Every Day Smokeless Tobacco: Never Alcohol Use Standard Drinks/Week Comments Not Currently 0 (1 standard drink = 0.6 oz pure alcohol) Alcoholic Drinks/day: History of alcohol use Comments Unknown Sex and Gender Information Value Date Recorded Sex Assigned at Not on file Legal Sex Female 8:16 PM EDT Gender Identity Not on file Sexual Orientation Not on file COVID-19 Exposure Response Date Recorded In the last 10 days, have yo u been in contact with someone who was confirmed or suspected to have Coronavirus/COVID-19? No / Unsure 05/03/2022 8:38 AM EDT documented as of this encounter Plan of Treatment Scheduled Referrals Name Type Priority Associated Diagnoses Order Schedule Ambulatory referral to Rheumatology Outpatient Referral Routine Elevated sed rate Elevated C-reactive protein Expected: 06/02/2022 (Approximate), Expires: 09/02/2022 documented as of this encounter Visit Diagnoses Diagnosis Elevated sed rate- Primary Elevated sedimentation rate Elevated C-reactive protein Elevated C-reactive protein (CRP) documented in this encounter Additional Health Concerns Assessment Noted Time A fall risk assessment has been complete d for the patient 05/03/2022 8:59 AM EDT documented as of this encounter Care Teams Warehouse Driver Relationship Specialty Start Date End Date Cornelius Aparicio MD [address] [place] [address] PCP - General 04/10/21 documented as of this encounter
--- OUTSIDE RECORDS SUMMARY | 2025-05-24 08:24 | XMS_ITS | Encounter Summary ---
Author Organization [facility] Address [address] [place] [address] Care Team Providers Care Shipping Clerk Packing Name Role Phone Cornelius Aparicio MD Primary Care Provider [phone] Reason for Visit * Reason Comments Med Refill Encounter Details Date Type Department Care Team (Late st Contact Info) Description 03/26/2023 [facility]ill [facility] [address] [place] [address] Osmel Auguste MD [address] [address] Hypothyroidism, unspecified type Social History Tobacco Use Types Packs/Day Years Used Date Smoking Tobacco: Every Day Cigarettes 0.5 40 Smokeless Tobacco: Never Alcohol Use Standard Drinks/Week Comments Not Currently 0 (1 standard drink = 0.6 oz pure alcohol) Alcoholic Drinks/day: History of alcohol use PHQ-2 Answer Date Recorded Patient Health Questionnaire-2 Score 2 09/09/2022 Comments Unknown Sex and Gender Information Value Date Recorded Sex Assigned at Not on file Legal Sex Female 8:16 PM EDT Gender Identity Not on file Sexual Orientation Not on file documented as of this encounter Miscellaneous Notes * Telephone Encounter - Clarissa Eubanks - 03/28/2023 9:26 AM EDT Per protocol, 1 medication(s), levothyroxine, has been approved for 90 day supply with 1 refill(s) to [facility] pharmacy. Enough refills until appointment on 07/[address] Auguste. Please request additional refills at appointment. documented in this encounter Plan of Treatment Not on file documented as of this encounter Visit Diagnoses Diagnosis Hypothyroidism, unspecified type documented in this encounter Additional Health Concerns Assessment Noted Time A fall risk assessment has been complete d for the patient 01/24/2023 10:00 AM EST A Body Mass Index follow-up plan has been documented for the patient 01/24/2023 10:33 AM EST documented as of this encounter Care Teams Shipping Clerk Packing Relationship Specialty Start Date End Date Cornelius Aparicio MD [address] [place] [address] PCP - General 04/10/21 documented as of this encounter
--- OUTSIDE RECORDS SUMMARY | 2025-05-24 08:24 | XMS_ITS | Clinical Summary ---
Author Organization [facility] Address [address] [place] [address] Care Team Providers Care Sous Chef Name Role Phone Cornelius Aparicio MD Primary Care Provider [phone] Allergies Active Allergy Reactions Criticality Noted Date Comments Amoxicillin-Pot Clavulanate Unknown - Patient states they do not know rxn details Low 07/21/2017 patient reports non-specific hot, flushed, maybe hives for all allergies -[place] 07/22/17 Aspirin Hives,Unknown - Patient states they do not know rxn details Medium 06/09/2017 Other reaction(s): Hives patient reports non-specific hot, flushed, maybe hives for all allergies -[place] 07/22/17 Hydrocodone Unknown - Patient states they do not know rxn details Low 07/21/2017 patient reports non-specific hot, flushed, maybe hives for all allergies -[place] 07/22/17 Hydrocodone-Acetaminophe n Unknown - Patient states they do not know rxn details Low 06/09/2017 Naproxen Hives,Unknown - Patient states they do not know rxn details Medium 06/09/2017 Other reaction(s): Hives patient reports non-specific hot, flushed, maybe hives for all allergies -[place] 07/22/17 Orphenadrine Hives,Itching,Palpi tations Medium 10/17/2023 Sulfa Drugs Hives Medium 04/02/2021 Sulfacetamide Hives,Unknown - Patient states they do not know rxn details Medium 06/09/2017 patient reports non-specific hot, flushed, maybe hives for all allergies -[place] 07/22/17 Medications Aspirin Buf,CaCarb-MgCarb- MgO, 81 MG tablet Take 1 mg by mouth 1 (one) time each day. 8 Active cetirizine (ZyrTEC) 10 MG tablet Take 1 tablet (10 mg) by mouth. TAKE 1 TABLET DAILY DIRECTED 8 Active rosuvastatin (Crestor) 10 MG tablet 1 tablet (10 mg). TAKE 1 TABLET DAILY 8 Active esomeprazole (NexIUM) [address] capsule Take 1 capsule (40 mg) by mouth. TAKE 1 CAPSULE ONCE DAILY 8 Active Lancets Thin misc 1 Active metoprolol succinate XL (Toprol-XL) 100 MG 24 hr tablet Take by mouth 1 (one) time each day. 8 Active Blood Glucose Calibration (ACCU-CHEK GUIDE CONTROL ) Test BG up to 3 times per day 1 Active Calcium Polycarbophil (FIBER-CAPS PO) 0 Active losartan (Cozaar) 100 MG tablet Take 1 tablet (100 mg) by mouth 1 (one) time each day. 1 Active hydroCHLOROthiazid e (HYDRODiuril) 12.5 MG tablet Take 1 tablet (12.5 mg) by mouth 1 (one) time each day. 1 Active leflunomide (Arava) 20 MG tabletIndications: Inflammatory arthropathy Take 1 tablet (20 mg) by mouth 1 (one) time each day. 30 tablet 2 3 Active escitalopram (Lexapro) 20 MG tablet Take 1 tablet (20 mg) by mouth 1 (one) time each day. 3 Active Tremfya 100 MG/ML solution pen-injector 3 Active dicyclomine (Bentyl) 10 MG capsule TAKE 2 CAPSULES BY MOUTH THREE TIMES DAILY NEEDED FOR ABDOMINAL PAIN, USE NO MORE THAN 3 TIMES A DAY FOR ABDOMINAL CRAMPING 3 Active Clobetasol Prop Emollient Base 0.05 % emollient cream 3 Active meloxicam (Mobic) 7.5 MG tabletIndications: Primary osteoarthritis involving multiple joints Take 1 tablet (7.5 mg) by mouth 1 (one) time each day. 30 tablet 1 3 Active fluticasone (Flonase) 50 MCG/ACT nasal spray Administer 1 spray into each nostril 1 (one) time each day. 3 Active insulin glargine (Lantus SoloStar, Basaglar) 100 UNIT/ML injection penIndications:Typ e 2 diabetes mellitus with other specified complication, unspecified whether long filler cigar roller machine insulin use ([facility]),Type 2 diabetes mellitus without complication, without long-term current use of insulin Inject 26 Units under the skin 1 (one) time each day in the morning. Lantus 26 units, TDD 30 units 30 mL 3 4 Active Continuous Blood Gluc Sensor (Dexcom G7 Sensor) misc 1 sensor every 10 (ten) days. 9 each 1 4 Active Semaglutide,0.25 or 0.5MG/DOS, (Ozempic, 0.25 or 0.5 MG/DOSE,) 2 MG/3ML solution pen-injectorIndica tions:Type 2 diabetes mellitus with hyperglycemia, with long-term current use of insulin ([facility]) Inject 0.5 mg once weekly. Further refills at 04/26/24 appointment. 3 mL 3 4 Active insulin aspart (NovoLOG) 100 UNIT/ML injection pen Inject 10 Units under the skin 3 (three) times a day with meals. 15 mL 3 4 Active pen needle, diabetic (BD Pen Needle Micro U/F) 32G X 6 MM miscIndications:Ty pe 2 diabetes mellitus with other specified complication, unspecified whether long filler cigar roller machine insulin use ([facility]),Type 2 diabetes mellitus without complication, without long-term current use of insulin Use to inject insulin 4 times daily 360 each 2 4 Active OneTouch Verio test stripIndications:T ype 2 diabetes mellitus without complication, without long-term current use of insulin USE TO TEST BLOOD GLUCOSE LEVEL 2-3 TIMES DAILY 250 strip 4 Active metFORMIN (Glucophage) 500 MG tabletIndications: Type 2 diabetes mellitus without complication, without long-term current use of insulin TAKE 1 TABLET BY MOUTH TWICE DAILY WITH BREAKFAST AND 2 TABLETS BY MOUTH WITH SUPPER 180 tablet 4 Active levothyroxine (Synthroid, Levoxyl) 75 MCG tabletIndications: Hypothyroidism, unspecified type TAKE 1 TABLET BY MOUTH ONCE DAILY ON AN EMPTY STOMACH 30-60 MINUTES BEFORE EATING,PATIENT MUST ATTEND FOLLOW-UP ON 11/13/24 FOR ADDITIONAL REFILLS. 30 tablet 2 4 Active Family History Medical History Relation Name Comments Tuberculosis Mother Relation Name Status Comments Mother Social History Tobacco Use Types Packs/Day Years Used Date Smoking Tobacco: Every Day Cigarettes 0.5 36 Smokeless Tobacco: Never Tobacco Cessation:Ready to Q uit: Not Asked; Counseling Given: Not Answered Alcohol Use Standard Drinks/Week Comments Not Currently 0 (1 standard drink = 0.6 oz pure alcohol) Alcoholic Drinks/day: History of alcohol use PHQ-2 Answer Date Recorded Patient Health Questionnaire-2 Score 2 05/17/2023 PHQ-2A Answer Date Recorded Patient Health Questionnaire-2 Score 2 05/17/2023 Comments No Sex and Gender Information Value Date Recorded Sex Assigned at Not on file Legal Sex Female 8:16 PM EDT Gender Identity Not on file Sexual Orientation Not on file Last Filed Vital Signs Vital Sign Reading Time Taken Comments Blood Pressure 110/73 04/26/2024 8:19 AM EDT Pulse 65 04/26/2024 8:19 AM EDT Temperature 36.4 C (97.6 F) 05/17/2023 11:09 AM EDT Respiratory Rate - - Oxygen Saturation 95% 05/17/2023 11:09 AM EDT Inhaled Oxygen Concentration - - Weight 107 kg (235 lb 14.3 oz) 04/26/2024 8:19 A M EDT Height 157.5 cm (5' 2 ) 04/26/2024 8:19 AM EDT Body Mass Index 43.15 04/26/2024 8:19 AM EDT Plan of Treatment Health Maintenance Due Date Last Done Comments [facility]-HIV Screening 1962 [facility]-/Child/Adol SDOH Screenings 1962 Diabetes: Dental Exam 1972 [facility]- SDOH Screenings 1980 [facility]-Adult SDOH Screenings 1980 [facility]-DTaP,Tdap,and Td Vaccines (1 - Tdap) 1981 [facility]-Pneumococcal Vaccine: 50+ Years (1 of 2 - PCV) 1981 [facility]-Zoster Vaccines (1 of 2) 1981 CT Colonography 2007 Colonoscopy 2007 FIT-DNA 2007 FIT 2007 FOBT 2007 Sigmoidoscopy 2007 [facility]-Colorectal Cancer Screening 2007 [facility]-Breast Cancer Screening 2012 [facility]-RSV Vaccine: 60+ Years or (1 - Risk 60-74 years 1-dose series) 2022 [facility]-Depression Screening 05/17/2024 05/17/2023 [id number] Vaccine ( season) 2024 10/14/2021, 01/16/2021, 12/17/2020 [facility]-Diabetes: Hemoglobin A1C 10/24/2024, 01/19/2024, 10/17/2023, Additional history exists [facility]-Influenza Vaccine (Season Ended) 2025 09/22/2021, 09/22/2020, 09/26/2019, Additional history exists [facility]-Hepatitis A Vaccines Aged Out 04/12/2019, 08/29 No longer eligible based on patient's age to complete this topic [facility]-Hepatitis C Screening Completed 07/23/2022 [facility]-Obesity Intervention Completed 024, 01/19/2024, 10/17/2023, Additional history exists HPV Vaccines Aged Out No longer eligi ble based on patient's age to complete this topic [facility]-HIB Vaccines Aged Out No longer e ligible based on patient's age to complete this topic [facility]-IPV Vaccines Aged Out No longer e ligible based on patient's age to complete this topic [facility]-Rotavirus Vaccines Aged Out No lo nger eligible based on patient's age to complete this topic Procedures Procedure Name Priority Date/Time Associated Diagnosis Comments POCT GLYCOSYLATED HEMOGLOBIN (HGB A1C) Routine 04/26/2024 8:29 AM EDT Type 2 diabetes mellitus with hyperglycemia, with long-term current use of insulin ([facility]) ACUTE HEPATITIS PANEL Routine 07/23/2022 10:53 AM EDT Polyarthralgia Elevated C-reactive protein from Last 3 Months or Most Recently Relevant to Health Maintenance Results * (ABNORMAL) POCT glycosylated hemoglobin (Hb A1C) (04/26/2024 8:29 AM EDT) Pathologist [facility] POCT Hemoglobin A1C 8.9 <5.7% Non-Diabe tic [facility] Kit Lot Number [id number] [facility] Kit Expiration Date 02/25/2026 [facility] Blood Venous blood specimen / Unknown 04/26/2024 8:29 AM EDT Osmel Auguste MD POINT OF CARE TEST ENTER/ED IT ORDERABLES Final Result Performing Organization Address City/[facility]/ZIP Co de Phone Number [facility] [address] [place] [address] * Acute Hepatitis Panel (07/23/2022 10:53 AM EDT) Pathologist [facility] Hepatitis B Surf Antigen Negative Negative 07/23/2022 1:41 PM EDT [facility] Hepatitis C Antibody Negative Negative 07/23/2022 1:41 PM EDT [facility] Hepatitis A Antibody IgM Negative Negative 07/23/2022 1:41 PM EDT [facility] Hepatitis B Core Antibody IgM Negative Negative 07/23/2022 1:41 PM EDT [facility] Blood Venous blood specimen / Unknown Venipuncture / Unknown 07/23/2022 10:53 AM EDT 07/23/2022 10:54 AM EDT [facility] BLOOD ORDERABLES Final Resul t Performing Organization Address City/[facility] Co de Phone Number [facility] [address] [place] [address] from Last 3 Months or Most Recently Relevant to Health Maintenance Insurance [employer] Care Teams Sous Chef Relationship Specialty Start Date End Date Cornelius Aparicio MD [address] [place] [address] PCP - General 04/10/21
--- OUTSIDE RECORDS SUMMARY | 2025-05-24 08:24 | XMS_ITS | Encounter Summary ---
Author Organization [facility] Address [address] [place] [address] Care Team Providers Care Corrections Caseworker Name Role Phone Cornelius Aparicio MD Primary Care Provider [phone] Reason for Visit * Reason Comments Med Refill Encounter Details Date Type Department Care Team ([facility] st Contact Info) Description 03/03/2023 Refill [facility] [address] [place] [address] Osmel Auguste MD [address] [address] Type 2 diabetes mellitus without complication, without long-term current use of insulin ([facility]) Social History Tobacco Use Types Packs/Day Years [...] on file documented as of this encounter Plan of Treatment Not on file documented as of this encounter Visit Diagnoses Diagnosis Type 2 diabetes mellitus without complication, without long-term current use of insulin documented in this encounter Additional Health Concerns Assessment Noted Time A fall risk assessment has been complete d for the patient 01/24/2023 10:00 AM EST A Body Mass Index follow-up plan has been documented for the patient 01/24/2023 10:33 AM EST documented as of this encounter Care Teams Corrections Caseworker Relationship Specialty Start Date End Date Cornelius Aparicio MD [address] [place] [address] PCP - General 04/10/21 documented as of this encounter
--- OUTSIDE RECORDS SUMMARY | 2025-05-24 08:24 | XMS_ITS ---
Author Organization Unknown Medications Medication Instructions Effective Dates (start - stop) Status metformin hydrochloride 500 MG Oral Tablet 3944-54-86O54:00:00.000+00 :00 - Completed metformin hydrochloride 500 MG Oral Tablet 7830-54-96J19:00:00.000+00 :00 - Completed glimepiride 2 MG Oral Tablet 01-09-31:00:00.000+00 :00 - Completed glimepiride 2 MG Oral Tablet 01-08-15:00:00.000+00 :00 - Completed metformin hydrochloride 500 MG Oral Tablet 9523-98-90J00:00:00.000+00 :00 - Completed metformin hydrochloride 500 MG Oral Tablet 6160-80-15D16:00:00.000+00 :00 - Completed metformin hydrochloride 500 MG Oral Tablet 0538-73-84Y58:00:00.000+00 :00 - Completed metformin hydrochloride 500 MG Oral Tablet 2721-57-07B42:00:00.000+00 :00 - Completed glimepiride 2 MG Oral Tablet 01-28-06:00:00.000+00 :00 - Completed metformin hydrochloride 500 MG Oral Tablet 7616-29-10A21:00:00.000+00 :00 - Completed glimepiride 2 MG Oral Tablet 01-28-04:00:00.000+00 :00 - Completed glimepiride 2 MG Oral Tablet 01-09-08:00:00.000+00 :00 - Completed metformin hydrochloride 500 MG Oral Tablet 7427-95-73U25:00:00.000+00 :00 - Completed 24 HR metoprolol succinate 1 00 MG Extended Release Oral Tablet 8355-69-63D28:00:00.000+0 0 :00 - Completed metformin hydrochloride 500 MG Oral Tablet 3121-92-49R10:00:00.000+00 :00 - Completed esomeprazole 40 MG Delayed R elease Oral Capsule 5634-59-98M77:00:00.000+00 :00 - Completed esomeprazole 40 MG Delayed R elease Oral Capsule 9937-56-35S26:00:00.000+00 :00 - Completed 24 HR metoprolol succinate 1 00 MG Extended Release Oral Tablet 0524-28-41G95:00:00.000+0 0 :00 - Completed meloxicam 7.5 MG Oral Tablet 01-29-03:00:00.000+00 :00 - Completed escitalopram 20 MG Oral Tablet 2 229-82-22B01:00:00.000+00 :00 - Completed esomeprazole 40 MG Delayed R elease Oral Capsule 0838-47-67W37:00:00.000+00 :00 - Completed metformin hydrochloride 500 MG Oral Tablet 5570-60-02Y89:00:00.000+00 :00 - Completed meloxicam 7.5 MG Oral Tablet 01-29-29:00:00.000+00 :00 - Completed metformin hydrochloride 500 MG Oral Tablet 6172-67-04W57:00:00.000+00 :00 - Completed meloxicam 7.5 MG Oral Tablet 01-06-02:00:00.000+00 :00 - Completed metformin hydrochloride 500 MG Oral Tablet 8350-55-01T63:00:00.000+00 :00 - Completed escitalopram 20 MG Oral Tablet 2 214-28-04P84:00:00.000+00 :00 - Completed 24 HR metoprolol succinate 1 00 MG Extended Release Oral Tablet 3060-12-15C65:00:00.000+0 0 :00 - Completed esomeprazole 40 MG Delayed R elease Oral Capsule 5549-25-51B26:00:00.000+00 :00 - Completed esomeprazole 40 MG Delayed R elease Oral Capsule 7720-70-60Q14:00:00.000+00 :00 - Completed 24 HR metoprolol succinate 1 00 MG Extended Release Oral Tablet 6817-84-22L95:00:00.000+0 0 :00 - Completed meloxicam 7.5 MG Oral Tablet 02-01-01:00:00.000+00 :00 - Completed esomeprazole 40 MG Delayed R elease Oral Capsule 2663-27-33N81:00:00.000+00 :00 - Completed ondansetron 4 MG Disintegrat ing Oral Tablet 9541-05-63Y32:00:00.000+00 :00 - Completed meloxicam 7.5 MG Oral Tablet 01-27-23:00:00.000+00 :00 - Completed meloxicam 7.5 MG Oral Tablet 01-31-07:00:00.000+00 :00 - Completed meloxicam 7.5 MG Oral Tablet 01-08-27:00:00.000+00 :00 - Completed escitalopram 20 MG Oral Tablet 365-60-17Y44:00:00.000+00 :00 - Completed clindamycin 300 MG Oral Capsule 9765-57-80M72:00:00.000+00 :00 - Completed losartan potassium 100 MG Or al Tablet 0841-51-42J51:00:00.000+00 :00 - Completed {21 (methylprednisolone 4 MG Oral Tablet) } Pack 4081-06-78S62:00:00.000+00 :00 - Completed {21 (methylprednisolone 4 MG Oral Tablet) } Pack 3840-69-30F41:00:00.000+00 :00 - Completed hydrochlorothiazide 12.5 MG Oral Tablet 5935-53-16I02:00:00.000+00 :00 - Completed levothyroxine sodium 0.075 M G Oral Tablet 0810-69-49R49:00:00.000+00 :00 - Completed levothyroxine sodium 0.075 M G Oral Tablet 4575-95-20K11:00:00.000+00 :00 - Completed 0.5 ML varicella zoster viru s glycoprotein E, recombinant 0.1 MG/ML Injection [Shingrix] 9533-39-94X96:00:00.000+00 :00 - Completed {6 (azithromycin 250 MG Oral Tablet) } Pack 3476-09-41G59:00:00.000+00 :00 - Completed losartan potassium 100 MG Or al Tablet 9588-36-26N59:00:00.000+00 :00 - Completed losartan potassium 100 MG Or al Tablet 0336-28-48P29:00:00.000+00 :00 - Completed - 4349-11-18H69:00 :00.000+00 :00 - Completed levothyroxine sodium 0.075 M G Oral Tablet 0108-10-77H90:00:00.000+00 :00 - Completed levothyroxine sodium 0.075 M G Oral Tablet 1817-53-37I55:00:00.000+00 :00 - Completed nitrofurantoin, macrocrystal s 25 MG / nitrofurantoin, monohydrate 75 MG Oral Capsule 8916-27-12K62:00:00.000+00 :00 - Completed {6 (azithromycin 250 MG Oral Tablet) } Pack 6913-16-98T05:00:00.000+00 :00 - Completed benzonatate 100 MG Oral Capsule 9537-62-44B34:00:00.000+00 :00 - Completed moxifloxacin 400 MG Oral Tablet 1352-70-95W74:00:00.000+00 :00 - Completed esomeprazole 40 MG Delayed R elease Oral Capsule 9354-72-25T09:00:00.000+00 :00 - Completed hydrochlorothiazide 12.5 MG Oral Tablet 0025-90-18A09:00:00.000+00 :00 - Completed losartan potassium 100 MG Or al Tablet 4085-35-13G81:00:00.000+00 :00 - Completed levothyroxine sodium 0.075 M G Oral Tablet 1970-28-73N53:00:00.000+00 :00 - Completed clindamycin 300 MG Oral Capsule 4501-00-66O57:00:00.000+00 :00 - Completed glimepiride 2 MG Oral Tablet 02-01-11:00:00.000+00 :00 - Completed hydrochlorothiazide 12.5 MG Oral Tablet 3255-03-78U26:00:00.000+00 :00 - Completed fluticasone propionate 0.05 MG/ACTUAT Metered Dose Nasal [place] 4713-30-95I21:00:00 .000+00 :00 - Completed hydrochlorothiazide 12.5 MG Oral Tablet 8298-40-50V31:00:00.000+00 :00 - Completed prednisone 50 MG Oral Tablet 01-31-15:00:00.000+00 :00 - Completed 0.5 ML dulaglutide 3 MG/ML Auto-Injector [Trulicity] 2356-86-25C08:00:00.000+00 :00 - Completed rosuvastatin calcium 10 MG O ral Tablet 6356-46-72O71:00:00.000+00 :00 - Completed glimepiride 2 MG Oral Tablet 01-29-06T:00:00.000+00 :00 - Completed 0.5 ML dulaglutide 3 MG/ML Auto-Injector [Trulicity] 5962-38-97S53:00:00.000+00 :00 - Completed 0.5 ML dulaglutide 3 MG/ML Auto-Injector [Trulicity] 9993-24-25O32:00:00.000+00 :00 - Completed 0.5 ML dulaglutide 3 MG/ML Auto-Injector [Trulicity] 4326-19-84O18:00:00.000+00 :00 - Completed 0.5 ML dulaglutide 3 MG/ML Auto-Injector [Trulicity] 3717-49-53G87:00:00.000+00 :00 - Completed 0.5 ML dulaglutide 3 MG/ML Auto-Injector [Trulicity] 0555-88-80C23:00:00.000+00 :00 - Completed 0.5 ML dulaglutide 3 MG/ML Auto-Injector [Trulicity] 1010-45-26F00:00:00.000+00 :00 - Completed 0.5 ML dulaglutide 3 MG/ML Auto-Injector [Trulicity] 5966-69-35J57:00:00.000+00 :00 - Completed doxycycline monohydrate 100 MG Oral Tablet 5314-13-46A43:00:00.000+00 :00 - Completed 0.5 ML dulaglutide 3 MG/ML Auto-Injector [Trulicity] 7709-38-07K76:00:00.000+00 :00 - Completed rosuvastatin calcium 10 MG O ral Tablet 3144-01-28B64:00:00.000+00 :00 - Completed rosuvastatin calcium 10 MG O ral Tablet 9535-88-19P09:00:00.000+00 :00 - Completed glimepiride 2 MG Oral Tablet 01-05-15:00:00.000+00 :00 - Completed doxycycline monohydrate 100 MG Oral Tablet 9864-74-11A74:00:00.000+00 :00 - Completed 0.5 ML dulaglutide 3 MG/ML Auto-Injector [sunne.ws] 5192-98-72M00:00:00.000+00 :00 - Completed 0.5 ML dulaglutide 3 MG/ML Auto-Injector [sunne.ws] 9940-18-56J05::00.000+00 :00 - Completed 0.5 ML dulaglutide 3 MG/ML Auto-Injector [sunne.ws] 4557-40-41R91:00:00.000+00 :00 - Completed leflunomide 20 MG Oral Tablet 20-05-20:00:00.000+00 :00 - Completed dextromethorphan hydrobromid e 3 MG/ML / promethazine hydrochloride 1.25 MG/ML Oral Solution 5038-43-78Q12:00:00.000+00 :00 - Completed Patient Care team information Name Category Status Period Participants - - Proposed period not known -
== END 2025-05-22 23:59 | disposition home or self-care (01) ==
LOC: LAB.DROPOF 05-24 08:22
PROVIDERS: PCP Internal Medicine; Visit Provider Internal Medicine
DX: Z00.00 Encounter for general adult medical examination without abnormal findings (principal); D64.9 Anemia, unspecified; E78.5 Hyperlipidemia, unspecified; E55.9 Vitamin D deficiency, unspecified; N18.9 Chronic kidney disease, unspecified; E11.9 Type 2 diabetes mellitus without complications; N39.0 Urinary tract infection, site not specified; Z79.4 Long term (current) use of insulin; Z13.220 Encounter for screening for lipoid disorders; Z13.21 Encounter for screening for nutritional disorder
CPT/HCPCS: 80053; 80061; 82306; 82607; 83036; 85025; 87086; 87088; 87186

== ENCOUNTER 2025-06-11 16:10 | Outpatient (CLI) | payer BC, SELFPAY ==
--- OUTSIDE RECORDS SUMMARY | 2025-06-12 09:00 | XMS_ITS | Clinical Summary ---
Author Organization [facility] Address [address] [place] [address] Care Team Providers Care Thermocouple Tester Name Role Phone Cornelius Aparicio MD Primary Care Provider + [phone] Allergies Active Allergy Reactions Criticality Noted Date [...] mellitus with other specified complication, unspecified whether terminal superintendent insulin use ([facility]),Type 2 diabetes mellitus without complication, [...] hyperglycemia, with long-term current use of insulin ([facility]) Inject 0.5 mg once weekly. [...] mellitus with other specified complication, unspecified whether terminal superintendent insulin use ([facility]),Type 2 diabetes mellitus without complication, [...] 1-dose series) 2022 [facility]-Depression Screening 05/17/2024 05/17/2023 [id number] Vaccine ( season) 2024 10/14/2021, 01/16/2021, 12/17/2020 [facility]-Diabetes: Hemoglobin A1C 10/24/2024, 01/19/2024, 10/17/2023, Additional history exists [facility]-Influenza Vaccine (#1) 07/29/202509/22, 09/22/2020, 09/26/2019, Additional history exists [facility]-Hepatitis A [...] hyperglycemia, with long-term current use of insulin ([facility]) ACUTE HEPATITIS PANEL Routine 07/23/2022 10:53 AM EDT Polyarthralgia Elevated C-reactive protein from Last 3 Months or Most Recently Relevant to Health Maintenance Results * (ABNORMAL) POCT glycosylated hemoglobin (Hb A1C) (04/26/2024 8:29 AM EDT) Pathologist [facility] POCT Hemoglobin A1C 8.9 <5.7% Non-Diabe tic [facility] Kit Lot Number [id number] [facility] Kit Expiration Date 02/25/2026 [facility] Blood Venous blood specimen / Unknown 04/26/2024 8:29 AM EDT Osmel Auguste MD POINT OF CARE TEST ENTER/ED IT ORDERABLES Final Result Performing Organization Address City/[facility]/ZIP Co de Phone Number [facility] [address] [place] [address] * Acute Hepatitis Panel (07/23/2022 10:53 AM EDT) Pathologist [facility] Hepatitis B Surf Antigen Negative Negative 07/23/2022 1:41 PM EDT [facility] Hepatitis C Antibody Negative Negative 07/23/2022 1:41 PM EDT [facility] Hepatitis A Antibody IgM Negative Negative 07/23/2022 1:41 PM EDT [facility] Hepatitis B Core Antibody IgM Negative Negative 07/23/2022 1:41 PM EDT [facility] Blood Venous blood specimen / Unknown Venipuncture / Unknown 07/23/2022 10:53 AM EDT 07/23/2022 10:54 AM EDT [facility] BLOOD ORDERABLES Final Resul t Performing Organization Address City/[facility] Co de Phone Number [facility] [address] [place] [address] from Last 3 Months or Most Recently Relevant to Health Maintenance Insurance [employer] Care Teams Thermocouple Tester Relationship Specialty Start Date End Date Cornelius Aparicio MD [address] [place] [address] PCP - General 04/10/21
--- OUTSIDE RECORDS SUMMARY | 2025-06-12 09:00 | XMS_ITS | Encounter Summary ---
Author Organization [facility] Address [address] [place] [address] Care Team Providers Care Retail Department Supervisor Name Role Phone Cornelius Aparicio MD Primary Care Provider [phone] Reason for Visit * Reason Comments Med Refill Encounter Details Date Type Department Care Team (Late st Contact Info) Description 03/26/2023 Refill [facility] [address] [place] [address] Osmel Auguste MD [address] [address] Hypothyroidism, unspecified type Social History [...] 90 day supply with 1 refill(s) to [facility] pharmacy. Enough refills until appointment on [...] documented as of this encounter Care Teams Retail Department Supervisor Relationship Specialty Start Date End Date Cornelius Aparicio MD [address] [place] [address] PCP - General 04/10/21 documented as of this encounter
--- OUTSIDE RECORDS SUMMARY | 2025-06-12 09:00 | XMS_ITS | Encounter Summary ---
Author Organization [facility] Address [address] [place] [address] Care Team Providers Care Equipment Operating Engineer Name Role Phone Cornelius Aparicio MD Primary Care Provider [phone] Reason for Visit * Reason Comments Med Refill Encounter Details Date Type Department Care Team ([facility] st Contact Info) Description 03/03/[address] [facility] Endocrinology [address] [place] [address] Osmel Auguste MD [address] [address] Type 2 diabetes mellitus without complication, without long-term current use of insulin ([facility]) Social History Tobacco [...] documented as of this encounter Care Teams Equipment Operating Engineer Relationship Specialty Start Date End Date Cornelius Aparicio MD [address] [place] [address] PCP - General 04/10/21 documented as of this encounter
--- OUTSIDE RECORDS SUMMARY | 2025-06-12 09:00 | XMS_ITS | Encounter Summary ---
Author Organization [facility] Address [address] [place] [address] Care Team Providers Care Mobile Pet Groomer Name Role Phone Cornelius Aparicio MD Primary Care Provider [phone] Reason for Visit * Reason Comments Med Refill Encounter Details Date Type Department Care Team (Late st Contact Info) Description 09/25/2023 Refill [facility] [address] [place] [address] Alivia Troy L, INSTRUMENTATION INSTRUCTOR [address] [place] [address] Primary osteoarthritis involving multiple joints [...] documented as of this encounter Care Teams Mobile Pet Groomer Relationship Specialty Start Date End Date Cornelius Aparicio MD [address] [place] [address] PCP - General 04/10/21 documented as of this encounter
--- OUTSIDE RECORDS SUMMARY | 2025-06-12 09:00 | XMS_ITS ---
Author Organization Unknown Medications Medication Instructions Effective Dates (start - stop) Status metformin hydrochloride 500 MG Oral Tablet 8759-83-32L20:00:00.000+00 :00 - Completed metformin hydrochloride 500 MG Oral Tablet 8911-51-14S58:00:00.000+00 :00 - Completed glimepiride 2 MG Oral Tablet 01-09-31:00:00.000+00 :00 - Completed glimepiride 2 MG Oral Tablet 01-08-15:00:00.000+00 :00 - Completed metformin hydrochloride 500 MG Oral Tablet 3064-93-07C98:00:00.000+00 :00 - Completed metformin hydrochloride 500 MG Oral Tablet 0106-13-94T88:00:00.000+00 :00 - Completed metformin hydrochloride 500 MG Oral Tablet 3854-27-31F18:00:00.000+00 :00 - Completed metformin hydrochloride 500 MG Oral Tablet 7515-36-02R52:00:00.000+00 :00 - Completed glimepiride 2 MG Oral Tablet 01-28-06:00:00.000+00 :00 - Completed metformin hydrochloride 500 MG Oral Tablet 7992-82-80B35:00:00.000+00 :00 - Completed glimepiride 2 MG Oral Tablet 01-28-04:00:00.000+00 :00 - Completed glimepiride 2 MG Oral Tablet 01-09-08:00:00.000+00 :00 - Completed metformin hydrochloride 500 MG Oral Tablet 5906-82-80A82:00:00.000+00 :00 - Completed 24 HR metoprolol succinate 1 00 MG Extended Release Oral Tablet 1698-70-20M91:00:00.000+0 0 :00 - Completed metformin hydrochloride 500 MG Oral Tablet 2357-96-69X29:00:00.000+00 :00 - Completed esomeprazole 40 MG Delayed R elease Oral Capsule 4100-99-83G08:00:00.000+00 :00 - Completed esomeprazole 40 MG Delayed R elease Oral Capsule 9285-15-50G82:00:00.000+00 :00 - Completed 24 HR metoprolol succinate 1 00 MG Extended Release Oral Tablet 8987-42-15K06:00:00.000+0 0 :00 - Completed meloxicam 7.5 MG Oral Tablet 01-29-03:00:00.000+00 :00 - Completed escitalopram 20 MG Oral Tablet 2 503-07-66R47:00:00.000+00 :00 - Completed esomeprazole 40 MG Delayed R elease Oral Capsule 4815-06-00J24:00:00.000+00 :00 - Completed metformin hydrochloride 500 MG Oral Tablet 4552-77-05O73:00:00.000+00 :00 - Completed meloxicam 7.5 MG Oral Tablet 01-29-29:00:00.000+00 :00 - Completed metformin hydrochloride 500 MG Oral Tablet 2758-14-10M64:00:00.000+00 :00 - Completed meloxicam 7.5 MG Oral Tablet 01-06-02:00:00.000+00 :00 - Completed metformin hydrochloride 500 MG Oral Tablet 5195-18-68F23:00:00.000+00 :00 - Completed escitalopram 20 MG Oral Tablet 2 160-32-61D06:00:00.000+00 :00 - Completed 24 HR metoprolol succinate 1 00 MG Extended Release Oral Tablet 9459-13-01E22:00:00.000+0 0 :00 - Completed esomeprazole 40 MG Delayed R elease Oral Capsule 6271-71-40Z24:00:00.000+00 :00 - Completed esomeprazole 40 MG Delayed R elease Oral Capsule 9792-33-30N92:00:00.000+00 :00 - Completed 24 HR metoprolol succinate 1 00 MG Extended Release Oral Tablet 6967-52-88N09:00:00.000+0 0 :00 - Completed meloxicam 7.5 MG Oral Tablet 02-01-01:00:00.000+00 :00 - Completed esomeprazole 40 MG Delayed R elease Oral Capsule 3456-64-72V90:00:00.000+00 :00 - Completed ondansetron 4 MG Disintegrat ing Oral Tablet 4890-19-73T62:00:00.000+00 :00 - Completed meloxicam 7.5 MG Oral Tablet 01-27-23:00:00.000+00 :00 - Completed meloxicam 7.5 MG Oral Tablet 01-31-07:00:00.000+00 :00 - Completed meloxicam 7.5 MG Oral Tablet 01-08-27:00:00.000+00 :00 - Completed escitalopram 20 MG Oral Tablet 859-43-91D92:00:00.000+00 :00 - Completed clindamycin 300 MG Oral Capsule 1104-81-54F81:00:00.000+00 :00 - Completed losartan potassium 100 MG Or al Tablet 8566-82-14P98:00:00.000+00 :00 - Completed {21 (methylprednisolone 4 MG Oral Tablet) } Pack 5056-09-74G28:00:00.000+00 :00 - Completed {21 (methylprednisolone 4 MG Oral Tablet) } Pack 9144-67-21P11:00:00.000+00 :00 - Completed hydrochlorothiazide 12.5 MG Oral Tablet 9435-95-72R05:00:00.000+00 :00 - Completed levothyroxine sodium 0.075 M G Oral Tablet 6655-34-41G72:00:00.000+00 :00 - Completed levothyroxine sodium 0.075 M G Oral Tablet 5042-45-89D87:00:00.000+00 :00 - Completed 0.5 ML varicella zoster viru s glycoprotein E, recombinant 0.1 MG/ML Injection [Shingrix] 2805-45-58T36:00:00.000+00 :00 - Completed {6 (azithromycin 250 MG Oral Tablet) } Pack 6043-70-25O12:00:00.000+00 :00 - Completed losartan potassium 100 MG Or al Tablet 4988-22-86K72:00:00.000+00 :00 - Completed losartan potassium 100 MG Or al Tablet 7769-91-65X10:00:00.000+00 :00 - Completed - 9426-20-23B45:00 :00.000+00 :00 - Completed levothyroxine sodium 0.075 M G Oral Tablet 3410-37-00P02:00:00.000+00 :00 - Completed levothyroxine sodium 0.075 M G Oral Tablet 5701-10-57B60:00:00.000+00 :00 - Completed nitrofurantoin, macrocrystal s 25 MG / nitrofurantoin, monohydrate 75 MG Oral Capsule 9416-40-00X53:00:00.000+00 :00 - Completed {6 (azithromycin 250 MG Oral Tablet) } Pack 1501-33-26C67:00:00.000+00 :00 - Completed benzonatate 100 MG Oral Capsule 1712-98-88F20:00:00.000+00 :00 - Completed moxifloxacin 400 MG Oral Tablet 9166-80-56R88:00:00.000+00 :00 - Completed esomeprazole 40 MG Delayed R elease Oral Capsule 0690-40-37Q23:00:00.000+00 :00 - Completed hydrochlorothiazide 12.5 MG Oral Tablet 3699-25-13Z84:00:00.000+00 :00 - Completed losartan potassium 100 MG Or al Tablet 5792-04-20I93:00:00.000+00 :00 - Completed levothyroxine sodium 0.075 M G Oral Tablet 0935-21-61N67:00:00.000+00 :00 - Completed clindamycin 300 MG Oral Capsule 1713-66-76B64:00:00.000+00 :00 - Completed glimepiride 2 MG Oral Tablet 02-01-11:00:00.000+00 :00 - Completed hydrochlorothiazide 12.5 MG Oral Tablet 9168-53-27W44:00:00.000+00 :00 - Completed fluticasone propionate 0.05 MG/ACTUAT Metered Dose Nasal [place] 0347-40-80P83:00:00 .000+00 :00 - Completed hydrochlorothiazide 12.5 MG Oral Tablet 6788-94-54O48:00:00.000+00 :00 - Completed prednisone 50 MG Oral Tablet 01-31-15:00:00.000+00 :00 - Completed 0.5 ML dulaglutide 3 MG/ML Auto-Injector [Trulicity] 6879-64-84M08:00:00.000+00 :00 - Completed rosuvastatin calcium 10 MG O ral Tablet 3058-56-30I23:00:00.000+00 :00 - Completed glimepiride 2 MG Oral Tablet 01-29-06T:00:00.000+00 :00 - Completed 0.5 ML dulaglutide 3 MG/ML Auto-Injector [Trulicity] 5473-59-99S03:00:00.000+00 :00 - Completed 0.5 ML dulaglutide 3 MG/ML Auto-Injector [Trulicity] 3633-75-24D75:00:00.000+00 :00 - Completed 0.5 ML dulaglutide 3 MG/ML Auto-Injector [Trulicity] 2075-92-58Z28:00:00.000+00 :00 - Completed 0.5 ML dulaglutide 3 MG/ML Auto-Injector [Trulicity] 1475-26-23I83:00:00.000+00 :00 - Completed 0.5 ML dulaglutide 3 MG/ML Auto-Injector [Trulicity] 4748-09-12I67:00:00.000+00 :00 - Completed 0.5 ML dulaglutide 3 MG/ML Auto-Injector [Trulicity] 4245-00-26N36:00:00.000+00 :00 - Completed 0.5 ML dulaglutide 3 MG/ML Auto-Injector [Trulicity] 8215-59-61L00:00:00.000+00 :00 - Completed doxycycline monohydrate 100 MG Oral Tablet 0524-86-06X39:00:00.000+00 :00 - Completed 0.5 ML dulaglutide 3 MG/ML Auto-Injector [Trulicity] 0185-57-46H36:00:00.000+00 :00 - Completed rosuvastatin calcium 10 MG O ral Tablet 7582-59-43O08:00:00.000+00 :00 - Completed rosuvastatin calcium 10 MG O ral Tablet 1672-28-75K12:00:00.000+00 :00 - Completed glimepiride 2 MG Oral Tablet 01-05-15:00:00.000+00 :00 - Completed doxycycline monohydrate 100 MG Oral Tablet 5161-14-06V91:00:00.000+00 :00 - Completed 0.5 ML dulaglutide 3 MG/ML Auto-Injector [Quettra] 3858-85-49A64:00:00.000+00 :00 - Completed 0.5 ML dulaglutide 3 MG/ML Auto-Injector [Quettra] 8688-24-80E37::00.000+00 :00 - Completed 0.5 ML dulaglutide 3 MG/ML Auto-Injector [Quettra] 6444-55-61G30:00:00.000+00 :00 - Completed leflunomide 20 MG Oral Tablet 20-05-20:00:00.000+00 :00 - Completed dextromethorphan hydrobromid e 3 MG/ML / promethazine hydrochloride 1.25 MG/ML Oral Solution 6101-10-17C68:00:00.000+00 :00 - Completed Patient Care team information Name Category Status Period Participants - - Proposed period not known -
--- OUTSIDE RECORDS SUMMARY | 2025-06-12 09:00 | XMS_ITS | Encounter Summary ---
Author Organization [facility] Address [address] [place] [address] Care Team Providers Care Bleach Boiler Filler Name Role Phone Cornelius Aparicio MD Primary Care Provider [phone] Reason for Referral * Consultation (Routine) - Closed Specialty Diagnoses / Procedures Referred By Enmanuel rich Referred To Contact Rheumatology Diagnoses Elevated sed rate Elevated C-reactive protein Clementine Kohli PA [address] [place] [address] Phone: tel: fax: Referral ID Status Reason Start Date Expiration Date V isits Requested Visits Authorized [id number] Closed Specialty Services Required 06/02/2022 12/02/2023 1 1 Encounter Details Date Type Department Care Team (Late st Contact Info) Description 06/02/2022 [facility] [address] [place] [address] Clementine Kohli PA [address] [place] [address] Elevated sed rate (Primary Dx); [...] documented as of this encounter Care Teams Bleach Boiler Filler Relationship Specialty Start Date End Date Cornelius Aparicio MD [address] [place] [address] PCP - General 04/10/21 documented as of this encounter
== END 2025-06-11 23:59 | disposition home or self-care (01) ==
LOC: LAB.DROPOF 06-12 08:55
PROVIDERS: PCP Internal Medicine; Visit Provider Internal Medicine
DX: B37.9 Candidiasis, unspecified (principal); N39.0 Urinary tract infection, site not specified; A49.8 Other bacterial infections of unspecified site; M25.561 Pain in right knee; M25.562 Pain in left knee
CPT/HCPCS: 87086; 87088; 87186

== ENCOUNTER 2025-06-25 21:43 | Inpatient (IN) | payer BC, SELFPAY ==
[2025-06-25 23:03] VITALS: BP 160/73; PULSE 83; RESP 16; TEMP 36.6; O2SAT 96; BMI 41.5
--- NOTE | 2025-06-25 23:12 | HMH.EDGENADL ---
Discharge Plan Disposition Patient Disposition: Admitted Prescriptions Prescriptions: No Action (DME) Dexcom G7 Remediation Consultant Misc See Rx Instructions .Route Qty: 1 0RF Rx Instructions: As directed ketoconazole 2 % cream 1 applic topical BID 30 Days Qty: 30 2RF ciclopirox 0.77 % cream 1 applic topical BID 180 Days Qty: 90 3RF pseudoephedrine HCl 30 mg tablet 60 mg PO Q6H PRN (Reason: nasal congestion) Qty: 30 1RF Rx Instructions: Start with one tablet, increase to two tablets per dose if one not effective fluconazole 150 mg tablet 150 mg PO Q3D Qty: 2 0RF cholecalciferol (vitamin D3) 25 mcg (1,000 unit) capsule 25 mcg PO DAILY aspirin 81 mg tablet,chewable 81 mg PO DAILY prucalopride 2 mg tablet 2 mg PO DAILY Trulicity 4.5 mg/0.5 mL pen injector 4.5 mg SQ WEEKLY Qty: 2 2RF (DME) Dexcom G7 Sensor Device See Rx Instructions .Route Qty: 9 1RF Rx Instructions: As directed duloxetine 30 mg capsule,delayed release(DR/EC) 30 mg PO BID Qty: 60 2RF esomeprazole magnesium 40 mg capsule,delayed release(DR/EC) 40 mg PO DAILY Qty: 30 5RF metoprolol succinate 25 mg tablet extended release 24 hr See Rx Instructions .ROUTE .COMPLEX Qty: 90 2RF Dose Instruction: Take 1 tablet by mouth once daily Rx Instructions: Take 1 tablet by mouth once daily hydrochlorothiazide 12.5 mg tablet 12.5 mg PO DAILY Qty: 90 1RF Jardiance 25 mg tablet 25 mg PO DAILY Qty: 30 3RF losartan 100 mg tablet See Rx Instructions .ROUTE .COMPLEX Qty: 90 2RF Dose Instruction: Take 1 tablet by mouth once daily Rx Instructions: Take 1 tablet by mouth once daily insulin aspart U-100 [Novolog U-100 Insulin aspart] 100 unit/mL solution See Rx Instructions .ROUTE .COMPLEX Qty: 10 0RF Dose Instruction: INJECT 10 UNITS SUBCUTANEOUSLY THREE TIMES DAILY Rx Instructions: INJECT 10 UNITS SUBCUTANEOUSLY THREE TIMES DAILY levothyroxine [Euthyrox] 75 mcg tablet 75 mcg PO DAILY Qty: 90 1RF metformin 500 mg tablet See Rx Instructions .ROUTE .COMPLEX Qty: 60 0RF Dose Instruction: Take 1 tablet by mouth twice daily Rx Instructions: Take 1 tablet by mouth twice daily (DME) Omnipod 5 G6-G7 Pods (Gen 5) Cartridge See Rx Instructions .ROUTE .COMPLEX Qty: 10 5RF Dose Instruction: USE DIRECTED Rx Instructions: Change Omnipod once every 3 days. levofloxacin 750 mg tablet 750 mg PO DAILY Qty: 10 0RF Referrals Follow up/Referrals: Prasad Preston DO [Primary Care Provider, Family Practice] - See instructions Clinical Impressions Clinical Impression: Enteritis, Nausea vomiting and diarrhea Pancreatitis Qualifiers: Chronicity: acute Pancreatitis type: drug induced Acute pancreatitis complication: no infection or necrosis Qualified Code(s): K85.30 - Drug induced acute pancreatitis without necrosis or infection Instructions Patient Instructions: DI for Diarrhea and Traveler's Diarrhea -- Adult, DI for Diarrhea and Traveler's Diarrhea -- Child, DI for Nausea -- Adult, DI for Nausea -- Child Print Language Print Language: Malay Discharge ED Provider: Austin Phillips Adult HPI General Chief complaint: Nausea/Vomiting/Diarrhea Stated complaint: D/N, cramping and dizziness 3x Time Seen by Provider: 06/25/25 23:00 Mode of Arrival: Ambulatory Source of Information: Patient Description of Symptoms (Recalled from ER Triage Doc. by RN): PT presents to the ED for evaluation of stomach cramping and diarrhea since 06/23/2025. Stated she has had multiple episodes of diarrhea. Pt is unaware of last formed bowel movement and stated she has a hx of constipation. History of Present Illness HPI narrative: 65-year-old female with history of obesity, EKG, diabetes, hypertension presents for diarrhea and abdominal pain. Symptoms been ongoing for the last few days. They have been worsening. She denies fever. She finished a prescription for Levaquin for UTI just prior to the diarrhea beginning. She reports lower abdominal pain. She reports that she has been told she has diverticulosis before. Denies any current urinary symptoms. Related Data Home Medications ?Medication ?Instructions ?Recorded ?Confirmed cholecalciferol (vitamin D3) 25 25 mcg PO DAILY 11/30/24 06/11/25 mcg (1,000 unit) capsule aspirin 81 mg chewable tablet 81 mg PO DAILY 01/22/25 06/11/25 prucalopride 2 mg tablet 2 mg PO DAILY 06/11/25 06/11/25 Previous Rx's ?Medication ?Instructions ?Recorded blood-glucose,fitting room inspector,cont #1 ea 08/23/24 (Dexcom G7 Remediation Consultant) esomeprazole magnesium 40 mg 40 mg PO DAILY #30 caps 12/12/24 capsule,delayed release hydrochlorothiazide 12.5 mg tablet 12.5 mg PO DAILY #90 tabs 02/19/25 metoprolol succinate 25 mg See Rx Instructions .Route 02/19/25 tablet,extended release 24 hr .COMPLEX #90 tabs empagliflozin 25 mg tablet 25 mg PO DAILY #30 tabs 03/05/25 (Jardiance) ciclopirox 0.77 % topical cream 1 applic topical BID 6 months #90 04/23/25 grams ketoconazole 2 % topical cream 1 applic topical BID fungal 04/23/25 infection 30 days #30 grams losartan 100 mg tablet See Rx Instructions .Route 05/17/25 .COMPLEX #90 tabs fluconazole 150 mg tablet 150 mg PO Q3D 2 doses #2 tabs 05/22/25 pseudoephedrine HCl 30 mg tablet 60 mg (2 x 30 mg) PO Q6H PRN nasal 05/22/25 congestion #30 tabs Novolog U-100 Insulin aspart 100 See Rx Instructions .Route 05/27/25 unit/mL subcutaneous solution .COMPLEX #10 mL (insulin aspart U-100) blood-glucose sensor (Dexcom G7 #9 ea 06/11/25 Sensor device) dulaglutide 4.5 mg/0.5 mL 4.5 mg (0.5 mL) SQ WEEKLY #2 mL 06/11/25 [facility] duloxetine 30 mg capsule,delayed 30 mg PO BID #60 caps 06/11/25 release levothyroxine 75 mcg tablet 75 mcg PO DAILY #90 tabs 06/11/25 (Euthyrox) insulin pump cart,auto,BT,G6/7 #10 ea 06/13/25 (Omnipod 5 G6-G7 Pods (Gen 5) subcutaneous cartridge) levofloxacin 750 mg tablet 750 mg PO DAILY #10 tabs 06/13/25 metformin 500 mg tablet See Rx Instructions .Route 06/13/25 .COMPLEX #60 tabs Allergies Allergy/AdvReac Type Severity Reaction Status Date / Time amoxicillin (From AUGMENTIN) Allergy Mild NA-NAUSEA Verified 06/11/25 15:25 cefdinir Allergy Mild Verified 06/11/25 15:25 clavulanic acid (From Allergy Mild NA-NAUSEA Verified 06/11/25 15:25 AUGMENTIN) hydrocodone (From NORCO) Allergy Mild HIVES,ITCHI Verified 06/11/25 15:25 NG naproxen (NAPROXEN) Allergy Mild HIVES,ITCHI Verified 06/11/25 15:25 NG Sulfa (Sulfonamide Allergy Mild HIVES,ITCHI Verified 06/11/25 15:25 Antibiotics) (SULFA NG (SULFONAMIDE ANTIBIOTICS)) aspirin Allergy Verified 06/11/25 15:25 Cephalosporins Allergy unknown Verified 06/11/25 15:25 PFSH [facility] Disclaimer: The information contained in this section may have been updated after the patient was seen, as this information can be updated by other users. Medical History History of left heart catheterization (LHC) Constipation Abdominal pain Elevated parathyroid hormone Encounter for screening breast examination Dyshidrotic eczema Neuropathy Polyarthralgia Diabetes Surgical History H/O tubal ligation History of hysterectomy History of colonoscopy Family History Family/Other Bleeding disorder Diabetes FHx: mental illness Hypertension Mother Tuberculosis Social History Smoking Status: Current every day smoker tobacco type: cigarettes packs per day: 1 second hand exposure: No alcohol intake: never substance use type: denies use current occupational status: employed Travel in the last 8 weeks?: None household members: spouse housing: house current occupation: school system current occupational exposures/hazards: No caffeine: Yes Other Medical History Have you received the Flu Vaccine for this season: No Have you received the Pneumonia Vaccine: No ROS Obtained: Yes All systems reviewed & no additional complaints except as documented Physical Exam General General appearance: alert Comment: Mildly uncomfortable appearing Head Head exam: atraumatic and normocephalic Eye Eye exam: Present normal appearance, PERRL and EOMI ENT ENT exam: Present normal oropharynx and normal external ear exam Neck Neck exam: Present normal inspection and full ROM Chest Chest inspection: Present normal inspection and symmetric chest wall rise; Absent tenderness Respiratory Respiratory exam: Present normal lung sounds bilaterally; Absent respiratory distress Cardiovascular Cardiovascular exam: Present regular rate and normal rhythm Abdominal Exam Abdominal exam: Present soft, distention and tenderness (Diffuse lower abdominal tenderness); Absent guarding Extremities Exam Extremities exam: Present normal inspection; Absent edema or joint swelling Back Exam Back exam: Present normal inspection; Absent tenderness Neurological Exam Neurological exam: Present alert and oriented X3; Absent motor sensory deficit Psychiatric Psychiatric exam: Present normal affect and normal mood Skin Skin exam: Present warm, dry and normal color Lymphatic Lymphatic Findings: no adenopathy Medical Decision Making Medical Records Medical records reviewed: Yes I reviewed the patient's medical records. Screening: Per USPSTF and CDC recommendations, given the prevalence of disease in our region, it is our hospital?s policy to screen for HIV and viral Hepatitis for all patients aged 18 and over and those with ongoing risk factors. Cj Inquiry Pt receiving controlled substance: No Cj was queried for this patient: No Vital Signs: 06/25/25 23:03 06/26/25 01:10 06/26/25 01:10 Temperature 97.9 F Temperature Source Oral Pulse Rate 84 Pulse Rate [Right] 83 Respiratory Rate 16 Blood Pressure 111/52 L Blood Pressure [Right Arm] 160/73 H Blood Pressure Mean 71 Blood Pressure Mean [Right Arm] 102 02 Sat by Pulse Oximetry 96 94 L 06/26/25 01:15 06/26/25 01:30 06/26/25 01:45 Temperature Temperature Source Pulse Rate 78 79 Pulse Rate [Right] Respiratory Rate Blood Pressure 113/50 L Blood Pressure [Right Arm] Blood Pressure Mean 62 Blood Pressure Mean [Right Arm] 02 Sat by Pulse Oximetry 94 L 95 06/26/25 02:00 Temperature Temperature Source Pulse Rate 80 Pulse Rate [Right] Respiratory Rate Blood Pressure 111/54 L Blood Pressure [Right Arm] Blood Pressure Mean Blood Pressure Mean [Right Arm] 02 Sat by Pulse Oximetry 92 L Lab Data Lab results reviewed: Yes I reviewed the patient's lab results. Lab Results 06/25/25 23:14: Urine Color Yellow, Urine Appearance Clear, Urine pH 6.0, Ur Specific [place] 1.015, Urine Protein Negative, Urine Glucose (UA) 3+, Urine Ketones Negative, Urine Blood Negative, Urine Nitrate Negative, Urine Bilirubin Negative, Urine Urobilinogen 0.2, Ur Leukocyte Esterase Negative, Urine WBC 5-10, Ur Squamous Epith Cells Occasional, Urine Bacteria 4+ 06/25/25 23:27: WBC 10.4, RBC 5.29, Hgb 13.3, Hct 42.3, MCV 80.0 L, MCH 25.1 L, MCHC 31.4 L, RDW 19.8 H, Plt Count 356, MPV 10.1, Neut % (Auto) 61.4, Lymph % (Auto) 15.7, Holmes % (Auto) 7.7, Eos % (Auto) 13.8 H, Baso % (Auto) 0.7, Neut # (Auto) 6.4, Lymph # (Auto) 1.6, Holmes # (Auto) 0.8, Eos # (Auto) 1.4 H, Baso # (Auto) 0.1, Sodium 136, Potassium 3.7, Chloride 102, Carbon Dioxide 29, Anion Gap 8.7, BUN 18 H, Creatinine 0.90, Estimated Creat Clear 46, Estimated GFR 63, Est GFR ( Amer) 77, Glucose 186 H, Calcium 9.5, Magnesium 1.9, Total Bilirubin 0.4, AST 32, ALT 19, Alkaline Phosphatase 171 H, Total Protein 8.8 H, Albumin 3.7, Globulin 5.1 H, Albumin/Globulin Ratio 0.7 L, Lipase 2473 H, HCV Ab PAULINO w/Rflx PCR Qn Negative, HIV Ag/Ab Combo Qual Negative 06/25/25 23:27 06/25/25 23:27 Orders (Tests/Meds): ED MEDICATIONS Generic Name Dose Route Start Last Admin Trade Name Freq PRN Reason Stop Dose Admin Sodium Chloride 10 ml 06/26/25 01:10 06/26/25 01:11 Sodium Chloride 0.9% 10ml Syr (Rad Only) IV 07/26/25 01:09 10 ml NEEDED PRN Administration Maintain IV Site Discontinued Medications Generic Name Dose Route Start Last Admin Trade Name Freq PRN Reason Stop Dose Admin Acetaminophen 1,000 mg 06/25/25 23:16 06/25/25 23:41 Acetaminophen 500mg Tab PO 06/25/25 23:17 1,000 mg ONCE ONE Administration Sodium Chloride 1,000 mls @ 999 mls/hr 06/25/25 23:30 06/25/25 23:36 Sod Chlor 0.9% 1000ml Bag IV 06/26/25 00:30 999 mls/hr .Q1H1M VARGHESE Administration Iopamidol 75 ml 06/26/25 01:10 06/26/25 01:11 Iopamidol-370 (76%);100ml Bottle IV 06/26/25 01:11 75 ml ONCE ONE Administration Morphine Sulfate 4 mg 06/25/25 23:16 06/25/25 23:39 Morphine 4mg/Ml Syringe IV 06/25/25 23:17 4 mg ONCE ONE Administration Morphine Sulfate 4 mg 06/26/25 00:20 06/26/25 00:26 Morphine 4mg/Ml Syringe IV 06/26/25 00:21 4 mg ONCE ONE Administration Ondansetron HCl 4 mg 06/25/25 23:16 06/25/25 23:39 Ondansetron 4mg/2ml Vial IV 06/25/25 23:17 4 mg ONCE ONE Administration ORDERS Category Date Time Status CT abdomen pelvis w con Stat Cat Scan 06/25/25 23:16 Completed CBC w/Auto Diff [Complete Blood Count Auto Diff] Stat Lab 06/25/25 23:27 Completed CMP [Comprehensive Metabolic Panel] Stat Lab 06/25/25 23:27 Completed Diarrhea 23 Panel, PCR Stat Lab 06/25/25 23:16 Ordered HIV Combo Stat Lab 06/25/25 23:27 Completed Hepatitis C Ab Qual. W/ RFX Stat Lab 06/25/25 23:27 Completed Lipase Stat Lab 06/25/25 23:27 Completed Magnesium Stat Lab 06/25/25 23:27 Completed UA [Urinalysis and Microscopic] Stat Lab 06/25/25 23:27 Ordered Urinalysis and Microscopic Stat Lab 06/25/25 23:14 Completed Urine Culture Stat Micro 06/25/25 23:14 Received Medical Decision Narrative: 65-year-old female with history of diverticulosis, diabetes, hypertension, obesity presents for several days of diarrhea and lower abdominal pain, history of recent antibiotic course for UTI. History was obtained via interactive discussion with patient, chart review. On arrival, patient is [afebrile, hemodynamically stable, satting appropriately, alert, oriented x4, GCS 15], moving all extremities spontaneously. Full physical exam performed and significant for mild diffuse lower abdominal tenderness. Differential includes but is not limited to gastroenteritis, UTI,, colitis. Patient was given morphine, Zofran, Tylenol, fluid for symptomatic management and correction of underlying abnormalities. Workup initiated including CBC CMP lipase CT abdomen pelvis IV contrast UA. On re-evaluation, patient required additional dose of morphine for pain control. Laboratory workup independently interpreted by me and significant for markedly elevated lipase at 2400, no significant leukocytosis, no significant electrolyte derangement. Mild hyperglycemia.. Imaging independently interpreted by me and significant for small bowel enteritis, pancreas does not appear inflamed on CT, no evidence of diverticulitis.. See radiology read for full review of final results. Given patient history, exam and workup, patient's presentation most likely represents acute pancreatitis, likely drug-induced from Trulicity. Patient also has enteritis. In combination, it is unlikely that patient is going to succeed at home with maintaining hydration and pain control. She has required multiple doses of IV pain control in ED. Given this, there is hope that she would benefit from admission for further management. Patient was agreeable to plan. Interactive discussion was had with hospitalist on-call for admission. Procedures Risk/Benefits of Procedure(s) Were Explained: Yes Critical Care Critical Care Time Critical Care Time: No
--- NOTE | 2025-06-25 23:16 | CT_ITS ---
PROCEDURE INFORMATION: Exam: CT Abdomen And Pelvis With Contrast Exam date and time: 06/26/2025 1:04 AM Age: 65 years old Clinical indication: Abdominal pain; Additional info: Diarrhea, lower abd pain, HX divertic TECHNIQUE: Imaging protocol: Computed tomography of the abdomen and pelvis with contrast. Radiation optimization: All CT scans at this facility use at least one of these dose optimization techniques: automated exposure control; mA and/or kV adjustment per patient size (includes targeted exams where dose is matched to clinical indication); or iterative reconstruction. Contrast material: ISOVUE; Contrast volume: 75 ml; Contrast route: IV; COMPARISON: CT ABDOMEN PELVIS W CON 05/07/2024 11:00 AM FINDINGS: Liver: Normal. No mass. Gallbladder and biliary ducts: Normal. No calcified stones. No ductal dilation. Pancreas: Normal. No ductal dilation. Spleen: Normal. No splenomegaly. Adrenal glands: Normal. No mass. Kidneys and ureters: Normal. No hydronephrosis. Stomach and bowel: Extensive diverticulosis of the colon. Mild distension proximal small bowel with fluid-filled distal small bowel. Appendix: No evidence of appendicitis. Intraperitoneal space: Unremarkable. No free air. No significant fluid collection. Vasculature: Unremarkable. No abdominal aortic aneurysm. Lymph nodes: Unremarkable. No enlarged lymph nodes. Urinary bladder: Unremarkable as visualized. Reproductive: Unremarkable as visualized. Bones/joints: Unremarkable. No acute fracture. Soft tissues: Unremarkable. IMPRESSION: Diverticulosis without definite findings of diverticulitis. Fluid-filled small bowel suggesting enteritis.
[2025-06-25 23:19] LABS: Microscopic, Urine URINE MICROSCOPIC (MICROSCOPIC)
[2025-06-25 23:22] LABS: Bilirubin,Urine Negative (Negative); Color,Urine YELLOW (Yellow); Glucose,Urine (UA) 3+ (Negative); Ketones,Urine Negative (Negative); Leukocyte Esterase,Urine Negative (Negative); PH,Urine 6.0 (5.0-8.5); Protein,Urine Negative (Negative); Specific Gravity, Urine 1.015 (1.005-1.030); Urobilinogen,Urine 0.2 EU/dl (0.2)
--- OUTSIDE RECORDS SUMMARY | 2025-06-25 23:29 | XMS_ITS | Encounter Summary ---
Author Organization [facility] Address [address] [place] [address] Care Team Providers Care Photographic Reproduction Technician Name Role Phone Cornelius Aparicio MD Primary Care Provider [phone] Reason for Visit * Reason Comments Med Refill Encounter Details Date Type Department Care Team (Late st Contact Info) Description 03/26/2023 Refill [facility] Endocrinology [address] [place] [address] Osmel Auguste MD [address] [address] Hypothyroidism, unspecified type Social History [...] 90 day supply with 1 refill(s) to [facility] pharmacy. Enough refills until appointment on [...] documented as of this encounter Care Teams Photographic Reproduction Technician Relationship Specialty Start Date End Date Cornelius Aparicio MD [address] [place] [address] PCP - General 04/10/21 documented as of this encounter
--- OUTSIDE RECORDS SUMMARY | 2025-06-25 23:29 | XMS_ITS | Clinical Summary ---
Author Organization [facility] Address [address] [place] [place] [address] Care Team Providers Care Dial Printer Name Role Phone Cornelius Aparicio MD Primary Care Provider [phone] Allergies Active Allergy Reactions Criticality Noted Date [...] mellitus with other specified complication, unspecified whether superintendent container terminal insulin use ([facility]),Type 2 diabetes mellitus without complication, [...] hyperglycemia, with long-term current use of insulin ([facility]) Inject 0.5 mg once weekly. [...] mellitus with other specified complication, unspecified whether superintendent container terminal insulin use ([facility]),Type 2 diabetes mellitus without complication, [...] 1-dose series) 2022 UKY-Depression Screening 05/17/2024 05/17/2023 [id number] Vaccine ( season) 2024 10/14/2021, 01/16/2021, 12/17/2020 [...] hyperglycemia, with long-term current use of insulin ([facility]) ACUTE HEPATITIS PANEL Routine 07/23/2022 10:53 AM EDT Polyarthralgia Elevated C-reactive protein from Last 3 Months or Most Recently Relevant to Health Maintenance Results * (ABNORMAL) POCT glycosylated hemoglobin (Hb A1C) (04/26/2024 8:29 AM EDT) Pathologist [facility] POCT Hemoglobin A1C 8.9 <5.7% Non-Diabe tic [facility] Kit Lot Number [id number] [facility] Kit Expiration Date 02/25/2026 [facility] Blood Venous blood specimen / Unknown 04/26/2024 8:29 AM EDT Osmel Auguste MD POINT OF CARE TEST ENTER/ED IT ORDERABLES Final Result Performing Organization Address City/[facility]/ZIP Co de Phone Number HEALTHCARE [facility] [address] [place] [address] * Acute Hepatitis Panel (07/23/2022 10:53 AM EDT) Pathologist [facility] Hepatitis B Surf Antigen Negative Negative 07/23/2022 1:41 PM EDT [facility] Hepatitis C Antibody Negative Negative 07/23/2022 1:41 PM EDT [facility] Hepatitis A Antibody IgM Negative Negative 07/23/2022 1:41 PM EDT [facility] Hepatitis B Core Antibody IgM Negative Negative 07/23/2022 1:41 PM EDT [facility] Blood Venous blood specimen / Unknown Venipuncture / Unknown 07/23/2022 10:53 AM EDT 07/23/2022 10:54 AM EDT [facility] BLOOD ORDERABLES Final Resul t Performing Organization Address City/[facility] Co de Phone Number [facility] [address] [place] [address] from Last 3 Months or Most Recently Relevant to Health Maintenance Insurance [employer] Care Teams Dial Printer Relationship Specialty Start Date End Date Cornelius Aparicio MD [address] [place] [address] PCP - General 04/10/21
--- OUTSIDE RECORDS SUMMARY | 2025-06-25 23:29 | XMS_ITS | Encounter Summary ---
Author Organization [facility] Address [address] [place] [address] Care Team Providers Care Exerciser Name Role Phone Cornelius Aparicio MD Primary Care Provider [phone] Reason for Referral * Consultation (Routine) - Closed Specialty Diagnoses / Procedures Referred By Enmanuel rich Referred To Contact Rheumatology Diagnoses Elevated sed rate Elevated C-reactive protein Clementine Kohli PA [address] [place] [address] Phone: tel: fax: Referral ID Status Reason Start Date Expiration Date V isits Requested Visits Authorized [id number] Closed Specialty Services Required 06/02/2022 12/02/2023 1 1 Encounter Details Date Type Department Care Team (Late st Contact Info) Description 06/02/2022 [facility] [address] [place] [address] Clementine Kohli PA [address] [place] [address] Elevated sed rate (Primary Dx); [...] documented as of this encounter Care Teams Exerciser Relationship Specialty Start Date End Date Cornelius Aparicio MD [address] [place] [address] PCP - General 04/10/21 documented as of this encounter
--- OUTSIDE RECORDS SUMMARY | 2025-06-25 23:29 | XMS_ITS | Encounter Summary ---
Author Organization [facility] Address [address] [place] [address] Care Team Providers Care Extruder Name Role Phone Cornelius Aparicio MD Primary Care Provider [phone] Reason for Visit * Reason Comments Med Refill Encounter Details Date Type Department Care Team ([facility] st Contact Info) Description 03/03/2023 Refill [facility] Endocrinology [address] [place] [address] Osmel Auguste MD [address] [address] Type 2 diabetes mellitus without complication, without long-term current use of insulin ([facility]) Social History Tobacco Use Types Packs/Day Years [...] documented as of this encounter Care Teams Extruder Relationship Specialty Start Date End Date Cornelius Aparicio MD [address] [place] [address] PCP - General 04/10/21 documented as of this encounter
--- OUTSIDE RECORDS SUMMARY | 2025-06-25 23:29 | XMS_ITS | Encounter Summary ---
Author Organization [facility] Address [address] [place] [address] Care Team Providers Care Rebar Bender Name Role Phone Cornelius Aparicio MD Primary Care Provider [phone] Reason for Visit * Reason Comments Med Refill Encounter Details Date Type Department Care Team (Late st Contact Info) Description 09/25/2023 Refill [facility] [address] [place] [address] Alivia Troy L, SIGN CARPENTER [address] [place] [address] Primary osteoarthritis involving multiple joints [...] documented as of this encounter Care Teams Rebar Bender Relationship Specialty Start Date End Date Cornelius Aparicio MD [address] [place] [address] PCP - General 04/10/21 documented as of this encounter
[2025-06-25 23:32] LABS: Bacteria,Urine 4+ /lpf; Squamous Epithelial Cell,Urine Occasional #/hpf (0-5)
[2025-06-25 23:35] LABS: Hematocrit 42.3 % (37.0-47.0); Hemoglobin 13.3 g/dL (12.2-16.2); Immature Granulocytes % 0.7 %; Mean Corpuscular HGB Conc 31.4 g/dL (31.8-35.4); Mean Corpuscular Hemoglobin 25.1 pg (27.0-31.2); Mean Corpuscular Volume 80.0 fl (81-99); Nucleated Red Blood Cells % 0 %; Platelet Count 356 K/mm3 (142-424); Red Blood Count 5.29 M/mm3 (4.20-5.40); Red Cell Distribution Width-SD 54.7 fL; White Blood Count 10.4 K/mm3 (4.8-10.8)
[2025-06-25] MEDS: 0.9 % SODIUM CHLORIDE 1000ML 1,000 ML 999 ML IV (23:36)
[2025-06-25] MEDS: ONDANSETRON 4MG/2ML VIAL 4 MG IV (23:39)
[2025-06-25] MEDS: MORPHINE 4MG/ML SYRINGE 4 MG IV (23:39)
[2025-06-25] MEDS: ACETAMINOPHEN 500MG TAB 1000 MG PO (23:41)
--- NOTE | 2025-06-25 23:50 | PC.NURSE ---
Report given to VALERI Hdz
[2025-06-26] VITALS (13 sets, daily range): BP systolic 103–113; BP diastolic 50–64; PULSE 65–84; RESP 14–17; TEMP 36.4–36.8; O2SAT 92–96; BMI 41.5
--- NOTE | 2025-06-26 00:19 | PC.NURSE ---
Chemistry recollected
[2025-06-26] MEDS: MORPHINE 4MG/ML SYRINGE 4 MG IV (00:26)
[2025-06-26 00:38] LABS: Albumin Level 3.7 g/dl (3.5-5.0); Chloride 102 mmol/L (98-107)
[2025-06-26 00:39] LABS: Potassium 3.7 mmoL/L (3.5-5.1); Sodium 136 mmol/L (136-145)
[2025-06-26 00:41] LABS: Alanine Aminotransferase 19 U/L (12-78); Anion Gap 8.7 mEq/L (5-15); Aspartate Amino Transferase 32 U/L (14-36); Blood Urea Nitrogen 18 mg/dl (7-17); Carbon Dioxide 29 mmol/L (22.0-30.0); Creatinine Clearance Estimated 46 mL/min (50-200); Creatinine,Serum 0.90 mg/dl (0.52-1.04); Estimated Glomerular Filt Rate 63 ml/min (>60); GFR (African American) 77 ML/MIN (>60)
[2025-06-26 00:42] LABS: Albumin/Globulin Ratio 0.7 (1.1-1.8); Alkaline Phosphatase 171 U/L (38-126); Bilirubin,Total 0.4 mg/dl (0.2-1.3); Calcium 9.5 mg/dl (8.4-10.2); Globulin 5.1 g/dL (1.3-3.2); Glucose 186 mg/dl (74-100); Magnesium 1.9 mg/dl (1.6-2.3); Total Protein,Serum 8.8 g/dl (6.3-8.2)
[2025-06-26 00:46] LABS: Hepatitis C Ab Qual. W/ RFX NEGATIVE (Negative)
[2025-06-26 00:57] LABS: Lipase 2473 U/L (23-300)
[2025-06-26] MEDS: IOPAMIDOL-370 (76%);100ML BOTTLE 75 ML IV (01:11)
[2025-06-26] MEDS: SODIUM CHLORIDE 0.9% 10ML SYR (RAD ONLY) 10 ML IV (01:11)
--- NOTE | 2025-06-26 02:28 | EXP.HP ---
History of Present Illness *Admission Date: 06/26/25 *Reason for visit:: Abdominal pain, nausea, diarrhea *History of present illness: Apryl Bello is a 65-year-old female with a medical history significant for type 2 diabetes hypertension, hypothyroidism anxiety/depression who presents with 2 weeks onset of intermittent abdominal pains, nausea without vomiting, and several day history of diarrhea. Patient states she has been having on and off abdominal pain for more than a year, has been on Ozempic and then Trulicity. More recently, her Trulicity dose was increased mid May after which patient's abdominal pain seem to have worsened. She was also recently treated for UTI with levofloxacin, urine culture from Klebsiella sensitive to this. She started having loose, watery diarrhea after starting levofloxacin few days ago. She continues to have decreased oral tolerance, nausea without vomiting. Workup in the ED significant for lipase 2473, ALP 171, UA grossly abnormal. CT abdomen suggests enteritis. Case discussed with ED provider and decision made to admit patient for acute pancreatitis. [facility] Disclaimer: The information contained in this section may have been updated after the patient was seen, as this information can be updated by other users. Medical History History of left heart catheterization (LHC) Constipation Abdominal pain Elevated parathyroid hormone Encounter for screening breast examination Dyshidrotic eczema Neuropathy Polyarthralgia Diabetes Surgical History H/O tubal ligation History of hysterectomy History of colonoscopy Family History Family/Other Bleeding disorder Diabetes FHx: mental illness Hypertension Mother Tuberculosis Social History (Updated 06/26/25 @ 03:29 by Eun Lawler RN) Smoking Status: Current every day smoker tobacco type: cigarettes packs per day: 1 second hand exposure: No alcohol intake: never substance use type: denies use current occupational status: employed Travel in the last 8 weeks?: None household members: spouse housing: house current occupation: school system current occupational exposures/hazards: No caffeine: Yes Other Medical History Have you received the Flu Vaccine for this season: No Have you received the Pneumonia Vaccine: No Meds Home Medications and Allergies Home Medications ?Medication ?Instructions ?Recorded ?Confirmed ?Type blood-glucose,ict managers,cont #1 ea 08/23/24 06/26/25 Rx (Dexcom G7 [place]) cholecalciferol (vitamin D3) 25 25 mcg PO DAILY 11/30/24 06/26/25 History mcg (1,000 unit) capsule esomeprazole magnesium 40 mg 40 mg PO DAILY #30 caps 12/12/24 06/26/25 Rx capsule,delayed release aspirin 81 mg chewable tablet 81 mg PO DAILY 01/22/25 06/26/25 History hydrochlorothiazide 12.5 mg tablet 12.5 mg PO DAILY #90 tabs 02/19/25 06/26/25 Rx empagliflozin 25 mg tablet 25 mg PO DAILY #30 tabs 03/05/25 06/26/25 Rx (Jardiance) pseudoephedrine HCl 30 mg tablet 60 mg (2 x 30 mg) PO Q6H PRN nasal 05/22/25 06/26/25 Rx congestion #30 tabs blood-glucose sensor (Dexcom G7 #9 ea 06/11/25 06/26/25 Rx Sensor device) dulaglutide 4.5 mg/0.5 mL 4.5 mg (0.5 mL) SQ WEEKLY #2 mL 06/11/25 06/26/25 Rx subcutaneous pen injector (Trulicity) duloxetine 30 mg capsule,delayed 30 mg PO BID #60 caps 06/11/25 06/26/25 Rx release levothyroxine 75 mcg tablet 75 mcg PO DAILY #90 tabs 06/11/25 06/26/25 Rx (Euthyrox) prucalopride 2 mg tablet 2 mg PO DAILY 06/11/25 06/26/25 History insulin pump cart,auto,BT,G6/7 #10 ea 06/13/25 06/26/25 Rx (Omnipod 5 G6-G7 Pods (Gen 5) subcutaneous cartridge) insulin aspart U-100 100 unit/mL 100 unit SQ TID 06/26/25 06/26/25 History subcutaneous solution (Novolog U-100 Insulin aspart) losartan 100 mg tablet 100 mg PO DAILY 06/26/25 06/26/25 History metformin 500 mg tablet 500 mg PO BID 06/26/25 06/26/25 History rosuvastatin 5 mg tablet 5 mg PO DAILY 06/26/25 06/26/25 History New Prescriptions to Start Prescriptions: Allergies Allergy/AdvReac Type Severity Reaction Status Date / Time amoxicillin (From AUGMENTIN) Allergy Mild NA-NAUSEA Verified 06/11/25 15:25 cefdinir Allergy Mild Hives Verified 06/26/25 03:16 clavulanic acid (From Allergy Mild NA-NAUSEA Verified 06/11/25 15:25 AUGMENTIN) hydrocodone (From NORCO) Allergy Mild HIVES,ITCHI Verified 06/11/25 15:25 NG naproxen (NAPROXEN) Allergy Mild HIVES,ITCHI Verified 06/11/25 15:25 NG Sulfa (Sulfonamide Allergy Mild HIVES,ITCHI Verified 06/11/25 15:25 Antibiotics) (SULFA NG (SULFONAMIDE ANTIBIOTICS)) aspirin Allergy Hives Verified 06/26/25 03:16 Cephalosporins Allergy unknown Verified 06/11/25 15:25 dulaglutide (From Trulicity) AdvReac Intermediate Verified 06/26/25 06:24 levofloxacin AdvReac Nausea Verified 06/26/25 03:16 Exam Data for Last 24 hours Vital signs and Labs for Last 24 Hours: Temp Pulse Resp BP Pulse Ox 97.9 F 80 16 111/54 L 92 L 06/25/25 23:03 06/26/25 02:00 06/25/25 23:03 06/26/25 02:00 06/26/25 02:00 Laboratory Results - last 24 hr 06/25/25 23:14: Urine Color Yellow, Urine Appearance Clear, Urine pH 6.0, Ur Specific [place] 1.015, Urine Protein Negative, Urine Glucose (UA) 3+, Urine Ketones Negative, Urine Blood Negative, Urine Nitrate Negative, Urine Bilirubin Negative, Urine Urobilinogen 0.2, Ur Leukocyte Esterase Negative, Urine WBC 5-10, Ur Squamous Epith Cells Occasional, Urine Bacteria 4+ 06/25/25 23:27: WBC 10.4, RBC 5.29, Hgb 13.3, Hct 42.3, MCV 80.0 L, MCH 25.1 L, MCHC 31.4 L, RDW 19.8 H, Plt Count 356, MPV 10.1, Neut % (Auto) 61.4, Lymph % (Auto) 15.7, Worth % (Auto) 7.7, Eos % (Auto) 13.8 H, Baso % (Auto) 0.7, Neut # (Auto) 6.4, Lymph # (Auto) 1.6, Worth # (Auto) 0.8, Eos # (Auto) 1.4 H, Baso # (Auto) 0.1, Sodium 136, Potassium 3.7, Chloride 102, Carbon Dioxide 29, Anion Gap 8.7, BUN 18 H, Creatinine 0.90, Estimated Creat Clear 46, Estimated GFR 63, Est GFR ( Amer) 77, Glucose 186 H, Calcium 9.5, Magnesium 1.9, Total Bilirubin 0.4, AST 32, ALT 19, Alkaline Phosphatase 171 H, Total Protein 8.8 H, Albumin 3.7, Globulin 5.1 H, Albumin/Globulin Ratio 0.7 L, Lipase 2473 H, HCV Ab PAULINO w/Rflx PCR Qn Negative, HIV Ag/Ab Combo Qual Negative I & O for Last 24 hours: Intake & Output 06/23/25 06/24/25 06/25/25 06/26/25 23:59 23:59 23:59 23:59 Weight 102.965 kg Constitutional Constitutional: no acute distress and obese *Routine HEENT Exam Head: Present normocephalic Eye: Present EOMI and PERRL ENT: Present mucous membranes moist *Routine Neck Exam Neck: Present supple; Absent lymphadenopathy *Routine Respiratory Exam Respiratory: Present CTA bilaterally *Routine Cardiovascular Exam Cardiovascular: Present RRR *Routine Abdominal Exam Abdominal: Present soft, normoactive bowel sounds and tenderness Comments: Moderate tenderness to palpation in the epigastric region. No peritoneal signs. *Routine Rectal Exam Rectal:: deferred *Routine Genitalia Exam Genitalia:: deferred *Routine Extremities Exam Extremities: Absent cyanosis, clubbing or edema *Routine Skin Exam Skin: Present warm; Absent rash *Routine Neurological Exam Neurological: Present alert and oriented X3 Assessment and Plan *Assessment and plan (1) Nausea vomiting and diarrhea: Status: Acute Category: Medical Code(s): R11.2 - Nausea with vomiting, unspecified; R19.7 - Diarrhea, unspecified (2) Enteritis: Status: Acute Category: Medical Code(s): K52.9 - Noninfective gastroenteritis and colitis, unspecified (3) Pancreatitis: Status: Acute Qualifiers: Acute pancreatitis complication: no infection or necrosis Chronicity: acute Pancreatitis type: drug induced Qualified Code(s): K85.30 - Drug induced acute pancreatitis without necrosis or infection Category: Medical Code(s): K85.90 - Acute pancreatitis without necrosis or infection, unspecified Plan Apryl Bello is a 65-year-old female with a medical history significant for type 2 diabetes hypertension, hypothyroidism anxiety/depression who presents with 2 weeks onset of intermittent abdominal pains, nausea without vomiting, and several day history of diarrhea. Patient states she has been having on and off abdominal pain for more than a year, has been on Ozempic and then Trulicity. More recently, her Trulicity dose was increased mid May after which patient's abdominal pain seem to have worsened. She was also recently treated for UTI with levofloxacin, urine culture from Klebsiella sensitive to this. She started having loose, watery diarrhea after starting levofloxacin few days ago. She continues to have decreased oral tolerance, nausea without vomiting. Workup in the ED significant for lipase 2473, ALP 171, UA grossly abnormal. CT abdomen suggests enteritis. Case discussed with ED provider and decision made to admit patient for acute pancreatitis. #Acute pancreatitis ? Presents with 2-week onset of epigastric abdominal pain, decreased oral tolerance, nausea without vomiting. Lipase 2473. Calcium normal. ? Patient admits to having mild intermittent abdominal pains for more than a year starting GLP-1 agonist, recently her Trulicity dose was increased on 06/11/2025. Likely culprit of pancreatitis. ? ALP also elevated to 171, other LFTs normal. No RUQ pain. However, given elevated ALP will obtain RUQ ultrasound. ? Conservative management of acute pancreatitis, advance diet as tolerated. Currently low fat diet. ? Continue LR at 100 mL/h. ? Follow-up RUQ ultrasound. ? Follow-up morning LFTs, CMP. ? Follow-up morning triglycerides. ? Strongly recommend discontinuing GLP-1 agonist. #Acute diarrhea #Enteritis ? Started after using levofloxacin for UTI last week. ? Follow-up diarrhea panel. Hold home prucalopride, metformin. #Type 2 diabetes ? Hemoglobin A1c 10.7% in April 2025. ? Patient has insulin pump with Dexcom sensor. Refuses to run off insulin pump, therefore we will monitor blood sugars ACHS. ? Calibrate Dexcom sensor with our glucometer. LDSSI. ? Resume home Jardiance 25 mg #Hypertension ? Resume home medications once reconciled. BP soft 108/52 at this time. #Hypothyroidism ? Resume home levothyroxine 75 mcg. Follow-up morning TFTs. #GERD ? Continue home PPI. Full code DVT prophylaxis: Lovenox 40 mg twice daily
--- NOTE | 2025-06-26 02:53 | PC.NURSE ---
[facility] from ED at 02:52.
[2025-06-26] MEDS: LACTATED RINGERS 1000ML 1,000 ML 100 ML IV ×3 (03:00→22:01)
[2025-06-26] MEDS: MORPHINE 2MG/ML SYRINGE 2 MG IV ×4 (03:05→23:59)
[2025-06-26] MEDS: ACETAMINOPHEN 325MG TAB 650 MG PO (03:45)
[2025-06-26] MEDS: ONDANSETRON 4MG/2ML VIAL 4 MG IV ×3 (03:45→22:07)
--- NOTE | 2025-06-26 04:20 | PC.NURSE ---
Mrs Apryl Bello was newly admitted this shift on behalf of the documented diagnosis pancreatitis. Admission assessments and home medication reconciliation were completed by me. Patient is alert and oriented x4. She is tolerating room air with oxygen saturations > 90%. Soft blood pressures noted. Patient has complained of moderate abdominal pain of which morphine was administered per MAR for pain relief. She also requested to have Tylenol for additional pain relieving measures, and Zofran for a nausea complaint. Diarrhea panel remains uncollected thus far, for the patient has not had a bowel movement since her arrival to the second floor. Urinating well. Auscultation of heart, lungs, and bowels within normal findings. Reports having loose bowel movements lately. Patient ambulates independently without difficulties. Medications administered per MAR accordingly. Lactated Ringers continue to infuse at 100 mL/hr. Low fat diet ordered for the patient; she has tolerated a Diet Starry soda without nausea/vomiting this shift. Patient stated that she occasionally has difficulties with swallowing both food + beverage items; Silvino Yun MD was made aware. Dexcom + insulin pump located to right outer/upper arm. ACHS glucose checks. At this time, the patient is resting upright in bed without any further complaints. No new needs thus far. Call light within reach.
[2025-06-26 06:10] LABS: Hematocrit 38.7 % (37.0-47.0); Immature Granulocytes % 0.3 %; Mean Corpuscular HGB Conc 30.2 g/dL (31.8-35.4); Mean Corpuscular Hemoglobin 24.2 pg (27.0-31.2); Mean Corpuscular Volume 80.0 fl (81-99); Nucleated Red Blood Cells % 0 %; Platelet Count 302 K/mm3 (142-424); Red Blood Count 4.84 M/mm3 (4.20-5.40); Red Cell Distribution Width-SD 56.0 fL; White Blood Count 11.8 K/mm3 (4.8-10.8)
--- NOTE | 2025-06-26 06:10 | PC.NURSE ---
Patient's glucose check via fingerstick/Accu-Chek was 153 this morning. According to the patient's Dexcom, her glucose reading was 138. Silvino Yun MD was notified about this; he stated that it will be OK to use her Dexcom for glucose checks at this time. Despite education about using this facility's sliding scale insulin, the patient refused and also stated that she would prefer to keep her insulin pump on. Silvino Yun MD made aware.
--- NOTE | 2025-06-26 06:23 | US_ITS ---
FINAL REPORT TECHNIQUE: Sonographic images of the right upper quadrant were obtained. CLINICAL HISTORY: Elevated ALP COMPARISON: None FINDINGS: PANCREAS: Unremarkable. LIVER: There is fatty infiltration of the liver. No focal hepatic lesion. No intrahepatic biliary ductal dilatation. The portal vein is patent with normal directional flow. GALLBLADDER: The gallbladder is mildly distended but there are no gallstones. There is no wall thickening or pericholecystic fluid. COMMON DUCT: 3 mm. Normal for age. RIGHT KIDNEY: The right kidney measures 9.3 cm. There is no hydronephrosis, mass, or stone. FREE FLUID: None IMPRESSION: There is fatty infiltration of the liver. Reviewed, Interpreted and Dictated by Taryn Castillo MD Transcribed by Gabi Bansal Authenticated and [facility]
[2025-06-26 06:29] LABS: Hemoglobin 11.7 g/dL (12.2-16.2)
[2025-06-26 06:31] LABS: Alanine Aminotransferase 17 U/L (12-78); Albumin Level 3.9 g/dl (3.5-5.0); Albumin/Globulin Ratio 1.1 (1.1-1.8); Alkaline Phosphatase 160 U/L (38-126); Anion Gap 12.0 mEq/L (5-15); Aspartate Amino Transferase 27 U/L (14-36); Bilirubin,Total 0.2 mg/dl (0.2-1.3); Blood Urea Nitrogen 14 mg/dl (7-17); Calcium 9.6 mg/dl (8.4-10.2); Carbon Dioxide 24 mmol/L (22.0-30.0); Chloride 107 mmol/L (98-107); Cholesterol 120 mg/dl (140-200); Creatinine Clearance Estimated 46 mL/min (50-200); Creatinine,Serum 1.00 mg/dl (0.52-1.04); Estimated Glomerular Filt Rate 56 ml/min (>60); GFR (African American) 68 ML/MIN (>60); Globulin 3.6 g/dL (1.3-3.2); Glucose 161 mg/dl (74-100); HDL Cholesterol 30 mg/dl (40-60); Magnesium 1.9 mg/dl (1.6-2.3); Potassium 4.0 mmoL/L (3.5-5.1); Sodium 139 mmol/L (136-145); Total Protein,Serum 7.5 g/dl (6.3-8.2); Triglycerides 109 mg/dl (30-150)
[2025-06-26 07:24] LABS: Free T4 (Free Thyroxine) 1.45 ng/dl (0.78-2.19)
[2025-06-26 07:38] LABS: Thyroid Stimulating Hormone 0.93 uIU/mL (0.465-4.68)
[2025-06-26] MEDS: EMPAGLIFLOZIN 25MG TABLET 25 MG PO (10:00)
[2025-06-26] MEDS: LEVOTHYROXINE 75MCG (0.075MG) TAB 75 MCG PO (10:00)
[2025-06-26] MEDS: ASPIRIN 81MG CHEWABLE TABLET 81 MG PO (10:01)
[2025-06-26 11:10] LABS: POC Glucose,Bedside 136 (70-110)
--- NOTE | 2025-06-26 11:13 | PC.NURSE ---
pt FSBS 136 at 1100. pt's dexcom reading 110. no insulin coverage needed based on SSI protocol. pt persistent about preference on using her own dexcom and continous insulin pump and continues to refuse ordered humalog. made aware and is okay with pt using dexcom and insulin pump.
[2025-06-26 11:41] LABS: POC Glucose,Bedside 153 (70-110)
--- NOTE | 2025-06-26 11:41 | PC.NURSE ---
pt states that her insulin pump has not given her any insulin this afternoon
--- NOTE | 2025-06-26 16:20 | EXP.EVENT.NO ---
Patient is seen and evaluated at the bedside. Patient mentions she still feels nauseated however she is starving and she wants to try food. Start on clear liquid diet. Patient's labs radiology and medications reviewed. Continue IV fluids, continue to advance diet as tolerated likely discharge 1 to 2 days pending clinical improvement
--- NOTE | 2025-06-26 16:57 | PC.NURSE ---
pt's blood sugar per dexcom at 1630 was 97. pt states her insulin pump did not deliver any insulin
--- NOTE | 2025-06-26 19:40 | PC.NURSE ---
Pt is A&Ox4. Vital signs stable tolerating room air. IV fluids infusing per MAR. Pt complains of pain and nausea. Treated per MAR. Abdominal ultrasound completed. Awaiting diarrhea panel. No further needs voiced at this time. Call light within reach
[2025-06-26] MEDS: PANTOPRAZOLE 40MG TABLET 40 MG PO (20:57)
[2025-06-27 03:42] VITALS: BMI 42.5
[2025-06-27] MEDS: ACETAMINOPHEN 325MG TAB 650 MG PO (04:07)
[2025-06-27 06:20] LABS: Hematocrit 35.3 % (37.0-47.0); Hemoglobin 10.7 g/dL (12.2-16.2); Immature Granulocytes % 0.4 %; Mean Corpuscular HGB Conc 30.3 g/dL (31.8-35.4); Mean Corpuscular Hemoglobin 24.5 pg (27.0-31.2); Mean Corpuscular Volume 80.8 fl (81-99); Nucleated Red Blood Cells % 0 %; Platelet Count 241 K/mm3 (142-424); Red Blood Count 4.37 M/mm3 (4.20-5.40); Red Cell Distribution Width-SD 55.7 fL; White Blood Count 10.7 K/mm3 (4.8-10.8)
[2025-06-27 06:55] LABS: Alanine Aminotransferase 14 U/L (12-78); Albumin Level 3.6 g/dl (3.5-5.0); Albumin/Globulin Ratio 1.2 (1.1-1.8); Alkaline Phosphatase 150 U/L (38-126); Anion Gap 8.8 mEq/L (5-15); Aspartate Amino Transferase 26 U/L (14-36); Bilirubin,Total 0.3 mg/dl (0.2-1.3); Blood Urea Nitrogen 9 mg/dl (7-17); Calcium 8.9 mg/dl (8.4-10.2); Carbon Dioxide 24 mmol/L (22.0-30.0); Chloride 107 mmol/L (98-107); Creatinine Clearance Estimated 46 mL/min (50-200); Creatinine,Serum 0.90 mg/dl (0.52-1.04); Estimated Glomerular Filt Rate 63 ml/min (>60); GFR (African American) 77 ML/MIN (>60); Globulin 3.1 g/dL (1.3-3.2); Glucose 118 mg/dl (74-100); Magnesium 1.6 mg/dl (1.6-2.3); Potassium 3.8 mmoL/L (3.5-5.1); Sodium 136 mmol/L (136-145); Total Protein,Serum 6.7 g/dl (6.3-8.2)
[2025-06-27 07:51] VITALS: BP 126/69; PULSE 71; RESP 16; TEMP 36.7; O2SAT 93
[2025-06-27 08:00] LABS: Total Cells Counted 100
[2025-06-27 08:02] LABS: RBC Morphology Normal
--- NOTE | 2025-06-27 08:14 | PC.NURSE ---
Pt. is alert and orientated x 4. Pt. is on room air. Pt. c/o epigastric pain and pain all over abdomen. Pt. medicated x 2 for abdominal pain. Pt. on full liquid dieit and tolerating well. Pt. a diabetic. Pt. has a dexcom and insulin pump. She refuses finer sticks for glucose and if coverage states she will use her insulin pump. Personal items and call moe in reach. Bed in low and locked position. Saferty measures in place.
[2025-06-27] MEDS: LEVOTHYROXINE 75MCG (0.075MG) TAB 75 MCG PO (08:54)
[2025-06-27] MEDS: ASPIRIN 81MG CHEWABLE TABLET 81 MG PO (08:54)
[2025-06-27 10:16] LABS: Adenovirus F 40/41, stool Not Detected (NotDetected); Clostridium Difficile A/B, PCR Not Detected (NotDetected); Cyclospora Cayetanesis Not Detected (NotDetected); Plesimonas Shigalloides, PCR Not Detected (NotDetected); Salmonella, PCR Not Detected (NotDetected); Shiga-like toxin E coli Not Detected (NotDetected); Shigella Enterovasive E coli Not Detected (NotDetected); Vibrio, PCR Not Detected (NotDetected); Yersinia Entercolitica, PCR Not Detected (NotDetected)
--- NOTE | 2025-06-27 11:03 | EXP.DC.SUM ---
General Admission date:: 06/26/25 Discharge date: 06/27/25 HPI HPI HPI: Apryl Bello is a 65-year-old female with a medical history significant for type 2 diabetes hypertension, hypothyroidism anxiety/depression who presents with 2 weeks onset of intermittent abdominal pains, nausea without vomiting, and several day history of diarrhea. Patient states she has been having on and off abdominal pain for more than a year, has been on Ozempic and then Trulicity. More recently, her Trulicity dose was increased mid May after which patient's abdominal pain seem to have worsened. She was also recently treated for UTI with levofloxacin, urine culture from Klebsiella sensitive to this. She started having loose, watery diarrhea after starting levofloxacin few days ago. She continues to have decreased oral tolerance, nausea without vomiting. Workup in the ED significant for lipase 2473, ALP 171, UA grossly abnormal. CT abdomen suggests enteritis. Case discussed with ED provider and decision made to admit patient for acute pancreatitis. Hospital Course Hospital Course Hospital Course: Apryl Bello is a 65-year-old female with a medical history significant for type 2 diabetes hypertension, hypothyroidism anxiety/depression who presents with 2 weeks onset of intermittent abdominal pains, nausea without vomiting, and several day history of diarrhea. Patient states she has been having on and off abdominal pain for more than a year, has been on Ozempic and then Trulicity. More recently, her Trulicity dose was increased mid May after which patient's abdominal pain seem to have worsened. She was also recently treated for UTI with levofloxacin, urine culture from Klebsiella sensitive to this. She started having loose, watery diarrhea after starting levofloxacin few days ago. She continues to have decreased oral tolerance, nausea without vomiting. Workup in the ED significant for lipase 2473, ALP 171, UA grossly abnormal. CT abdomen suggests enteritis. #Acute pancreatitis - resolved, tolerating diet, patient counseled on avoiding fatty foods #Acute diarrhea - resolved #Enteritis - resolved patient is stable for DC and is requesting to be discharged Exam Data for Last 24 hours Vital signs and Labs for Last 24 Hours: Temp Pulse Resp BP Pulse Ox O2 Del Method 98.1 F 71 16 126/69 93 L Room Air 06/27/25 07:51 06/27/25 07:51 06/27/25 07:51 06/27/25 07:51 06/27/25 07:51 06/27/25 10:50 Laboratory Results - last 24 hr 06/26/25 05:50: POC Glucose 153 H 06/26/25 11:02: POC Glucose 136 H 06/27/25 06:08: WBC 10.7, RBC 4.37, Hgb 10.7 L, Hct 35.3 L, MCV 80.8 L, MCH 24.5 L, MCHC 30.3 L, RDW 19.0 H, Plt Count 241, MPV 9.2, Neut % (Auto) 59.6, Lymph % (Auto) 13.6, Gooding % (Auto) 5.4, Eos % (Auto) 20.4 H, Baso % (Auto) 0.6, Neut # (Auto) 6.4, Lymph # (Auto) 1.5, Gooding # (Auto) 0.6, Eos # (Auto) 2.2 H, Baso # (Auto) 0.1, Total Counted 100, Neutrophils % (Manual) 63, Lymphocytes % (Manual) 17, Monocytes % (Manual) 2, Eosinophils % (Manual) 18 H, Platelet Estimate Normal, RBC Morphology Normal, Sodium 136, Potassium 3.8, Chloride 107, Carbon Dioxide 24, Anion Gap 8.8, BUN 9 D, Creatinine 0.90, Estimated Creat Clear 46, Estimated GFR 63, Est GFR ( Amer) 77, Glucose 118 H, Calcium 8.9, Magnesium 1.6 D, Total Bilirubin 0.3, AST 26, ALT 14, Alkaline Phosphatase 150 H, Total Protein 6.7, Albumin 3.6, Globulin 3.1, Albumin/Globulin Ratio 1.2 I & O for Last 24 hours: Intake & Output 06/24/25 06/25/25 06/26/25 06/27/25 23:59 23:59 23:59 23:59 Intake Total 840 / 840 360 / 360 Output Total 350 / 350 0 / 0 Balance 490 / 490 360 / 360 Weight 102.965 kg 102.965 kg 105.347 kg Constitutional Constitutional: no acute distress *Routine HEENT Exam Head: Present normocephalic Eye: Present EOMI and PERRL ENT: Present mucous membranes moist *Routine Neck Exam Neck: Present supple; Absent lymphadenopathy *Routine Respiratory Exam Respiratory: Present CTA bilaterally *Routine Cardiovascular Exam Cardiovascular: Present RRR *Routine Abdominal Exam Abdominal: Present soft and normoactive bowel sounds; Absent tenderness *Routine Extremities Exam Extremities: Absent cyanosis, clubbing or edema *Routine Skin Exam Skin: Present warm; Absent rash *Routine Neurological Exam Neurological: Present alert and oriented X3 Results Data Completed and Pending Labs on day of discharge: Labs from last 24 hours 06/27/25 06/26/25 06/26/25 06:08 11:02 05:50 WBC 10.7 RBC 4.37 Hgb 10.7 L Hct 35.3 L MCV 80.8 L MCH 24.5 L MCHC 30.3 L RDW 19.0 H Plt Count 241 MPV 9.2 Neut % (Auto) 59.6 Lymph % (Auto) 13.6 Gooding % (Auto) 5.4 Eos % (Auto) 20.4 H Baso % (Auto) 0.6 Neut # (Auto) 6.4 Lymph # (Auto) 1.5 Gooding # (Auto) 0.6 Eos # (Auto) 2.2 H Baso # (Auto) 0.1 Total Counted 100 Neutrophils % (Manual) 63 Lymphocytes % (Manual) 17 Monocytes % (Manual) 2 Eosinophils % (Manual) 18 H Platelet Estimate Normal RBC Morphology Normal Sodium 136 Potassium 3.8 Chloride 107 Carbon Dioxide 24 Anion Gap 8.8 BUN 9 D Creatinine 0.90 Estimated Creat Clear 46 Estimated GFR 63 Est GFR ( Amer) 77 Glucose 118 H POC Glucose 136 H 153 H Calcium 8.9 Magnesium 1.6 D Total Bilirubin 0.3 AST 26 ALT 14 Alkaline Phosphatase 150 H Total Protein 6.7 Albumin 3.6 Globulin 3.1 Albumin/Globulin Ratio 1.2 DS: Diagnosis Discharge Diagnosis (1) Nausea vomiting and diarrhea: Status: Acute Code(s): R11.2 - Nausea with vomiting, unspecified; R19.7 - Diarrhea, unspecified (2) Enteritis: Status: Acute Code(s): K52.9 - Noninfective gastroenteritis and colitis, unspecified (3) Pancreatitis: Status: Acute Code(s): K85.90 - Acute pancreatitis without necrosis or infection, unspecified Qualifiers: Acute pancreatitis complication: no infection or necrosis Chronicity: acute Pancreatitis type: drug induced Qualified Code(s): K85.30 - Drug induced acute pancreatitis without necrosis or infection Meds Home Medications and Allergies Home Medications ?Medication ?Instructions ?Recorded ?Confirmed ?Type blood-glucose,machine assembler,cont #1 ea 08/23/24 06/26/25 Rx (Dexcom G7 Front End Drupal Developer) cholecalciferol (vitamin D3) 25 25 mcg PO DAILY 11/30/24 06/26/25 History mcg (1,000 unit) capsule esomeprazole magnesium 40 mg 40 mg PO DAILY #30 caps 12/12/24 06/26/25 Rx capsule,delayed release aspirin 81 mg chewable tablet 81 mg PO DAILY 01/22/25 06/26/25 History hydrochlorothiazide 12.5 mg tablet 12.5 mg PO DAILY #90 tabs 02/19/25 06/26/25 Rx empagliflozin 25 mg tablet 25 mg PO DAILY #30 tabs 03/05/25 06/26/25 Rx (Jardiance) blood-glucose sensor (Dexcom G7 #9 ea 06/11/25 06/26/25 Rx Sensor device) dulaglutide 4.5 mg/0.5 mL 4.5 mg (0.5 mL) SQ WEEKLY #2 mL 06/11/25 06/26/25 Rx subcutaneous pen injector (Trulicity) duloxetine 30 mg capsule,delayed 30 mg PO BID #60 caps 06/11/25 06/26/25 Rx release levothyroxine 75 mcg tablet 75 mcg PO DAILY #90 tabs 06/11/25 06/26/25 Rx (Euthyrox) prucalopride 2 mg tablet 2 mg PO DAILY 06/11/25 06/26/25 History insulin pump cart,auto,BT,G6/7 #10 ea 06/13/25 06/26/25 Rx (Omnipod 5 G6-G7 Pods (Gen 5) subcutaneous cartridge) insulin aspart U-100 100 unit/mL 10 unit SQ TID 06/26/25 06/26/25 History subcutaneous solution (Novolog U-100 Insulin aspart) losartan 100 mg tablet 100 mg PO DAILY 06/26/25 06/26/25 History metformin 500 mg tablet 500 mg PO BID 06/26/25 06/26/25 History rosuvastatin 5 mg tablet 5 mg PO DAILY 06/26/25 06/26/25 History New Prescriptions to Start Prescriptions: Allergies Allergy/AdvReac Type Severity Reaction Status Date / Time amoxicillin (From AUGMENTIN) Allergy Mild NA-NAUSEA Verified 06/11/25 15:25 cefdinir Allergy Mild Hives Verified 06/26/25 03:16 clavulanic acid (From Allergy Mild NA-NAUSEA Verified 06/11/25 15:25 AUGMENTIN) hydrocodone (From NORCO) Allergy Mild HIVES,ITCHI Verified 06/11/25 15:25 NG naproxen (NAPROXEN) Allergy Mild HIVES,ITCHI Verified 06/11/25 15:25 NG Sulfa (Sulfonamide Allergy Mild HIVES,ITCHI Verified 06/11/25 15:25 Antibiotics) (SULFA NG (SULFONAMIDE ANTIBIOTICS)) aspirin Allergy Hives Verified 06/26/25 03:16 Cephalosporins Allergy unknown Verified 06/11/25 15:25 dulaglutide (From Trulicity) AdvReac Intermediate Verified 06/26/25 06:24 levofloxacin AdvReac Nausea Verified 06/26/25 03:16 Discharge Plan Disposition Patient Disposition: Home, Self-Care Condition: Good Follow up Plan Follow up with: Prasad Preston DO [Primary Care Provider, Family Practice] - Enter time for follow up Prescriptions/Medication Reconciliation: Continued (DME) Dexcom G7 Front End Drupal Developer Misc See Rx Instructions .Route Qty: 1 0RF Rx Instructions: As directed cholecalciferol (vitamin D3) 25 mcg (1,000 unit) capsule 25 mcg PO DAILY aspirin 81 mg tablet,chewable 81 mg PO DAILY prucalopride 2 mg tablet 2 mg PO DAILY Trulicity 4.5 mg/0.5 mL pen injector 4.5 mg SQ WEEKLY Qty: 2 2RF (DME) Dexcom G7 Sensor Device See Rx Instructions .Route Qty: 9 1RF Rx Instructions: As directed duloxetine 30 mg capsule,delayed release(DR/EC) 30 mg PO BID Qty: 60 2RF esomeprazole magnesium 40 mg capsule,delayed release(DR/EC) 40 mg PO DAILY Qty: 30 5RF hydrochlorothiazide 12.5 mg tablet 12.5 mg PO DAILY Qty: 90 1RF Jardiance 25 mg tablet 25 mg PO DAILY Qty: 30 3RF levothyroxine [Euthyrox] 75 mcg tablet 75 mcg PO DAILY Qty: 90 1RF (DME) Omnipod 5 G6-G7 Pods (Gen 5) Cartridge See Rx Instructions .ROUTE .COMPLEX Qty: 10 5RF Dose Instruction: USE DIRECTED Rx Instructions: Change Omnipod once every 3 days. rosuvastatin 5 mg tablet 5 mg PO DAILY Patient Comments: TAKE 1 TABLET BY MOUTH ONCE DAILY FOR CHOLESTEROL metformin 500 mg tablet 500 mg PO BID Rx Instructions: Take 1 tablet by mouth twice daily insulin aspart U-100 [Novolog U-100 Insulin aspart] 100 unit/mL solution 10 unit SQ TID Rx Instructions: INJECT 10 UNITS SUBCUTANEOUSLY THREE TIMES DAILY losartan 100 mg tablet 100 mg PO DAILY Rx Instructions: Take 1 tablet by mouth once daily Problem Reconciliation Problems Reviewed?: Yes Patient Discharge Instructions ACTIVITY: Continue current activity DIET: low fat, low cholesterol Patient Instructions: DI for Pancreatitis, DI for Enteritis Print Language: Malay Providers Primary Care Provider: Prasad Preston Admit Provider: Matt Yun Attending Provider: Matt Yun
[2025-06-27] MEDS: MAGNESIUM SULFATE IN WATER 2 GM/50 ML PIGGYBACK IV (11:48)
--- NOTE | 2025-06-28 10:36 | SW/DCPLANNER ---
Spoke with patient on the phone. Patient stated that she is doing well. Patient stated that she is aware of her upcoming appointments. Patient stated that she was no prescribed any new medicine. Patient stated that she had some diarrhea yesterday and that she was wondering if she needs to continue the liquid diet or if she can eat regular food. I suggested i would try regular food and if that hurts her and she has diarrhea then to do the liquid diet. Patient stated that she has no other concerns or questions. Sheila Tee
--- OUTSIDE RECORDS SUMMARY | 2025-06-28 12:40 | XMS_ITS | Clinical Summary ---
Author Organization [facility] Address [address] [place] [address] Care Team Providers Care Impregnator And Drier Helper Name Role Phone Cornelius Aparicio MD Primary Care Provider [phone] Allergies Active Allergy Reactions Criticality Noted Date [...] mellitus with other specified complication, unspecified whether intermediate insulin use ([facility]),Type 2 diabetes mellitus without complication, without long-term [...] hyperglycemia, with long-term current use of insulin ([facility]) Inject 0.5 mg once weekly. Further refills at 04/26/24 appointment. 3 mL 3 4 Active insulin aspart (NovoLOG) 100 UNIT/ML injection pen Inject 10 Units under the skin 3 (three) times a day with meals. 15 mL 3 4 Active pen needle, diabetic (BD Pen Needle Micro U/F) 32G X 6 MM miscIndications:Ty pe 2 diabetes mellitus with other specified complication, unspecified whether assistant terminal manager insulin use ([facility]),Type 2 diabetes mellitus without complication, without long-term [...] 1-dose series) 2022 [facility]-Depression Screening 05/17/2024 05/17/2023 [id number]-29 Vaccine ( season) 2024 10/14/2021, 01/16/2021, 12/17/2020 [...] hyperglycemia, with long-term current use of insulin ([facility]) ACUTE HEPATITIS PANEL Routine 07/23/2022 10:53 AM EDT Polyarthralgia Elevated C-reactive protein from Last 3 Months or Most Recently Relevant to Health Maintenance Results * (ABNORMAL) POCT glycosylated hemoglobin (Hb A1C) (04/26/2024 8:29 AM EDT) Pathologist [facility] POCT Hemoglobin A1C 8.9 <5.7% Non-Diabe tic [facility] Kit Lot Number [id number] [facility] Kit Expiration Date 02/25/2026 [facility] Blood Venous blood specimen / Unknown 04/26/2024 8:29 AM EDT Osmel Auguste MD POINT OF CARE TEST ENTER/ED IT ORDERABLES Final Result Performing Organization Address City/[facility] [address]/ZIP Co de Phone Number [facility]ALTH[facility] [address] [place] [address] * Acute Hepatitis Panel (07/23/2022 10:53 AM EDT) Pathologist [facility] Hepatitis B Surf Antigen Negative Negative 07/23/2022 1:41 PM EDT [facility] Hepatitis C Antibody Negative Negative 07/23/2022 1:41 PM EDT [facility] Hepatitis A Antibody IgM Negative Negative 07/23/2022 1:41 PM EDT [facility] Hepatitis B Core Antibody IgM Negative Negative 07/23/2022 1:41 PM EDT [facility] Blood Venous blood specimen / Unknown Venipuncture / Unknown 07/23/2022 10:53 AM EDT 07/23/2022 10:54 AM EDT [facility] BLOOD ORDERABLES Final Resul t Performing Organization Address City/[facility] [address]/[facility] Co de Phone Number [facility] [address] [place] [address] from Last 3 Months or Most Recently Relevant to Health Maintenance Insurance [employer] Care Teams Impregnator And Drier Helper Relationship Specialty Start Date End Date Cornelius Aparicio MD [address] [place] [address] PCP - General 04/10/21
--- OUTSIDE RECORDS SUMMARY | 2025-06-28 12:40 | XMS_ITS | Encounter Summary ---
Author Organization [facility] Address [address] [place] [address] Care Team Providers Care Wool Washing Machine Operator Name Role Phone Cornelius Aparicio MD Primary Care Provider [phone] Reason for Visit * Reason Comments Med Refill Encounter Details Date Type Department Care Team ([facility] st Contact Info) Description 03/03/2023 Refill [facility] Endocrinology [address] [place] [address] Osmel Auguste MD [address] [address] Type 2 diabetes mellitus without complication, without long-term current use of insulin ([facility]) Social History Tobacco [...] documented as of this encounter Care Teams Wool Washing Machine Operator Relationship Specialty Start Date End Date Cornelius Aparicio MD [address] [place] [address] PCP - General 04/10/21 documented as of this encounter
--- OUTSIDE RECORDS SUMMARY | 2025-06-28 12:40 | XMS_ITS | Encounter Summary ---
Author Organization [facility] Address [address] [place] [address] Care Team Providers Care Airport Driver Name Role Phone Cornelius Aparicio MD Primary Care Provider [phone] Reason for Visit * Reason Comments Med Refill Encounter Details Date Type Department Care Team (Late st Contact Info) Description 09/25/2023 Refill [facility] [address] [place] [address] Alivia Troy L, AIR CONDITIONING MANAGER [address] [place] [address] Primary osteoarthritis involving multiple joints [...] documented as of this encounter Care Teams Airport Driver Relationship Specialty Start Date End Date Cornelius Aparicio MD [address] [place] [address] PCP - General 04/10/21 documented as of this encounter
--- OUTSIDE RECORDS SUMMARY | 2025-06-28 12:40 | XMS_ITS | Encounter Summary ---
Author Organization [facility] Address [address] [place] [address] Care Team Providers Care Fisheries Director Name Role Phone Cornelius Aparicio MD Primary Care Provider [phone] Reason for Referral * Consultation (Routine) - Closed Specialty Diagnoses / Procedures Referred By Enmanuel rich Referred To Contact Rheumatology Diagnoses Elevated sed rate Elevated C-reactive protein Clementine Kohli PA [address] [place] [address] Phone: tel: fax: Referral ID Status Reason Start Date Expiration Date V isits Requested Visits Authorized [id number] Closed Specialty Services Required 06/02/2022 12/02/2023 1 1 Encounter Details Date Type Department Care Team (Late st Contact Info) Description 06/02/2022 Community [facility] [address] [place] [address] Clementine Kohli PA [address] [place] [address] Elevated sed rate (Primary Dx); [...] documented as of this encounter Care Teams Fisheries Director Relationship Specialty Start Date End Date Cornelius Aparicio MD [address] [place] [address] PCP - General 04/10/21 documented as of this encounter
--- OUTSIDE RECORDS SUMMARY | 2025-06-28 12:40 | XMS_ITS | Encounter Summary ---
Author Organization [facility] Address [address] [place] [address] Care Team Providers Care Bond Broker Name Role Phone Cornelius Aparicio MD Primary Care Provider [phone] Reason for Visit * Reason Comments Med Refill Encounter Details Date Type Department Care Team (Late st Contact Info) Description 03/26/2023 Refill [facility] Endocrinology [address] [place] [address] Osmel Auguste MD [address] [address] Hypothyroidism, unspecified type Social History [...] 90 day supply with 1 refill(s) to [facility] pharmacy. Enough refills until appointment [...] documented as of this encounter Care Teams Bond Broker Relationship Specialty Start Date End Date Cornelius Aparicio MD [address] [place] [address] PCP - General 04/10/21 documented as of this encounter
== END 2025-06-27 13:40 | disposition home or self-care (01) | DRG 439 ==
LOC: ER 06-26 02:09 → 2ND 06-26 02:42
PROVIDERS: Admitting Provider Student in an Organized Health Care Education/Training Program; Emergency Provider Emergency Medicine; PCP Internal Medicine; Visit Provider Student in an Organized Health Care Education/Training Program
DX: K85.30 Drug induced acute pancreatitis without necrosis or infection (principal); K52.1 Toxic gastroenteritis and colitis; I10 Essential (primary) hypertension; E03.9 Hypothyroidism, unspecified; F41.9 Anxiety disorder, unspecified; F32.A Depression, unspecified; F17.210 Nicotine dependence, cigarettes, uncomplicated; K21.9 Gastro-esophageal reflux disease without esophagitis; Z96.41 Presence of insulin pump (external) (internal); T38.3X5A Adverse effect of insulin and oral hypoglycemic [antidiabetic] drugs, initial encounter; E11.65 Type 2 diabetes mellitus with hyperglycemia; Z79.82 Long term (current) use of aspirin; T36.8X5A Adverse effect of other systemic antibiotics, initial encounter; Z79.85 Long-term (current) use of injectable non-insulin antidiabetic drugs; Z79.890 Hormone replacement therapy; Z79.4 Long term (current) use of insulin; Z79.84 Long term (current) use of oral hypoglycemic drugs; Z79.899 Other long term (current) drug therapy; Z88.6 Allergy status to analgesic agent; Z88.1 Allergy status to other antibiotic agents; Z88.2 Allergy status to sulfonamides; Z88.8 Allergy status to other drugs, medicaments and biological substances
CPT/HCPCS: 36415; 74177; 76705; 80053; 80061; 81001; 82962; 83690; 83735; 84439; 84443; 85007; 85025; 86803; 87086; 87389; 87507; G0378; J1650; J2270; J2405; J3475; J7030; J7120; Q9967

== ENCOUNTER 2025-06-28 21:51 | Emergency (ER) | payer BC, SELFPAY ==
[2025-06-28 21:57] VITALS: BP 138/68; PULSE 66; O2SAT 95
[2025-06-28 21:58] VITALS: BP 138/68; PULSE 72; RESP 18; TEMP 36.5; O2SAT 94; BMI 40.4
--- OUTSIDE RECORDS SUMMARY | 2025-06-28 21:59 | XMS_ITS | Encounter Summary ---
Author Organization [facility] Address [address] [place] [address] Care Team Providers Care Quality Assurance Monitor Chassis Name Role Phone Cornelius Aparicio MD Primary Care Provider [phone] Reason for Visit * Reason Comments Med Refill Encounter Details Date Type Department Care Team (Late st Contact Info) Description 03/26/2023 Refill [facility] Endocrinology [address] [place] [address] Osmel Auguste MD [address] [address] Hypothyroidism, unspecified type Social History [...] 90 day supply with 1 refill(s) to [facility] pharmacy. Enough refills until appointment on 07/01 [...] documented as of this encounter Care Teams Quality Assurance Monitor Chassis Relationship Specialty Start Date End Date Cornelius Aparicio MD [address] [place] [address] PCP - General 04/10/21 documented as of this encounter
--- OUTSIDE RECORDS SUMMARY | 2025-06-28 21:59 | XMS_ITS | Encounter Summary ---
Author Organization [facility] Address [address] [place] [address] Care Team Providers Care Experimental Display Builder Name Role Phone Cornelius Aparicio MD Primary Care Provider [phone] Reason for Referral * Consultation (Routine) - Closed Specialty Diagnoses / Procedures Referred By Enmanuel rich Referred To Contact Rheumatology Diagnoses Elevated sed rate Elevated C-reactive protein Clementine Kohli PA [address] [place] [address] Phone: tel: fax: Referral ID Status Reason Start Date Expiration Date V isits Requested Visits Authorized [id number] Closed Specialty Services Required 06/02/2022 12/02/2023 1 1 Encounter Details Date Type Department Care Team (Late st Contact Info) Description 06/02/2022 Community [facility] [address] [place] [address] Clementine Kohli PA [address] [place] [address] Elevated sed rate (Primary Dx); [...] documented as of this encounter Care Teams Experimental Display Builder Relationship Specialty Start Date End Date Cornelius Aparicio MD [address] [place] [address] PCP - General 04/10/21 documented as of this encounter
--- OUTSIDE RECORDS SUMMARY | 2025-06-28 21:59 | XMS_ITS | Encounter Summary ---
Author Organization [facility] Address [address] [place] [address] Care Team Providers Care Barrel Assembly Inspector Name Role Phone Cornelius Aparicio MD Primary Care Provider [phone] Reason for Visit * Reason Comments Med Refill Encounter Details Date Type Department Care Team ([facility] st Contact Info) Description 03/03/2023 Refill [facility] Endocrinology [address] [place] [address] Osmel Auguste MD [address] [address] Type 2 diabetes mellitus without complication, without long-term current use of insulin ([facility]) Social History Tobacco Use Types Packs/Day Years [...] documented as of this encounter Care Teams Barrel Assembly Inspector Relationship Specialty Start Date End Date Cornelius Aparicio MD [address] [place] [address] PCP - General 04/10/21 documented as of this encounter
--- OUTSIDE RECORDS SUMMARY | 2025-06-28 21:59 | XMS_ITS | Clinical Summary ---
Author Organization [facility] Address [address] [place] [address] Care Team Providers Care Hot Top Liner Helper Name Role Phone Cornelius Aparicio MD Primary Care Provider + [phone] Allergies Active Allergy Reactions Criticality Noted Date [...] mellitus with other specified complication, unspecified whether residential insulin use ([facility]),Type 2 diabetes mellitus without complication, without long-term [...] hyperglycemia, with long-term current use of insulin ([facility]) Inject 0.5 mg once weekly. Further refills [...] with other specified complication, unspecified whether long distance billing operator insulin use ([facility]),Type 2 diabetes mellitus without complication, without long-term [...] 1-dose series) 2022 [facility]-Depression Screening 05/17/2024 05/17/2023 [id number] Vaccine ( season) 2024 10/14/2021, 01/16/2021, 12/17/2020 [...] hyperglycemia, with long-term current use of insulin ([facility]/H[facility]) ACUTE HEPATITIS PANEL Routine 07/23/2022 10:53 AM EDT Polyarthralgia Elevated C-reactive protein from Last 3 Months or Most Recently Relevant to Health Maintenance Results * (ABNORMAL) POCT glycosylated hemoglobin (Hb A1C) (04/26/2024 8:29 AM EDT) Pathologist [facility] POCT Hemoglobin A1C 8.9 <5.7% Non-Diabe tic [facility] Kit Lot Number [id number] [facility] Kit Expiration Date 02/25/2026 [facility] Blood Venous blood specimen / Unknown 04/26/2024 8:29 AM EDT Osmel Auguste MD POINT OF CARE TEST ENTER/ED IT ORDERABLES Final Result Performing Organization Address City/[facility]/ZIP Co de Phone Number [facility]ALTH[facility] [address] [place] [address] * Acute Hepatitis Panel (07/23/2022 10:53 AM EDT) Pathologist [facility] Hepatitis B Surf Antigen Negative Negative 07/23/2022 1:41 PM EDT [facility] Hepatitis C Antibody Negative Negative 07/23/2022 1:41 PM EDT [facility] Hepatitis A Antibody IgM Negative Negative 07/23/2022 1:41 PM EDT [facility] Hepatitis B Core Antibody IgM Negative Negative 07/23/2022 1:41 PM EDT [facility] Blood Venous blood specimen / Unknown Venipuncture / Unknown 07/23/2022 10:53 AM EDT 07/23/2022 10:54 AM EDT [facility] BLOOD ORDERABLES Final Resul t Performing Organization Address City/[facility] Co de Phone Number [facility] [address] [place] [address] from Last 3 Months or Most Recently Relevant to Health Maintenance Insurance [employer] Care Teams Hot Top Liner Helper Relationship Specialty Start Date End Date Cornelius Aparicio MD [address] [place] [address] PCP - General 04/10/21
--- OUTSIDE RECORDS SUMMARY | 2025-06-28 21:59 | XMS_ITS | Encounter Summary ---
Author Organization Healthcare Address [address] [place] [address] Care Team Providers Care Fisheries Inspector Name Role Phone Cornelius Aparicio MD Primary Care Provider [phone] Reason for Visit * Reason Comments Med Refill Encounter Details Date Type Department Care Team (Late st Contact Info) Description 09/25/2023 Refill [facility] [address] [place] [address] Alivia Troy L, [employer]IC SOCIAL WORKER [address] [place] [address] Primary osteoarthritis involving multiple joints [...] as of this encounter Care Teams Fisheries Inspector Relationship Specialty Start Date End Date Cornelius Aparicio MD [address] [place] [address] PCP - General 04/10/21 documented as of this encounter
--- NOTE | 2025-06-28 22:18 | CT_ITS ---
PROCEDURE INFORMATION: Exam: CT Abdomen And Pelvis With Contrast Exam date and time: 06/28/2025 11:18 PM Age: 65 years old Clinical indication: Abdominal pain; Additional info: Diffuse abd pain, recent pancreatitis TECHNIQUE: Imaging protocol: Computed tomography of the abdomen and pelvis with contrast. Radiation optimization: All CT scans at this facility use at least one of these dose optimization techniques: automated exposure control; mA and/or kV adjustment per patient size (includes targeted exams where dose is matched to clinical indication); or iterative reconstruction. Contrast material: ISOVUE; Contrast volume: 75 ml; Contrast route: IV; COMPARISON: CT ABDOMEN PELVIS W CON 06/26/2025 1:04 AM FINDINGS: Liver: Diffuse fatty infiltration. Measures 20 cm. No mass. Gallbladder and biliary ducts: Tiny calculi without wall thickening or pericholecystic fat stranding. Pancreas: No peripancreatic fat or fluid collection. No ductal dilation. Spleen: Unremarkable. No splenomegaly. Adrenal glands: Unremarkable. No mass. Kidneys and ureters: No nephroureterolithiasis or hydroureter. Stomach and bowel: Splenic flexure to proximal sigmoid colonic wall thickening peridiverticular fat stranding. Nonobstructive pattern. Appendix: No evidence of appendicitis. Intraperitoneal space: Unremarkable. No free air. No significant fluid collection. Vasculature: Unremarkable. No abdominal aortic aneurysm. Lymph nodes: No lymphadenopathy. Urinary bladder: Unremarkable as visualized. Reproductive: Unremarkable as visualized. Bones/joints: Unremarkable. No acute fracture. Soft tissues: Unremarkable. IMPRESSION: 1. Non complicated splenic flexure to proximal sigmoid colonic diverticulitis. 2. Cholelithiasis. 3. Hepatomegaly with diffuse fatty liver infiltration. 4. No CT evidence for pancreatitis.
--- NOTE | 2025-06-28 22:20 | HMH.EDGENADL ---
Discharge Plan Disposition Patient Disposition: Home, Self-Care Condition: Good Prescriptions Prescriptions: New Culturelle 15 billion cell capsule, sprinkle 1 cap PO DAILY Qty: 14 0RF No Action (DME) Dexcom G7 Electrical Tester Battery Misc See Rx Instructions .Route Qty: 1 0RF Rx Instructions: As directed cholecalciferol (vitamin D3) 25 mcg (1,000 unit) capsule 25 mcg PO DAILY aspirin 81 mg tablet,chewable 81 mg PO DAILY prucalopride 2 mg tablet 2 mg PO DAILY Trulicity 4.5 mg/0.5 mL pen injector 4.5 mg SQ WEEKLY Qty: 2 2RF (DME) Dexcom G7 Sensor Device See Rx Instructions .Route Qty: 9 1RF Rx Instructions: As directed duloxetine 30 mg capsule,delayed release(DR/EC) 30 mg PO BID Qty: 60 2RF esomeprazole magnesium 40 mg capsule,delayed release(DR/EC) 40 mg PO DAILY Qty: 30 5RF hydrochlorothiazide 12.5 mg tablet 12.5 mg PO DAILY Qty: 90 1RF Jardiance 25 mg tablet 25 mg PO DAILY Qty: 30 3RF levothyroxine [Euthyrox] 75 mcg tablet 75 mcg PO DAILY Qty: 90 1RF (DME) Omnipod 5 G6-G7 Pods (Gen 5) Cartridge See Rx Instructions .ROUTE .COMPLEX Qty: 10 5RF Dose Instruction: USE DIRECTED Rx Instructions: Change Omnipod once every 3 days. rosuvastatin 5 mg tablet 5 mg PO DAILY Patient Comments: TAKE 1 TABLET BY MOUTH ONCE DAILY FOR CHOLESTEROL metformin 500 mg tablet 500 mg PO BID Rx Instructions: Take 1 tablet by mouth twice daily insulin aspart U-100 [Novolog U-100 Insulin aspart] 100 unit/mL solution 10 unit SQ TID Rx Instructions: INJECT 10 UNITS SUBCUTANEOUSLY THREE TIMES DAILY losartan 100 mg tablet 100 mg PO DAILY Rx Instructions: Take 1 tablet by mouth once daily Referrals Follow up/Referrals: Prasad Preston DO [Primary Care Provider, Family Practice] - See instructions Activity Restrictions/Add. Instructions Additional Instructions/Restrictions: You were evaluated in the the ER and are believed to be appropriate for discharge at this time. Take the prescribed probiotic as directed. You can also eat yogurt to help establish good bacteria back into your guts. Start with a bland diet and gradually advance it as tolerated. Monitor your diarrhea as discussed. Follow-up with your GI doctor on Tuesday as scheduled, it is very important that you go to this appointment. Also follow-up with your primary care doctor. Return to the ER with any new, worsening, or otherwise concerning symptoms as discussed. Clinical Impressions Clinical Impression: Abdominal pain, diffuse, Diarrhea Instructions Patient Instructions: Diarrhea, [place] Diet, DI for Acute Abdominal Pain Print Language Print Language: Spanish Discharge ED Provider: Silvino Chauhan General Adult HPI <Silvino Chauhan MD - Last Filed: 06/28/25 22:22> General Chief complaint: Abdominal Pain Stated complaint: Pancreas Issues;Constant Dirrhea and Abdominal Jeronimo Time Seen by Provider: 06/28/25 22:06 Mode of Arrival: Ambulatory Source of Information: Patient Description of Symptoms (Recalled from ER Triage Doc. by RN): pt presents to the Ed d/t recently being discharged yesterday because of pancreatitis. pt called her primary and stated to get lipase rechecked. pt complaining of abdomina pain 07/07. History of Present Illness HPI narrative: Patient is a 65-year-old female presenting today with diffuse abdominal pain and diarrhea. Was recently admitted on the for acute pancreatitis lipase was over 2000 this was possibly from Trulicity she had a CT scan showing enteritis and was discharged yesterday. Was doing okay but started to try to advance her diet further and pain significantly worsened she called Dr. Preston who told her to come to the emergency department he also gave me a call to give a heads up that she was coming. Pain is diffuse she states that it is somewhat better than when she was first admitted a few days ago at that time it was a 12 out of 10 and is currently 8 out of 10. Related Data Home Medications ?Medication ?Instructions ?Recorded ?Confirmed cholecalciferol (vitamin D3) 25 25 mcg PO DAILY 11/30/24 06/26/25 mcg (1,000 unit) capsule aspirin 81 mg chewable tablet 81 mg PO DAILY 01/22/25 06/26/25 prucalopride 2 mg tablet 2 mg PO DAILY 06/11/25 06/26/25 insulin aspart U-100 100 unit/mL 10 unit SQ TID 06/26/25 06/26/25 subcutaneous solution (Novolog U-100 Insulin aspart) losartan 100 mg tablet 100 mg PO DAILY 06/26/25 06/26/25 metformin 500 mg tablet 500 mg PO BID 06/26/25 06/26/25 rosuvastatin 5 mg tablet 5 mg PO DAILY 06/26/25 06/26/25 Previous Rx's ?Medication ?Instructions ?Recorded blood-glucose,soil sampler,cont #1 ea 08/23/24 (Dexcom G7 Electrical Tester Battery) esomeprazole magnesium 40 mg 40 mg PO DAILY #30 caps 12/12/24 capsule,delayed release hydrochlorothiazide 12.5 mg tablet 12.5 mg PO DAILY #90 tabs 02/19/25 empagliflozin 25 mg tablet 25 mg PO DAILY #30 tabs 03/05/25 (Jardiance) blood-glucose sensor (Dexcom G7 #9 ea 06/11/25 Sensor device) dulaglutide 4.5 mg/0.5 mL 4.5 mg (0.5 mL) SQ WEEKLY #2 mL 06/11/25 subcutaneous pen injector ([employer]) duloxetine 30 mg capsule,delayed 30 mg PO BID #60 caps 06/11/25 release levothyroxine 75 mcg tablet 75 mcg PO DAILY #90 tabs 06/11/25 (Euthyrox) insulin pump cart,auto,BT,G6/7 #10 ea 06/13/25 (Omnipod 5 G6-G7 Pods (Gen 5) subcutaneous cartridge) Lactobacillus rhamnosus GG 15 1 cap PO DAILY #14 caps 06/29/25 billion cell sprinkle capsule (Culturelle) Allergies Allergy/AdvReac Type Severity Reaction Status Date / Time amoxicillin (From AUGMENTIN) Allergy Mild NA-NAUSEA Verified 06/11/25 15:25 cefdinir Allergy Mild Hives Verified 06/26/25 03:16 clavulanic acid (From Allergy Mild NA-NAUSEA Verified 06/11/25 15:25 AUGMENTIN) hydrocodone (From NORCO) Allergy Mild HIVES,ITCHI Verified 06/11/25 15:25 NG naproxen (NAPROXEN) Allergy Mild HIVES,ITCHI Verified 06/11/25 15:25 NG Sulfa (Sulfonamide Allergy Mild HIVES,ITCHI Verified 06/11/25 15:25 Antibiotics) (SULFA NG (SULFONAMIDE ANTIBIOTICS)) aspirin Allergy Hives Verified 06/26/25 03:16 Cephalosporins Allergy unknown Verified 06/11/25 15:25 dulaglutide (From [facility]) AdvReac Intermediate Verified 06/26/25 06:24 levofloxacin AdvReac Nausea Verified 06/26/25 03:16 PFSH <Silvino Chauhan MD - Last Filed: 06/28/25 22:22> PFS Disclaimer: The information contained in this section may have been updated after the patient was seen, as this information can be updated by other users. Medical History History of left heart catheterization (LHC) Constipation Abdominal pain Elevated parathyroid hormone Encounter for screening breast examination Dyshidrotic eczema Neuropathy Polyarthralgia Diabetes Surgical History H/O tubal ligation History of hysterectomy History of colonoscopy Family History Family/Other Bleeding disorder Diabetes FHx: mental illness Hypertension Mother Tuberculosis Social History (Updated 06/26/25 @ 03:29 by Eun Lawler RN) Smoking Status: Never smoker second hand exposure: No alcohol intake: never substance use type: denies use current occupational status: employed Travel in the last 8 weeks?: None household members: spouse housing: house current occupation: school system current occupational exposures/hazards: No caffeine: Yes Have you lived/traveled outside US in past 30 days?: No Contact w/someone who lives/traveled outside US past 30 days?: No Exposure to someone with infectious disease in past 14 days?: No Do you have a fever (greater than 100.4 F or 38 C)?: No Have you tested positive for COVID-19?: No Exposed to someone with COVID-19 in past 14 days?: No Do you have a sore throat?: No Do you have a cough?: No Do you have any weakness?: No Do you have any diarrhea?: No Are you experiencing any unusual bleeding?: No Do you have any muscle aches/pain?: No Do you have any abdominal pain?: No Are you experiencing loss of taste or smell?: No Other Medical History Have you received the Flu Vaccine for this season: No Have you received the Pneumonia Vaccine: No <Silvino Chauhan MD - Last Filed: 06/28/25 22:22> ROS Obtained: Yes All systems reviewed & no additional complaints except as documented Physical Exam <Silvino Chauhan MD - Last Filed: 06/28/25 22:22> General General appearance: alert and in no apparent distress Respiratory Respiratory exam: Present normal lung sounds bilaterally Cardiovascular Cardiovascular exam: Present regular rate Abdominal Exam Abdominal exam: Present soft and tenderness (Diffuse abdominal tenderness no rebound or guarding seems to be localized to the epigastric region); Absent distention Neurological Exam Neurological exam: Present alert and oriented X3 Medical Decision Making <Silvino Chauhan MD - Last Filed: 06/28/25 22:22> Medical Records Screening: Per USPSTF and CDC recommendations, given the prevalence of disease in our region, it is our hospital?s policy to screen for HIV and viral Hepatitis for all patients aged 18 and over and those with ongoing risk factors. Cj Inquiry Pt receiving controlled substance: No Vital Signs: 06/28/25 21:57 06/28/25 21:58 06/28/25 23:47 Temperature 97.7 F Temperature Source Oral Pulse Rate 66 69 Pulse Rate [Right Radial] 72 Respiratory Rate 18 Blood Pressure 138/68 135/82 Blood Pressure [Right Arm] 138/68 Blood Pressure Mean 91 88 Blood Pressure Mean [Right Arm] 91 Blood Pressure Position [Right Arm] Supine 02 Sat by Pulse Oximetry 95 94 L 97 Oxygen Delivery Method Room Air 06/29/25 00:01 06/29/25 00:33 Temperature Temperature Source Pulse Rate 65 65 Pulse Rate [Right Radial] Respiratory Rate 16 16 Blood Pressure 117/82 100/72 L Blood Pressure [Right Arm] Blood Pressure Mean 81 Blood Pressure Mean [Right Arm] Blood Pressure Position [Right Arm] 02 Sat by Pulse Oximetry 94 L 97 Oxygen Delivery Method Lab Data Lab Results 06/28/25 22:40: WBC 12.0 H, RBC 4.47, Hgb 11.3 L, Hct 36.0 L, MCV 80.5 L, MCH 25.3 L, MCHC 31.4 L, RDW 19.3 H, Plt Count 284, MPV 9.7, Neut % (Auto) 46.6, Lymph % (Auto) 17.6, [place] % (Auto) 5.1, Eos % (Auto) 29.4 H, Baso % (Auto) 0.6, Neut # (Auto) 5.6, Lymph # (Auto) 2.1, [place] # (Auto) 0.6, Eos # (Auto) 3.5 H, Baso # (Auto) 0.1, Total Counted 100, Neutrophils % (Manual) 52, Lymphocytes % (Manual) 16, Monocytes % (Manual) 6, Eosinophils % (Manual) 26 H, Platelet Estimate Normal, RBC Morphology Normal, Sodium 136, Potassium 3.7, Chloride 105, Carbon Dioxide 24, Anion Gap 10.7, BUN 7, Creatinine 0.70 D, Estimated Creat Clear 91, Estimated GFR 85, Est GFR ( Amer) 102 D, Glucose 108 H, Lactate 1.1, Calcium 9.6, Phosphorus 2.9, Magnesium 2.1 D, Total Bilirubin 0.4, AST 38 H D, ALT 18 D, Alkaline Phosphatase 161 H, Total Protein 8.1, Albumin 3.4 L, Globulin 4.7 H, Albumin/Globulin Ratio 0.7 L, Lipase 155 06/28/25 22:40 06/28/25 22:40 Orders (Tests/Meds): ED MEDICATIONS Generic Name Dose Route Start Last Admin Trade Name Frebrandon PRN Reason Stop Dose Admin Lactobacillus 1 cap 06/29/25 09:00 Lactobacillus Probiotic Comb Capsule PO 07/29/25 08:59 DAILY VARGHESE Sodium Chloride 10 ml 06/28/25 23:22 06/28/25 23:23 Sodium Chloride 0.9% 10ml Syr (Rad Only) IV 07/28/25 23:21 10 ml NEEDED PRN Administration Maintain IV Site Discontinued Medications Generic Name Dose Route Start Last Admin Trade Name Freq PRN Reason Stop Dose Admin Lactated Ringer's 1,000 mls @ 999 mls/hr 06/28/25 22:30 06/28/25 22:49 Lactated Ringer's 1000 Ml Bag IV 06/28/25 23:30 999 mls/hr .Q1H1M VARGHESE Administration Iopamidol 75 ml 06/28/25 23:22 06/28/25 23:23 Iopamidol-370 (76%);100ml Bottle IV 06/28/25 23:23 75 ml ONCE ONE Administration Morphine Sulfate 4 mg 06/28/25 22:18 06/28/25 22:48 Morphine 4mg/Ml Syringe IV 06/28/25 22:19 4 mg ONCE ONE Administration Ondansetron HCl 4 mg 06/28/25 22:18 06/28/25 22:49 Ondansetron 4mg/2ml Vial IV 06/28/25 22:19 4 mg ONCE ONE Administration ORDERS Category Date Time Status CT abdomen pelvis w con Stat Cat Scan 06/28/25 22:18 Completed CBC w/Auto Diff [Complete Blood Count Auto Diff] Stat Lab 06/28/25 22:40 Completed CMP [Comprehensive Metabolic Panel] Stat Lab 06/28/25 22:40 Completed Lactic Acid Stat Lab 06/28/25 22:40 Completed Lipase Stat Lab 06/28/25 22:40 Completed Magnesium Stat Lab 06/28/25 22:40 Completed Phosphorous Stat Lab 06/28/25 22:40 Completed Medical Decision Narrative: WillPatient with above history and physical likely with an ongoing set of symptoms associated with her recent diagnosis of pancreatitis. CT scan mentions no significant necrotizing component of this given her worsening of her symptoms. Also will repeat labs administer IV fluids and pain medicine and reassess. Care will be transitioned to Dr. Corley at 11 PM. <Sina Corley MD - Last Filed: 06/29/25 01:23> Medical Records Medical records reviewed: Yes I reviewed the patient's medical records. Vital Signs: 06/28/25 21:57 06/28/25 21:58 06/28/25 23:47 Temperature 97.7 F Temperature Source Oral Pulse Rate 66 69 Pulse Rate [Right Radial] 72 Respiratory Rate 18 Blood Pressure 138/68 135/82 Blood Pressure [Right Arm] 138/68 Blood Pressure Mean 91 88 Blood Pressure Mean [Right Arm] 91 Blood Pressure Position [Right Arm] Supine 02 Sat by Pulse Oximetry 95 94 L 97 Oxygen Delivery Method Room Air 06/29/25 00:01 06/29/25 00:33 Temperature Temperature Source Pulse Rate 65 65 Pulse Rate [Right Radial] Respiratory Rate 16 16 Blood Pressure 117/82 100/72 L Blood Pressure [Right Arm] Blood Pressure Mean 81 Blood Pressure Mean [Right Arm] Blood Pressure Position [Right Arm] 02 Sat by Pulse Oximetry 94 L 97 Oxygen Delivery Method Lab Data Lab Results 06/28/25 22:40: WBC 12.0 H, RBC 4.47, Hgb 11.3 L, Hct 36.0 L, MCV 80.5 L, MCH 25.3 L, MCHC 31.4 L, RDW 19.3 H, Plt Count 284, MPV 9.7, Neut % (Auto) 46.6, Lymph % (Auto) 17.6, [place] % (Auto) 5.1, Eos % (Auto) 29.4 H, Baso % (Auto) 0.6, Neut # (Auto) 5.6, Lymph # (Auto) 2.1, [place] # (Auto) 0.6, Eos # (Auto) 3.5 H, Baso # (Auto) 0.1, Total Counted 100, Neutrophils % (Manual) 52, Lymphocytes % (Manual) 16, Monocytes % (Manual) 6, Eosinophils % (Manual) 26 H, Platelet Estimate Normal, RBC Morphology Normal, Sodium 136, Potassium 3.7, Chloride 105, Carbon Dioxide 24, Anion Gap 10.7, BUN 7, Creatinine 0.70 D, Estimated Creat Clear 91, Estimated GFR 85, Est GFR ( Amer) 102 D, Glucose 108 H, Lactate 1.1, Calcium 9.6, Phosphorus 2.9, Magnesium 2.1 D, Total Bilirubin 0.4, AST 38 H D, ALT 18 D, Alkaline Phosphatase 161 H, Total Protein 8.1, Albumin 3.4 L, Globulin 4.7 H, Albumin/Globulin Ratio 0.7 L, Lipase 155 Orders (Tests/Meds): ED MEDICATIONS Generic Name Dose Route Start Last Admin Trade Name Freq PRN Reason Stop Dose Admin Lactobacillus 1 cap 06/29/25 09:00 Lactobacillus Probiotic Comb Capsule PO 07/29/25 08:59 DAILY VARGHESE Sodium Chloride 10 ml 06/28/25 23:22 06/28/25 23:23 Sodium Chloride 0.9% 10ml Syr (Rad Only) IV 07/28/25 23:21 10 ml NEEDED PRN Administration Maintain IV Site Discontinued Medications Generic Name Dose Route Start Last Admin Trade Name Freq PRN Reason Stop Dose Admin Lactated Ringer's 1,000 mls @ 999 mls/hr 06/28/25 22:30 06/28/25 22:49 Lactated Ringer's 1000 Ml Bag IV 06/28/25 23:30 999 mls/hr .Q1H1M VARGHESE Administration Iopamidol 75 ml 06/28/25 23:22 06/28/25 23:23 Iopamidol-370 (76%);100ml Bottle IV 06/28/25 23:23 75 ml ONCE ONE Administration Morphine Sulfate 4 mg 06/28/25 22:18 06/28/25 22:48 Morphine 4mg/Ml Syringe IV 06/28/25 22:19 4 mg ONCE ONE Administration Ondansetron HCl 4 mg 06/28/25 22:18 06/28/25 22:49 Ondansetron 4mg/2ml Vial IV 06/28/25 22:19 4 mg ONCE ONE Administration ORDERS Category Date Time Status CT abdomen pelvis w con Stat Cat Scan 06/28/25 22:18 Completed CBC w/Auto Diff [Complete Blood Count Auto Diff] Stat Lab 06/28/25 22:40 Completed CMP [Comprehensive Metabolic Panel] Stat Lab 06/28/25 22:40 Completed Lactic Acid Stat Lab 06/28/25 22:40 Completed Lipase Stat Lab 06/28/25 22:40 Completed Magnesium Stat Lab 06/28/25 22:40 Completed Phosphorous Stat Lab 06/28/25 22:40 Completed Medical Decision Narrative: WillPatient with above history and physical likely with an ongoing set of symptoms associated with her recent diagnosis of pancreatitis. CT scan mentions no significant necrotizing component of this given her worsening of her symptoms. Also will repeat labs administer IV fluids and pain medicine and reassess. Care will be transitioned to Dr. Corley at 11 PM. Corley: Upon my assumption of care patient is stable and resting comfortably. Lab and imaging studies were pending at the time of my assumption of care but patient is well-appearing and on my own exam abdomen demonstrates mild diffuse tenderness but no evidence of peritonitis. Labs reviewed by me demonstrate that leukocytosis is slightly worse with WBC 12.0 but her hemoglobin is also slightly increased so this may be concentration well. She does not have significant neutrophilia reassuring against acute bacterial infection, platelets normal, CMP with good kidney function, no actionable electrolyte abnormalities, AST is 38, alk phos similar to previous, lipase significantly improved down to 155, most recently over 2003 days ago. Patient had stool study performed on the which I reviewed and was negative for all analytes which is very reassuring. CT abdomen pelvis personally interpreted demonstrates stones in the gallbladder, patient has no right upper quadrant tenderness, rebound, or guarding. I believe this can be followed up outpatient. She has no bowel obstruction, no pancreatic cyst or other acute abnormalities. See radiology read for final interpretation. Findings of enteritis on previous exam seem to have improved. On reassessment patient is resting comfortably, she is tolerating oral intake. She is not having any nausea or vomiting and states she has cramping and diarrhea shortly after eating and drinking. She does report that she had 1 episode of dark, tarry diarrhea today but her most recent bowel movements have been normal color again. Hemoglobin is actually improved from prior so I am not concerned for significant blood loss. Patient reports she has GI follow-up scheduled on Tuesday. We discussed that her labs and imaging are reassuring and demonstrating findings of improvement though her symptoms have not yet resolved. She is comfortable with being discharged since she does have close outpatient follow-up. We discussed at length options for outpatient management, I recommended a probiotic and prescribed this for her. I recommended gradual advancement of a bland diet, close monitoring of her diarrhea and other symptoms for any findings of GI bleed. She is comfortable with all these recommendations. She was given the opportunity to ask questions which were answered to her satisfaction. Patient was given instructions on symptomatic management, medication use, follow up instructions including explicit instructions to follow-up closely with GI as scheduled including but not limited to, and return precautions for the emergency department return precautions regarding GI bleed or worsening diarrhea and pain. Patient indicated understanding and was discharged in stable condition. Critical Care <Silvino Chauhan MD - Last Filed: 06/28/25 22:22> Critical Care Time Critical Care Time: No
[2025-06-28] MEDS: MORPHINE 4MG/ML SYRINGE 4 MG IV (22:48)
[2025-06-28] MEDS: LACTATED RINGERS 1000ML 1,000 ML 999 ML IV (22:49)
[2025-06-28] MEDS: ONDANSETRON 4MG/2ML VIAL 4 MG IV (22:49)
[2025-06-28 22:52] LABS: Hematocrit 36.0 % (37.0-47.0); Hemoglobin 11.3 g/dL (12.2-16.2); Immature Granulocytes % 0.7 %; Mean Corpuscular HGB Conc 31.4 g/dL (31.8-35.4); Mean Corpuscular Hemoglobin 25.3 pg (27.0-31.2); Mean Corpuscular Volume 80.5 fl (81-99); Nucleated Red Blood Cells % 0 %; Platelet Count 284 K/mm3 (142-424); Red Blood Count 4.47 M/mm3 (4.20-5.40); Red Cell Distribution Width-SD 56.2 fL; White Blood Count 12.0 K/mm3 (4.8-10.8)
[2025-06-28 23:03] LABS: Albumin Level 3.4 g/dl (3.5-5.0); Chloride 105 mmol/L (98-107); Potassium 3.7 mmoL/L (3.5-5.1); Sodium 136 mmol/L (136-145)
[2025-06-28 23:06] LABS: Alanine Aminotransferase 18 U/L (12-78); Albumin/Globulin Ratio 0.7 (1.1-1.8); Alkaline Phosphatase 161 U/L (38-126); Anion Gap 10.7 mEq/L (5-15); Aspartate Amino Transferase 38 U/L (14-36); Bilirubin,Total 0.4 mg/dl (0.2-1.3); Blood Urea Nitrogen 7 mg/dl (7-17); Calcium 9.6 mg/dl (8.4-10.2); Carbon Dioxide 24 mmol/L (22.0-30.0); Creatinine Clearance Estimated 91 mL/min (50-200); Creatinine,Serum 0.70 mg/dl (0.52-1.04); Estimated Glomerular Filt Rate 85 ml/min (>60); GFR (African American) 102 ML/MIN (>60); Globulin 4.7 g/dL (1.3-3.2); Glucose 108 mg/dl (74-100); Lipase 155 U/L (23-300); Magnesium 2.1 mg/dl (1.6-2.3); Phosphorous 2.9 mg/dl (2.5-4.5); Total Protein,Serum 8.1 g/dl (6.3-8.2)
[2025-06-28 23:18] LABS: Total Cells Counted 100
[2025-06-28 23:19] LABS: RBC Morphology Normal
[2025-06-28] MEDS: IOPAMIDOL-370 (76%);100ML BOTTLE 75 ML IV (23:23)
[2025-06-28] MEDS: SODIUM CHLORIDE 0.9% 10ML SYR (RAD ONLY) 10 ML IV (23:23)
[2025-06-28 23:47] VITALS: BP 135/82; PULSE 69; O2SAT 97
[2025-06-29 00:01] VITALS: BP 117/82; PULSE 65; RESP 16; O2SAT 94
[2025-06-29 00:33] VITALS: BP 100/72; PULSE 65; RESP 16; O2SAT 97
[2025-06-29 01:15] VITALS: BP 142/89; PULSE 75; RESP 16; TEMP 36.6; O2SAT 97
[2025-06-29 01:23] VITALS: BP 132/72; BP 142/89; PULSE 75; PULSE 77; RESP 16; TEMP 36.6; O2SAT 98; O2SAT 99
== END 2025-06-29 01:25 | disposition home or self-care (01) ==
PROVIDERS: Emergency Provider Student in an Organized Health Care Education/Training Program; PCP Internal Medicine
DX: R10.84 Generalized abdominal pain (principal); R19.7 Diarrhea, unspecified
CPT/HCPCS: 74177; 80053; 83605; 83690; 83735; 84100; 85007; 85025; 85027; 96361; 96374; 96375; 99285; J2270; J2405; J7120; Q9967

== ENCOUNTER 2025-07-03 09:30 | Outpatient (CLI) | payer BC, SELFPAY ==
--- OUTSIDE RECORDS SUMMARY | 2025-07-04 13:49 | XMS_ITS | Encounter Summary ---
Author Organization [facility] Address [address] [place] [address] Care Team Providers Care Solution Maker Name Role Phone Cornelius Aparicio MD Primary Care Provider [phone] Reason for Referral * Consultation (Routine) - Closed Specialty Diagnoses / Procedures Referred By Enmanuel rich Referred To Contact Rheumatology Diagnoses Elevated sed rate Elevated C-reactive protein Clementine Kohli PA [address] [place] [address] Phone: tel: fax: Referral ID Status Reason Start Date Expiration Date V isits Requested Visits Authorized [id number] Closed Specialty Services Required 06/02/2022 12/02/2023 1 1 Encounter Details Date Type Department Care Team (Late st Contact Info) Description 06/02/2022 Community [facility] [address] [place] [address] Clementine Kohli PA [address] [place] [address] Elevated sed rate (Primary Dx); [...] documented as of this encounter Care Teams Solution Maker Relationship Specialty Start Date End Date Cornelius Aparicio MD [address] [place] [address] PCP - General 04/10/21 documented as of this encounter
--- OUTSIDE RECORDS SUMMARY | 2025-07-04 13:49 | XMS_ITS | Clinical Summary ---
Author Organization [facility] Address [address] [place] [address] Care Team Providers Care Operations Program Manager Name Role Phone Cornelius Aparicio MD Primary Care Provider [phone] Allergies Active Allergy Reactions Criticality Noted Date [...] mellitus with other specified complication, unspecified whether penitentiary insulin use ([facility]),Type 2 diabetes mellitus without complication, without long-term [...] hyperglycemia, with long-term current use of insulin ([facility]) Inject 0.5 mg once weekly. Further refills [...] unspecified whether assistant terminal manager insulin use ([facility]),Type 2 diabetes mellitus without complication, without long-term [...] 1-dose series) 2022 UKY-Depression Screening 05/17/2024 05/17/2023 [id number] Vaccine ( season) 2024 10/14/2021, 01/16/2021, 12/17/2020 [...] hyperglycemia, with long-term current use of insulin ([facility]) ACUTE HEPATITIS PANEL Routine 07/23/2022 10:53 AM EDT Polyarthralgia Elevated C-reactive protein from Last 3 Months or Most Recently Relevant to Health Maintenance Results * (ABNORMAL) POCT glycosylated hemoglobin (Hb A1C) (04/26/2024 8:29 AM EDT) Pathologist [facility] POCT Hemoglobin A1C 8.9 <5.7% Non-Diabe tic [facility] Kit Lot Number [id number] [facility] Kit Expiration Date 02/25/2026 [facility] Blood Venous blood specimen / Unknown 04/26/2024 8:29 AM EDT Osmel Auguste MD POINT OF CARE TEST ENTER/ED IT ORDERABLES Final Result Performing Organization Address City/[facility]/ZIP Co de Phone Number [facility] [address] [place] [address] * Acute Hepatitis Panel (07/23/2022 10:53 AM EDT) Pathologist [facility] Hepatitis B Surf Antigen Negative Negative 07/23/2022 1:41 PM EDT [facility] Hepatitis C Antibody Negative Negative 07/23/2022 1:41 PM EDT [facility] Hepatitis A Antibody IgM Negative Negative 07/23/2022 1:41 PM EDT [facility] Hepatitis B Core Antibody IgM Negative Negative 07/23/2022 1:41 PM EDT [facility] Blood Venous blood specimen / Unknown Venipuncture / Unknown 07/23/2022 10:53 AM EDT 07/23/2022 10:54 AM EDT [facility] BLOOD ORDERABLES Final Resul t Performing Organization Address City/[facility] Co de Phone Number [facility] [address] [place] [address] from Last 3 Months or Most Recently Relevant to Health Maintenance Insurance [employer] Care Teams Operations Program Manager Relationship Specialty Start Date End Date Cornelius Aparicio MD [address] [place] [address] PCP - General 04/10/21
--- OUTSIDE RECORDS SUMMARY | 2025-07-04 13:49 | XMS_ITS | Encounter Summary ---
Author Organization Healthcare Address [address] [place] [address] Care Team Providers Care Center Machine Operator Name Role Phone Cornelius Aparicio MD Primary Care Provider [phone] Reason for Visit * Reason Comments Med Refill Encounter Details Date Type Department Care Team (Late st Contact Info) Description 09/25/2023 Refill [facility] [address] [place] [address] Alivia Troy L, PUNCHING MACHINE OPERATOR [address] [place] [address] Primary osteoarthritis involving multiple joints [...] documented as of this encounter Care Teams Center Machine Operator Relationship Specialty Start Date End Date Cornelius Aparicio MD [address] [place] [address] PCP - General 04/10/21 documented as of this encounter
--- OUTSIDE RECORDS SUMMARY | 2025-07-04 13:49 | XMS_ITS | Encounter Summary ---
Author Organization [facility] Address [address] [place] [address] Care Team Providers Care Garment Supervisor Name Role Phone Cornelius Aparicio MD Primary Care Provider [phone] Reason for Visit * Reason Comments Med Refill Encounter Details Date Type Department Care Team ([facility] st Contact Info) Description 03/03/2023 Refill [facility] Endocrinology [address] [place] [address] Osmel Auguste MD [address] [address] Type 2 diabetes mellitus without complication, without long-term current use of insulin ([facility]) Social History Tobacco Use Types Packs/Day Years [...] documented as of this encounter Care Teams Garment Supervisor Relationship Specialty Start Date End Date Cornelius Aparicio MD [address] [place] [address] PCP - General 04/10/21 documented as of this encounter
--- OUTSIDE RECORDS SUMMARY | 2025-07-04 13:49 | XMS_ITS | Encounter Summary ---
Author Organization [facility] Address [address] [place] [address] Care Team Providers Care Automatic Cigar Wrapper Tender Name Role Phone Cornelius Aparicio MD Primary Care Provider [phone] Reason for Visit * Reason Comments Med Refill Encounter Details Date Type Department Care Team (Late st Contact Info) Description 03/26/2023 Refill [facility] Endocrinology [address] [place] [address] Osmel Auguste MD [address] [address] Hypothyroidism, unspecified type Social History [...] 90 day supply with 1 refill(s) to [facility] pharmacy. Enough refills until appointment on 07/01 [...] documented as of this encounter Care Teams Automatic Cigar Wrapper Tender Relationship Specialty Start Date End Date Cornelius Aparicio MD [address] [place] [address] PCP - General 04/10/21 documented as of this encounter
== END 2025-07-03 23:59 | disposition home or self-care (01) ==
LOC: LAB.DROPOF 07-04 13:46
PROVIDERS: PCP Internal Medicine; Visit Provider Internal Medicine
DX: E11.65 Type 2 diabetes mellitus with hyperglycemia (principal); Z79.4 Long term (current) use of insulin
CPT/HCPCS: 82043; 82570

== ENCOUNTER 2025-07-10 14:55 | Emergency (ER) | payer BC, SELFPAY ==
--- OUTSIDE RECORDS SUMMARY | 2025-07-10 15:18 | XMS_ITS | Encounter Summary ---
Author Organization [facility] Address [address] [place] [address] Care Team Providers Care Door Closer Mechanic Name Role Phone Cornelius Aparicio MD Primary Care Provider [phone] Reason for Referral * Consultation (Routine) - Closed Specialty Diagnoses / Procedures Referred By Enmanuel rich Referred To Contact Rheumatology Diagnoses Elevated sed rate Elevated C-reactive protein Clementine Kohli PA [address] [place] [address] Phone: tel: fax: Referral ID Status Reason Start Date Expiration Date V isits Requested Visits Authorized [id number] Closed Specialty Services Required 06/02/2022 12/02/2023 1 1 Encounter Details Date Type Department Care Team (Late st Contact Info) Description 06/02/2022 [facility] [address] [place] [address] Clementine Kohli PA [address] [place] [address] Elevated sed rate (Primary Dx); [...] documented as of this encounter Care Teams Door Closer Mechanic Relationship Specialty Start Date End Date Cornelius Aparicio MD [address] [place] [address] PCP - General 04/10/21 documented as of this encounter
--- OUTSIDE RECORDS SUMMARY | 2025-07-10 15:18 | XMS_ITS | Encounter Summary ---
Author Organization [facility] Address [address] [place] [address] Care Team Providers Care Correctional Casework Specialist Name Role Phone Cornelius Aparicio MD Primary Care Provider [phone] Reason for Visit * Reason Comments Med Refill Encounter Details Date Type Department Care Team (Late st Contact Info) Description 09/25/2023 Refill [facility] [address] [place] [address] Alivia Troy L, TOBACCO STEMMER MACHINE [address] [place] [address] Primary osteoarthritis involving multiple joints [...] documented as of this encounter Care Teams Correctional Casework Specialist Relationship Specialty Start Date End Date Cornelius Aparicio MD [address] [place] [address] PCP - General 04/10/21 documented as of this encounter
--- OUTSIDE RECORDS SUMMARY | 2025-07-10 15:18 | XMS_ITS | Encounter Summary ---
Author Organization [facility] Address [address] [place] [address] Care Team Providers Care Storage Garage Manager Name Role Phone Cornelius Aparicio MD Primary Care Provider [phone] Reason for Visit * Reason Comments Med Refill Encounter Details Date Type Department Care Team ([facility] st Contact Info) Description 03/03/2023 Refill [facility] Endocrinology [address] [place] [address] Osmel Auguste MD [address] [address] Type 2 diabetes mellitus without complication, without long-term current use of insulin ([facility]) Social History Tobacco Use Types Packs/Day [...] documented as of this encounter Care Teams Storage Garage Manager Relationship Specialty Start Date End Date Cornelius Aparicio MD [address] [place] [address] PCP - General 04/10/21 documented as of this encounter
--- OUTSIDE RECORDS SUMMARY | 2025-07-10 15:18 | XMS_ITS | Encounter Summary ---
Author Organization [facility] Address [address] [place] [address] Care Team Providers Care Back Up Worker Name Role Phone Cornelius Aparicio MD Primary Care Provider [phone] Reason for Visit * Reason Comments Med Refill Encounter Details Date Type Department Care Team (Late st Contact Info) Description 03/26/2023 Refill [facility] Endocrinology [address] [place] [address] Osmel Auguste MD [address] [address] Hypothyroidism, unspecified type Social History [...] 90 day supply with 1 refill(s) to [facility] pharmacy. Enough refills until appointment on [...] documented as of this encounter Care Teams Back Up Worker Relationship Specialty Start Date End Date Cornelius Aparicio MD [address] [place] [address] PCP - General 04/10/21 documented as of this encounter
--- OUTSIDE RECORDS SUMMARY | 2025-07-10 15:19 | XMS_ITS | Clinical Summary ---
Author Organization [facility] Address [address] [place] [address] Care Team Providers Care Tipple Greaser Name Role Phone Cornelius Aparicio MD Primary Care Provider [phone] Allergies Active Allergy Reactions Criticality Noted Date [...] specified complication, unspecified whether intermediate insulin use ([facility]),Type 2 diabetes mellitus without complication, without long-term [...] hyperglycemia, with long-term current use of insulin ([facility]) Inject 0.5 mg once weekly. Further refills [...] specified complication, unspecified whether intermediate insulin use ([facility]),Type 2 diabetes mellitus without complication, without long-term [...] Date Last Done Comments [facility]-HIV Screening 1962 [facility]-Infant/Child/Adol SDOH Screenings 1962 Diabetes: Dental Exam 1972 [...] 1-dose series) 2022 [facility]-Depression Screening 05/17/2024 05/17/2023 [id number] Vaccine ( season) 2024 10/14/2021, 01/16/2021, 12/17/2020 [...] hyperglycemia, with long-term current use of insulin ([facility]) ACUTE HEPATITIS PANEL Routine 07/23/2022 10:53 AM EDT Polyarthralgia Elevated C-reactive protein from Last 3 Months or Most Recently Relevant to Health Maintenance Results * (ABNORMAL) POCT glycosylated hemoglobin (Hb A1C) (04/26/2024 8:29 AM EDT) Pathologist [facility] [place] POCT Hemoglobin A1C 8.9 <5.7% Non-Diabe tic [facility] Kit Lot Number [id number] [facility] Kit Expiration Date 02/25/2026 [facility] Blood Venous blood specimen / Unknown 04/26/2024 8:29 AM EDT Osmel Auguste MD POINT OF CARE TEST ENTER/ED IT ORDERABLES Final Result Performing Organization Address City/[facility]/ZIP Co de Phone Number [facility] [address] [place] [address] * Acute Hepatitis Panel (07/23/2022 10:53 AM EDT) Pathologist [facility] [place] Hepatitis B Surf Antigen Negative Negative 07/23/2022 1:41 PM EDT [facility] Hepatitis C Antibody Negative Negative 07/23/2022 1:41 PM EDT [facility] Hepatitis A Antibody IgM Negative Negative 07/23/2022 1:41 PM EDT [facility] Hepatitis B Core Antibody IgM Negative Negative 07/23/2022 1:41 PM EDT [facility] Blood Venous blood specimen / Unknown Venipuncture / Unknown 07/23/2022 10:53 AM EDT 07/23/2022 10:54 AM EDT [facility] BLOOD ORDERABLES Final Resul t Performing Organization Address City/[facility] Co de Phone Number [facility] [address] [place] [address] from Last 3 Months or Most Recently Relevant to Health Maintenance Insurance [employer]THE[employer] Care Teams Tipple Greaser Relationship Specialty Start Date End Date Cornelius Aparicio MD [address] [place] [address] PCP - General 04/10/21
[2025-07-10 15:21] VITALS: BP 112/74; PULSE 116; RESP 16; TEMP 37; O2SAT 96; BMI 39.9
--- NOTE | 2025-07-10 15:36 | ED_ITS ---
<Statement entered by Fredis Koch MD - 07/10/25 18:00> I was consulted by the BHUPENDRA, and we discussed the complexity of the problems being addressed. I approve the treatment and management plan for this patient's care in the emergency department, thus performing a substantive portion of the medical decision making. Fredis Koch MD Discharge Plan Disposition Patient Disposition: Home, Self-Care Condition: Good Prescriptions Prescriptions: No Action (DME) Dexcom G7 Brokerage Branch Manager Misc See Rx Instructions .Route Qty: 1 0RF Rx Instructions: As directed (DME) Omnipod 5 G6-G7 Pods (Gen 5) Cartridge See Rx Instructions .ROUTE .COMPLEX Qty: 10 5RF Dose Instruction: USE DIRECTED Rx Instructions: Change Omnipod once every 3 days. Xifaxan 550 mg tablet 550 mg PO TID Qty: 42 0RF cholecalciferol (vitamin D3) 25 mcg (1,000 unit) capsule 25 mcg PO DAILY aspirin 81 mg tablet,chewable 81 mg PO DAILY prucalopride 2 mg tablet 2 mg PO DAILY (DME) Dexcom G7 Sensor Device See Rx Instructions .Route Qty: 9 1RF Rx Instructions: As directed duloxetine 30 mg capsule,delayed release(DR/EC) 30 mg PO BID Qty: 60 2RF hydrochlorothiazide 12.5 mg tablet 12.5 mg PO DAILY Qty: 90 1RF levothyroxine [Euthyrox] 75 mcg tablet 75 mcg PO DAILY Qty: 90 1RF Jardiance 25 mg tablet See Rx Instructions .ROUTE .COMPLEX Qty: 30 5RF Dose Instruction: Take 1 tablet by mouth once daily Rx Instructions: Take 1 tablet by mouth once daily dicyclomine 10 mg capsule 10 mg PO QID PRN (Reason: abdominal pain) Qty: 120 2RF insulin aspart U-100 [Novolog U-100 Insulin aspart] 100 unit/mL solution See Rx Instructions .ROUTE .COMPLEX Qty: 10 0RF Dose Instruction: INJECT 10 UNITS SUBCUTANEOUSLY THREE TIMES DAILY Rx Instructions: INJECT 10 UNITS SUBCUTANEOUSLY THREE TIMES DAILY metformin 500 mg tablet 500 mg PO BID Qty: 60 6RF Rx Instructions: Take 1 tablet by mouth twice daily Culturelle 15 billion cell capsule, sprinkle 1 cap PO DAILY Qty: 14 0RF losartan 100 mg tablet 100 mg PO DAILY Rx Instructions: Take 1 tablet by mouth once daily Referrals Follow up/Referrals: Prasad Preston DO [Primary Care Provider, Family Practice] - See instructions Activity Restrictions/Add. Instructions Additional Instructions/Restrictions: Monitor temperature. Seek treatment if fever develops. Follow-up immediately if new or worse symptoms worsen or no noticeable improvement over 48 hours. Increase fluids such as water, Gatorade, Powerade, juice or Pedialyte with limited formula/dietary in children No food is okay as long as you are drinking. Once ready to eat start bland such as bananas, rice, applesauce, toast. Avoid antidiarrheals unless told otherwise. Best to let the virus run its course. Follow-up immediately for new or worsening symptoms or no noticeable improvement over the next 48 hours. Clinical Impressions Clinical Impression: Colitis Instructions Patient Instructions: DI for Acute Abdominal Pain, DI for Colitis Print Language Print Language: Uzbek Discharge ED Provider: Silvino Chauhan General Adult HPI General Chief complaint: Abdominal Pain Stated complaint: stomach cramping,blood in stool Time Seen by Provider: 07/10/25 15:28 Mode of Arrival: Ambulatory Source of Information: Patient Description of Symptoms (Recalled from ER Triage Doc. by RN): patient states she has been having loose bloody stool for 2 days with nausea and abdominal cramping. History of Present Illness HPI narrative: 65-year-old female presents for abdominal pain, nausea and loose bloody stool for 2 days. Patient states she was in the hospital 2 weeks ago for pancreatitis, food poisoning and dehydration. At that time she had diarrhea, patient states now she is more constipated and noticed blood in her stool this morning. Related Data Home Medications ?Medication ?Instructions ?Recorded ?Confirmed cholecalciferol (vitamin D3) 25 25 mcg PO DAILY 07/03/25 mcg (1,000 unit) capsule aspirin 81 mg chewable tablet 81 mg PO DAILY 01/22/25 07/03/25 prucalopride 2 mg tablet 2 mg PO DAILY 06/11/2507/03 losartan 100 mg tablet 100 mg PO DAILY 06/26/2505/22 Previous Rx's ?Medication ?Instructions ?Recorded blood-glucose,airline pilot/first officer,cont #1 ea 08/23/24 (Dexcom G7 Brokerage Branch Manager) hydrochlorothiazide 12.5 mg tablet 12.5 mg PO DAILY #9 0 tabs 03/25/25 blood-glucose sensor (Dexcom G7 #9 ea 06/11/25 Sensor device) duloxetine 30 mg capsule,delayed 30 mg PO BID #60 caps 06/11/25 release levothyroxine 75 mcg tablet 75 mcg PO DAILY #90 tabs 0 06/11/25 (Euthyrox) Lactobacillus rhamnosus GG 15 1 cap PO DAILY #14 caps 06/29/25 billion cell sprinkle capsule (Culturelle) empagliflozin 25 mg tablet See Rx Instructions .Route 07/01/25 (Jardiance) .COMPLEX #30 tabs rifaximin 550 mg tablet (Xifaxan) 550 mg PO TID #42 ta bs 07/01/25 insulin pump cart,auto,BT,G6/7 #10 ea 07/03/25 (Omnipod 5 G6-G7 Pods (Gen 5) subcutaneous cartridge) dicyclomine 10 mg capsule 10 mg PO QID PRN abdominal p ain 07/04/25 #120 caps Novolog U-100 Insulin aspart 100 See Rx Instructions . Route 07/09/25 unit/mL subcutaneous solution .COMPLEX #10 mL (insulin aspart U-100) metformin 500 mg tablet 500 mg PO BID #60 tabs 07/10 Allergies Allergy/AdvReac Type Severity Reaction Status Date / Time amoxicillin (From AUGMENTIN) Allergy Mild NA-NAUSEA Verified 07/03/25 08:31 cefdinir Allergy Mild Hives Verified 07/03/25 08:31 clavulanic acid (From Allergy Mild NA-NAUSEA Verified 07/03/25 08:31 AUGMENTIN) hydrocodone (From NORCO) Allergy Mild HIVES,ITCHI Verified 07/03/25 08:31 NG naproxen (NAPROXEN) Allergy Mild HIVES,ITCHI Verified 07/03/25 08:31 NG Sulfa (Sulfonamide Allergy Mild HIVES,ITCHI Verified 07/03/25 08:31 Antibiotics) (SULFA NG (SULFONAMIDE ANTIBIOTICS)) aspirin Allergy Hives Verified 07/03/25 08:31 Cephalosporins Allergy unknown Verified 07/03/25 08:31 dulaglutide (From Trulicity) AdvReac Intermediate Verified 07/03/25 08:31 levofloxacin AdvReac Nausea Verified 07/03/25 08:31 PFSH PFS Disclaimer: The information contained in this section may have been updated after the patient was seen, as this information can be updated by other users. Medical History Abdominal pain Constipation Diabetes Dyshidrotic eczema Elevated parathyroid hormone Encounter for screening breast examination History of left heart catheterization (LHC) Neuropathy Polyarthralgia Surgical History H/O tubal ligation History of colonoscopy History of hysterectomy Family History Family/Other Bleeding disorder Diabetes FHx: mental illness Hypertension Mother Tuberculosis Social History (Updated 07/03/25 @ 08:35 by Latia Trimble CMA) Smoking Status: Current every day smoker tobacco type: cigarettes packs per day: 1 pack-years: 182 smoking status start date: 1980 second hand exposure: No alcohol intake: never substance use type: denies use current occupational status: employed Travel in the last 8 weeks?: None household members: spouse housing: house current occupation: school system current occupational exposures/hazards: No caffeine: Yes Have you lived/traveled outside US in past 30 days?: No Contact w/someone who lives/traveled outside US past 30 days?: No Exposure to someone with infectious disease in past 14 days?: No Do you have a fever (greater than 100.4 F or 38 C)?: No Have you tested positive for COVID-19?: No Exposed to someone with COVID-19 in past 14 days?: No Do you have a sore throat?: No Do you have a cough?: No Do you have any weakness?: No Do you have any diarrhea?: No Are you experiencing any unusual bleeding?: No Do you have any muscle aches/pain?: No Do you have any abdominal pain?: No Are you experiencing loss of taste or smell?: No Other Medical History Have you received the Flu Vaccine for this season: No Have you received the Pneumonia Vaccine: No ROS Obtained: Yes All systems reviewed & no additional complaints except as documented Gastrointestinal Gastrointestingal: Reports system reviewed and no additional complaints, except as documented, as per HPI, abdominal pain, cramping, diarrhea, nausea and vomiting Physical Exam General General appearance: alert and in no apparent distress Head Head exam: atraumatic Eye Eye exam: Present normal appearance ENT ENT exam: Present normal exam Respiratory Respiratory exam: Present normal lung sounds bilaterally Cardiovascular Cardiovascular exam: Present regular rate and normal rhythm Abdominal Exam Abdominal exam: Present soft, tenderness and normal bowel sounds Abdominal tenderness: Present diffuse Neurological Exam Neurological exam: Present alert and oriented X3 Skin Skin exam: Present warm and intact Medical Decision Making Medical Records Medical records reviewed: Yes I reviewed the patient's medical records. Screening: Per USPSTF and CDC recommendations, given the prevalence of disease in our region, it is our hospital?s policy to screen for HIV and viral Hepatitis for all patients aged 18 and over and those with ongoing risk factors. Cj Inquiry Pt receiving controlled substance: No Vital Signs: 07/10/25 15:21 07/10/25 17:00 07/10/25 17:30 Temperature 98.6 F Temperature Source Oral Pulse Rate 78 85 Pulse Rate [Right Radial] 116 H Respiratory Rate 16 Blood Pressure 117/67 110/69 Blood Pressure [Right Arm] 112/74 Blood Pressure Mean Blood Pressure Mean [Right Arm] 86 Blood Pressure Source [Right Arm] Automatic Cuff Blood Pressure Position [Right Arm] Supine 02 Sat by Pulse Oximetry 96 94 L 94 L Oxygen Delivery Method Room Air 07/10/25 18:01 07/10/25 18:09 Temperature 98.6 F Temperature Source Oral Pulse Rate 87 Pulse Rate [Right Radial] Respiratory Rate 17 Blood Pressure 117/66 117/66 Blood Pressure [Right Arm] Blood Pressure Mean 78 Blood Pressure Mean [Right Arm] Blood Pressure Source [Right Arm] Blood Pressure Position [Right Arm] 02 Sat by Pulse Oximetry Oxygen Delivery Method Room Air Lab Data Lab results reviewed: Yes I reviewed the patient's lab results. Lab Results 07/10/25 15:04: Stool Occult Blood Positive A 07/10/25 15:08: Urine Color Yellow, Urine Appearance Clear, Urine pH 6.0, Ur Specific [place] 1.010, Urine Protein Negative, Urine Glucose (UA) 3+, Urine Ketones Negative, Urine Blood Negative, Urine Nitrate Negative, Urine Bilirubin Negative, Urine Urobilinogen 0.2, Ur Leukocyte Esterase Negative, Urine RBC None, Urine WBC 5-10, Ur Squamous Epith Cells 10-20, Urine Bacteria 3+ 07/10/25 15:25: WBC 12.1 H, RBC 5.03, Hgb 12.7, Hct 40.0, MCV 79.5 L, MCH 25.2 L , MCHC 31.8, RDW 19.1 H, Plt Count 410, MPV 10.0, Neut % (Auto) 48.3, Lymph % (Auto) 16.6, Perkins % (Auto) 6.1, Eos % (Auto) 28.0 H, Baso % (Auto) 0.7, Neut # (Auto) 5.8, Lymph # (Auto) 2.0, Perkins # (Auto) 0.7, Eos # (Auto) 3.4 H, Baso # (Auto) 0.1, Total Counted 100, Neutrophils % (Manual) 51, Lymphocytes % (Manual) 24, Monocytes % (Manual) 5, Eosinophils % (Manual) 20 H, Platelet Estimate Normal, Hypochromasia 1+, Sodium 136, Potassium 3.9, Chloride 103, Carbon Dioxide 26, Anion Gap 10.9, BUN 25 H, Creatinine 1.10 H, Estimated Creat Clear 82, Estimated GFR 50 L, Est GFR ( Amer) 61, Glucose 234 H, Calcium 10.0, Total Bilirubin 0.3, AST 34, ALT 19, Alkaline Phosphatase 148 H, Total Protein 8.7 H, Albumin 4.3, Globulin 4.4 H, Albumin/Globulin Ratio 1.0 L, Lipase 574 H 07/10/25 15:25 07/10/25 15:25 Orders (Tests/Meds): ED MEDICATIONS Discontinued Medications Generic Name Dose Route Start Last Admin Trade Name Freq PRN Reason Stop Dose Admin Sodium Chloride 1,000 mls @ 250 mls/hr 07/10/25 16:15 07/10/25 16:28 Sod Chlor 0.9% 1000ml Bag IV 08/09/25 16:14 250 mls/hr .Q4H VARGHESE Administration Iopamidol 75 ml 07/10/25 16:21 07/10/25 16:22 Iopamidol-370 (76%);100ml Bottle IV 07/10/25 16:22 75 ml ONCE ONE Administration Morphine Sulfate 2 mg 07/10/25 16:35 07/10/25 17:01 Morphine 2mg/Ml Syringe IV 07/10/25 16:36 2 mg ONCE ONE Administration Sodium Chloride 10 ml 07/10/25 16:21 07/10/25 16:22 Sodium Chloride 0.9% 10ml Syr (Rad Only) IV 07/10/25 16:22 10 ml ONCE ONE Administration ORDERS Category Date Time Status CT abdomen pelvis w con Stat Cat Scan 07/10/25 15:38 Completed CBC w/Auto Diff [Complete Blood Count Auto Diff] Stat Lab 07/10/25 15:25 Completed CMP [Comprehensive Metabolic Panel] Stat Lab 07/10/25 15:25 Completed Lipase Stat Lab 07/10/25 15:25 Completed Occult Blood,Stool Stat Lab 07/10/25 15:04 Completed Urinalysis and Microscopic Stat Lab 07/10/25 15:08 Completed Urine Culture Stat Micro 07/10/25 15:08 Received Medical Decision Narrative: In summary patient is a 65-year-old female who presents to the emergency department for evaluation of abdominal pain, nausea, loose stool with blood. Patient is hemodynamically stable upon arrival, afebrile. Abdominal tenderness throughout. Differential diagnosis includes pancreatitis, gastritis, constipation. Initial workup will be conducted with labs, urine, stool, CT. Initial inventions include normal saline, morphine. Initial workup reviewed by [facility] labs -elevated lipase nontender, CT showed colitis. Upon repeat evaluation patient sitting in bed eating drink states pain has improved. Patient was given meal tray and tolerated well.given this patient was appropriate for discharge with close follow up with pcp Critical Care Critical Care Time Critical Care Time: No
--- NOTE | 2025-07-10 15:38 | CT_ITS ---
PROCEDURE INFORMATION: Exam: CT Abdomen And Pelvis With Contrast Exam date and time: 07/10/2025 4:23 PM Age: 65 years old Clinical indication: Other: Blood stools; Abdominal pain; Additional info: Abd pain, blood stools TECHNIQUE: Imaging protocol: Computed tomography of the abdomen and pelvis with contrast. Radiation optimization: All CT scans at this facility use at least one of these dose optimization techniques: automated exposure control; mA and/or kV adjustment per patient size (includes targeted exams where dose is matched to clinical indication); or iterative reconstruction. Contrast material: ISOVUE; Contrast volume: 75 ml; Contrast route: IV; COMPARISON: CT ABDOMEN PELVIS W CON 06/28/2025 11:18 PM FINDINGS: Lungs: Visualized lung bases demonstrate no acute abnormality. Calcified granulomas. Liver: Fatty infiltration of the liver. Gallbladder and biliary ducts: No visualized gallstones (not all gallstones are visible via CT). No gallstones were described on the abdominal ultrasound from 06/26/2025. No wall thickening or surrounding inflammation. No bile duct dilation. Pancreas: No peripancreatic inflammatory change or significant pancreatic duct dilation. Spleen: No splenomegaly. Calcified splenic granulomas. Adrenal glands: The adrenal glands are unremarkable. Kidneys and ureters: The kidneys enhance symmetrically. No hydronephrosis. No renal perfusion defects or perinephric inflammation. Stomach and bowel: The stomach is unremarkable. No small bowel obstruction or acute inflammatory change. Previously seen changes of acute diverticulitis have resolved. The ascending and transverse segments of the colon has a somewhat featureless appearance with a contribution from nondistention. No surrounding inflammatory change. No pneumatosis. The colon is not obstructed. Appendix: The appendix is identified. No evidence of acute appendicitis. Intraperitoneal space: No free fluid or free air. Vasculature: Minimal aortic atherosclerosis. No abdominal aortic aneurysm. Mesenteric vessels are patent. Portal veins are patent. Lymph nodes: Unremarkable. No enlarged lymph nodes. Urinary bladder: Unremarkable. Reproductive: Post hysterectomy. Ovaries are unremarkable. Bones/joints: No acute fracture is identified. Stable spinal degenerative changes. Partial ankylosis at L5-S1 is again noted. Soft tissues: Unremarkable. IMPRESSION: 1. Resolution of the previously seen acute diverticulitis. 2. The ascending and transverse segments of the colon now have a somewhat featureless appearance with a contribution from nondistention. Given the clinical history, this is concerning for colitis.
[2025-07-10 15:39] LABS: Microscopic, Urine URINE MICROSCOPIC (MICROSCOPIC)
[2025-07-10 15:43] LABS: Hematocrit 40.0 % (37.0-47.0); Hemoglobin 12.7 g/dL (12.2-16.2); Immature Granulocytes % 0.3 %; Mean Corpuscular HGB Conc 31.8 g/dL (31.8-35.4); Mean Corpuscular Hemoglobin 25.2 pg (27.0-31.2); Mean Corpuscular Volume 79.5 fl (81-99); Nucleated Red Blood Cells % 0 %; Platelet Count 410 K/mm3 (142-424); Red Blood Count 5.03 M/mm3 (4.20-5.40); Red Cell Distribution Width-SD 54.8 fL; White Blood Count 12.1 K/mm3 (4.8-10.8)
[2025-07-10 15:47] LABS: Bilirubin,Urine Negative (Negative); Color,Urine YELLOW (Yellow); Glucose,Urine (UA) 3+ (Negative); Ketones,Urine Negative (Negative); Leukocyte Esterase,Urine Negative (Negative); PH,Urine 6.0 (5.0-8.5); Protein,Urine Negative (Negative); Specific Gravity, Urine 1.010 (1.005-1.030); Urobilinogen,Urine 0.2 EU/dl (0.2)
[2025-07-10 15:47] LABS: Alanine Aminotransferase 19 U/L (12-78); Albumin Level 4.3 g/dl (3.5-5.0); Albumin/Globulin Ratio 1.0 (1.1-1.8); Alkaline Phosphatase 148 U/L (38-126); Anion Gap 10.9 mEq/L (5-15); Aspartate Amino Transferase 34 U/L (14-36); Bilirubin,Total 0.3 mg/dl (0.2-1.3); Blood Urea Nitrogen 25 mg/dl (7-17); Calcium 10.0 mg/dl (8.4-10.2); Carbon Dioxide 26 mmol/L (22.0-30.0); Chloride 103 mmol/L (98-107); Creatinine Clearance Estimated 82 mL/min (50-200); Creatinine,Serum 1.10 mg/dl (0.52-1.04); Estimated Glomerular Filt Rate 50 ml/min (>60); GFR (African American) 61 ML/MIN (>60); Globulin 4.4 g/dL (1.3-3.2); Glucose 234 mg/dl (74-100); Lipase 574 U/L (23-300); Potassium 3.9 mmoL/L (3.5-5.1); Sodium 136 mmol/L (136-145); Total Protein,Serum 8.7 g/dl (6.3-8.2)
[2025-07-10 16:14] LABS: Occult Blood,Stool Positive (Negative)
[2025-07-10] MEDS: IOPAMIDOL-370 (76%);100ML BOTTLE 75 ML IV (16:22)
[2025-07-10] MEDS: SODIUM CHLORIDE 0.9% 10ML SYR (RAD ONLY) 10 ML IV (16:22)
[2025-07-10] MEDS: 0.9 % SODIUM CHLORIDE 1000ML 1,000 ML 250 ML IV (16:28)
[2025-07-10 16:42] LABS: Bacteria,Urine 3+ /lpf
[2025-07-10 17:00] VITALS: BP 117/67; PULSE 78; O2SAT 94
[2025-07-10] MEDS: MORPHINE 2MG/ML SYRINGE 2 MG IV (17:01)
[2025-07-10 17:08] LABS: Hypochromasia 1+; Total Cells Counted 100
[2025-07-10 17:30] VITALS: BP 110/69; PULSE 85; O2SAT 94
[2025-07-10 18:01] VITALS: BP 117/66
[2025-07-10 18:09] VITALS: BP 117/66; PULSE 87; RESP 17; TEMP 37; O2SAT 97
== END 2025-07-10 18:13 | disposition home or self-care (01) ==
PROVIDERS: Nurse Practitioner Family; Emergency Provider Student in an Organized Health Care Education/Training Program; PCP Internal Medicine
DX: K92.1 Melena (principal); K52.9 Noninfective gastroenteritis and colitis, unspecified; F17.210 Nicotine dependence, cigarettes, uncomplicated
CPT/HCPCS: 74177; 80053; 81001; 82272; 83690; 85007; 85025; 85027; 87086; 87088; 87186; 96361; 96374; 99285; G0328; J2270; J7030; Q9967

== ENCOUNTER 2025-07-17 08:59 | Inpatient (IN) | payer BC, SELFPAY ==
[2025-07-17] VITALS (10 sets, daily range): BP systolic 110–136; BP diastolic 64–92; PULSE 79–117; RESP 16–19; TEMP 36.6–36.9; O2SAT 92–98; BMI 39.1; BMI 39.5
--- OUTSIDE RECORDS SUMMARY | 2025-07-17 09:07 | XMS_ITS | Encounter Summary ---
Author Organization [facility] Address [address] [place] [address] Care Team Providers Care Topper Press Operator Name Role Phone Cornelius Aparicio MD Primary Care Provider [phone] Reason for Referral * Consultation (Routine) - Closed Specialty Diagnoses / Procedures Referred By Enmanuel rich Referred To Contact Rheumatology Diagnoses Elevated sed rate Elevated C-reactive protein Clementine Kohli PA [address] [place] [address] Phone: tel: fax: Referral ID Status Reason Start Date Expiration Date V isits Requested Visits Authorized [id number] Closed Specialty Services Required 06/02/2022 12/02/2023 1 1 Encounter Details Date Type Department Care Team (Late st Contact Info) Description 06/02/2022 Community [facility] [address] [place] [address] Clementine Kohli PA [address] [place] [address] Elevated sed rate (Primary Dx); [...] documented as of this encounter Care Teams Topper Press Operator Relationship Specialty Start Date End Date Cornelius Aparicio MD [address] [place] [address] PCP - General 04/10/21 documented as of this encounter
--- OUTSIDE RECORDS SUMMARY | 2025-07-17 09:07 | XMS_ITS | Encounter Summary ---
Author Organization [facility] Address [address] [place] [address] Care Team Providers Care Tractor Distributor Name Role Phone Cornelius Aparicio MD Primary Care Provider [phone] Reason for Visit * Reason Comments Med Refill Encounter Details Date Type Department Care Team (Late st Contact Info) Description 03/26/2023 Refill [facility] Endocrinology [address] [place] [address] Osmel Auguste MD [address] [address] Hypothyroidism, unspecified type Social History [...] 90 day supply with 1 refill(s) to [facility] pharmacy. Enough refills until appointment on [...] documented as of this encounter Care Teams Tractor Distributor Relationship Specialty Start Date End Date Cornelius Aparicio MD [address] [place] [address] PCP - General 04/10/21 documented as of this encounter
--- OUTSIDE RECORDS SUMMARY | 2025-07-17 09:07 | XMS_ITS | Clinical Summary ---
Author Organization [facility] Address [address] [place] [address] Care Team Providers Care Supervisor Printing Shop Name Role Phone Cornelius Aparicio MD Primary Care Provider [phone] Allergies Active Allergy Reactions Criticality Noted Date [...] mellitus with other specified complication, unspecified whether assisted insulin use ([facility]),Type 2 diabetes mellitus without complication, [...] hyperglycemia, with long-term current use of insulin ([facility]) Inject 0.5 mg once weekly. [...] mellitus with other specified complication, unspecified whether assisted insulin use ([facility]),Type 2 diabetes mellitus without complication, [...] 1-dose series) 2022 [facility]-Depression Screening 05/17/2024 05/17/2023 [id number] Vaccine ( season) 2024 10/14/2021, 01/16/2021, 12/17/2020 [...] hyperglycemia, with long-term current use of insulin ([facility]) ACUTE HEPATITIS PANEL Routine 07/23/2022 10:53 AM EDT Polyarthralgia Elevated C-reactive protein from Last 3 Months or Most Recently Relevant to Health Maintenance Results * (ABNORMAL) POCT glycosylated hemoglobin (Hb A1C) (04/26/2024 8:29 AM EDT) Pathologist [facility] POCT Hemoglobin A1C 8.9 <5.7% Non-Diabe tic [facility] Kit Lot Number [id number] [facility] Kit Expiration Date 02/25/2026 [facility] Blood Venous blood specimen / Unknown 04/26/2024 8:29 AM EDT Osmel Auguste MD POINT OF CARE TEST ENTER/ED IT ORDERABLES Final Result Performing Organization Address City/[facility]/ZIP Co de Phone Number HEALTHCARE [facility] [address] [place] [address] * Acute Hepatitis Panel (07/23/2022 10:53 AM EDT) Pathologist [facility] Hepatitis B Surf Antigen Negative Negative 07/23/2022 1:41 PM EDT [facility] Hepatitis C Antibody Negative Negative 07/23/2022 1:41 PM EDT [facility] Hepatitis A Antibody IgM Negative Negative 07/23/2022 1:41 PM EDT [facility] Hepatitis B Core Antibody IgM Negative Negative 07/23/2022 1:41 PM EDT [facility] Blood Venous blood specimen / Unknown Venipuncture / Unknown 07/23/2022 10:53 AM EDT 07/23/2022 10:54 AM EDT [facility] BLOOD ORDERABLES Final Resul t Performing Organization Address City/[facility] Co de Phone Number [facility] [address] [place] [address] from Last 3 Months or Most Recently Relevant to Health Maintenance Insurance [employer] Care Teams Supervisor Printing Shop Relationship Specialty Start Date End Date Cornelius Aparicio MD [address] [place] [address] PCP - General 04/10/21
--- OUTSIDE RECORDS SUMMARY | 2025-07-17 09:07 | XMS_ITS | Encounter Summary ---
Author Organization [facility] Address [address] [place] [address] Care Team Providers Care Senior International Tax Manager Name Role Phone Cornelius Aparicio MD Primary Care Provider [phone] Reason for Visit * Reason Comments Med Refill Encounter Details Date Type Department Care Team (Late st Contact Info) Description 09/25/2023 Refill [facility] [address] [place] [address] Alivia Troy L, HEALTH SUPPORT SPECIALIST [address] [place] [address] Primary osteoarthritis involving multiple joints [...] documented as of this encounter Care Teams Senior International Tax Manager Relationship Specialty Start Date End Date Cornelius Aparicio MD [address] [place] [address] PCP - General 04/10/21 documented as of this encounter
--- OUTSIDE RECORDS SUMMARY | 2025-07-17 09:07 | XMS_ITS | Encounter Summary ---
Author Organization [facility] Address [address] [place] [address] Care Team Providers Care Heat And Frost Insulator Helper Name Role Phone Cornelius Aparicio MD Primary Care Provider [phone] Reason for Visit * Reason Comments Med Refill Encounter Details Date Type Department Care Team ([facility] st Contact Info) Description 03/03/2023 Refill [facility] Endocrinology [address] [place] [address] Osmel Auguste MD [address] [address] Type 2 diabetes mellitus without complication, without long-term current use of insulin ([facility]) Social History Tobacco Use Types [...] documented as of this encounter Care Teams Heat And Frost Insulator Helper Relationship Specialty Start Date End Date Cornelius Aparicio MD [address] [place] [address] PCP - General 04/10/21 documented as of this encounter
[2025-07-17 09:11] LABS: Microscopic, Urine URINE MICROSCOPIC (MICROSCOPIC)
[2025-07-17 09:20] LABS: Bilirubin,Urine Negative (Negative); Color,Urine YELLOW (Yellow); Glucose,Urine (UA) 3+ (Negative); Ketones,Urine Negative (Negative); Leukocyte Esterase,Urine Negative (Negative); PH,Urine 6.0 (5.0-8.5); Protein,Urine Negative (Negative); Specific Gravity, Urine <= 1.005 (1.005-1.030); Urobilinogen,Urine 0.2 EU/dl (0.2)
--- NOTE | 2025-07-17 09:31 | ECG_ITS ---
APPROVED REPORT Exam: Resting ECG HR:110 bpm ECG Measurements Heart Rate 110 AXES DC 143 P 60 QRSd 82 QRS -32 QT 322 T 5 QTc 387 Conclusion SINUS TACHYCARDIA LEFT AXIS DEVIATION [QRS AXIS < -30] LOW QRS VOLTAGE IN PRECORDIAL LEADS [QRS DEFLECTION < 1.0 mV IN CHEST LEADS] POSSIBLE ANTERIOR MYOCARDIAL INFARCTION , PROBABLY OLD [30 ms Q WAVE IN V3/V4, OR R < 0.2 mV IN V4] ABNORMAL ECG UNCONFIRMED REPORT Electronically signed by : Kvng Chauhan, 07/17/2025 15:37:38
[2025-07-17 09:32] LABS: Bacteria,Urine Trace /lpf
--- NOTE | 2025-07-17 09:40 | CT_ITS ---
FINAL REPORT TECHNIQUE: After the administration of oral and intravenous contrast, axial images were obtained through the abdomen and pelvis by computed tomography. The study was performed with techniques to keep radiation dose as low as reasonably achievable, (ALARA). Individual dose reduction techniques using automated exposure control or adjustment of mA and/or kV according to the patient's size were employed. CLINICAL HISTORY: diffuse abd pain COMPARISON: 07/10/2025 FINDINGS: Abdomen: The lung bases are clear. There is moderate fatty infiltration of the liver. The gallbladder is present. Calcified granulomas are present in the spleen. The pancreas, adrenals and kidneys appear unremarkable. The aorta is normal in caliber. There is no free fluid or adenopathy. Pelvis: The appendix is not identified. The urinary bladder is unremarkable. There is no free fluid or adenopathy. There is marked inflammatory change surrounding the sigmoid portion of the colon, with a large number of adjacent diverticula, consistent with diverticulitis, colitis felt to be less likely. There is thickening of the wall of the sigmoid colon as well. There is no air in the bladder to suggest a fistula. No abscess or perforation is identified in the pelvis. IMPRESSION: Marked inflammatory change surrounding the sigmoid portion of the colon, consistent with uncomplicated diverticulitis. Colitis is felt to be less likely. Reviewed, Interpreted and Dictated by Kanu Henderson MD Transcribed by Arielle Suarez Authenticated and [facility]
--- NOTE | 2025-07-17 09:43 | HMH.EDGENADL ---
Discharge Plan Disposition Patient Disposition: Admitted Prescriptions Prescriptions: No Action (DME) Dexcom G7 Blow Mold Technician Misc See Rx Instructions .Route Qty: 1 0RF Rx Instructions: As directed (DME) Omnipod 5 G6-G7 Pods (Gen 5) Cartridge See Rx Instructions .ROUTE .COMPLEX Qty: 10 5RF Dose Instruction: USE DIRECTED Rx Instructions: Change Omnipod once every 3 days. Xifaxan 550 mg tablet 550 mg PO TID Qty: 42 0RF cholecalciferol (vitamin D3) 25 mcg (1,000 unit) capsule 25 mcg PO DAILY aspirin 81 mg tablet,chewable 81 mg PO DAILY prucalopride 2 mg tablet 2 mg PO DAILY (DME) Dexcom G7 Sensor Device See Rx Instructions .Route Qty: 9 1RF Rx Instructions: As directed duloxetine 30 mg capsule,delayed release(DR/EC) 30 mg PO BID Qty: 60 2RF hydrochlorothiazide 12.5 mg tablet 12.5 mg PO DAILY Qty: 90 1RF levothyroxine [Euthyrox] 75 mcg tablet 75 mcg PO DAILY Qty: 90 1RF Jardiance 25 mg tablet See Rx Instructions .ROUTE .COMPLEX Qty: 30 5RF Dose Instruction: Take 1 tablet by mouth once daily Rx Instructions: Take 1 tablet by mouth once daily dicyclomine 10 mg capsule 10 mg PO QID PRN (Reason: abdominal pain) Qty: 120 2RF insulin aspart U-100 [Novolog U-100 Insulin aspart] 100 unit/mL solution See Rx Instructions .ROUTE .COMPLEX Qty: 10 0RF Dose Instruction: INJECT 10 UNITS SUBCUTANEOUSLY THREE TIMES DAILY Rx Instructions: INJECT 10 UNITS SUBCUTANEOUSLY THREE TIMES DAILY metformin 500 mg tablet 500 mg PO BID Qty: 60 6RF Rx Instructions: Take 1 tablet by mouth twice daily sodium,potassium,mag sulfates [Suprep Bowel Prep Kit] 17.5-3.13-1.6 gram recon soln See Rx Instructions PO .COMPLEX Qty: 354 0RF Rx Instructions: DILUTE; drink full amount early evening before AND next morning at least 4-5 hr before procedure; follow w 960 mL water PO ciprofloxacin HCl [Cipro] 500 mg tablet 500 mg PO BID Qty: 10 0RF Culturelle 15 billion cell capsule, sprinkle 1 cap PO DAILY Qty: 14 0RF losartan 100 mg tablet 100 mg PO DAILY Rx Instructions: Take 1 tablet by mouth once daily Referrals Follow up/Referrals: Prasad Preston DO [Primary Care Provider, Family Practice] - See instructions Clinical Impressions Clinical Impression: Diverticulitis, Failure of outpatient treatment Instructions Patient Instructions: DI for Acute Abdominal Pain Print Language Print Language: Kazakh Discharge ED Provider: Silvino Chauhan General Adult HPI General Chief complaint: Abdominal Pain Stated complaint: abd pain, nausea, headache, dizziness Time Seen by Provider: 07/17/25 09:30 Mode of Arrival: Ambulatory Source of Information: Patient Description of Symptoms (Recalled from ER Triage Doc. by RN): pt presents to ED with c/o abdominal pain/cramping, weakness, headache, dizziness. pt reports she has recently been ill and was hospitalized. pt had been off work, pt states that symptoms began tuesday but got worse last night. History of Present Illness HPI narrative: Patient is a 65-year-old female presenting today with multiple complaints including abdominal pain headache dizziness. She was recently hospitalized at the end of last month with a diagnosis of acute pancreatitis ultimately had serial CAT scans that were performed which showed diverticulitis versus enteritis as well. Patient states she never really fully improved that she has had some improvement in her discomfort but still has 8 out of 10 moderate to severe pain. Pain is located primarily in the epigastric and lower abdominal region. Stool is soft but not watery. No fevers or chills. Has a scheduled EGD and colonoscopy on Tuesday of next week with Dr. Nguyen. Related Data Home Medications ?Medication ?Instructions ?Recorded ?Confirmed cholecalciferol (vitamin D3) 25 25 mcg PO DAILY 11/30/24 07/03/25 mcg (1,000 unit) capsule aspirin 81 mg chewable tablet 81 mg PO DAILY 01/22/25 07/03/25 prucalopride 2 mg tablet 2 mg PO DAILY 06/11/25 07/03/25 losartan 100 mg tablet 100 mg PO DAILY 06/26/25 07/03/25 Previous Rx's ?Medication ?Instructions ?Recorded blood-glucose,couture alterations dressmaker,cont #1 ea 08/23/24 (Dexcom G7 Blow Mold Technician) hydrochlorothiazide 12.5 mg tablet 12.5 mg PO DAILY #90 tabs 02/19/25 blood-glucose sensor (Dexcom G7 #9 ea 06/11/25 Sensor device) duloxetine 30 mg capsule,delayed 30 mg PO BID #60 caps 06/11/25 release levothyroxine 75 mcg tablet 75 mcg PO DAILY #90 tabs 06/11/25 (Euthyrox) Lactobacillus rhamnosus GG 15 1 cap PO DAILY #14 caps 06/29/25 billion cell sprinkle capsule (Culturelle) empagliflozin 25 mg tablet See Rx Instructions .Route 07/01/25 (Jardiance) .COMPLEX #30 tabs rifaximin 550 mg tablet (Xifaxan) 550 mg PO TID #42 tabs 07/01/25 insulin pump cart,auto,BT,G6/7 #10 ea 07/03/25 (Omnipod 5 G6-G7 Pods (Gen 5) subcutaneous cartridge) dicyclomine 10 mg capsule 10 mg PO QID PRN abdominal pain 07/04/25 #120 caps Novolog U-100 Insulin aspart 100 See Rx Instructions .Route 07/09/25 unit/mL subcutaneous solution .COMPLEX #10 mL (insulin aspart U-100) metformin 500 mg tablet 500 mg PO BID #60 tabs 07/10/25 ciprofloxacin HCl 500 mg tablet 500 mg PO BID #10 tabs 07/11/25 (Cipro) sodium,potassium,mag sulfates 17.5 See Rx Instructions PO .COMPLEX 07/11/25 gram-3.13 gram-1.6 gram oral soln #354 mL (Suprep Bowel Prep Kit) Allergies Allergy/AdvReac Type Severity Reaction Status Date / Time amoxicillin (From AUGMENTIN) Allergy Mild NA-NAUSEA Verified 07/03/25 08:31 cefdinir Allergy Mild Hives Verified 07/03/25 08:31 clavulanic acid (From Allergy Mild NA-NAUSEA Verified 07/03/25 08:31 AUGMENTIN) hydrocodone (From NORCO) Allergy Mild HIVES,ITCHI Verified 07/03/25 08:31 NG naproxen (NAPROXEN) Allergy Mild HIVES,ITCHI Verified 07/03/25 08:31 NG Sulfa (Sulfonamide Allergy Mild HIVES,ITCHI Verified 07/03/25 08:31 Antibiotics) (SULFA NG (SULFONAMIDE ANTIBIOTICS)) aspirin Allergy Hives Verified 07/03/25 08:31 Cephalosporins Allergy unknown Verified 07/03/25 08:31 dulaglutide (From Trulicity) AdvReac Intermediate Verified 07/03/25 08:31 levofloxacin AdvReac Nausea Verified 07/03/25 08:31 PFSH PFS Disclaimer: The information contained in this section may have been updated after the patient was seen, as this information can be updated by other users. Medical History Abdominal pain Constipation Diabetes Dyshidrotic eczema Elevated parathyroid hormone Encounter for screening breast examination History of left heart catheterization (LHC) Neuropathy Polyarthralgia Surgical History H/O tubal ligation History of colonoscopy History of hysterectomy Family History Family/Other Bleeding disorder Diabetes FHx: mental illness Hypertension Mother Tuberculosis Social History (Updated 07/03/25 @ 08:35 by Latia Trimble CMA) Smoking Status: Current every day smoker tobacco type: cigarettes packs per day: 1 pack-years: 182 smoking status start date: 1980 second hand exposure: No alcohol intake: never substance use type: denies use current occupational status: employed Travel in the last 8 weeks?: None household members: spouse housing: house current occupation: school system current occupational exposures/hazards: No caffeine: Yes Have you lived/traveled outside [place] in past 30 days?: No Contact w/someone who lives/traveled outside [place] past 30 days?: No Exposure to someone with infectious disease in past 14 days?: No Do you have a fever (greater than 100.4 F or 38 C)?: No Have you tested positive for COVID-19?: No Exposed to someone with COVID-19 in past 14 days?: No Do you have a sore throat?: No Do you have a cough?: No Do you have any weakness?: No Do you have any diarrhea?: No Are you experiencing any unusual bleeding?: No Do you have any muscle aches/pain?: No Do you have any abdominal pain?: No Are you experiencing loss of taste or smell?: No Other Medical History Have you received the Flu Vaccine for this season: No Have you received the Pneumonia Vaccine: No ROS Obtained: Yes All systems reviewed & no additional complaints except as documented Physical Exam General General appearance: alert Respiratory Respiratory exam: Present normal lung sounds bilaterally Cardiovascular Cardiovascular exam: Present regular rate Abdominal Exam Abdominal exam: Present soft and tenderness (Epigastric and lower abdominal tenderness no rebound or guarding); Absent distention Neurological Exam Neurological exam: Present alert and oriented X3 Medical Decision Making Medical Records Screening: Per USPSTF and CDC recommendations, given the prevalence of disease in our region, it is our hospital?s policy to screen for HIV and viral Hepatitis for all patients aged 18 and over and those with ongoing risk factors. Cj Inquiry Pt receiving controlled substance: No Vital Signs: 07/17/25 09:14 07/17/25 09:30 07/17/25 10:00 Temperature 98.4 F Temperature Source Oral Pulse Rate 99 H 89 Pulse Rate [Left Radial] 117 H Respiratory Rate 19 Blood Pressure 110/74 127/75 Blood Pressure [Right Arm] 110/85 Blood Pressure Mean 92 Blood Pressure Mean [Right Arm] 93 02 Sat by Pulse Oximetry 95 97 96 Oxygen Delivery Method 07/17/25 11:42 07/17/25 12:00 07/17/25 12:30 Temperature Temperature Source Pulse Rate 79 82 80 Pulse Rate [Left Radial] Respiratory Rate Blood Pressure 117/76 114/69 133/92 H Blood Pressure [Right Arm] Blood Pressure Mean 90 83 103 Blood Pressure Mean [Right Arm] 02 Sat by Pulse Oximetry 98 93 L 95 Oxygen Delivery Method Room Air Room Air 07/17/25 13:49 Temperature Temperature Source Pulse Rate 91 H Pulse Rate [Left Radial] Respiratory Rate Blood Pressure 132/85 Blood Pressure [Right Arm] Blood Pressure Mean 109 Blood Pressure Mean [Right Arm] 02 Sat by Pulse Oximetry 97 Oxygen Delivery Method Lab Data Lab results reviewed: Yes I reviewed the patient's lab results. Lab Results 07/17/25 09:07: Urine Color Yellow, Urine Appearance Clear, Urine pH 6.0, Ur Specific Welcome <= 1.005, Urine Protein Negative, Urine Glucose (UA) 3+, Urine Ketones Negative, Urine Blood Negative, Urine Nitrate Negative, Urine Bilirubin Negative, Urine Urobilinogen 0.2, Ur Leukocyte Esterase Negative, Urine RBC None, Urine WBC None, Ur Squamous Epith Cells 3-5, Urine Bacteria Trace 07/17/25 09:20: WBC 12.8 H, RBC 4.18 L, Hgb 10.6 L, Hct 34.0 L, MCV 81.3, MCH 25.4 L, MCHC 31.2 L, RDW 20.0 H, Plt Count 417, MPV 10.0, Neut % (Auto) 69.7, Lymph % (Auto) 13.7, Thayer % (Auto) 6.2, Eos % (Auto) 9.0, Baso % (Auto) 1.0, Neut # (Auto) 8.9 H, Lymph # (Auto) 1.8, Thayer # (Auto) 0.8, Eos # (Auto) 1.2 H, Baso # (Auto) 0.1, Sodium 141, Potassium 3.8, Chloride 105, Carbon Dioxide 25, Anion Gap 14.8, BUN 11, Creatinine 0.90, Estimated Creat Clear 88, Estimated GFR 63, Est GFR ( Amer) 77, Glucose 370 H, Lactate 3.0 H, Calcium 9.9, Total Bilirubin 0.5, AST 29, ALT 21, Alkaline Phosphatase 150 H, Total Protein 8.4 H, Albumin 4.3, Globulin 4.1 H, Albumin/Globulin Ratio 1.0 L, Lipase 177 07/17/25 09:48: SARS-CoV-2 (PCR) Not detected, Influenza A Untype (PCR) Not detected, Influenza Type B (PCR) Not detected 07/17/25 09:20 07/17/25 09:20 Orders (Tests/Meds): ED MEDICATIONS Discontinued Medications Generic Name Dose Route Start Last Admin Trade Name Freq PRN Reason Stop Dose Admin Lactated Ringer's 1,000 mls @ 999 mls/hr 07/17/25 09:45 07/17/25 11:04 Lactated Ringer's 1000 Ml Bag IV 07/17/25 10:45 Infused .Q1H1M VARGHESE Infusion Meropenem 1 gm/ Sodium 100 mls @ 100 mls/hr 07/17/25 13:52 Chloride IV 07/17/25 13:53 ONCE ONE Iopamidol 75 ml 07/17/25 10:19 07/17/25 10:20 Iopamidol-370 (76%);100ml Bottle IV 07/17/25 10:20 75 ml ONCE ONE Administration Morphine Sulfate 4 mg 07/17/25 09:40 07/17/25 09:51 Morphine 4mg/Ml Syringe IV 07/17/25 09:41 4 mg ONCE ONE Administration Morphine Sulfate 4 mg 07/17/25 11:40 07/17/25 11:54 Morphine 4mg/Ml Syringe IV 07/17/25 11:41 4 mg ONCE ONE Administration Ondansetron HCl 4 mg 07/17/25 09:40 07/17/25 09:51 Ondansetron 4mg/2ml Vial IV 07/17/25 09:41 4 mg ONCE ONE Administration Sodium Chloride 10 ml 07/17/25 10:19 07/17/25 10:20 Sodium Chloride 0.9% 10ml Syr (Rad Only) IV 07/17/25 10:20 10 ml ONCE ONE Administration ORDERS Category Date Time Status CT abdomen pelvis w con Stat Cat Scan 07/17/25 09:40 Completed CBC w/Auto Diff [Complete Blood Count Auto Diff] Stat Lab 07/17/25 09:20 Completed CMP [Comprehensive Metabolic Panel] Stat Lab 07/17/25 09:20 Completed Lactic Acid Follow Up (RFLX 1) Stat Lab 07/17/25 13:51 Ordered Lactic Acid Stat Lab 07/17/25 09:20 Completed Lipase Stat Lab 07/17/25 09:20 Completed Rapid PCR Covid and Flu A/B Stat Lab 07/17/25 09:48 Completed UA [Urinalysis and Microscopic] Stat Lab 07/17/25 09:07 Completed Medical Decision Narrative: 65-year-old with above history and physical. Given the fact that she is still having significant tenderness we will repeat lipase blood work CT scan with contrast for further evaluation and management differential includes worsening diverticulitis abscess formation perforation enteritis and colitis pancreatitis and its associated complications etc. Pain medicine IV fluids nausea medicine have been administered will reassess. Reassessment [address] scan was performed I personally interpreted which shows worsening diverticulitis. After reviewing the patient's chart and medications recently she is failed multiple antibiotics and continues to get worse from a diverticulitis standpoint. I am worried that she may need a colectomy and end of minimum will need to be admitted for IV antibiotics given the fact that she is failed outpatient therapy. I attempted to contact surgery but they have been unable to contact me back over the last hour. They do not need to emergently intervene at the moment and can be consulted inpatient therefore I spoke to Dr. Hoffmann with hospital medicine who agreed to admit the patient for further management. Critical Care Critical Care Time Critical Care Time: Yes Attestation: On 07/17/25, the high probability of a clinically significant, sudden or life threatening deterioration of the following system(s) required my full and direct attention, intervention and personal management. The time I documented below is in addition to time spent performing reported procedures but includes the following listed in this critical care notation. Total Time Total Critical Care Time: 35
[2025-07-17 09:45] LABS: Hematocrit 34.0 % (37.0-47.0); Hemoglobin 10.6 g/dL (12.2-16.2); Immature Granulocytes % 0.4 %; Mean Corpuscular HGB Conc 31.2 g/dL (31.8-35.4); Mean Corpuscular Hemoglobin 25.4 pg (27.0-31.2); Mean Corpuscular Volume 81.3 fl (81-99); Nucleated Red Blood Cells % 0 %; Platelet Count 417 K/mm3 (142-424); Red Blood Count 4.18 M/mm3 (4.20-5.40); Red Cell Distribution Width-SD 58.4 fL; White Blood Count 12.8 K/mm3 (4.8-10.8)
[2025-07-17 09:48] LABS: Albumin Level 4.3 g/dl (3.5-5.0); Chloride 105 mmol/L (98-107); Potassium 3.8 mmoL/L (3.5-5.1); Sodium 141 mmol/L (136-145)
[2025-07-17 09:51] LABS: Alanine Aminotransferase 21 U/L (12-78); Albumin/Globulin Ratio 1.0 (1.1-1.8); Alkaline Phosphatase 150 U/L (38-126); Anion Gap 14.8 mEq/L (5-15); Aspartate Amino Transferase 29 U/L (14-36); Bilirubin,Total 0.5 mg/dl (0.2-1.3); Blood Urea Nitrogen 11 mg/dl (7-17); Calcium 9.9 mg/dl (8.4-10.2); Carbon Dioxide 25 mmol/L (22.0-30.0); Creatinine Clearance Estimated 88 mL/min (50-200); Creatinine,Serum 0.90 mg/dl (0.52-1.04); Estimated Glomerular Filt Rate 63 ml/min (>60); GFR (African American) 77 ML/MIN (>60); Globulin 4.1 g/dL (1.3-3.2); Glucose 370 mg/dl (74-100); Lipase 177 U/L (23-300); Total Protein,Serum 8.4 g/dl (6.3-8.2)
[2025-07-17] MEDS: ONDANSETRON 4MG/2ML VIAL 4 MG IV (09:51)
[2025-07-17] MEDS: LACTATED RINGERS 1000ML 1,000 ML 999 ML IV (09:51)
[2025-07-17] MEDS: MORPHINE 4MG/ML SYRINGE 4 MG IV ×3 (09:51→21:40)
[2025-07-17 09:53] LABS: Coronavirus 19, PCR Not Detected (NotDetected); Influenza A, PCR Not Detected (NotDetected); Influenza B, PCR Not Detected (NotDetected)
[2025-07-17] MEDS: SODIUM CHLORIDE 0.9% 10ML SYR (RAD ONLY) 10 ML IV (10:20)
[2025-07-17] MEDS: IOPAMIDOL-370 (76%);100ML BOTTLE 75 ML IV (10:20)
--- NOTE | 2025-07-17 12:18 | PC.NURSE ---
CT called regarding status on pts CT and they are locked in to be read
--- NOTE | 2025-07-17 12:21 | PC.NURSE ---
Pt placed on 2L via NC due to sats dropping into the 80's
--- NOTE | 2025-07-17 12:40 | PC.NURSE ---
I spoke with Samir in radiology. He states the pts scans are locked in and being read by the radiologist at this time.
--- NOTE | 2025-07-17 13:20 | PC.NURSE ---
page made to general surgery
[2025-07-17 13:51] LABS: Reflex Lactic Add Lactic Reflex
--- NOTE | 2025-07-17 13:51 | PC.NURSE ---
md on phone with surgeon
--- NOTE | 2025-07-17 13:55 | PC.NURSE ---
software engineering supervisor contacted for bed
[2025-07-17] MEDS: MEROPENEM 1 GM in 0.9 % SODIUM CHLORIDE 100 ML IV ×2 (14:14→23:37)
--- NOTE | 2025-07-17 14:17 | PC.NURSE ---
report called to jose on second floor
[2025-07-17] MEDS: LACTATED RINGERS 1000ML 1,000 ML 75 ML IV (14:53)
--- NOTE | 2025-07-17 15:31 | EXP.SURG.CON ---
History of Present Illness *Admission Date: 07/17/25 *Reason for visit:: Diverticulitis *History of present illness: This is a 65-year-old female who presented to the emergency department with increasing abdominal pain. Evaluation included a CT scan that revealed changes consistent with likely diverticulitis. The surgical service was consulted. Forwarded from emergency department evaluation: General Adult HPI General Chief complaint: Abdominal Pain Stated complaint: abd pain, nausea, headache, dizziness Time Seen by Provider: 07/17/25 09:30 Mode of Arrival: Ambulatory Source of Information: Patient Description of Symptoms (Recalled from ER Triage Doc. by RN): pt presents to ED with c/o abdominal pain/cramping, weakness, headache, dizziness. pt reports she has recently been ill and was hospitalized. pt had been off work, pt states that symptoms began tuesday but got worse last night. History of Present Illness HPI narrative: Patient is a 65-year-old female presenting today with multiple complaints including abdominal pain headache dizziness. She was recently hospitalized at the end of last month with a diagnosis of acute pancreatitis ultimately had serial CAT scans that were performed which showed diverticulitis versus enteritis as well. Patient states she never really fully improved that she has had some improvement in her discomfort but still has 8 out of 10 moderate to severe pain. Pain is located primarily in the epigastric and lower abdominal region. Stool is soft but not watery. No fevers or chills. Has a scheduled EGD and colonoscopy on Tuesday of next week with Dr. Nguyen. Medical Decision Narrative: 65-year-old with above history and physical. Given the fact that she is still having significant tenderness we will repeat lipase blood work CT scan with contrast for further evaluation and management differential includes worsening diverticulitis abscess formation perforation enteritis and colitis pancreatitis and its associated complications etc. Pain medicine IV fluids nausea medicine have been administered will reassess. Reassessment [address] scan was performed I personally interpreted which shows worsening diverticulitis. After reviewing the patient's chart and medications recently she is failed multiple antibiotics and continues to get worse from a diverticulitis standpoint. I am worried that she may need a colectomy and end of minimum will need to be admitted for IV antibiotics given the fact that she is failed outpatient therapy. I attempted to contact surgery but they have been unable to contact me back over the last hour. They do not need to emergently intervene at the moment and can be consulted inpatient therefore I spoke to Dr. Hoffmann with hospital medicine who agreed to admit the patient for further management. PFSH PFSH Disclaimer: The information contained in this section may have been updated after the patient was seen, as this information can be updated by other users. Medical History Abdominal pain Constipation Diabetes Dyshidrotic eczema Elevated parathyroid hormone Encounter for screening breast examination History of left heart catheterization (LHC) Neuropathy Polyarthralgia Surgical History H/O tubal ligation History of colonoscopy History of hysterectomy Family History Family/Other Bleeding disorder Diabetes FHx: mental illness Hypertension Mother Tuberculosis Social History (Updated 07/03/25 @ 08:35 by Latia Trimble CMA) Smoking Status: Current every day smoker tobacco type: cigarettes packs per day: 1 pack-years: 182 smoking status start date: 1980 second hand exposure: No alcohol intake: never substance use type: denies use current occupational status: employed Travel in the last 8 weeks?: None household members: spouse housing: house current occupation: school system current occupational exposures/hazards: No caffeine: Yes Have you lived/traveled outside [place] in past 30 days?: No Contact w/someone who lives/traveled outside [place] past 30 days?: No Exposure to someone with infectious disease in past 14 days?: No Do you have a fever (greater than 100.4 F or 38 C)?: No Have you tested positive for COVID-19?: No Exposed to someone with COVID-19 in past 14 days?: No Do you have a sore throat?: No Do you have a cough?: No Do you have any weakness?: No Do you have any diarrhea?: No Are you experiencing any unusual bleeding?: No Do you have any muscle aches/pain?: No Do you have any abdominal pain?: No Are you experiencing loss of taste or smell?: No Review of Systems Review of Systems Review of systems:: pertinent systems reviewed and negative unless documented below *Gastrointestinal Gastrointestinal: Reports as per [facility] Meds Home Medications and Allergies Home Medications ?Medication ?Instructions ?Recorded ?Confirmed ?Type blood-glucose,school librarian,cont #1 ea 08/23/24 07/03/25 Rx (Dexcom G7 [employer]) cholecalciferol (vitamin D3) 25 25 mcg PO DAILY 11/30/24 07/03/25 History mcg (1,000 unit) capsule aspirin 81 mg chewable tablet 81 mg PO DAILY 01/22/25 07/03/25 History hydrochlorothiazide 12.5 mg tablet 12.5 mg PO DAILY #90 tabs 02/19/25 07/03/25 Rx blood-glucose sensor (Dexcom G7 #9 ea 06/11/25 07/03/25 Rx Sensor device) duloxetine 30 mg capsule,delayed 30 mg PO BID #60 caps 06/11/25 07/17/25 Rx release levothyroxine 75 mcg tablet 75 mcg PO DAILY #90 tabs 06/11/25 07/17/25 Rx (Euthyrox) prucalopride 2 mg tablet 2 mg PO DAILY 06/11/25 07/03/25 History losartan 100 mg tablet 100 mg PO DAILY 06/26/25 07/03/25 History Lactobacillus rhamnosus GG 15 1 cap PO DAILY #14 caps 06/29/25 07/03/25 Rx billion cell sprinkle capsule (Culturelle) rifaximin 550 mg tablet (Xifaxan) 550 mg PO TID #42 tabs 07/01/25 07/17/25 Rx insulin pump cart,auto,BT,G6/7 #10 ea 07/03/25 07/03/25 Rx (Omnipod 5 G6-G7 Pods (Gen 5) subcutaneous cartridge) dicyclomine 10 mg capsule 10 mg PO QID PRN abdominal pain 07/04/25 07/17/25 Rx #120 caps metformin 500 mg tablet 500 mg PO BID #60 tabs 07/10/25 07/17/25 Rx ciprofloxacin HCl 500 mg tablet 500 mg PO BID #10 tabs 07/11/25 Rx (Cipro) sodium,potassium,mag sulfates 17.5 See Rx Instructions PO .COMPLEX 07/11/25 Rx gram-3.13 gram-1.6 gram oral soln #354 mL (Suprep Bowel Prep Kit) empagliflozin 25 mg tablet 25 mg PO DAILY 07/17/25 07/17/25 History (Jardiance) insulin aspart U-100 100 unit/mL 10 unit SQ TID 07/17/25 07/17/25 History subcutaneous solution (Novolog U-100 Insulin aspart) New Prescriptions to Start Prescriptions: Allergies Allergy/AdvReac Type Severity Reaction Status Date / Time amoxicillin (From AUGMENTIN) Allergy Mild NA-NAUSEA Verified 07/03/25 08:31 cefdinir Allergy Mild Hives Verified 07/03/25 08:31 clavulanic acid (From Allergy Mild NA-NAUSEA Verified 07/03/25 08:31 AUGMENTIN) hydrocodone (From NORCO) Allergy Mild HIVES,ITCHI Verified 07/03/25 08:31 NG naproxen (NAPROXEN) Allergy Mild HIVES,ITCHI Verified 07/03/25 08:31 NG Sulfa (Sulfonamide Allergy Mild HIVES,ITCHI Verified 07/03/25 08:31 Antibiotics) (SULFA NG (SULFONAMIDE ANTIBIOTICS)) aspirin Allergy Hives Verified 07/03/25 08:31 Cephalosporins Allergy unknown Verified 07/03/25 08:31 dulaglutide (From Trulicity) AdvReac Intermediate Verified 07/03/25 08:31 levofloxacin AdvReac Nausea Verified 07/03/25 08:31 Exam (Inpt) Vital signs and Labs for Last 24 Hours: Temp Pulse Resp BP Pulse Ox O2 Del Method 98.4 F 81 19 132/85 97 Room Air 07/17/25 14:36 07/17/25 14:36 07/17/25 14:36 07/17/25 14:36 07/17/25 13:49 07/17/25 12:30 Laboratory Results - last 24 hr 07/17/25 09:07: Urine Color Yellow, Urine Appearance Clear, Urine pH 6.0, Ur Specific [place] <= 1.005, Urine Protein Negative, Urine Glucose (UA) 3+, Urine Ketones Negative, Urine Blood Negative, Urine Nitrate Negative, Urine Bilirubin Negative, Urine Urobilinogen 0.2, Ur Leukocyte Esterase Negative, Urine RBC None, Urine WBC None, Ur Squamous Epith Cells 3-5, Urine Bacteria Trace 07/17/25 09:20: WBC 12.8 H, RBC 4.18 L, Hgb 10.6 L, Hct 34.0 L, MCV 81.3, MCH 25.4 L, MCHC 31.2 L, RDW 20.0 H, Plt Count 417, MPV 10.0, Neut % (Auto) 69.7, Lymph % (Auto) 13.7, [place] % (Auto) 6.2, Eos % (Auto) 9.0, Baso % (Auto) 1.0, Neut # (Auto) 8.9 H, Lymph # (Auto) 1.8, [place] # (Auto) 0.8, Eos # (Auto) 1.2 H, Baso # (Auto) 0.1, Sodium 141, Potassium 3.8, Chloride 105, Carbon Dioxide 25, Anion Gap 14.8, BUN 11, Creatinine 0.90, Estimated Creat Clear 88, Estimated GFR 63, Est GFR ( Amer) 77, Glucose 370 H, Lactate 3.0 H, Calcium 9.9, Total Bilirubin 0.5, AST 29, ALT 21, Alkaline Phosphatase 150 H, Total Protein 8.4 H, Albumin 4.3, Globulin 4.1 H, Albumin/Globulin Ratio 1.0 L, Lipase 177 07/17/25 09:48: SARS-CoV-2 (PCR) Not detected, Influenza A Untype (PCR) Not detected, Influenza Type B (PCR) Not detected I & O for Labs for Last 24 Hours: Intake & Output 07/15/25 07/16/25 07/17/25 07/18/25 11:59 11:59 11:59 11:59 Intake Total 1000.0 / 1000.0 100 / 100 Balance 1000.0 / 1000.0 100 / 100 Weight 214 lb 216 lb 4.8 oz Constitutional: no acute distress Head: Present normocephalic Neck: Present full ROM Respiratory: Absent respiratory distress Cardiac: Absent Tachycardia GI: Present soft and tenderness (Epigastric, mid abdomen, and lower abdominal/pelvic tenderness to palpation.); Absent rebound or rigidity Rectal (female): Present deferred (female): Present deferred Extremities: Present full ROM Skin: Present intact Neuro: Present alert Results Labs 07/17/25 09:20 07/17/25 09:20 Labs: Laboratory Results - last 24 hr 07/17/25 09:07: Urine Color Yellow, Urine Appearance Clear, Urine pH 6.0, Ur Specific [place] <= 1.005, Urine Protein Negative, Urine Glucose (UA) 3+, Urine Ketones Negative, Urine Blood Negative, Urine Nitrate Negative, Urine Bilirubin Negative, Urine Urobilinogen 0.2, Ur Leukocyte Esterase Negative, Urine RBC None, Urine WBC None, Ur Squamous Epith Cells 3-5, Urine Bacteria Trace 07/17/25 09:20: WBC 12.8 H, RBC 4.18 L, Hgb 10.6 L, Hct 34.0 L, MCV 81.3, MCH 25.4 L, MCHC 31.2 L, RDW 20.0 H, Plt Count 417, MPV 10.0, Neut % (Auto) 69.7, Lymph % (Auto) 13.7, [place] % (Auto) 6.2, Eos % (Auto) 9.0, Baso % (Auto) 1.0, Neut # (Auto) 8.9 H, Lymph # (Auto) 1.8, [place] # (Auto) 0.8, Eos # (Auto) 1.2 H, Baso # (Auto) 0.1, Sodium 141, Potassium 3.8, Chloride 105, Carbon Dioxide 25, Anion Gap 14.8, BUN 11, Creatinine 0.90, Estimated Creat Clear 88, Estimated GFR 63, Est GFR ( Amer) 77, Glucose 370 H, Lactate 3.0 H, Calcium 9.9, Total Bilirubin 0.5, AST 29, ALT 21, Alkaline Phosphatase 150 H, Total Protein 8.4 H, Albumin 4.3, Globulin 4.1 H, Albumin/Globulin Ratio 1.0 L, Lipase 177 07/17/25 09:48: SARS-CoV-2 (PCR) Not detected, Influenza A Untype (PCR) Not detected, Influenza Type B (PCR) Not detected Assessment and Plan *Assessment and plan (1) Diverticulitis: Status: Acute Category: Medical Code(s): K57.92 - Diverticulitis of intestine, part unspecified, without perforation or abscess without bleeding (2) Obstipation: Status: Acute Category: Medical Code(s): K59.00 - Constipation, unspecified (3) Diarrhea: Status: Acute Qualifiers: Diarrhea type: unspecified type Qualified Code(s): R19.7 - Diarrhea, unspecified Category: Medical Code(s): R19.7 - Diarrhea, unspecified (4) Abdominal pain, diffuse: Status: Acute Category: Medical Code(s): R10.84 - Generalized abdominal pain (5) Nausea vomiting and diarrhea: Status: Acute Category: Medical Code(s): R11.2 - Nausea with vomiting, unspecified; R19.7 - Diarrhea, unspecified (6) Enteritis: Status: Acute Category: Medical Code(s): K52.9 - Noninfective gastroenteritis and colitis, unspecified (7) Pancreatitis: Status: Acute Qualifiers: Acute pancreatitis complication: no infection or necrosis Chronicity: acute Pancreatitis type: drug induced Qualified Code(s): K85.30 - Drug induced acute pancreatitis without necrosis or infection Category: Medical Code(s): K85.90 - Acute pancreatitis without necrosis or infection, unspecified Plan No need for emergent intervention. Continue IV antibiotics for now Serial abdominal exams Postpone pending colonoscopy with Dr. Nguyen (likely reschedule for 6-8 weeks) Discussion with regard to the risks and benefits of elective resection in the near future will be ongoing. Secondary to body habitus and comorbid conditions, the patient (if the decision is to pursue surgery) would likely benefit significantly from laparoscopic approach which is not offered at this institution.
--- NOTE | 2025-07-17 16:51 | PC.NURSE ---
new admission from the ER this shift. a&ox4. tolerating ra with sats >90%. no complaints of abd pain or n/v. LR infusing @ 75ml/hr. pt able to ambulate to BR independently. pt has dexcom and insulin pump that she insists on using, does not want to have finger sticks completed. no needs at this time. call light within reach.
--- NOTE | 2025-07-17 17:44 | EXP.HP ---
History of Present Illness *Admission Date: 07/17/25 *Reason for visit:: abdominal pain *History of present illness: Ms. gutiérrez is a 65-year-old female who presents with recurrent abdominal pain. She has been having multiple symptoms of pain, nausea, headache and dizziness. Has been hospitalized once in the past month with pancreatitis and suspected diverticulitis. Has had multiple scans both inpatient and outpatient showing diverticulitis versus enteritis versus colitis. Symptoms never completely resolved. Has seen GI as an outpatient and has been treated with courses of ciprofloxacin and rifaximin. Is scheduled to have EGD and colonoscopy next Tuesday with GI. Unfortunately symptoms have persisted. On arrival to the ER today, complaining of left lower abdominal pain. Repeat CT obtained showing concern for colitis versus diverticulitis with increased number of diverticulum. White count elevated at 12.8. Given her recurrent symptoms and failure of outpatient therapy, medicine consulted for admission and further care. Initiated on meropenem in the ED. Patient still quite tender on exam. On room air. In mild distress. Of note her diabetes is poorly controlled and complicates her ability to clear infections. States she has intermittently had some blood in her stool. Intermittently has watery stools and hard stools. Denies fever today but has had some chills. [facility] Disclaimer: The information contained in this section may have been updated after the patient was seen, as this information can be updated by other users. Medical History History of left heart catheterization (LHC) Constipation Abdominal pain Elevated parathyroid hormone Encounter for screening breast examination Dyshidrotic eczema Neuropathy Polyarthralgia Diabetes Surgical History H/O tubal ligation History of hysterectomy History of colonoscopy Family History Tuberculosis Mother Diabetes Family/Other FHx: mental illness Family/Other Bleeding disorder Family/Other Hypertension Family/Other Social History Smoking Status: Current every day smoker tobacco type: cigarettes packs per day: 1 pack-years: 182 smoking status start date: 1980 second hand exposure: No alcohol intake: never substance use type: denies use current occupational status: employed Travel in the last 8 weeks?: None household members: spouse housing: house current occupation: school system current occupational exposures/hazards: No caffeine: Yes Have you lived/traveled outside [place] in past 30 days?: No Contact w/someone who lives/traveled outside US past 30 days?: No Exposure to someone with infectious disease in past 14 days?: No Do you have a fever (greater than 100.4 F or 38 C)?: No Have you tested positive for COVID-19?: No Exposed to someone with COVID-19 in past 14 days?: No Do you have a sore throat?: No Do you have a cough?: No Do you have any weakness?: No Do you have any diarrhea?: No Are you experiencing any unusual bleeding?: No Do you have any muscle aches/pain?: No Do you have any abdominal pain?: No Are you experiencing loss of taste or smell?: No Other Medical History Have you received the Flu Vaccine for this season: Yes Have you received the Pneumonia Vaccine: Yes Review of Systems Review of Systems Review of systems (narrative): 14 point review of systems performed, pertinent positives and negatives as per HPI Meds Home Medications and Allergies Home Medications ?Medication ?Instructions ?Recorded ?Confirmed ?Type blood-glucose,production line operator,cont #1 ea 08/23/24 07/17/25 Rx (Dexcom G7 Byproducts Supervisor) cholecalciferol (vitamin D3) 25 25 mcg PO DAILY 11/30/24 07/17/25 History mcg (1,000 unit) capsule aspirin 81 mg chewable tablet 81 mg PO DAILY 01/22/25 07/17/25 History hydrochlorothiazide 12.5 mg tablet 12.5 mg PO DAILY #90 tabs 02/19/25 07/17/25 Rx blood-glucose sensor (Dexcom G7 #9 ea 06/11/25 07/17/25 Rx Sensor device) duloxetine 30 mg capsule,delayed 30 mg PO BID #60 caps 06/11/25 07/17/25 Rx release levothyroxine 75 mcg tablet 75 mcg PO DAILY #90 tabs 06/11/25 07/17/25 Rx (Euthyrox) prucalopride 2 mg tablet 2 mg PO DAILY 06/11/25 07/17/25 History losartan 100 mg tablet 100 mg PO DAILY 06/26/25 07/17/25 History Lactobacillus rhamnosus GG 15 1 cap PO DAILY #14 caps 06/29/25 07/17/25 Rx billion cell sprinkle capsule (Culturelle) rifaximin 550 mg tablet (Xifaxan) 550 mg PO TID #42 tabs 07/01/25 07/17/25 Rx insulin pump cart,auto,BT,G6/7 #10 ea 07/03/25 07/17/25 Rx (Omnipod 5 G6-G7 Pods (Gen 5) subcutaneous cartridge) dicyclomine 10 mg capsule 10 mg PO QID PRN abdominal pain 07/04/25 07/17/25 Rx #120 caps metformin 500 mg tablet 500 mg PO BID #60 tabs 07/10/25 07/17/25 Rx ciprofloxacin HCl 500 mg tablet 500 mg PO BID #10 tabs 07/11/25 07/17/25 Rx (Cipro) empagliflozin 25 mg tablet 25 mg PO DAILY 07/17/25 07/17/25 History (Jardiance) insulin aspart U-100 100 unit/mL 10 unit SQ TID 07/17/25 07/17/25 History subcutaneous solution (Novolog U-100 Insulin aspart) New Prescriptions to Start Prescriptions: Allergies Allergy/AdvReac Type Severity Reaction Status Date / Time amoxicillin (From AUGMENTIN) Allergy Mild NA-NAUSEA Verified 07/03/25 08:31 cefdinir Allergy Mild Hives Verified 07/03/25 08:31 clavulanic acid (From Allergy Mild NA-NAUSEA Verified 07/03/25 08:31 AUGMENTIN) hydrocodone (From NORCO) Allergy Mild HIVES,ITCHI Verified 07/03/25 08:31 NG naproxen (NAPROXEN) Allergy Mild HIVES,ITCHI Verified 07/03/25 08:31 NG Sulfa (Sulfonamide Allergy Mild HIVES,ITCHI Verified 07/03/25 08:31 Antibiotics) (SULFA NG (SULFONAMIDE ANTIBIOTICS)) aspirin Allergy Hives Verified 07/03/25 08:31 Cephalosporins Allergy unknown Verified 07/03/25 08:31 dulaglutide (From Trulicity) AdvReac Intermediate Verified 07/03/25 08:31 levofloxacin AdvReac Nausea Verified 07/03/25 08:31 Exam Data for Last 24 hours Vital signs and Labs for Last 24 Hours: Temp Pulse Resp BP Pulse Ox O2 Del Method 97.8 F 90 18 126/64 92 L Room Air 07/17/25 16:00 07/17/25 16:00 07/17/25 16:00 07/17/25 16:00 07/17/25 16:00 07/17/25 16:56 Laboratory Results - last 24 hr 07/17/25 09:07: Urine Color Yellow, Urine Appearance Clear, Urine pH 6.0, Ur Specific [place] <= 1.005, Urine Protein Negative, Urine Glucose (UA) 3+, Urine Ketones Negative, Urine Blood Negative, Urine Nitrate Negative, Urine Bilirubin Negative, Urine Urobilinogen 0.2, Ur Leukocyte Esterase Negative, Urine RBC None, Urine WBC None, Ur Squamous Epith Cells 3-5, Urine Bacteria Trace 07/17/25 09:20: WBC 12.8 H, RBC 4.18 L, Hgb 10.6 L, Hct 34.0 L, MCV 81.3, MCH 25.4 L, MCHC 31.2 L, RDW 20.0 H, Plt Count 417, MPV 10.0, Neut % (Auto) 69.7, Lymph % (Auto) 13.7, [place] % (Auto) 6.2, Eos % (Auto) 9.0, Baso % (Auto) 1.0, Neut # (Auto) 8.9 H, Lymph # (Auto) 1.8, [place] # (Auto) 0.8, Eos # (Auto) 1.2 H, Baso # (Auto) 0.1, Sodium 141, Potassium 3.8, Chloride 105, Carbon Dioxide 25, Anion Gap 14.8, BUN 11, Creatinine 0.90, Estimated Creat Clear 88, Estimated GFR 63, Est GFR ( Amer) 77, Glucose 370 H, Lactate 3.0 H, Calcium 9.9, Total Bilirubin 0.5, AST 29, ALT 21, Alkaline Phosphatase 150 H, Total Protein 8.4 H, Albumin 4.3, Globulin 4.1 H, Albumin/Globulin Ratio 1.0 L, Lipase 177 07/17/25 09:48: SARS-CoV-2 (PCR) Not detected, Influenza A Untype (PCR) Not detected, Influenza Type B (PCR) Not detected I & O for Last 24 hours: Intake & Output 08/17/25 08/18/25 08/19/25 08/20/25 23:59 23:59 23:59 23:59 Intake Total 1250.0 / 1250.0 Output Total 0 / 0 Balance 1250.0 / 1250.0 Weight 98.112 kg Constitutional Constitutional: mild distress, obese, chronically ill appearing and cooperative *Routine HEENT Exam Head: Present normocephalic Eye: Present EOMI and PERRL ENT: Present mucous membranes moist *Routine Neck Exam Neck: Present supple; Absent lymphadenopathy *Routine Respiratory Exam Respiratory: Present CTA bilaterally; Absent rhonchi, wheezes or crackles *Routine Cardiovascular Exam Cardiovascular: Present RRR *Routine Abdominal Exam Abdominal: Present soft, normoactive bowel sounds and tenderness (Worse in left lower abdomen, diffuse however); Absent distended, rebound or guarding *Routine Rectal Exam Rectal:: deferred *Routine Genitalia Exam Genitalia:: deferred *Routine Extremities Exam Extremities: Absent cyanosis, clubbing or edema *Routine Skin Exam Skin: Present intact and warm; Absent rash *Routine Neurological Exam Neurological: Present alert, oriented X3 and moving all extremities; Absent altered mental status Routine Psychiatric Exam Psychiatric: Present normal affect Assessment and Plan *Assessment and plan (1) Diverticulitis: Status: Acute Category: Medical Code(s): K57.92 - Diverticulitis of intestine, part unspecified, without perforation or abscess without bleeding (2) Colitis: Status: Acute Category: Medical Code(s): K52.9 - Noninfective gastroenteritis and colitis, unspecified (3) Failure of outpatient treatment: Status: Acute Category: Medical Code(s): Z78.9 - Other specified health status (4) Hypothyroidism: Status: Chronic Qualifiers: Hypothyroidism type: unspecified Qualified Code(s): E03.9 - Hypothyroidism, unspecified Category: Medical Code(s): E03.9 - Hypothyroidism, unspecified (5) Type 2 diabetes mellitus: Status: Chronic Qualifiers: Diabetes mellitus complication status: with hyperglycemia Diabetes mellitus termite exterminator insulin use: with termite exterminator use Qualified Code(s): E11.65 - Type 2 diabetes mellitus with hyperglycemia; Z79.4 - terminal superintendent (current) use of insulin Category: Medical Code(s): E11.9 - Type 2 diabetes mellitus without complications (6) Hypertension: Status: Chronic Qualifiers: Hypertension type: unspecified Qualified Code(s): I10 - Essential (primary) hypertension Category: Medical Code(s): I10 - Essential (primary) hypertension (7) Anxiety: Status: Chronic Category: Medical Code(s): F41.9 - Anxiety disorder, unspecified (8) Obstipation: Status: Acute Category: Medical Code(s): K59.00 - Constipation, unspecified Plan 65-year-old female with diabetes, hypertension, hypothyroid, obesity who presented with abdominal pain and nausea. CT image showed concern for worsening colitis and diverticulitis. Concern the patient has failed outpatient therapy. White count still elevated at 12.8. Discussed case with ER physician, request admission for failure of outpatient treatment, initiation of IV antibiotics, and surgical evaluation. I agreed to admit for further treatment. Initiated on meropenem. Problems addressed as follows: Colitis Diverticulitis - Per my review of CT, has inflammation of the bowel wall in the sigmoid colon. Also has multiple diverticulum. Questionable if they are inflamed with diverticulitis. White count is elevated 12.8 however. - Repeat CBC, CMP, magnesium ordered for the morning. - Surgery consulted, discussed case at bedside. Will hold on any intervention at this time. Needs to postpone colonoscopy with Dr. Nguyen. Will monitor daily. - Continue meropenem 1 g IV every 8 hour -Kidney function normal with BUN 11, creatinine 0.9. Bicarb 25. Potassium 3.8 -Zofran 4 mg as needed every 8 hours for nausea -Morphine 4 mg every 6 hours as needed IV for pain, monitor for toxicity -Full liquid diet. -Etiologies include infectious colitis, inflammatory colitis, infectious diverticulitis, failure of outpatient antibiotics, and adequate antibiotic course. Reevaluate regimen in the morning. Will discuss patient's allergies further in the morning as she has a broad list of allergies to Augmentin, Bactrim, Levaquin, home meds that would be beneficial for treatment of diverticulitis or GI infections. Type 2 diabetes: A1c 10.7 two months ago, repeat pending. Okay to use home Dexcom 7. Resume OmniPod. Nursing to chart insulin administration. Resume home empagliflozin 25 mg daily. Anxiety: Continue Cymbalta 30 mg twice daily, Hypothyroid: TSH evaded at 6.9. Continue levothyroxine 75 mcg daily Hypertension: Holding home regimen due to normotensive state, reevaluate in the morning Hyperlipidemia: Holding statin due to GI infection Class II obesity complicates all of her care Full code Full liquid diet Heparin 5000 units 3 times daily
[2025-07-17] MEDS: NICOTINE 21MG/24HR PATCH 21 MG TD (20:28)
[2025-07-17] MEDS: HEPARIN SODIUM 5,000 UNIT/ML VIAL 5000 UNIT SUBCUT (20:28)
[2025-07-17] MEDS: SERTRALINE 50MG TABLET 25 MG PO (20:28)
[2025-07-18] VITALS: BP 109/56; PULSE 80; RESP 16; TEMP 36.7; O2SAT 92
--- NOTE | 2025-07-18 00:25 | PC.NURSE ---
Late Entry (for 22:20): after the patient had a bowel movement (at 22:15), she informed me that her stool missed the hat that was placed in the toilet to collect a sample. Hat was readjusted in the toilet for the patient's next bowel movement. Thus far, stool sample for the patient's diarrhea panel remains uncollected. Patient verbalizes an awareness of the need.
[2025-07-18] MEDS: MORPHINE 4MG/ML SYRINGE 4 MG IV (03:25)
[2025-07-18 04:00] VITALS: BP 127/66; PULSE 95; RESP 16; TEMP 36.7; O2SAT 92; BMI 39.9
--- NOTE | 2025-07-18 04:30 | PC.NURSE ---
Patient is alert and oriented x4. She was observed to be resting in bed with eyes closed, respirations even and unlabored on room air, and no apparent distress throughout the majority of the night. Patient has had complaints of middle to lower abdominal pain, described as stabbing, sharp, and it comes and goes for her. Morphine was administered for moderately-rated pain relief. She also stated that she has sudden, sharp pain before bowel movements, of which eases some of her abdominal cramping when they happen. Patient had one loose, urgent bowel movement thus far this shift; unfortunately, her stool had missed the collection device, so diarrhea specimen remains uncollected (see prior nurse note). Bowel sounds are active in all quadrants. Diminished but clear lung sounds. Full liquid diet has been tolerated very well. Patient ambulates independently (standby assistance as needed) in her room/to the bathroom without difficulties. Dexcom + OMNIPOD insulin pump utilized for glucose checks and insulin administration; this was previously approved to be used by Silvino Hoffmann MD because the patient refused fingersticks + facility insulin. Scheduled medications administered per JAN. Nicotine patch (new order obtained from Silvino LEVIN this shift) was applied for cravings. Zoloft was also administered once by patient request, for she stated that her primary care provider switched [her] back onto it from [facility] (Silvino LEVIN stated that she was OK with this to order). At this time, the patient is resting in bed without any further complaints. No new needs thus far. Call light within reach.
[2025-07-18 05:51] LABS: Hematocrit 30.5 % (37.0-47.0); Immature Granulocytes % 0.4 %; Mean Corpuscular HGB Conc 30.5 g/dL (31.8-35.4); Mean Corpuscular Hemoglobin 24.8 pg (27.0-31.2); Mean Corpuscular Volume 81.3 fl (81-99); Nucleated Red Blood Cells % 0 %; Platelet Count 353 K/mm3 (142-424); Red Blood Count 3.75 M/mm3 (4.20-5.40); Red Cell Distribution Width-SD 58.3 fL; White Blood Count 10.5 K/mm3 (4.8-10.8)
[2025-07-18 05:55] LABS: Hemoglobin 9.4 g/dL (12.2-16.2)
--- NOTE | 2025-07-18 05:55 | PC.NURSE ---
Patient stated that 50+ units remain in her OMNIPOD, and it releases insulin coverage automatically up to 10 units. She is unsure how to navigate for an exact amount released when asked, and she stated that she can only see how many units are on board. During the 21:00 glucose check, 1.40 units were on board, and the patient's glucose reading was 267. For the 06:00 glucose check, 1.05 units were on board and the patient's glucose reading was 208. She stated that during the night, her glucose dropped into the 140s but increased this morning after drinking personal Gatorade.
[2025-07-18 06:12] LABS: Chloride 106 mmol/L (98-107)
[2025-07-18 06:13] LABS: Albumin Level 3.6 g/dl (3.5-5.0); Potassium 3.4 mmoL/L (3.5-5.1); Sodium 139 mmol/L (136-145)
[2025-07-18 06:16] LABS: Alanine Aminotransferase 12 U/L (12-78); Albumin/Globulin Ratio 1.0 (1.1-1.8); Alkaline Phosphatase 123 U/L (38-126); Anion Gap 10.4 mEq/L (5-15); Aspartate Amino Transferase 20 U/L (14-36); Bilirubin,Total 0.4 mg/dl (0.2-1.3); Blood Urea Nitrogen 9 mg/dl (7-17); Calcium 9.0 mg/dl (8.4-10.2); Carbon Dioxide 26 mmol/L (22.0-30.0); Creatinine Clearance Estimated 90 mL/min (50-200); Creatinine,Serum 0.80 mg/dl (0.52-1.04); Estimated Glomerular Filt Rate 72 ml/min (>60); GFR (African American) 88 ML/MIN (>60); Globulin 3.5 g/dL (1.3-3.2); Glucose 170 mg/dl (74-100); Total Protein,Serum 7.1 g/dl (6.3-8.2)
[2025-07-18 06:17] LABS: Magnesium 1.7 mg/dl (1.6-2.3)
[2025-07-18] MEDS: MEROPENEM 1 GM in 0.9 % SODIUM CHLORIDE 100 ML IV ×3 (06:17→23:02)
[2025-07-18 06:46] LABS: Hemoglobin A1C 8.5 % (4.0-6.0)
--- NOTE | 2025-07-18 07:24 | EXP.SURG.PN ---
Subjective Patient reports: feels better and tolerating liquids well Exam Data for Last 24 hours Vital signs and Labs for Last 24 Hours: Temp Pulse Resp BP Pulse Ox O2 Del Method 98.0 F 95 H 16 127/66 92 L Room Air 07/18/25 04:00 07/18/25 04:00 07/18/25 04:00 07/18/25 04:00 07/18/25 04:00 07/18/25 06:40 Laboratory Results - last 24 hr 07/17/25 09:07: Urine Color Yellow, Urine Appearance Clear, Urine pH 6.0, Ur Specific [place] <= 1.005, Urine Protein Negative, Urine Glucose (UA) 3+, Urine Ketones Negative, Urine Blood Negative, Urine Nitrate Negative, Urine Bilirubin Negative, Urine Urobilinogen 0.2, Ur Leukocyte Esterase Negative, Urine RBC None, Urine WBC None, Ur Squamous Epith Cells 3-5, Urine Bacteria Trace 07/17/25 09:20: WBC 12.8 H, RBC 4.18 L, Hgb 10.6 L, Hct 34.0 L, MCV 81.3, MCH 25.4 L, MCHC 31.2 L, RDW 20.0 H, Plt Count 417, MPV 10.0, Neut % (Auto) 69.7, Lymph % (Auto) 13.7, [place] % (Auto) 6.2, Eos % (Auto) 9.0, Baso % (Auto) 1.0, Neut # (Auto) 8.9 H, Lymph # (Auto) 1.8, [place]ine # (Auto) 0.8, Eos # (Auto) 1.2 H, Baso # (Auto) 0.1, Sodium 141, Potassium 3.8, Chloride 105, Carbon Dioxide 25, Anion Gap 14.8, BUN 11, Creatinine 0.90, Estimated Creat Clear 88, Estimated GFR 63, Est GFR ( Amer) 77, Glucose 370 H, Lactate 3.0 H, Calcium 9.9, Total Bilirubin 0.5, AST 29, ALT 21, Alkaline Phosphatase 150 H, Total Protein 8.4 H, Albumin 4.3, Globulin 4.1 H, Albumin/Globulin Ratio 1.0 L, Lipase 177 07/17/25 09:48: SARS-CoV-2 (PCR) Not detected, Influenza A Untype (PCR) Not detected, Influenza Type B (PCR) Not detected 07/18/25 04:50: WBC 10.5, RBC 3.75 L, Hgb 9.4 L D, Hct 30.5 L, MCV 81.3, MCH 24.8 L, MCHC 30.5 L, RDW 19.6 H, Plt Count 353, MPV 10.1, Neut % (Auto) 61.7, Lymph % (Auto) 16.4, [place] % (Auto) 6.6, Eos % (Auto) 13.9 H, Baso % (Auto) 1.0, Neut # (Auto) 6.5, Lymph # (Auto) 1.7, Josephine # (Auto) 0.7, Eos # (Auto) 1.5 H, Baso # (Auto) 0.1, Sodium 139, Potassium 3.4 L, Chloride 106, Carbon Dioxide 26, Anion Gap 10.4, BUN 9, Creatinine 0.80, Estimated Creat Clear 90, Estimated GFR 72, Est GFR ( Amer) 88, Glucose 170 H D, Hemoglobin A1c 8.5 H D, Calcium 9.0, Magnesium 1.7, Total Bilirubin 0.4, AST 20 D, ALT 12 D, Alkaline Phosphatase 123, Total Protein 7.1, Albumin 3.6 D, Globulin 3.5 H, Albumin/Globulin Ratio 1.0 L I & O for Last 24 hours: Intake & Output 07/15/25 07/16/25 07/17/25 07/18/25 11:59 11:59 11:59 11:59 Intake Total 1000.0 / 1000.0 1771.917 / 1771.917 Output Total 0 / 0 Balance 1000.0 / 1000.0 1771.917 / 1771.917 Weight 214 lb 217 lb 1.6 oz Constitutional Constitutional: no acute distress *Routine Respiratory Exam Respiratory: Absent respiratory distress *Routine Cardiovascular Exam Cardiovascular: Absent tachycardia *Routine Abdominal Exam Abdominal: Present soft and tenderness (Somewhat improved) Progress Note: A&P Assessment and plan (1) Diverticulitis: Status: Acute (2) Colitis: Status: Acute (3) Failure of outpatient treatment: Status: Acute (4) Hypothyroidism: Status: Chronic (5) Type 2 diabetes mellitus: Status: Chronic (6) Hypertension: Status: Chronic (7) Anxiety: Status: Chronic (8) Obstipation: Status: Acute Assessment and Plan Assessment and Plan for All Diagnoses:: Overall improvement after initiation of current management. Continue course of antibiotics Continue serial abdominal exams for now Follow-up diarrhea panel if/when sent
[2025-07-18 08:00] VITALS: BP 118/69; PULSE 94; RESP 16; TEMP 36.6; O2SAT 90
--- NOTE | 2025-07-18 08:30 | HMH.PHAINT1 ---
Pharmacy Intervention Comments: MEDICATION RECONCILIATION COMPLETED ON PATIENT USING EXTERNAL FILL HISTORY FROM PHARMACY AND DISCHARGE SUMMARY FROM PREVIOUS ADMISSION. -SHAKIRA DINH, PAXTOND
[2025-07-18] MEDS: EMPAGLIFLOZIN 25MG TABLET 25 MG PO (08:54)
[2025-07-18] MEDS: LEVOTHYROXINE 75MCG (0.075MG) TAB 75 MCG PO (08:54)
[2025-07-18] MEDS: HEPARIN SODIUM 5,000 UNIT/ML VIAL 5000 UNIT SUBCUT ×2 (08:58→13:45)
--- NOTE | 2025-07-18 09:38 | P.PN_ITS ---
Subjective *Date: 07/18/25 *Time: 17:39 Interval history: Passing gas. Had a bowel movement overnight. Feeling a little bit of improvement in pain in her abdomen. No fever. No nausea or vomiting. Would like to advance her diet. Having some itching after morphine today. Stable on room air. Medical Exam Vital signs and Labs for Last 24 Hours: Vital Signs Temp Pulse Pulse Pulse Resp BP BP 07/18/25 08:07 07/18/25 06:40 07/18/25 05:00 07/18/25 04:00 98.0 F 95 H 16 127/66 07/18/25 03:00 07/18/25 01:00 07/18/25 00:00 98.1 F 80 16 109/56 L 07/17/25 23:00 07/17/25 21:00 07/17/25 20:00 07/17/25 20:00 98.2 F 105 H 16 136/67 07/17/25 18:46 07/17/25 16:56 07/17/25 16:00 97.8 F 90 18 126/64 07/17/25 15:00 07/17/25 14:36 98.4 F 81 19 132/85 07/17/25 14:16 07/17/25 13:49 91 H 132/85 07/17/25 12:30 80 133/92 H 07/17/25 12:00 82 114/69 07/17/25 11:42 79 117/76 07/17/25 10:00 89 127/75 Pulse Ox O2 Del Method 07/18/25 08:07 Room Air 07/18/25 06:40 Room Air 07/18/25 05:00 Room Air 07/18/25 04:00 92 L Room Air 07/18/25 03:00 Room Air 07/18/25 01:00 Room Air 07/18/25 00:00 92 L Room Air 07/17/25 23:00 Room Air 07/17/25 21:00 Room Air 07/17/25 20:00 Room Air 07/17/25 20:00 92 L Room Air 07/17/25 18:46 Room Air 07/17/25 16:56 Room Air 07/17/25 16:00 92 L Room Air 07/17/25 15:00 Room Air 07/17/25 14:36 07/17/25 14:16 Room Air 07/17/25 13:49 97 07/17/25 12:30 95 Room Air 07/17/25 12:00 93 L 07/17/25 11:42 98 Room Air 07/17/25 10:00 96 Intake and Output 07/17/25 07/18/25 07/18/25 23:59 07:59 15:59 Intake Total 552.5 / 2491.5 1069.417 / 1069.417 Output Total 0 / 0 0 / 0 Balance 552.5 / 2491.5 1069.417 / 1069.417 Intake: Intake, Oral Amount 689 / 689 Intake, Total IV Amount 552.5 / 1652.5 380.417 / 380.417 Lactated Ringers 1000ML 1,000 552.5 / 552.5 183.75 / 183.75 ml @ 75 mls/hr IV .[id number] [facility] Rx#:[id number] Meropenem 1 gm In 0.9 % Sodium 196.667 / 196.667 Chloride 100 ml @ 100 mls/hr IV Q8H [facility] Rx#:[id number] Output: Output, Urine Amount 0 / 0 0 / 0 Other: Number of Unmeasured Voids 1 1 Number of Bowel Movements 1 Weight 98.475 kg Patient Weight 07/18/25 23:59 Weight 98.475 kg Laboratory Results - last 24 hr 07/17/25 09:20: WBC 12.8 H, RBC 4.18 L, Hgb 10.6 L, Hct 34.0 L, MCV 81.3, MCH 25.4 L, MCHC 31.2 L, RDW 20.0 H, Plt Count 417, MPV 10.0, Neut % (Auto) 69.7, Lymph % (Auto) 13.7, [place] % (Auto) 6.2, Eos % (Auto) 9.0, Baso % (Auto) 1.0, Neut # (Auto) 8.9 H, Lymph # (Auto) 1.8, [place] # (Auto) 0.8, Eos # (Auto) 1.2 H, Baso # (Auto) 0.1, Sodium 141, Potassium 3.8, Chloride 105, Carbon Dioxide 25, Anion Gap 14.8, BUN 11, Creatinine 0.90, Estimated Creat Clear 88, Estimated GFR 63, Est GFR ( Amer) 77, Glucose 370 H, Lactate 3.0 H, Calcium 9.9, Total Bilirubin 0.5, AST 29, ALT 21, Alkaline Phosphatase 150 H, Total Protein 8.4 H, Albumin 4.3, Globulin 4.1 H, Albumin/Globulin Ratio 1.0 L, Lipase 177 07/17/25 09:48: SARS-CoV-2 (PCR) Not detected, Influenza A Untype (PCR) Not detected, Influenza Type B (PCR) Not detected 07/18/25 04:50: WBC 10.5, RBC 3.75 L, Hgb 9.4 L D, Hct 30.5 L, MCV 81.3, MCH 24.8 L, MCHC 30.5 L, RDW 19.6 H, Plt Count 353, MPV 10.1, Neut % (Auto) 61.7, Lymph % (Auto) 16.4, [place] % (Auto) 6.6, Eos % (Auto) 13.9 H, Baso % (Auto) 1.0, Neut # (Auto) 6.5, Lymph # (Auto) 1.7, [place] # (Auto) 0.7, Eos # (Auto) 1.5 H, Baso # (Auto) 0.1, Sodium 139, Potassium 3.4 L, Chloride 106, Carbon Dioxide 26, Anion Gap 10.4, BUN 9, Creatinine 0.80, Estimated Creat Clear 90, Estimated GFR 72, Est GFR ( Amer) 88, Glucose 170 H D, Hemoglobin A1c 8.5 H D, Calcium 9.0, Magnesium 1.7, Total Bilirubin 0.4, AST 20 D, ALT 12 D, Alkaline Phosphatase 123, Total Protein 7.1, Albumin 3.6 D, Globulin 3.5 H, Albumin/Globulin Ratio 1.0 L I & O for Labs for Last 24 Hours: Intake & Output 07/15/25 07/16/25 07/17/25 07/18/25 23:59 23:59 23:59 23:59 Intake Total 1802.5 / 2491.5 1069.417 / 1069.417 Output Total 0 / 0 0 / 0 Balance 1802.5 / 2491.5 1069.417 / 1069.417 Weight 98.112 kg 98.475 kg Constitutional: Present no acute distress, morbidly obese, chronically ill appearing and cooperative Head: Present atraumatic and normocephalic Respiratory: Present normal respiratory effort; Absent rhonchi, wheezes or crackles Cardiac: Present Reg Rate and Rhythm GI: Present soft, tenderness (Interval improvement in lower abdominal pain) and normal bowel sounds; Absent distention, guarding or rebound Extremities: Present normal inspection and full ROM; Absent edema Skin: Present intact; Absent erythema Neuro: Present Grossly Intact, alert, awake, oriented x 3 and moves all extremities Assessment and Plan *Assessment and plan (1) Diverticulitis: Status: Acute Category: Medical Code(s): K57.92 - Diverticulitis of intestine, part unspecified, without perforation or abscess without bleeding (2) Colitis: Status: Acute Category: Medical Code(s): K52.9 - Noninfective gastroenteritis and colitis, unspecified (3) Failure of outpatient treatment: Status: Acute Category: Medical Code(s): Z78.9 - Other specified health status (4) Hypothyroidism: Status: Chronic Qualifiers: Hypothyroidism type: unspecified Qualified Code(s): E03.9 - Hypothyroidism, unspecified Category: Medical Code(s): E03.9 - Hypothyroidism, unspecified (5) Type 2 diabetes mellitus: Status: Chronic Qualifiers: Diabetes mellitus complication status: with hyperglycemia Diabetes mellitus terminal superintendent insulin use: with chcf use Qualified Code(s): E11.65 - Type 2 diabetes mellitus with hyperglycemia; Z79.4 - [facility] (current) use of insulin Category: Medical Code(s): E11.9 - Type 2 diabetes mellitus without complications (6) Hypertension: Status: Chronic Qualifiers: Hypertension type: unspecified Qualified Code(s): I10 - Essential (primary) hypertension Category: Medical Code(s): I10 - Essential (primary) hypertension (7) Anxiety: Status: Chronic Category: Medical Code(s): F41.9 - Anxiety disorder, unspecified (8) Obstipation: Status: Acute Category: Medical Code(s): K59.00 - Constipation, unspecified Plan 65-year-old female with diabetes, hypertension, hypothyroid, obesity who presented with abdominal pain and nausea. CT image showed concern for worsening colitis and diverticulitis. Concern the patient has failed outpatient therapy. White count still elevated at 12.8. Discussed case with ER physician, request admission for failure of outpatient treatment, initiation of IV antibiotics, and surgical evaluation. I agreed to admit for further treatment. Initiated on meropenem. GI evaluated today. Showing slight improvement. Will monitor for 24 more hours. Problems addressed as follows: Colitis Diverticulitis - Per my review of CT, has inflammation of the bowel wall in the sigmoid colon. Also has multiple diverticulum. Questionable if they are inflamed with diverticulitis. - White count improved to 10.5 from 12.8. Repeat CBC, CMP, magnesium ordered for the morning. - No plan for surgical intervention at this time. - Discussed case with GI, evaluated today. Recommend continuing IV antibiotics. Transition to ciprofloxacin and Flagyl at discharge to complete course of therapy. Plan for panendoscopy on Tuesday as previously scheduled. - Continue meropenem 1 g IV every 8 hour -Kidney function normal with BUN 9, creatinine 0.8. Potassium 3.4, magnesium 1.7. Electrolyte protocol ordered -Zofran 4 mg as needed every 8 hours for nausea - Discontinue morphine due to itching. Continue pain control with Tylenol. -Advance to diabetic diet -Etiologies include infectious colitis, inflammatory colitis, infectious diverticulitis, failure of outpatient antibiotics, and adequate antibiotic course. Reevaluate regimen in the morning. Will discuss patient's allergies further in the morning as she has a broad list of allergies to Augmentin, Bactrim, Levaquin, home meds that would be beneficial for treatment of diverticulitis or GI infections. Type 2 diabetes: A1c this admission improved to 8.5. Okay to use home Dexcom 7. Resume OmniPod. Nursing to chart insulin administration. Resume home empagliflozin 25 mg daily. Anxiety: Continue Cymbalta 30 mg twice daily, Hypothyroid: TSH elavated at 6.9. Continue levothyroxine 75 mcg daily Hypertension: Holding home regimen due to normotensive state, reevaluate in the morning Hyperlipidemia: Holding statin due to GI infection Class II obesity complicates all of her care Full code diabetic diet Heparin 5000 units 3 times daily
[2025-07-18 10:48] LABS: Adenovirus F 40/41, stool Not Detected (NotDetected); Clostridium Difficile A/B, PCR Not Detected (NotDetected); Cyclospora Cayetanesis Not Detected (NotDetected); Plesimonas Shigalloides, PCR Not Detected (NotDetected); Salmonella, PCR Not Detected (NotDetected); Shiga-like toxin E coli Not Detected (NotDetected); Shigella Enterovasive E coli Not Detected (NotDetected); Vibrio, PCR Not Detected (NotDetected); Yersinia Entercolitica, PCR Not Detected (NotDetected)
[2025-07-18 12:00] VITALS: BP 132/66; PULSE 89; RESP 18; TEMP 36.8; O2SAT 93
--- NOTE | 2025-07-18 13:15 | EXP.GE.CONS ---
History of Present Illness *Admission Date: 07/17/25 *History of present illness: Ms. gutiérrez is a 65-year-old female who presents with recurrent abdominal pain. She has been having multiple symptoms of pain, nausea, headache and dizziness. Has been hospitalized once in the past month with pancreatitis and suspected diverticulitis. Has had multiple scans both inpatient and outpatient showing diverticulitis versus enteritis versus colitis. Symptoms never completely resolved. Has seen GI as an outpatient and has been treated with courses of ciprofloxacin and rifaximin. Is scheduled to have EGD and colonoscopy next Tuesday with GI. Unfortunately symptoms have persisted. On arrival to the ER today, complaining of left lower abdominal pain. Repeat CT obtained showing concern for colitis versus diverticulitis with increased number of diverticulum. White count elevated at 12.8. Given her recurrent symptoms and failure of outpatient therapy, medicine consulted for admission and further care. Initiated on meropenem in the ED. Patient still quite tender on exam. On room air. In mild distress. Of note her diabetes is poorly controlled and complicates her ability to clear infections. States she has intermittently had some blood in her stool. Intermittently has watery stools and hard stools. Denies fever today but has had some chills. Per admission H & P This is a 65-year-old female who was recently seen by Dr. Nguyen in April with obstipation/constipation excessive bloating belching and gassiness, dysphagia and dyspepsia symptoms. The patient had been on Trulicity for the past year. Last year she was struggling with a lot of GI symptoms related to her Ozempic dosing. She switched medications and went back on Trulicity. Within 2 weeks she was in the ER with nausea vomiting diarrhea. She had a CT that looked like enteritis and then follow-up CT look like possible diverticulitis. She had been on prucalopride for the her obstipation since April and was having excessive diarrhea. No obvious evidence of pancreatitis on CT but she had a lipase over 1999. It was felt to be pancreatitis related to Trulicity. She stopped Trulicity. She followed up with me in the office a couple of weeks ago and was extremely distended with gas bloat on exam. She had been on Motegrity which had given her diarrhea. It also gave her abdominal cramping. She was having clear liquid stools. We decreased the Motegrity to a quarter to half a tablet. Given the likely SIBO and excessive gas, we prescribed a round of Xifaxan. The patient started that and reports her symptoms got much worse. She contact the office multiple times and went to the ER again. She was diagnosed with diverticulitis and then return to the ER and diagnosed with colitis. At this point she was having watery diarrhea multiple times a day with urgency. She reports she had passed out in the bathroom. She reported blood in her stool multiple times for a couple of days in a row. We started the patient on Cipro, added colonoscopy to her EGD and moved up the date. She is currently scheduled for panendoscopy on Tuesday. Even on Cipro, the patient continued to have abdominal pain and distention. She presented to the ER with a slight elevation of her white count 12.8 and colitis versus diverticulitis on this CT scan. She reports that on the Cipro she has had elimination of the pure diarrhea and has had elimination of the blood in her stool but is back to having variable bowel movements between hard balls of stool and loose stool. She also reports that she has passed an excessive amount of gas since being in the hospital. She feels significantly better today than she has. She is requesting to eat. [facility] Disclaimer: The information contained in this section may have been updated after the patient was seen, as this information can be updated by other users. Medical History History of left heart catheterization (LHC) Constipation Abdominal pain Elevated parathyroid hormone Encounter for screening breast examination Dyshidrotic eczema Neuropathy Polyarthralgia Diabetes Surgical History H/O tubal ligation History of hysterectomy History of colonoscopy Family History Tuberculosis Mother Diabetes Family/Other FHx: mental illness Family/Other Bleeding disorder Family/Other Hypertension Family/Other Social History Smoking Status: Current every day smoker tobacco type: cigarettes packs per day: 1 pack-years: 182 smoking status start date: 1980 second hand exposure: No alcohol intake: never substance use type: denies use current occupational status: employed Travel in the last 8 weeks?: None household members: spouse housing: house current occupation: school system current occupational exposures/hazards: No caffeine: Yes Have you lived/traveled outside [place] in past 30 days?: No Contact w/someone who lives/traveled outside US past 30 days?: No Exposure to someone with infectious disease in past 14 days?: No Do you have a fever (greater than 100.4 F or 38 C)?: No Have you tested positive for COVID-19?: No Exposed to someone with COVID-19 in past 14 days?: No Do you have a sore throat?: No Do you have a cough?: No Do you have any weakness?: No Do you have any diarrhea?: No Are you experiencing any unusual bleeding?: No Do you have any muscle aches/pain?: No Do you have any abdominal pain?: No Are you experiencing loss of taste or smell?: No Review of Systems Review of Systems Review of systems:: pertinent systems reviewed and negative unless documented below Constitutional Constitutional: Reports system reviewed and no additional complaints, except as documented Eyes Eyes: Reports system reviewed and no additional complaints, except as documented ENT Ears, Nose, Mouth, and Throat: Reports system reviewed and no additional complaints, except as documented *Cardiovascular Cardiovascular: Reports system reviewed and no additional complaints, except as documented *Respiratory Respiratory: Reports system reviewed and no additional complaints, except as documented *Gastrointestinal Gastrointestinal: Reports abdominal pain, Reports belching, Reports bloating, Reports excessive flatus, Reports hematochezia and Reports nausea *Musculoskeletal Musculoskeletal: Reports system reviewed and no additional complaints, except as documented Integumentary/Breasts Skin/Breast: Reports system reviewed and no additional complaints, except as documented *Neurologic Neurologic: Reports system reviewed and no additional complaints, except as documented Psychiatric Psychiatric: Reports system reviewed and no additional complaints, except as documented Meds Home Medications and Allergies Home Medications ?Medication ?Instructions ?Recorded ?Confirmed ?Type blood-glucose,steward/stewardess [employer] car,cont #1 ea 08/23/24 07/17/25 Rx (Dexcom G7 Unit Controller) cholecalciferol (vitamin D3) 25 25 mcg PO DAILY 11/30/24 07/17/25 History mcg (1,000 unit) capsule aspirin 81 mg chewable tablet 81 mg PO DAILY 01/22/25 07/17/25 History hydrochlorothiazide 12.5 mg tablet 12.5 mg PO DAILY #90 tabs 02/19/25 07/17/25 Rx blood-glucose sensor (Dexcom G7 #9 ea 06/11/25 07/17/25 Rx Sensor device) duloxetine 30 mg capsule,delayed 30 mg PO BID #60 caps 06/11/25 07/17/25 Rx release levothyroxine 75 mcg tablet 75 mcg PO DAILY #90 tabs 06/11/25 07/17/25 Rx (Euthyrox) prucalopride 2 mg tablet 2 mg PO DAILY 06/11/25 07/17/25 History losartan 100 mg tablet 100 mg PO DAILY 06/26/25 07/17/25 History Lactobacillus rhamnosus GG 15 1 cap PO DAILY #14 caps 06/29/25 07/17/25 Rx billion cell sprinkle capsule (Culturelle) rifaximin 550 mg tablet (Xifaxan) 550 mg PO TID #42 tabs 07/01/25 07/17/25 Rx insulin pump cart,auto,BT,G6/7 #10 ea 07/03/25 07/17/25 Rx (Omnipod 5 G6-G7 Pods (Gen 5) subcutaneous cartridge) dicyclomine 10 mg capsule 10 mg PO QID PRN abdominal pain 07/04/25 07/17/25 Rx #120 caps metformin 500 mg tablet 500 mg PO BID #60 tabs 07/10/25 07/17/25 Rx empagliflozin 25 mg tablet 25 mg PO DAILY 07/17/25 07/17/25 History (Jardiance) insulin aspart U-100 100 unit/mL 10 unit SQ TID 07/17/25 07/17/25 History subcutaneous solution (Novolog U-100 Insulin aspart) New Prescriptions to Start Prescriptions: Allergies Allergy/AdvReac Type Severity Reaction Status Date / Time amoxicillin (From AUGMENTIN) Allergy Mild NA-NAUSEA Verified 07/03/25 08:31 cefdinir Allergy Mild Hives Verified 07/03/25 08:31 clavulanic acid (From Allergy Mild NA-NAUSEA Verified 07/03/25 08:31 AUGMENTIN) hydrocodone (From NORCO) Allergy Mild HIVES,ITCHI Verified 07/03/25 08:31 NG naproxen (NAPROXEN) Allergy Mild HIVES,ITCHI Verified 07/03/25 08:31 NG Sulfa (Sulfonamide Allergy Mild HIVES,ITCHI Verified 07/03/25 08:31 Antibiotics) (SULFA NG (SULFONAMIDE ANTIBIOTICS)) aspirin Allergy Hives Verified 07/03/25 08:31 Cephalosporins Allergy unknown Verified 07/03/25 08:31 dulaglutide (From Trulicity) AdvReac Intermediate Verified 07/03/25 08:31 levofloxacin AdvReac Nausea Verified 07/03/25 08:31 Exam (Inpt) Vital signs and Labs for Last 24 Hours: Temp Pulse Resp BP Pulse Ox O2 Del Method 98.2 F 89 18 132/66 93 L Room Air 07/18/25 12:00 07/18/25 12:00 07/18/25 12:00 07/18/25 12:00 07/18/25 12:00 07/18/25 12:00 Laboratory Results - last 24 hr 07/18/25 04:50: WBC 10.5, RBC 3.75 L, Hgb 9.4 L D, Hct 30.5 L, MCV 81.3, MCH 24.8 L, MCHC 30.5 L, RDW 19.6 H, Plt Count 353, MPV 10.1, Neut % (Auto) 61.7, Lymph % (Auto) 16.4, [place] % (Auto) 6.6, Eos % (Auto) 13.9 H, Baso % (Auto) 1.0, Neut # (Auto) 6.5, Lymph # (Auto) 1.7, [place] # (Auto) 0.7, Eos # (Auto) 1.5 H, Baso # (Auto) 0.1, Sodium 139, Potassium 3.4 L, Chloride 106, Carbon Dioxide 26, Anion Gap 10.4, BUN 9, Creatinine 0.80, Estimated Creat Clear 90, Estimated GFR 72, Est GFR ( Amer) 88, Glucose 170 H D, Hemoglobin A1c 8.5 H D, Calcium 9.0, Magnesium 1.7, Total Bilirubin 0.4, AST 20 D, ALT 12 D, Alkaline Phosphatase 123, Total Protein 7.1, Albumin 3.6 D, Globulin 3.5 H, Albumin/Globulin Ratio 1.0 L I & O for Labs for Last 24 Hours: Intake & Output 07/16/25 07/17/25 07/18/25 07/19/25 11:59 11:59 11:59 11:59 Intake Total 1000.0 2231.917 Output Total 0 Balance 1000.0 2231.917 Weight 97.069 kg 98.475 kg Constitutional: no acute distress Head: Present normocephalic and atraumatic Respiratory: Present CTA bilaterally Cardiac: Present Reg Rate and Rhythm GI: Present distention, tenderness and normal bowel sounds Extremities: Present normal inspection and full ROM Skin: Present intact Results Labs 07/18/25 04:50 07/18/25 04:50 Labs: Laboratory Results - last 24 hr 07/18/25 04:50: WBC 10.5, RBC 3.75 L, Hgb 9.4 L D, Hct 30.5 L, MCV 81.3, MCH 24.8 L, MCHC 30.5 L, RDW 19.6 H, Plt Count 353, MPV 10.1, Neut % (Auto) 61.7, Lymph % (Auto) 16.4, [place] % (Auto) 6.6, Eos % (Auto) 13.9 H, Baso % (Auto) 1.0, Neut # (Auto) 6.5, Lymph # (Auto) 1.7, [place] # (Auto) 0.7, Eos # (Auto) 1.5 H, Baso # (Auto) 0.1, Sodium 139, Potassium 3.4 L, Chloride 106, Carbon Dioxide 26, Anion Gap 10.4, BUN 9, Creatinine 0.80, Estimated Creat Clear 90, Estimated GFR 72, Est GFR ( Amer) 88, Glucose 170 H D, Hemoglobin A1c 8.5 H D, Calcium 9.0, Magnesium 1.7, Total Bilirubin 0.4, AST 20 D, ALT 12 D, Alkaline Phosphatase 123, Total Protein 7.1, Albumin 3.6 D, Globulin 3.5 H, Albumin/Globulin Ratio 1.0 L Assessment and Plan *Assessment and plan (1) Diverticulitis: Status: Acute Category: Medical Code(s): K57.92 - Diverticulitis of intestine, part unspecified, without perforation or abscess without bleeding (2) Colitis: Status: Acute Category: Medical Code(s): K52.9 - Noninfective gastroenteritis and colitis, unspecified (3) Obstipation: Status: Acute Category: Medical Code(s): K59.00 - Constipation, unspecified (4) Diarrhea: Status: Acute Qualifiers: Diarrhea type: unspecified type Qualified Code(s): R19.7 - Diarrhea, unspecified Category: Medical Code(s): R19.7 - Diarrhea, unspecified (5) Abdominal pain, diffuse: Status: Acute Category: Medical Code(s): R10.84 - Generalized abdominal pain (6) Nausea vomiting and diarrhea: Status: Acute Category: Medical Code(s): R11.2 - Nausea with vomiting, unspecified; R19.7 - Diarrhea, unspecified (7) Enteritis: Status: Acute Category: Medical Code(s): K52.9 - Noninfective gastroenteritis and colitis, unspecified (8) Pancreatitis: Status: Acute Qualifiers: Acute pancreatitis complication: no infection or necrosis Chronicity: acute Pancreatitis type: drug induced Qualified Code(s): K85.30 - Drug induced acute pancreatitis without necrosis or infection Category: Medical Code(s): K85.90 - Acute pancreatitis without necrosis or infection, unspecified (9) Failure of outpatient treatment: Status: Acute Category: Medical Code(s): Z78.9 - Other specified health status Plan 1. IBS/obstipation/pancreatitis/enteritis/colitis/diverticulitis Multiple ER visits in the past year including inpatient stay for acute pancreatitis felt to be secondary to Trulicity. She is no longer on that. Developed acute pancreatitis in April with a lipase over 1999. CT abdomen pelvis in April showed possible SBO versus enteritis. Enteritis seen on CT in early May and CT early June look like possible diverticulitis. Repeat CT the following week looks like colitis. Initially seen in the office and symptoms appeared very functional but she has gone downhill rapidly as an outpatient. Xifaxan for SIBO made symptoms worse. Bowel habits changed from constipation to chronic diarrhea with excessive bright red blood per stool for multiple days. Patient reported a syncopal episode in the bathroom. Treated with Cipro this last week and no longer having diarrhea is back to her constipation and then loose stool. No longer having rectal bleeding. Has been on meropenem since admission and passing a lot of gas since admission. She feels better today but is still distended with gas bloat on exam. Scheduled for EGD and colonoscopy on Tuesday. Discussed with Dr. Nguyen. If patient is able to go home safely, I would recommend restarting the Cipro with Flagyl until she is seen for panendoscopy on Tuesday. If she is unable to go home independently and is still inpatient on Tuesday Dr. Nguyen will complete her panendoscopy then. Will need bowel prep Tuesday night. As she is back to intermittent constipation and loose stools, I recommend she restart her bowel regimen with her gradually increasing dose of Motegrity at home or p.o. Dulcolax nightly while hospitalized.
--- OUTSIDE RECORDS SUMMARY | 2025-07-18 14:30 | XMS_ITS | Encounter Summary ---
Author Organization Healthcare Address [address] [place] [address] Care Team Providers Care Coating Mixer Tender Name Role Phone Cornelius Aparicio MD Primary Care Provider [phone] Reason for Visit * Reason Comments Med Refill Encounter Details Date Type Department Care Team (Late st Contact Info) Description 09/25/2023 Refill [facility] [address] [place] [address] Alivia Troy L, SPECIALTY MOLDER [address] [place] [address] Primary osteoarthritis involving multiple joints [...] documented as of this encounter Care Teams Coating Mixer Tender Relationship Specialty Start Date End Date Cornelius Aparicio MD [address] [place] [address] PCP - General 04/10/21 documented as of this encounter
--- OUTSIDE RECORDS SUMMARY | 2025-07-18 14:30 | XMS_ITS | Encounter Summary ---
Author Organization [facility] Address [address] [place] [address] Care Team Providers Care Information Security Specialist Name Role Phone Cornelius Aparicio MD Primary Care Provider [phone] Reason for Visit * Reason Comments Med Refill Encounter Details Date Type Department Care Team ([facility] st Contact Info) Description 03/03/2023 Refill [facility] Endocrinology [address] [place] [address] Osmel Auguste MD [address] [address] Type 2 diabetes mellitus without complication, without long-term current use of insulin ([facility]) Social History Tobacco Use Types [...] documented as of this encounter Care Teams Information Security Specialist Relationship Specialty Start Date End Date Cornelius Aparicio MD [address] [place] [address] PCP - General 04/10/21 documented as of this encounter
--- OUTSIDE RECORDS SUMMARY | 2025-07-18 14:30 | XMS_ITS | Encounter Summary ---
Author Organization [facility] Address [address] [place] [address] Care Team Providers Care Maintenance Worker House Trailer Name Role Phone Cornelius Aparicio MD Primary Care Provider [phone] Reason for Visit * Reason Comments Med Refill Encounter Details Date Type Department Care Team (Late st Contact Info) Description 03/26/2023 Refill [facility] Endocrinology [address] [place] [address] Osmel Auguste MD [address] [address] Hypothyroidism, unspecified type Social History [...] 90 day supply with 1 refill(s) to [facility] pharmacy. Enough refills until appointment on [...] documented as of this encounter Care Teams Maintenance Worker House Trailer Relationship Specialty Start Date End Date Cornelius Aparicio MD [address] [place] [address] PCP - General 04/10/21 documented as of this encounter
--- OUTSIDE RECORDS SUMMARY | 2025-07-18 14:30 | XMS_ITS | Encounter Summary ---
Author Organization [facility] Address [address] [place] [address] Care Team Providers Care Java Web Engineer Name Role Phone Cornelius Aparicio MD Primary Care Provider [phone] Reason for Referral * Consultation (Routine) - Closed Specialty Diagnoses / Procedures Referred By Enmanuel rich Referred To Contact Rheumatology Diagnoses Elevated sed rate Elevated C-reactive protein Clementine Kohli PA [address] [place] [address] Phone: tel: fax: Referral ID Status Reason Start Date Expiration Date V isits Requested Visits Authorized [id number] Closed Specialty Services Required 06/02/2022 12/02/2023 1 1 Encounter Details Date Type Department Care Team (Late st Contact Info) Description 06/02/2022 Community [facility] [address] [place] [address] Clementine Kohli PA [address] [place] [address] Elevated sed rate (Primary Dx); [...] documented as of this encounter Care Teams Java Web Engineer Relationship Specialty Start Date End Date Cornelius Aparicio MD [address] [place] [address] PCP - General 04/10/21 documented as of this encounter
--- OUTSIDE RECORDS SUMMARY | 2025-07-18 14:30 | XMS_ITS | Clinical Summary ---
Author Organization [facility] Address [address] [place] [address] Care Team Providers Care Armed Security Professional Name Role Phone Cornelius Aparicio MD Primary Care Provider [phone] Allergies Active Allergy Reactions Criticality Noted Date [...] mellitus with other specified complication, unspecified whether fci insulin use ([facility]),Type 2 diabetes mellitus without complication, without long-term [...] hyperglycemia, with long-term current use of insulin ([facility]) Inject 0.5 mg once weekly. Further refills at 04/26/24 appointment. 3 mL 3 4 Active insulin aspart (NovoLOG) 100 UNIT/ML injection pen Inject 10 Units under the skin 3 (three) times a day with meals. 15 mL 3 4 Active pen needle, diabetic (BD Pen Needle Micro U/F) 32G X 6 MM miscIndications:Ty pe 2 diabetes mellitus with other specified complication, unspecified whether fci insulin use ([facility]),Type 2 diabetes mellitus without complication, without long-term [...] 1-dose series) 2022 [facility]-Depression Screening 05/17/2024 05/17/2023 [id number] Vaccine ( season) 2024 10/14/2021, 01/16/2021, 12/17/2020 [...] hyperglycemia, with long-term current use of insulin ([facility]) ACUTE HEPATITIS PANEL Routine 07/23/2022 10:53 AM EDT Polyarthralgia Elevated C-reactive protein from Last 3 Months or Most Recently Relevant to Health Maintenance Results * (ABNORMAL) POCT glycosylated hemoglobin (Hb A1C) (04/26/2024 8:29 AM EDT) Pathologist [facility] POCT Hemoglobin A1C 8.9 <5.7% Non-Diabe tic [facility] Kit Lot Number [id number] [facility] Kit Expiration Date 02/25/2026 [facility] Blood Venous blood specimen / Unknown 04/26/2024 8:29 AM EDT Osmel Auguste MD POINT OF CARE TEST ENTER/ED IT ORDERABLES Final Result Performing Organization Address City/[facility]/ZIP Co de Phone Number HEALTHCARE LAB [address] [place] [address] * Acute Hepatitis Panel (07/23/2022 10:53 AM EDT) Pathologist [facility] Hepatitis B Surf Antigen Negative Negative 07/23/2022 1:41 PM EDT [facility] Hepatitis C Antibody Negative Negative 07/23/2022 1:41 PM EDT [facility] Hepatitis A Antibody IgM Negative Negative 07/23/2022 1:41 PM EDT [facility] Hepatitis B Core Antibody IgM Negative Negative 07/23/2022 1:41 PM EDT [facility] Blood Venous blood specimen / Unknown Venipuncture / Unknown 07/23/2022 10:53 AM EDT 07/23/2022 10:54 AM EDT [facility] BLOOD ORDERABLES Final Resul t Performing Organization Address City/[facility] Co de Phone Number [facility] [address] [place] [address] from Last 3 Months or Most Recently Relevant to Health Maintenance Insurance [employer] Care Teams Armed Security Professional Relationship Specialty Start Date End Date Cornelius Aparicio MD [address] [place] [address] PCP - General 04/10/21
--- NOTE | 2025-07-18 15:54 | PC.NURSE ---
PT IS RESTING IN BED. ALERT AND ORIENTED X4. AMBULATES IN THE BATHROOM AND IN THE ROOM. PT STATED SHE'S HAD 4 LOOSE BOWEL MOVEMENTS THIS SHIFT. TOLERATED SITTING UP IN THE CHAIR FOR SEVERAL HOURS. LUNG SOUNDS CLEAR. ABDOMEN SOFT/TENDERNESS NOTED WITH PALPATION. ACTIVE BOWEL SOUNDS. TOLERATED REGULAR DIET. WILL CONTINUE TO MONITOR.
[2025-07-18 16:00] VITALS: BP 124/76; PULSE 99; RESP 16; O2SAT 97
[2025-07-18 16:38] LABS: POC Glucose,Bedside 224 (70-110)
[2025-07-18 20:00] VITALS: BP 126/62; PULSE 110; RESP 18; TEMP 37.3; O2SAT 96
[2025-07-19 04:00] VITALS: BP 128/47; PULSE 88; RESP 16; TEMP 36.6; O2SAT 97; BMI 39.9
--- NOTE | 2025-07-19 05:36 | PC.NURSE ---
Pt. is alert and orientated x 4, Pt. is on room air. Pt. was up and ambulating in the room and to and from bathroom. Pt. states that she is feeling better. Abd. soft , slighlty tender . Pt. denies need for pain meds overnight. Pt. denies nausea or vomiting. Pt. does c/o itching to arms and legs. No rash noted. Hydrocortison cream jordered for itching Pt's dexcom sensor was changed at change of shift last night. Pt. also has an insulin pump that adjust to dexcom reads. Pt. slept off and on overnight. Personal items and call moe in reach. Bed in low and locked position.
[2025-07-19 05:54] LABS: Albumin Level 3.7 g/dl (3.5-5.0); Chloride 108 mmol/L (98-107); Potassium 3.9 mmoL/L (3.5-5.1); Sodium 140 mmol/L (136-145)
[2025-07-19 05:56] LABS: Alanine Aminotransferase 13 U/L (12-78); Aspartate Amino Transferase 30 U/L (14-36); Blood Urea Nitrogen 14 mg/dl (7-17); Creatinine Clearance Estimated 90 mL/min (50-200); Creatinine,Serum 0.80 mg/dl (0.52-1.04); Estimated Glomerular Filt Rate 72 ml/min (>60); GFR (African American) 88 ML/MIN (>60)
[2025-07-19 05:57] LABS: Albumin/Globulin Ratio 1.1 (1.1-1.8); Alkaline Phosphatase 127 U/L (38-126); Anion Gap 10.9 mEq/L (5-15); Bilirubin,Total 0.3 mg/dl (0.2-1.3); Calcium 9.2 mg/dl (8.4-10.2); Carbon Dioxide 25 mmol/L (22.0-30.0); Globulin 3.5 g/dL (1.3-3.2); Glucose 191 mg/dl (74-100); Magnesium 1.8 mg/dl (1.6-2.3); Total Protein,Serum 7.2 g/dl (6.3-8.2)
[2025-07-19 06:10] LABS: Hematocrit 30.1 % (37.0-47.0); Hemoglobin 9.2 g/dL (12.2-16.2); Immature Granulocytes % 0.3 %; Mean Corpuscular HGB Conc 30.6 g/dL (31.8-35.4); Mean Corpuscular Hemoglobin 24.8 pg (27.0-31.2); Mean Corpuscular Volume 81.1 fl (81-99); Nucleated Red Blood Cells % 0 %; Platelet Count 372 K/mm3 (142-424); Red Blood Count 3.71 M/mm3 (4.20-5.40); Red Cell Distribution Width-SD 56.4 fL; White Blood Count 9.4 K/mm3 (4.8-10.8)
[2025-07-19] MEDS: LEVOTHYROXINE 75MCG (0.075MG) TAB 75 MCG PO (06:46)
[2025-07-19] MEDS: MEROPENEM 1 GM in 0.9 % SODIUM CHLORIDE 100 ML IV (06:49)
--- NOTE | 2025-07-19 07:59 | P.PN_ITS ---
Subjective Patient reports: feels better Exam Data for Last 24 hours Vital signs and Labs for Last 24 Hours: Temp Pulse Resp BP Pulse Ox O2 Del Method 97.8 F 88 16 128/47 L 97 Room Air 07/19/25 04:00 07/19/25 04:00 07/19/25 04:00 07/19/25 04:00 07/19/25 04:00 07/19/25 07:00 Laboratory Results - last 24 hr 07/18/25 10:45: Stl C. cayetanensis PCR Not detected, Stool Rotavirus (PCR) Not detected, Stl Adenov F 40/41 PCR Not detected, Stool Astrovirus (PCR) Not detected, Stool Campylobacter PCR Not detected, Stl C.difficile Tox PCR Not detected, Stool Cryptosporidium PCR Not detected, Stl E.coli Shiga Tox PCR Not detected, Stool E coli O157 PCR Not detected, Stl Enterotoxigenic E PCR Not detected, Stool EPEC (PCR) Not detected, Stool EAEC (PCR) Not detected, Stl E. histolytica PCR Not detected, Stool Giardia Lamblia PCR Not detected, Stool Salmonella PCR Not detected, Stool Sapovirus (PCR) Not detected, Stl P. shigelloides PCR Not detected, Stl Shigella/EIEC PCR Not detected, St Y.enterocolitica PCR Not detected, Stool Vibrio (PCR) Not detected, Stl Vibrio cholerae PCR Not detected, Stl Norovirus GI/GII PCR Not detected 07/18/25 16:31: POC Glucose 224 H 07/19/25 05:06: WBC 9.4, RBC 3.71 L, Hgb 9.2 L, Hct 30.1 L, MCV 81.1, MCH 24.8 L , MCHC 30.6 L, RDW 19.2 H, Plt Count 372, MPV 10.0, Neut % (Auto) 53.4, Lymph % (Auto) 19.7, [place] % (Auto) 7.4, Eos % (Auto) 18.6 H, Baso % (Auto) 0.6, Neut # (Auto) 5.0, Lymph # (Auto) 1.9, [place] # (Auto) 0.7, Eos # (Auto) 1.8 H, Baso # (Auto) 0.1, Sodium 140, Potassium 3.9, Chloride 108 H, Carbon Dioxide 25, Anion Gap 10.9, BUN 14 D, Creatinine 0.80, Estimated Creat Clear 90, Estimated GFR 72, Est GFR ( Amer) 88, Glucose 191 H, Calcium 9.2, Magnesium 1.8, Total Bilirubin 0.3, AST 30 D, ALT 13, Alkaline Phosphatase 127 H, Total Protein 7.2, Albumin 3.7, Globulin 3.5 H, Albumin/Globulin Ratio 1.1 I & O for Last 24 hours: Intake & Output 07/16/25 07/17/25 07/18/25 07/19/25 11:59 11:59 11:59 11:59 Intake Total 1000.0 / 1000.0 2231.917 / 2231.917 1108.75 / 1108.75 Output Total 0 / 0 0 / 0 Balance 1000.0 / 1000.0 2231.917 / 2231.917 1108.75 / 1108.75 Weight 214 lb 217 lb 1.6 oz 217 lb 3.2 oz Narrative: Diarrhea panel obtained yesterday morning negative for specific organisms Constitutional Constitutional: no acute distress *Routine Respiratory Exam Respiratory: Absent respiratory distress *Routine Cardiovascular Exam Cardiovascular: Absent tachycardia *Routine Abdominal Exam Abdominal: Present soft and tenderness (Continuing to improve) Progress Note: A&P Assessment and plan (1) Diverticulitis: Status: Acute (2) Colitis: Status: Acute (3) Failure of outpatient treatment: Status: Acute (4) Hypothyroidism: Status: Chronic (5) Type 2 diabetes mellitus: Status: Chronic (6) Hypertension: Status: Chronic (7) Anxiety: Status: Chronic (8) Obstipation: Status: Acute Assessment and Plan Assessment and Plan for All Diagnoses:: Overall improvement after initiation of current management. Okay from surgical standpoint to change to PO abx for discharge home Continued close outpatient follow-up once discharged
[2025-07-19 08:00] VITALS: BP 120/58; PULSE 76; RESP 16; TEMP 36.5; O2SAT 96
[2025-07-19] MEDS: EMPAGLIFLOZIN 25MG TABLET 25 MG PO (08:12)
[2025-07-19] MEDS: LEVOFLOXACIN/D5W 750 MG/150 ML 750 MG/150 ML PIGGYBACK 100 MG IV (09:55)
[2025-07-19] MEDS: HYDROCORTISONE 2.5% CREAM 28GM TUBE 28 GM TP (09:56)
[2025-07-19] MEDS: ONDANSETRON 4MG/2ML VIAL 4 MG IV (09:58)
--- NOTE | 2025-07-19 10:22 | EXP.DC.SUM ---
General Admission date:: 07/17/25 Discharge date: 07/19/25 HPI HPI HPI: This is a 65-year-old female who was recently seen by Dr. Nguyen in April with obstipation/constipation excessive bloating belching and gassiness, dysphagia and dyspepsia symptoms. The patient had been on Trulicity for the past year. Last year she was struggling with a lot of GI symptoms related to her Ozempic dosing. She switched medications and went back on Trulicity. Within 2 weeks she was in the ER with nausea vomiting diarrhea. She had a CT that looked like enteritis and then follow-up CT look like possible diverticulitis. She had been on prucalopride for the her obstipation since April and was having excessive diarrhea. No obvious evidence of pancreatitis on CT but she had a lipase over 1999. It was felt to be pancreatitis related to Trulicity. She stopped Trulicity. She followed up with me in the office a couple of weeks ago and was extremely distended with gas bloat on exam. She had been on Motegrity which had given her diarrhea. It also gave her abdominal cramping. She was having clear liquid stools. We decreased the Motegrity to a quarter to half a tablet. Given the likely SIBO and excessive gas, we prescribed a round of Xifaxan. The patient started that and reports her symptoms got much worse. She contact the office multiple times and went to the ER again. She was diagnosed with diverticulitis and then return to the ER and diagnosed with colitis. At this point she was having watery diarrhea multiple times a day with urgency. She reports she had passed out in the bathroom. She reported blood in her stool multiple times for a couple of days in a row. We started the patient on Cipro, added colonoscopy to her EGD and moved up the date. She is currently scheduled for panendoscopy on Tuesday. Even on Cipro, the patient continued to have abdominal pain and distention. She presented to the ER with a slight elevation of her white count 12.8 and colitis versus diverticulitis on this CT scan. She reports that on the Cipro she has had elimination of the pure diarrhea and has had elimination of the blood in her stool but is back to having variable bowel movements between hard balls of stool and loose stool. She also reports that she has passed an excessive amount of gas since being in the hospital. She feels significantly better today than she has. She is requesting to eat. Hospital Course Hospital Course Hospital Course: 65-year-old female with diabetes, hypertension, hypothyroid, obesity who presented with abdominal pain and nausea. CT image showed concern for worsening colitis and diverticulitis. Concern the patient has failed outpatient therapy. White count elevated at 12.8. Discussed case with ER physician, request admission for failure of outpatient treatment, initiation of IV antibiotics, and surgical evaluation. I agreed to admit for further treatment. Initiated on meropenem. GI and surgery evaluated during admission. Showed good improvement IV antibiotics. Transition to oral therapy. After much discussion with GI and surgery, GI recommends proceeding with colonoscopy on Tuesday. Stable discharge home. Problems addressed as follows: Colitis versus uncomplicated Diverticulitis - Per my review of CT, has inflammation of the bowel wall in the sigmoid colon. Also has multiple diverticulum. Questionable if they are inflamed with diverticulitis versus just severe colitis with surrounding diverticula. Does not appear to have any perforations or abscess development. White count initially elevated 12.8. Showed improvement during admission. Improved to 9.4 on day of discharge. Hemoglobin stable during admission at 9-10. Kidney function normal and electrolytes stable. Surgery was consulted, no recommendation for any intervention at this time. Recommend continued antibiotics/medical management and reevaluation by GI. GI was consulted and recommended continuing antibiotics for the time being. Recommend transitioning to ciprofloxacin and Flagyl at discharge to complete a course of therapy. After much discussion, given the uncomplicated nature, recommend proceeding with panendoscopy on Tuesday as previously scheduled. - Zofran 4 mg as needed every 8 hours for nausea - Diet advanced during admission. Tolerating regular diet. Having bowel movements, no constipation. Bowel movements soft. Type 2 diabetes: A1c this admission improved to 8.5. Continued home Dexcom 7 along with OmniPod. Glucose fairly well-controlled during admission. Between 150-250. Continue home regimen at discharge at home empagliflozin 25 mg daily Anxiety: Continue Cymbalta 30 mg twice daily, Hypothyroid: TSH elavated at 6.9. Continue levothyroxine 75 mcg daily Hypertension: held during admission, stable blood pressure during admission. Okay to resume at discharge Hyperlipidemia: Held statin during admission. Okay to resume at discharge. Class II obesity complicates all of her care Total time spent on discharge 35 minutes in counseling, documentation, chart review, and direct care with patient. Exam Data for Last 24 hours Vital signs and Labs for Last 24 Hours: Temp Pulse Resp BP Pulse Ox O2 Del Method 97.7 F 76 16 120/58 L 96 Room Air 07/19/25 08:00 07/19/25 08:00 07/19/25 08:00 07/19/25 08:00 07/19/25 08:00 07/19/25 09:10 Laboratory Results - last 24 hr 07/18/25 10:45: Stl C. cayetanensis PCR Not detected, Stool Rotavirus (PCR) Not detected, Stl Adenov F 40/41 PCR Not detected, Stool Astrovirus (PCR) Not detected, Stool Campylobacter PCR Not detected, Stl C.difficile Tox PCR Not detected, Stool Cryptosporidium PCR Not detected, Stl E.coli Shiga Tox PCR Not detected, Stool E coli O157 PCR Not detected, Stl Enterotoxigenic E PCR Not detected, Stool EPEC (PCR) Not detected, Stool EAEC (PCR) Not detected, Stl E. histolytica PCR Not detected, Stool Giardia Lamblia PCR Not detected, Stool Salmonella PCR Not detected, Stool Sapovirus (PCR) Not detected, Stl P. shigelloides PCR Not detected, Stl Shigella/EIEC PCR Not detected, St Y.enterocolitica PCR Not detected, Stool Vibrio (PCR) Not detected, Stl Vibrio cholerae PCR Not detected, Stl Norovirus GI/GII PCR Not detected 07/18/25 16:31: POC Glucose 224 H 07/19/25 05:06: WBC 9.4, RBC 3.71 L, Hgb 9.2 L, Hct 30.1 L, MCV 81.1, MCH 24.8 L, MCHC 30.6 L, RDW 19.2 H, Plt Count 372, MPV 10.0, Neut % (Auto) 53.4, Lymph % (Auto) 19.7, Sutter % (Auto) 7.4, Eos % (Auto) 18.6 H, Baso % (Auto) 0.6, Neut # (Auto) 5.0, Lymph # (Auto) 1.9, Sutter # (Auto) 0.7, Eos # (Auto) 1.8 H, Baso # (Auto) 0.1, Sodium 140, Potassium 3.9, Chloride 108 H, Carbon Dioxide 25, Anion Gap 10.9, BUN 14 D, Creatinine 0.80, Estimated Creat Clear 90, Estimated GFR 72, Est GFR ( Amer) 88, Glucose 191 H, Calcium 9.2, Magnesium 1.8, Total Bilirubin 0.3, AST 30 D, ALT 13, Alkaline Phosphatase 127 H, Total Protein 7.2, Albumin 3.7, Globulin 3.5 H, Albumin/Globulin Ratio 1.1 I & O for Last 24 hours: Intake & Output 07/16/25 07/17/25 07/18/25 07/19/25 23:59 23:59 23:59 23:59 Intake Total 1802.5 / 2491.5 2213.167 / 2438.167 425 / 425 Output Total 0 / 0 0 / 0 0 / 0 Balance 1802.5 / 2491.5 2213.167 / 2438.167 425 / 425 Weight 98.112 kg 98.475 kg 98.52 kg Constitutional Constitutional: no acute distress, morbidly obese and cooperative *Routine HEENT Exam Head: Present normocephalic Eye: Present EOMI and PERRL ENT: Present mucous membranes moist *Routine Neck Exam Neck: Present supple; Absent lymphadenopathy *Routine Respiratory Exam Respiratory: Present CTA bilaterally; Absent respiratory distress or rhonchi *Routine Cardiovascular Exam Cardiovascular: Present RRR *Routine Abdominal Exam Abdominal: Present soft, normoactive bowel sounds and tenderness (Minimal left lower quadrant, significant improvement since admission); Absent distended or rebound *Routine Rectal Exam Patient deferred: visual exam *Routine Exam Patient deferred: external exam *Routine Extremities Exam Extremities: Absent cyanosis, clubbing or edema *Routine Skin Exam Skin: Present intact and warm; Absent rash *Routine Neurological Exam Neurological: Present alert, oriented X3 and moving all extremities; Absent altered mental status Results Data Completed and Pending Labs on day of discharge: Labs from last 24 hours 07/19/25 07/18/25 07/18/25 05:06 16:31 10:45 WBC 9.4 RBC 3.71 L Hgb 9.2 L Hct 30.1 L MCV 81.1 MCH 24.8 L MCHC 30.6 L RDW 19.2 H Plt Count 372 MPV 10.0 Neut % (Auto) 53.4 Lymph % (Auto) 19.7 Sutter % (Auto) 7.4 Eos % (Auto) 18.6 H Baso % (Auto) 0.6 Neut # (Auto) 5.0 Lymph # (Auto) 1.9 Sutter # (Auto) 0.7 Eos # (Auto) 1.8 H Baso # (Auto) 0.1 Sodium 140 Potassium 3.9 Chloride 108 H Carbon Dioxide 25 Anion Gap 10.9 BUN 14 D Creatinine 0.80 Estimated Creat Clear 90 Estimated GFR 72 Est GFR ( Amer) 88 Glucose 191 H POC Glucose 224 H Calcium 9.2 Magnesium 1.8 Total Bilirubin 0.3 AST 30 D ALT 13 Alkaline Phosphatase 127 H Total Protein 7.2 Albumin 3.7 Globulin 3.5 H Albumin/Globulin Ratio 1.1 Stl C. cayetanensis PCR Not detected Stool Rotavirus (PCR) Not detected Stl Adenov F 40/41 PCR Not detected Stool Astrovirus (PCR) Not detected Stool Campylobacter PCR Not detected Stl C.difficile Tox PCR Not detected Stool Cryptosporidium PCR Not detected Stl E.coli Shiga Tox PCR Not detected Stool E coli O157 PCR Not detected Stl Enterotoxigenic E PCR Not detected Stool EPEC (PCR) Not detected Stool EAEC (PCR) Not detected Stl E. histolytica PCR Not detected Stool Giardia Lamblia PCR Not detected Stool Salmonella PCR Not detected Stool Sapovirus (PCR) Not detected Stl P. shigelloides PCR Not detected Stl Shigella/EIEC PCR Not detected St Y.enterocolitica PCR Not detected Stool Vibrio (PCR) Not detected Stl Vibrio cholerae PCR Not detected Stl Norovirus GI/GII PCR Not detected DS: Diagnosis Discharge Diagnosis (1) Colitis: Status: Acute Code(s): K52.9 - Noninfective gastroenteritis and colitis, unspecified (2) Diverticulitis: Status: Acute Code(s): K57.92 - Diverticulitis of intestine, part unspecified, without perforation or abscess without bleeding (3) Failure of outpatient treatment: Status: Acute Code(s): Z78.9 - Other specified health status (4) Hypothyroidism: Status: Chronic Code(s): E03.9 - Hypothyroidism, unspecified Qualifiers: Hypothyroidism type: unspecified Qualified Code(s): E03.9 - Hypothyroidism, unspecified (5) Type 2 diabetes mellitus: Status: Chronic Code(s): E11.9 - Type 2 diabetes mellitus without complications Qualifiers: Diabetes mellitus complication status: with hyperglycemia Diabetes mellitus clinical educator insulin use: with shelter use Qualified Code(s): E11.65 - Type 2 diabetes mellitus with hyperglycemia; Z79.4 - long-term (current) use of insulin (6) Hypertension: Status: Chronic Code(s): I10 - Essential (primary) hypertension Qualifiers: Hypertension type: unspecified Qualified Code(s): I10 - Essential (primary) hypertension (7) Anxiety: Status: Chronic Code(s): F41.9 - Anxiety disorder, unspecified (8) Obstipation: Status: Acute Code(s): K59.00 - Constipation, unspecified Meds Home Medications and Allergies Home Medications ?Medication ?Instructions ?Recorded ?Confirmed ?Type blood-glucose,club licensee,cont #1 ea 08/23/24 07/17/25 Rx (Dexcom G7 [employer] Operator) cholecalciferol (vitamin D3) 25 25 mcg PO DAILY 11/30/24 07/17/25 History mcg (1,000 unit) capsule aspirin 81 mg chewable tablet 81 mg PO DAILY 01/22/25 07/17/25 History hydrochlorothiazide 12.5 mg tablet 12.5 mg PO DAILY #90 tabs 02/19/25 07/17/25 Rx blood-glucose sensor (Dexcom G7 #9 ea 06/11/25 07/17/25 Rx Sensor device) duloxetine 30 mg capsule,delayed 30 mg PO BID #60 caps 06/11/25 07/17/25 Rx release levothyroxine 75 mcg tablet 75 mcg PO DAILY #90 tabs 06/11/25 07/17/25 Rx (Euthyrox) prucalopride 2 mg tablet 2 mg PO DAILY 06/11/25 07/17/25 History losartan 100 mg tablet 100 mg PO DAILY 06/26/25 07/17/25 History Lactobacillus rhamnosus GG 15 1 cap PO DAILY #14 caps 06/29/25 07/17/25 Rx billion cell sprinkle capsule (Culturelle) insulin pump cart,auto,BT,G6/7 #10 ea 07/03/25 07/17/25 Rx (Omnipod 5 G6-G7 Pods (Gen 5) subcutaneous cartridge) dicyclomine 10 mg capsule 10 mg PO QID PRN abdominal pain 07/04/25 07/17/25 Rx #120 caps metformin 500 mg tablet 500 mg PO BID #60 tabs 07/10/25 07/17/25 Rx empagliflozin 25 mg tablet 25 mg PO DAILY 07/17/25 07/17/25 History (Jardiance) insulin aspart U-100 100 unit/mL 10 unit SQ TID 07/17/25 07/17/25 History subcutaneous solution (Novolog U-100 Insulin aspart) ciprofloxacin HCl 500 mg tablet 500 mg PO Q12H #10 tabs 07/18/25 Rx metronidazole 500 mg tablet 500 mg PO Q8H 5 days #15 tabs 07/18/25 Rx ondansetron 4 mg disintegrating 4 mg PO Q8H PRN nausea and 07/19/25 Rx tablet vomiting #14 tabs New Prescriptions to Start Prescriptions: Kvng Luo metronidazole Kvng Hoffmann ondansetron Kvng Hoffmann Allergies Allergy/AdvReac Type Severity Reaction Status Date / Time amoxicillin (From AUGMENTIN) Allergy Mild NA-NAUSEA Verified 07/03/25 08:31 cefdinir Allergy Mild Hives Verified 07/03/25 08:31 clavulanic acid (From Allergy Mild NA-NAUSEA Verified 07/03/25 08:31 AUGMENTIN) hydrocodone (From NORCO) Allergy Mild HIVES,ITCHI Verified 07/03/25 08:31 NG naproxen (NAPROXEN) Allergy Mild HIVES,ITCHI Verified 07/03/25 08:31 NG Sulfa (Sulfonamide Allergy Mild HIVES,ITCHI Verified 07/03/25 08:31 Antibiotics) (SULFA NG (SULFONAMIDE ANTIBIOTICS)) aspirin Allergy Hives Verified 07/03/25 08:31 Cephalosporins Allergy unknown Verified 07/03/25 08:31 dulaglutide (From Trulicity) AdvReac Intermediate Verified 07/03/25 08:31 levofloxacin AdvReac Nausea Verified 07/03/25 08:31 Discharge Plan Disposition Patient Disposition: Home, Self-Care Condition: Good Discharge Order Discharge Orders: Discharge Order (Routine); Ordered 07/19/25 Ordered By: Kvng Hoffmann Follow up Plan Follow up with: Augie Nguyen II, MD [Staff Physician, Gastroenterology] - 08/08/25 9:15 am Prasad Preston DO [Primary Care Provider, Family Practice] - 07/26/25 2:00 pm Prescriptions/Medication Reconciliation: New ciprofloxacin HCl 500 mg tablet 500 mg PO Q12H Qty: 10 0RF metronidazole 500 mg tablet 500 mg PO Q8H 5 Days Qty: 15 0RF ondansetron 4 mg tablet,disintegrating 4 mg PO Q8H PRN (Reason: nausea and vomiting) Qty: 14 0RF Continued (DME) Dexcom G7 [employer] Operator Misc See Rx Instructions .Route Qty: 1 0RF Rx Instructions: As directed (DME) Omnipod 5 G6-G7 Pods (Gen 5) Cartridge See Rx Instructions .ROUTE .COMPLEX Qty: 10 5RF Dose Instruction: USE DIRECTED Rx Instructions: Change Omnipod once every 3 days. cholecalciferol (vitamin D3) 25 mcg (1,000 unit) capsule 25 mcg PO DAILY aspirin 81 mg tablet,chewable 81 mg PO DAILY prucalopride 2 mg tablet 2 mg PO DAILY (DME) Dexcom G7 Sensor Device See Rx Instructions .Route Qty: 9 1RF Rx Instructions: As directed duloxetine 30 mg capsule,delayed release(DR/EC) 30 mg PO BID Qty: 60 2RF hydrochlorothiazide 12.5 mg tablet 12.5 mg PO DAILY Qty: 90 1RF levothyroxine [Euthyrox] 75 mcg tablet 75 mcg PO DAILY Qty: 90 1RF dicyclomine 10 mg capsule 10 mg PO QID PRN (Reason: abdominal pain) Qty: 120 2RF metformin 500 mg tablet 500 mg PO BID Qty: 60 6RF Culturelle 15 billion cell capsule, sprinkle 1 cap PO DAILY Qty: 14 0RF insulin aspart U-100 [Novolog U-100 Insulin aspart] 100 unit/mL solution 10 unit SQ TID Jardiance 25 mg tablet 25 mg PO DAILY losartan 100 mg tablet 100 mg PO DAILY Discontinued Xifaxan 550 mg tablet 550 mg PO TID Qty: 42 0RF Problem Reconciliation Problems Reviewed?: Yes Patient Discharge Instructions ACTIVITY: Continue current activity DIET: continue same diet Patient Instructions: DI for Diverticulitis, DI for Colitis Print Language: Lithuanian Providers Primary Care Provider: Prasad Preston Admit Provider: Kvng Hoffmann Attending Provider: Kvng Hoffmann
[2025-07-19 12:00] VITALS: BP 133/91; PULSE 80; RESP 16; TEMP 36.7; O2SAT 98
== END 2025-07-19 13:23 | disposition home or self-care (01) | DRG 392 ==
LOC: ER 13:54 → 2ND 15:14
PROVIDERS: Admitting Provider Internal Medicine Adolescent Medicine; Emergency Provider Student in an Organized Health Care Education/Training Program; PCP Internal Medicine; Visit Provider Internal Medicine Adolescent Medicine
DX: K57.32 Diverticulitis of large intestine without perforation or abscess without bleeding (principal); Z68.41 Body mass index [BMI] 40.0-44.9, adult; K52.9 Noninfective gastroenteritis and colitis, unspecified; E11.9 Type 2 diabetes mellitus without complications; I10 Essential (primary) hypertension; E03.9 Hypothyroidism, unspecified; F41.9 Anxiety disorder, unspecified; E78.5 Hyperlipidemia, unspecified; E66.812 Obesity, class 2; K59.00 Constipation, unspecified; F17.210 Nicotine dependence, cigarettes, uncomplicated; L29.9 Pruritus, unspecified; T40.2X5A Adverse effect of other opioids, initial encounter; Z79.82 Long term (current) use of aspirin; Z79.890 Hormone replacement therapy; Z79.4 Long term (current) use of insulin; Z79.84 Long term (current) use of oral hypoglycemic drugs; Z79.899 Other long term (current) drug therapy; Z88.6 Allergy status to analgesic agent; Z88.1 Allergy status to other antibiotic agents; Z88.5 Allergy status to narcotic agent; Z88.0 Allergy status to penicillin; Z88.2 Allergy status to sulfonamides; Z88.8 Allergy status to other drugs, medicaments and biological substances
CPT/HCPCS: 36415; 74177; 80053; 81001; 82962; 83036; 83605; 83690; 83735; 85025; 87507; 87636; 93005; 99285; J1644; J1956; J2185; J2270; J2405; J7120; Q9967

== ENCOUNTER 2025-07-22 10:38 | Day surgery (SDC) | payer BC, SELFPAY ==
--- NOTE | 2025-07-19 09:45 | SUR.PREOP ---
pt is currently an inpt at [facility]. spoke to valeri mehta who is smelter charger on 2nd floor--plan for pt is to be discharged home today. VALERI Mehta will give pt instructions for: clear liquids Tuesday, begin bowel prep Tuesday evening, arrive to outpatient registration at 1100 on Tuesday, take AM meds with a small sip of water, and she must have a stunt driver with her on Tuesday that stays in the building for the duration of the procedure.
[2025-07-22 11:19] VITALS: BP 131/71; PULSE 82; RESP 16; TEMP 36.1; O2SAT 98; BMI 39.1
[2025-07-22] MEDS: LACTATED RINGERS 1000ML 1,000 ML 50 ML IV (11:35)
[2025-07-22 11:44] LABS: POC Glucose,Bedside 176 (70-110)
--- NOTE | 2025-07-22 12:15 | P.PNANES_ITS ---
[facility] Disclaimer: The information contained in this section may have been updated after the patient was seen, as this information can be updated by other users. Medical History History of left heart catheterization (LHC) Constipation Abdominal pain Elevated parathyroid hormone Encounter for screening breast examination Dyshidrotic eczema Neuropathy Polyarthralgia Diabetes Surgical History H/O tubal ligation History of hysterectomy History of colonoscopy Family History Tuberculosis Mother Diabetes Family/Other FHx: mental illness Family/Other Bleeding disorder Family/Other Hypertension Family/Other Social History Smoking Status: Current every day smoker tobacco type: cigarettes packs per day: 1 pack-years: 182 smoking status start date: 1980 second hand exposure: No alcohol intake: never substance use type: denies use current occupational status: employed Travel in the last 8 weeks?: None household members: spouse housing: house current occupation: school system current occupational exposures/hazards: No caffeine: Yes Have you lived/traveled outside [place] in past 30 days?: No Contact w/someone who lives/traveled outside [place] past 30 days?: No Exposure to someone with infectious disease in past 14 days?: No Do you have a fever (greater than 100.4 F or 38 C)?: No Have you tested positive for COVID-19?: No Exposed to someone with COVID-19 in past 14 days?: No Do you have a sore throat?: No Do you have a cough?: No Do you have any weakness?: No Do you have any diarrhea?: No Are you experiencing any unusual bleeding?: No Do you have any muscle aches/pain?: No Do you have any abdominal pain?: No Are you experiencing loss of taste or smell?: No [facility] Anesthesia Checklist Patient Identification Patient Identification: Arm Band Structural Data Admitted From: Home Planned Operative Procedure/s: EGD/Colonoscopy Consent for Planned Operative Procedure(s) Verified: Yes Verified Documents: Surgical Consent and History and Physical NPO Status Verified Time NPO: 09:00 (finished prep) Additional verifications Anesthesia Reactions: No Hx Blood Transfusions: No Blood Transfusion Reaction: No Airway Assessment Mallampati Score:: Class II C-Spine Mobility Assessed: Yes TMJ Mobility Assessed: Yes Dentition: Good Dentition Neurological Assessment Level of Consciousness: Awake, Alert and Appropriate Anesthesia Plan Anesthesia Risk discussed: Yes Anesthesia Plan: Verified ASA Class: III Anesthesia Type: MAC
--- NOTE | 2025-07-22 12:40 | EXP.HP ---
History of Present Illness *Admission Date: 07/22/25 *History of present illness: Mrs. Bello is a 65-year-old female who is here for diagnostic EGD and colonoscopy. The patient was recently admitted with recurrent abdominal pain. She has nausea and left lower quadrant pain. Her CAT scan was concerning for colitis versus diverticulitis. She has had an elevated C-reactive protein. The patient has had pancreatitis/enteritis and diverticulitis and has had multiple ED visits. She continues to have abdominal pain. The examination is deemed medically necessary for diagnostic EGD and colonoscopy. The patient has been seen, interviewed and examined prior to the procedure by both myself and the anesthesia provider. [facility] Disclaimer: The information contained in this section may have been updated after the patient was seen, as this information can be updated by other users. Medical History History of left heart catheterization (LHC) Constipation Abdominal pain Elevated parathyroid hormone Encounter for screening breast examination Dyshidrotic eczema Neuropathy Polyarthralgia Diabetes Surgical History H/O tubal ligation History of hysterectomy History of colonoscopy Family History Tuberculosis Mother Diabetes Family/Other FHx: mental illness Family/Other Bleeding disorder Family/Other Hypertension Family/Other Social History Smoking Status: Current every day smoker tobacco type: cigarettes packs per day: 1 pack-years: 182 smoking status start date: 1980 second hand exposure: No alcohol intake: never substance use type: denies use current occupational status: employed Travel in the last 8 weeks?: None household members: spouse housing: house current occupation: school system current occupational exposures/hazards: No caffeine: Yes Have you lived/traveled outside US in past 30 days?: No Contact w/someone who lives/traveled outside US past 30 days?: No Exposure to someone with infectious disease in past 14 days?: No Do you have a fever (greater than 100.4 F or 38 C)?: No Have you tested positive for COVID-19?: No Exposed to someone with COVID-19 in past 14 days?: No Do you have a sore throat?: No Do you have a cough?: No Do you have any weakness?: No Do you have any diarrhea?: No Are you experiencing any unusual bleeding?: No Do you have any muscle aches/pain?: No Do you have any abdominal pain?: No Are you experiencing loss of taste or smell?: No Other Medical History Have you received the Flu Vaccine for this season: No Have you received the Pneumonia Vaccine: No Review of Systems Review of Systems Review of systems (narrative): Negative *Cardiovascular Comments: Negative *Gastrointestinal Comments: Negative *Genitourinary Comments: Negative *Musculoskeletal Comments: Negative *Neurologic Comments: Negative Meds Home Medications and Allergies Home Medications ?Medication ?Instructions ?Recorded ?Confirmed ?Type blood-glucose,courtroom clerk,cont #1 ea 08/23/24 07/17/25 Rx (Dexcom G7 Junior Database Administrator) cholecalciferol (vitamin D3) 25 25 mcg PO DAILY 11/30/24 07/22/25 History mcg (1,000 unit) capsule aspirin 81 mg chewable tablet 81 mg PO DAILY 01/22/25 07/22/25 History hydrochlorothiazide 12.5 mg tablet 12.5 mg PO DAILY #90 tabs 02/19/25 07/22/25 Rx blood-glucose sensor (Dexcom G7 #9 ea 06/11/25 07/17/25 Rx Sensor device) levothyroxine 75 mcg tablet 75 mcg PO DAILY #90 tabs 06/11/25 07/22/25 Rx (Euthyrox) prucalopride 2 mg tablet 2 mg PO DAILY 06/11/25 07/22/25 History losartan 100 mg tablet 100 mg PO DAILY 06/26/25 07/22/25 History Lactobacillus rhamnosus GG 15 1 cap PO DAILY #14 caps 06/29/25 07/22/25 Rx billion cell sprinkle capsule (Culturelle) insulin pump cart,auto,BT,G6/7 #10 ea 07/03/25 07/17/25 Rx (Omnipod 5 G6-G7 Pods (Gen 5) subcutaneous cartridge) metformin 500 mg tablet 500 mg PO BID #60 tabs 07/10/25 07/22/25 Rx empagliflozin 25 mg tablet 25 mg PO DAILY 07/17/25 07/22/25 History (Jardiance) insulin aspart U-100 100 unit/mL 10 unit SQ TID 07/17/25 07/22/25 History subcutaneous solution (Novolog U-100 Insulin aspart) ciprofloxacin HCl 500 mg tablet 500 mg PO Q12H #10 tabs 07/18/25 07/22/25 Rx metronidazole 500 mg tablet 500 mg PO Q8H 5 days #15 tabs 07/18/25 07/22/25 Rx ondansetron 4 mg disintegrating 4 mg PO Q8H PRN nausea and 07/19/25 07/22/25 Rx tablet vomiting #14 tabs New Prescriptions to Start Prescriptions: Allergies Allergy/AdvReac Type Severity Reaction Status Date / Time amoxicillin (From AUGMENTIN) Allergy Mild NA-NAUSEA Verified 07/22/25 11:14 cefdinir Allergy Mild Hives Verified 07/22/25 11:14 clavulanic acid (From Allergy Mild NA-NAUSEA Verified 07/22/25 11:14 AUGMENTIN) hydrocodone (From NORCO) Allergy Mild HIVES,ITCHI Verified 07/22/25 11:14 NG naproxen (NAPROXEN) Allergy Mild HIVES,ITCHI Verified 07/22/25 11:14 NG Sulfa (Sulfonamide Allergy Mild HIVES,ITCHI Verified 07/22/25 11:14 Antibiotics) (SULFA NG (SULFONAMIDE ANTIBIOTICS)) aspirin Allergy Hives Verified 07/22/25 11:14 Cephalosporins Allergy unknown Verified 07/22/25 11:14 dulaglutide (From Trulicity) AdvReac Intermediate Unknown Verified 07/22/25 11:14 allergy reaction levofloxacin AdvReac Nausea Verified 07/22/25 11:14 Exam Data for Last 24 hours Vital signs and Labs for Last 24 Hours: Temp Pulse Resp BP Pulse Ox O2 Del Method 97 F L 82 16 131/71 98 Room Air 07/22/25 11:19 07/22/25 11:19 07/22/25 11:19 07/22/25 11:19 07/22/25 11:19 07/22/25 11:19 Laboratory Results - last 24 hr 07/22/25 11:33: POC Glucose 176 H I & O for Last 24 hours: Intake & Output 07/19/25 07/20/25 07/21/25 07/22/25 23:59 23:59 23:59 23:59 Weight 214 lb *Routine HEENT Exam Head: Present normocephalic Eye: Present EOMI and PERRL ENT: Present mucous membranes moist *Routine Neck Exam Neck: Present supple *Routine Respiratory Exam Respiratory: Present CTA bilaterally *Routine Cardiovascular Exam Cardiovascular: Present RRR *Routine Abdominal Exam Abdominal: Present soft and normoactive bowel sounds; Absent tenderness *Routine Rectal Exam Rectal:: deferred *Routine Genitalia Exam Genitalia:: deferred *Routine Extremities Exam Extremities: Absent cyanosis, clubbing or edema *Routine Skin Exam Skin: Present warm; Absent rash *Routine Neurological Exam Neurological: Present alert and oriented X3 Assessment and Plan *Assessment and plan (1) Abdominal pain, diffuse: Status: Acute Category: Medical Code(s): R10.84 - Generalized abdominal pain (2) Nausea vomiting and diarrhea: Status: Acute Category: Medical Code(s): R11.2 - Nausea with vomiting, unspecified; R19.7 - Diarrhea, unspecified (3) Colitis: Status: Acute Category: Medical Code(s): K52.9 - Noninfective gastroenteritis and colitis, unspecified (4) Diverticulitis: Status: Acute Category: Medical Code(s): K57.92 - Diverticulitis of intestine, part unspecified, without perforation or abscess without bleeding (5) Enteritis: Status: Acute Category: Medical Code(s): K52.9 - Noninfective gastroenteritis and colitis, unspecified Plan A/P: 1. Nausea, vomiting, diarrhea and diffuse abdominal pain with CAT scan showing enterocolitis and possible diverticulitis is the preprocedural diagnosis. The patient will be anesthetized/sedated using MAC sedation. The patient has been seen and examined. Cardiac and lung assessment prior to the examination is stable. Proceed with planned diagnostic EGD and colonoscopy.
--- NOTE | 2025-07-22 12:52 | P.PCN_ITS ---
[facility] Procedure Note Date: 07/22/25 Time: 13:01 Procedure Note:: Upper Endoscopy Procedure Report: Esophagogastroduodenoscopy with cold biopsies and TTS balloon dilation Endoscopost: Augie Nguyen II, MD Referring Physician: Prasad Preston DO Date of Procedure: July 22, 2025 Equipment: Olympus GIF-1100 standard upper endoscope Sedation: MAC sedation Indications: Mrs. Bello is a 65-year-old female who is here for diagnostic panendoscopy. The patient initially saw dc in April 2025 and at that time was having bloating, gassiness, belching and gas pains. She had some chronic constipation. She was having dysphagia, globus sensation, early satiety and intermittent nausea. She was also having epigastric pain, dyspepsia and generalized abdominal discomfort. She subsequently saw Georgette on July 01, 2025 and was still having issues with abdominal pain and pancreatitis related to Trulicity. Her CAT scan had shown a small bowel obstruction versus enteritis. She was given Xifaxan and stopped the GLP-1. The patient returned to the ED last week and was admitted. She was diagnosed with colitis versus enterocolitis. She did have blood in her stool multiple times for a couple of days in a row. She had abdominal pain and distention. Her hemoglobin hematocrit did drop some with last hemoglobin hematocrit of 9.2 and 30.1. Her lipase on 06/25 was 2473. Her autoimmune serologies were normal. The patient did have panendoscopy in May 2024 (Jose Valadez MD) which were reportedly normal. Procedure: Prior to the procedure, a history and physical exam was performed, and patient's medications and allergies were reviewed. The risks, benefits and alternatives of the sedation and procedure were discussed with the patient. All questions were answered and informed consent was obtained. The patient was brought to the procedure room. Patient identification and proposed procedure were verified by the physician and the nurse. The patient was placed in a left lateral decubitus position and the scope was passed under direct vision. Throughout the procedure, the patient's blood pressure, pulse, and oxygen saturations were monitored continuously. The upper GI endoscopy was accomplished without difficulty. The patient tolerated the procedure well. Findings: The scope was passed directly into the upper esophagus and advanced to the third portion of the duodenum. The post bulbar duodenum and duodenal bulb were normal with normal mucosa and conniventes. A cold biopsy was taken from the second portion of the duodenum for the disaccharidase assay. The scope was withdrawn through a normal duodenal bulb and pylorus into the stomach. There was bile reflux with mild linear antral gastropathy. The body and fundus of the stomach were grossly normal. Cold biopsies were taken from the antrum and lesser curvature. Upon retroflexion there was no hiatal hernia. The scope was then withdrawn into the esophagus. There was no evidence of reflux esophagitis or Simpson's. There was no ring, stricture, corrugation or webs. There were strong tertiary contractions and evidence of moderate esophageal dysmotility. The entire esophagus was dilated to 60 Kinyarwanda/20 mm with a TTS hydrostatic balloon. There was mild resistance at the cricopharyngeus. The remainder of the esophageal mucosa was normal. Impression: 1. Cricopharyngeal spasm 2. Nonerosive GERD with moderate esophageal dysmotility 3. Mild antral gastropathy Plan: I will follow-up the biopsies and disaccharidase assay. I will discuss the findings with the patient and family and proceed with diagnostic colonoscopy.
--- NOTE | 2025-07-22 13:03 | P.PCN_ITS ---
[facility] Procedure Note Date: 07/22/25 Time: 13:21 Procedure Note:: Colonoscopy Procedure Report: Colonoscopy with cold snare polypectomy Endoscopist: Augie Nguyen II, MD Referring physician: Prasad Preston DO Date of Procedure: July 22, 2025 Equipment: Olympus [id number] adult colonoscope Sedation: MAC sedation Indication: Mrs. Bello is a 65-year-old female who is here for diagnostic panendoscopy. The patient initially saw sc in April 2025 and at that time was having bloating, gassiness, belching and gas pains. She had some chronic constipation. She was having dysphagia, globus sensation, early satiety and intermittent nausea. She was also having epigastric pain, dyspepsia and generalized abdominal discomfort. She subsequently saw Georgette on July 01, 2025 and was still having issues with abdominal pain and pancreatitis related to Trulicity. Her CAT scan had shown a small bowel obstruction versus enteritis. She was given Xifaxan and stopped the GLP-1. The patient returned to the ED last week and was admitted. She was diagnosed with colitis versus enterocolitis . She did have blood in her stool multiple times for a couple of days in a row. She had abdominal pain and distention. Her hemoglobin hematocrit did drop some with last hemoglobin hematocrit of 9.2 and 30.1. Her lipase on 06/25 was 2473. Her autoimmune serologies were normal. The patient did have panendoscopy in May 2024 (Jose Valadez MD) which were reportedly normal. Procedure: Prior to the procedure, a history and physical exam was performed, and patient's medications and allergies were reviewed. The risks, benefits and alternatives of the sedation and procedure were discussed with the patient. All questions were answered and informed consent was obtained. The patient was brought to the procedure room. Patient identification and proposed procedure were verified by the physician and the nurse. The patient was placed in a left lateral decubitus position and the scope was passed under direct vision. Throughout the procedure, the patient's blood pressure, pulse, and oxygen saturations were monitored continuously. The colonoscopy was accomplished without difficulty. The patient tolerated the procedure well. Findings: On digital rectal examination there was normal rectal tone. There were no external hemorrhoids. The colonoscope was introduced through the anal canal to the rectum and advanced to the cecum. The ileocecal valve and appendiceal orifice were identified. The scope was advanced a short distance into the ileum which appeared grossly normal. The scope was then withdrawn into the colon. There were 5 colonic polyps (ascending x 2 (4 and 4 mm) and transverse x 3 (3, 4 and 4 mm)). These were all removed via cold snare polypectomy. The remaining cecum, ascending and transverse colon and mucosa were grossly normal. There were extensively scattered diverticuli throughout the descending and sigmoid colon (LEFT colon). There was no evidence of any active colitis throughout the colon and there was normal vascular pattern with no mucosal edema or erythema. The rectum itself was normal. Upon retroflexion within the rectum there were grade 1-2 internal hemorrhoids. The preparation was excellent throughout with [place] Preparation Score of 9. The cecal time was 16 minutes. Impression: 1. Diminutive colonic polyps x 5 2. Extensive left-sided diverticulosis 3. Grade 1-2 internal hemorrhoids Plan: I will follow-up the polyp histology. There was no evidence of any active colitis or enteritis. The patient has improved with antibiotics. I do feel that she had uncomplicated diverticulitis. We will discuss treatment options.
[2025-07-22 13:23] VITALS: BP 95/51; PULSE 95; RESP 18; TEMP 36.2; O2SAT 94
[2025-07-22 13:33] VITALS: BP 126/71; PULSE 67; RESP 18; TEMP 36.2; O2SAT 99
[2025-07-22 13:43] VITALS: BP 133/80; PULSE 68; RESP 16; TEMP 36.2; O2SAT 98
[2025-07-22 13:53] VITALS: BP 131/84; PULSE 68; RESP 18; TEMP 36.2; O2SAT 98
[2025-07-26 14:12] LABS: Interpretation Notes (.); Lactase 0.59 (>/= 14.0); Maltase 13.08 (>/= 110.0); Palatinase 2.38 (>/= 8.5); Reference Notes (.); Sucrase 1.78 (>/= 25.0)
== END 2025-07-22 13:53 | disposition home or self-care (01) ==
PROVIDERS: PCP Internal Medicine; Visit Provider Internal Medicine Gastroenterology
PROC: 0DJ08ZZ Inspection of Upper Intestinal Tract, Via Natural or Artificial Opening Endoscopic (ICD-10-PCS; CPT 45378; principal; 2025-07-22 12:30)
DX: D12.2 Benign neoplasm of ascending colon (principal); D12.3 Benign neoplasm of transverse colon; K57.30 Diverticulosis of large intestine without perforation or abscess without bleeding; F17.210 Nicotine dependence, cigarettes, uncomplicated; K21.9 Gastro-esophageal reflux disease without esophagitis; K22.4 Dyskinesia of esophagus; K64.0 First degree hemorrhoids; K64.1 Second degree hemorrhoids; K31.9 Disease of stomach and duodenum, unspecified; K52.9 Noninfective gastroenteritis and colitis, unspecified; E11.9 Type 2 diabetes mellitus without complications; Z96.41 Presence of insulin pump (external) (internal); Z79.84 Long term (current) use of oral hypoglycemic drugs; Z79.4 Long term (current) use of insulin; Z88.0 Allergy status to penicillin; Z88.1 Allergy status to other antibiotic agents; Z88.3 Allergy status to other anti-infective agents; Z88.5 Allergy status to narcotic agent; Z88.6 Allergy status to analgesic agent; Z88.9 Allergy status to unspecified drugs, medicaments and biological substances
CPT/HCPCS: 43239; 43249; 45385; 82657; 82962; C1726; J2003; J2704; J7120

== ENCOUNTER 2025-08-01 07:29 | Outpatient (CLI) | payer BC, SELFPAY ==
--- OUTSIDE RECORDS SUMMARY | 2025-08-01 07:32 | XMS_ITS | Clinical Summary ---
Author Organization [facility] Address [address] [place] [address] Care Team Providers Care Rn Otolaryngology Name Role Phone Cornelius Aparicio MD Primary Care Provider [phone] Allergies Active Allergy Reactions Criticality Noted Date [...] mellitus with other specified complication, unspecified whether supervisor intermediates insulin use ([facility]),Type 2 diabetes mellitus without complication, without [...] with long-term current use of insulin ([facility]) Inject 0.5 mg once weekly. Further [...] mellitus with other specified complication, unspecified whether mcc insulin use ([facility]),Type 2 diabetes mellitus without complication, without [...] 1-dose series) 2022 UKY-Depression Screening 05/17/2024 05/17/2023 [id number] Vaccine ( season) 2024 10/14/2021, 01/16/2021, 12/17/2020 [...] with long-term current use of insulin ([facility]) ACUTE HEPATITIS PANEL Routine 07/23/2022 10:53 AM EDT Polyarthralgia Elevated C-reactive protein from Last 3 Months or Most Recently Relevant to Health Maintenance Results * (ABNORMAL) POCT glycosylated hemoglobin (Hb A1C) (04/26/2024 8:29 AM EDT) Pathologist [facility] POCT Hemoglobin A1C 8.9 <5.7% Non-Diabe tic [facility] Kit Lot Number [id number] [facility] Kit Expiration Date 02/25/2026 [facility] Blood Venous blood specimen / Unknown 04/26/2024 8:29 AM EDT Osmel Auguste MD POINT OF CARE TEST ENTER/ED IT ORDERABLES Final Result Performing Organization Address City/[facility]/ZIP Co de Phone Number [facility] [address] [place] [address] * Acute Hepatitis Panel (07/23/2022 10:53 AM EDT) Pathologist [facility] Hepatitis B Surf Antigen Negative Negative 07/23/2022 1:41 PM EDT [facility] Hepatitis C Antibody Negative Negative 07/23/2022 1:41 PM EDT [facility] Hepatitis A Antibody IgM Negative Negative 07/23/2022 1:41 PM EDT [facility] Hepatitis B Core Antibody IgM Negative Negative 07/23/2022 1:41 PM EDT [facility] Blood Venous blood specimen / Unknown Venipuncture / Unknown 07/23/2022 10:53 AM EDT 07/23/2022 10:54 AM EDT [facility] BLOOD ORDERABLES Final Resul t Performing Organization Address City/[facility] Co de Phone Number [facility] [address] [place] [address] from Last 3 Months or Most Recently Relevant to Health Maintenance Insurance [employer]THEM Care Teams Rn Otolaryngology Relationship Specialty Start Date End Date Cornelius Aparicio MD [address] [place] [address] PCP - General 04/10/21
--- OUTSIDE RECORDS SUMMARY | 2025-08-01 07:32 | XMS_ITS | Encounter Summary ---
Author Organization [facility] Address [address] [place] [address] Care Team Providers Care Partnership Marketing Manager Name Role Phone Cornelius Aparicio MD Primary Care Provider [phone] Reason for Visit * Reason Comments Med Refill Encounter Details Date Type Department Care Team ([facility] st Contact Info) Description 03/03/2023 Refill [facility] Endocrinology [address] [place] [address] Osmel Auguste MD [address] [address] Type 2 diabetes mellitus without complication, without long-term current use of insulin ([facility]) Social History [...] documented as of this encounter Care Teams Partnership Marketing Manager Relationship Specialty Start Date End Date Cornelius Aparicio MD [address] [place] [address] PCP - General 04/10/21 documented as of this encounter
--- OUTSIDE RECORDS SUMMARY | 2025-08-01 07:32 | XMS_ITS | Encounter Summary ---
Author Organization Healthcare Address [address] [place] [address] Care Team Providers Care Environmental Field Technician Name Role Phone Cornelius Aparicio MD Primary Care Provider [phone] Reason for Visit * Reason Comments Med Refill Encounter Details Date Type Department Care Team (Late st Contact Info) Description 09/25/2023 Refill [facility] [address] [place] [address] Alivia Troy L, CORPORATE INVESTIGATOR [address] [place] [address] Primary osteoarthritis involving multiple joints [...] w/ patient. F/u scheduled 11/04 w/ Obdulia hSah APRN. documented in this encounter Plan of [...] documented as of this encounter Care Teams Environmental Field Technician Relationship Specialty Start Date End Date Cornelius Aparicio MD [address] [place] [address] PCP - General 04/10/21 documented as of this encounter
--- OUTSIDE RECORDS SUMMARY | 2025-08-01 07:32 | XMS_ITS | Encounter Summary ---
Author Organization [facility] Address [address] [place] [address] Care Team Providers Care Cable Assembler And Swager Name Role Phone Cornelius Aparicio MD Primary Care Provider [phone] Reason for Visit * Reason Comments Med Refill Encounter Details Date Type Department Care Team (Late st Contact Info) Description 03/26/2023 Refill [facility] Endocrinology [address] [place] [address] Osmel Auguste MD [address] [address] Hypothyroidism, unspecified type Social History [...] 90 day supply with 1 refill(s) to [facility] pharmacy. Enough refills until appointment on 07/01 [...] documented as of this encounter Care Teams Cable Assembler And Swager Relationship Specialty Start Date End Date Cornelius Aparicio MD [address] [place] [address] PCP - General 04/10/21 documented as of this encounter
--- OUTSIDE RECORDS SUMMARY | 2025-08-01 07:32 | XMS_ITS | Encounter Summary ---
Author Organization [facility] Address [address] [place] [address] Care Team Providers Care Commercial Correspondent Name Role Phone Cornelius Aparicio MD Primary Care Provider [phone] Reason for Referral * Consultation (Routine) - Closed Specialty Diagnoses / Procedures Referred By Enmanuel rich Referred To Contact Rheumatology Diagnoses Elevated sed rate Elevated C-reactive protein Clementine Kohli PA [address] [place] [address] Phone: tel: fax: Referral ID Status Reason Start Date Expiration Date V isits Requested Visits Authorized [id number] Closed Specialty Services Required 06/02/2022 12/02/2023 1 1 Encounter Details Date Type Department Care Team (Late st Contact Info) Description 06/02/2022 [facility] [address] [place] [address] Clementine Kohli PA [address] [place] [address] Elevated sed rate (Primary Dx); [...] documented as of this encounter Care Teams Commercial Correspondent Relationship Specialty Start Date End Date Cornleius Aparicio MD [address] [place] [address] PCP - General 04/10/21 documented as of this encounter
[2025-08-01 08:11] LABS: Albumin Level 3.8 g/dl (3.5-5.0); Anion Gap 13.9 mEq/L (5-15); Blood Urea Nitrogen 14 mg/dl (7-17); Calcium 9.7 mg/dl (8.4-10.2); Carbon Dioxide 26 mmol/L (22.0-30.0); Chloride 104 mmol/L (98-107); Creatinine,Serum 0.70 mg/dl (0.52-1.04); Estimated Glomerular Filt Rate 85 ml/min (>60); GFR (African American) 102 ML/MIN (>60); Glucose 181 mg/dl (74-100); Magnesium 1.4 mg/dl (1.6-2.3); Phosphorous 4.5 mg/dl (2.5-4.5); Potassium 3.9 mmoL/L (3.5-5.1); Sodium 140 mmol/L (136-145)
[2025-08-01 08:28] LABS: 25-OH Vitamin D, Total 33.2 ng/mL (30-100)
[2025-08-02 17:12] LABS: Calcium, Ionized 5.3 mg/dL (4.5-5.6)
== END 2025-08-01 23:59 | disposition home or self-care (01) ==
PROVIDERS: PCP Internal Medicine; Visit Provider Student in an Organized Health Care Education/Training Program
DX: R79.89 Other specified abnormal findings of blood chemistry (principal)
CPT/HCPCS: 36415; 80069; 82306; 82330; 83735; 83970

== ENCOUNTER 2025-08-30 09:21 | Outpatient (CLI) | payer BC, SELFPAY ==
--- OUTSIDE RECORDS SUMMARY | 2025-08-21 15:47 | XMS_ITS | Encounter Summary ---
Author Organization [facility] Address [address] [place] [id number] Care Team Providers Care Md Ophthalmologist Name Role Phone Prasad Preston Mkia Primary Care Provider + Reason for Visit * Health Education (Routine) - Pending Review Specialty Diagnoses / Procedures Referred By Contac t Referred To Contact Nutrition Diagnoses Congenital sucrase-isomaltase deficiency Procedures ID OFFICE/OUTPATIENT NEW MODERATE MDM 45 MINUTES Augie Nguyen MD [address] [place] [facility] [address] [place] [address] Phone: tel: fax: [facility] [address] [facility] [address] [place] [address] Phone: tel: fax: Referral ID Status Reason Start Date Expiration Date V isits Requested Visits Authorized [id number] Pending Review 08/06/2025 11/05/2026 1 1 Encounter Details Date Type Department Care Team (Latest Contact Info) Description 08/21/2025 3:47 PM EDT - 08/21/2025 11:59 PM EDT Hospital Encounter [facility] [address] [facility] [address] [place] [address] Discharge Disposition: Home or Self Care Social History Tobacco Use Types Packs/Day Years Used Date Smoking Tobacco: Never Assessed Comments Unknown Sex and Gender Information Value Date Recorded Sex Assigned at Not on file Legal Sex Female 3:05 PM EDT Gender Identity Not on file Sexual Orientation Not on file documented as of this encounter Progress Notes * Yudi Mueller RD - 08/21/2025 4:00 PM EDTEncounter addended by: Yudi Mueller RD on: 08/22/2025 3:20 PM Actions taken: Clinical Note Signed documented in this encounter Consult Notes * Yudi Mueller RD - 08/21/2025 4:00 PM EDT [facility] Nutrition Services Initial 60 Minute Nutrition Visit Date: 08/21/2025 Patient Name: Apryl Bello : 1960 Referring Provider: Augie Nguyen MD Reason for Visit: nutrition counseling for CSID Visit Format: TEAMS Nutrition Assessment Social History: Social History Socioeconomic History Marital status: Active Problem List: There are no active problems to display for this patient. Current Medications: No current outpatient medications on file. Labs: Hgh 9.4, K+ 3.4, glucose 170, A1C 8.5, Hunger Vital Sign Food Insecurity Assessment: Within the past 12 months I/we worried whether our food would run out before I/we got money to buy more: Did not discuss Within the past 12 months the food I/we bought just didn't last and I/we didn't have money to get more: Did not discuss Use of food assistance programs (WIC, food stamps, food love) Did not discuss Food & Nutrition Related History Food Allergies: did not discuss Food Intolerances: yes, lactose Food Behavior: none Nutrition Impact Symptoms: yes Gastrointestinal conditions that impact intake or food choices: CSID 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 Who prepares most meals: pt Who does grocery shopping: did not discuss How many meals are purchased from fast food/sit down restaurants per week: did not discuss Difficulty chewin - Normal Difficulty swallowin - Normal Diet requirement related to personal preference or cultural belief: none History of eating disorder/disordered eating habits: None Language/communication details: speaks portuguese Barriers to learning: No barriers identified at this time Anthropometrics Height: Ht Readings from Last 1 Encounters: No data found for Ht Weight: Wt Readings from Last 3 Encounters: No data found for Wt BMI: There is no height or weight on file to calculate BMI. Weight Change: did not discuss Physical activity comments: did not discuss Estimated Needs Estimated Energy Needs: 1826 calories per day to maintain current weight. Based off MSJ, AF 1.2 Estimated Protein Needs: 81 grams per day. Based off 0.8g/kg/BW Estimated Fluid Needs: 64 oz minimum per day Discussion / Education Pt is a 65 year old female who was referred for nutrition counseling for CSID. Pt states that she is also lactose intolerant. The session was spent discussing how to do a CSID elimination diet. RD and pt discussed pt during diet for 2 weeks and reintroducing a new food every 3 days. Follow up is scheduled for about 2 weeks out. Will forward notes to provider. Assessment of patient engagement: Engaged Measurement of understanding: Patient verbalized understanding, Patient able to demonstrate understanding with teach back Resources Provided: nutrition therapy for adults: starting a CSID diet, when you have CSID: have toread a food label Goal (s) Goal 1: Complete CSID elimination diet for 2 weeks Plan of Care PES Statement: Food causing negative symptoms related to CSID dx as evidenced by gastrointestinal symptoms. Follow Up Visit Follow Up: 09/02/2025 1:00 PM Total of minutes spent with patient on nutrition counseling. Education based on Academy of Nutrition and Dietetics guidelines. Patient was provided with RD's contact information. Thank you for this referral. documented in this encounter Plan of Treatment Scheduled Referrals Name Type Priority Associated Diagnoses Order Schedule Ambulatory Referral to Nutrition Services Outpatient Referral Routine Congenital sucrase-isomaltase deficiency Ordered: 08/06/2025 documented as of this encounter Visit Diagnoses Not on filedocumented in this encounter Care Teams Md Ophthalmologist Relationship Specialty Start Date End Date Prasad Preston DO [address] [place] [address] [place] [address] PCP - General Internal Medicine 08/21/25 documented as of this encounter
--- OUTSIDE RECORDS SUMMARY | 2025-09-02 09:33 | XMS_ITS | Clinical Summary ---
Author Organization [facility] Address [address] [place] [address] Care Team Providers Care Engineering Systems Analyst Name Role Phone Cornelius Aparicio MD Primary Care Provider + [phone] Allergies Active Allergy Reactions Criticality Noted Date [...] other specified complication, unspecified whether assisted insulin use,Type 2 diabetes mellitus without complication, without long-term [...] hyperglycemia, with long-term current use of insulin Inject 0.5 mg once weekly. Further refills [...] other specified complication, unspecified whether assisted insulin use,Type 2 diabetes mellitus without complication, without long-term [...] [facility]-HIV Screening 1960 [facility]-/Child/Adol SDOH Screenings 1960 [facility]- SDOH Screenings 1980 [facility]-Adult SDOH Screenings 1980 [facility]-DTaP,Tdap,and Td Vaccines (1 - Tdap) 1981 [facility]-Zoster Vaccines (1 of 2) 1981 CT Colonography 2007 Colonoscopy 2007 FIT-DNA 2007 FIT 2007 FOBT 2007 Sigmoidoscopy 2007 [facility]-Colorectal Cancer Screening 2007 [facility]-Breast Cancer Screening 2012 [facility]-Pneumococcal Vaccine: 50+ Years (1 of 1 - PCV) 2012 [facility]-RSV Vaccine: 60+ Years or (1 - Risk 60-74 years 1-dose series) 2022 [facility]-Depression Screening 05/17/2024 05/17/2023 [id number] Vaccine ( season) 2025 10/14/2021, 01/16/2021, 12/17/2020 [facility]-Influenza Vaccine (#1) 07/29/202509/22, 09/22/2020, 09/26/2019, Additional history exists [facility]-Hepatitis A Vaccines Aged Out 04/12/2019, 08/29 No longer eligible based on patient's age to complete this topic [facility]-Hepatitis C Screening Completed 07/23/2022 [facility]-Diabetes: Hemoglobin A1C Discontinued 04/26/2024, 01/19/2024, 10/17/2023, Additional history exists [facility]-Obesity Intervention Completed 024, 01/19/2024, 10/17/2023, Additional [...] hyperglycemia, with long-term current use of insulin (CMS/HCC) ACUTE HEPATITIS PANEL Routine 07/23/2022 10:53 AM EDT Polyarthralgia Elevated C-reactive protein from Last 3 Months or Most Recently Relevant to Health Maintenance Results * (ABNORMAL) POCT glycosylated hemoglobin (Hb A1C) (04/26/2024 8:29 AM EDT) Pathologist [facility] POCT Hemoglobin A1C 8.9 <5.7% Non-Diabe tic [facility] Kit Lot Number [id number] [facility] Kit Expiration Date 02/25/2026 [facility] Blood Venous blood specimen / Unknown 04/26/2024 8:29 AM EDT Osmel uAguste MD POINT OF CARE TEST ENTER/ED IT ORDERABLES Final Result Performing Organization Address [facility] Co de Phone Number HEALTHCARE LAB [address] [place] [address] * Acute Hepatitis Panel (07/23/2022 10:53 AM EDT) [facility] Hepatitis B Surf Antigen Negative Negative 07/23/2022 1:41 PM EDT [facility] Hepatitis C Antibody Negative Negative 07/23/2022 1:41 PM EDT [facility] Hepatitis A Antibody IgM Negative Negative 07/23/2022 1:41 PM EDT [facility] Hepatitis B Core Antibody IgM Negative Negative 07/23/2022 1:41 PM EDT [facility] Blood Venous blood specimen / Unknown Venipuncture / Unknown 07/23/2022 10:53 AM EDT 07/23/2022 10:54 AM EDT [facility] BLOOD ORDERABLES Final Resul t Performing Organization Address City/[facility] Co de Phone Number HEALTHCARE LAB [address] [place] [address] from Last 3 Months or Most Recently Relevant to Health Maintenance Insurance ANTHEM Care Teams Engineering Systems Analyst Relationship Specialty Start Date End Date Cornelius Aparicio MD [address] [place] [address] PCP - General 04/10/21
--- OUTSIDE RECORDS SUMMARY | 2025-09-02 09:33 | XMS_ITS | Clinical Summary ---
Author Organization [facility] yste Address [address] [place] [address] Care Team Providers Care Junior Media Buyer Name Role Phone Prasad Preston DO Primary Care Provider + Encounters Date Type Department Care Team Description 08/21/2025 3:47 PM EDT - 08/21/2025 11:59 PM EDT Hospital Encounter [address] [place] [address] Discharge Disposition: Home or Self Care 08/21/2025 Travel from Last 3 Months Social History Tobacco Use Types Packs/Day Years Used Date Smoking Tobacco: Never Assessed Comments Unknown Sex and Gender Information Value Date Recorded Sex Assigned at Not on file Legal Sex Female 3:05 PM EDT Gender Identity Not on file Sexual Orientation Not on file Plan of Treatment Health Maintenance Due Date Last Done Comments ANNUAL PHYSICAL 1960 Annual Gynecologic Pelvic an d Breast Exam 1960 TDAP/TD VACCINES (1 - Tdap) 1981 MAMMOGRAM 2002 COLOGUARD 2007 COLON CANCER SCREENING 5 YEA R SIGMOIDOSCOPY 2007 COLONOSCOPY [address]CER SCREENING [address] COLONOGRAPHY 2007 FECAL OCCULT BLOOD TEST 2007 FIT Testing (1 year) 2007 INFLUENZA VACCINE 06/28/2025 09/26/2024, , 08/20/2022, Additional history exists Pneumococcal Vaccine 50+ Completed 06/01/2022 HEPATITIS C SCREENING Completed 07/23/2022 ZOSTER VACCINE Completed 08/20/2022, 06/01/2022 Care Teams Junior Media Buyer Relationship Specialty Start Date End Date Prasad Preston DO [address] [place] [address] [place] [address] PCP - General Internal Medicine 08/21/25
--- OUTSIDE RECORDS SUMMARY | 2025-09-02 09:33 | XMS_ITS | Encounter Summary ---
Author Organization [facility] Address [address] [place] [address] Care Team Providers Care Lion Trainer Name Role Phone Cornelius Aparicio MD Primary Care Provider [phone] Reason for Visit * Reason Comments Med Refill Encounter Details Date Type Department Care Team ([facility] st Contact Info) Description 03/03/2023 Refill [facility] Endocrinology [address] [place] [address] Osmel Auguste MD [address] [address] Type 2 diabetes mellitus without complication, without long-term current use of insulin ([facility]) Social History Tobacco Use Types Packs/Day Years [...] documented as of this encounter Care Teams Lion Trainer Relationship Specialty Start Date End Date Cornelius Aparicio MD [address] [place] [address] PCP - General 04/10/21 documented as of this encounter
--- OUTSIDE RECORDS SUMMARY | 2025-09-02 09:33 | XMS_ITS | Encounter Summary ---
Author Organization [facility] Address [address] [place] [address] Care Team Providers Care Operations Representative Name Role Phone Cornelius Aparicio MD Primary Care Provider [phone] Reason for Referral * Consultation (Routine) - Closed Specialty Diagnoses / Procedures Referred By Enmanuel rich Referred To Contact Rheumatology Diagnoses Elevated sed rate Elevated C-reactive protein Clementine Kohli PA [address] [place] [address] Phone: tel: fax: Referral ID Status Reason Start Date Expiration Date V isits Requested Visits Authorized [id number] Closed Specialty Services Required 06/02/2022 12/02/2023 1 1 Encounter Details Date Type Department Care Team (Late st Contact Info) Description 06/02/2022 Community [facility] [address] [place] [address] Clementine Kohli PA [address] [place] [address] Elevated sed rate (Primary Dx); [...] documented as of this encounter Care Teams Operations Representative Relationship Specialty Start Date End Date Cornelius Aparicio MD [address] [place] [address] PCP - General 04/10/21 documented as of this encounter
--- OUTSIDE RECORDS SUMMARY | 2025-09-02 09:33 | XMS_ITS | Encounter Summary ---
Author Organization [facility] Address [address] [place] [address] Care Team Providers Care Balance Bridge Inspector Name Role Phone Cornelius Aparicio MD Primary Care Provider [phone] Reason for Visit * Reason Comments Med Refill Encounter Details Date Type Department Care Team (Late st Contact Info) Description 09/25/2023 Refill [place] [facility] [address] [place] [address] Alivia Troy L, COMPLEX HUMAN RESOURCES MANAGER [address] [place] [address] Primary osteoarthritis involving multiple joints [...] documented as of this encounter Care Teams Balance Bridge Inspector Relationship Specialty Start Date End Date Cornelius Aparicio MD [address] [place] [address] PCP - General 04/10/21 documented as of this encounter
--- OUTSIDE RECORDS SUMMARY | 2025-09-02 09:33 | XMS_ITS | Encounter Summary ---
Author Organization [facility] Address [address] [place] [id number] Care Team Providers Care Dramatic Reader Name Role Phone Prasad Preston DO Primary Care Provider + Encounter Details Date Type Department Care Team (Latest Contact Info) Description 08/21/2025 Travel Social History Tobacco Use Types Packs/Day Years [...] on filedocumented in this encounter Care Teams Dramatic Reader Relationship Specialty Start Date End Date Prasad Preston DO [address] [place] [address] PCP - General Internal Medicine 08/21/25 documented as of this encounter
--- OUTSIDE RECORDS SUMMARY | 2025-09-02 09:33 | XMS_ITS | Encounter Summary ---
Author Organization [facility] Address [address] [place] [address] Care Team Providers Care Barrel Finisher Name Role Phone Cornelius Aparicio MD Primary Care Provider [phone] Reason for Visit * Reason Comments Med Refill Encounter Details Date Type Department Care Team (Late st Contact Info) Description 03/26/2023 Refill [facility] Endocrinology [address] [place] [address] Osmel Auguste MD [address] [address] Hypothyroidism, unspecified type Social History [...] 90 day supply with 1 refill(s) to [facility] pharmacy. Enough refills until appointment on [...] as of this encounter Care Teams Barrel Finisher Relationship Specialty Start Date End Date Cornelius Aparicio MD [address] [place] [address] PCP - General 04/10/21 documented as of this encounter
== END 2025-08-30 23:59 ==
LOC: LAB.DROPOF 09-02 09:21
PROVIDERS: PCP Nurse Practitioner Family; Visit Provider Nurse Practitioner Family
DX: N39.0 Urinary tract infection, site not specified (principal)
CPT/HCPCS: 87086; 87088

== ENCOUNTER 2025-10-23 10:48 | Outpatient (CLI) | payer BC, SELFPAY ==
--- OUTSIDE RECORDS SUMMARY | 2025-10-28 11:38 | XMS_ITS | Clinical Summary ---
Author Organization [facility] yste Address [address] [place] [address] Care Team Providers Care Buckle Sewer Name Role Phone Prasad Preston DO Primary Care Provider + Encounters Date Type Department Care Team Description 08/21/2025 3:47 PM EDT - 08/21/2025 11:59 PM EDT Hospital Encounter [address] [place] [address] Discharge Disposition: [...] ZOSTER VACCINE Completed 08/20/2022, 06/01/2022 Care Teams Buckle Sewer Relationship Specialty Start Date End Date Prasad Preston DO [address] [place] [address] [place] [address] PCP - General Internal Medicine 08/21/25
--- OUTSIDE RECORDS SUMMARY | 2025-10-28 11:38 | XMS_ITS | Clinical Summary ---
Author Organization [facility] Address [address] [place] [place] [address] Care Team Providers Care Grinder Watch Parts Name Role Phone Cornelius Aparicio MD Primary Care Provider + [phone] Allergies Active Allergy Reactions Criticality Noted Date [...] mellitus with other specified complication, unspecified whether shelter insulin use,Type 2 diabetes mellitus without complication, [...] mellitus with other specified complication, unspecified whether shelter insulin use,Type 2 diabetes mellitus without complication, [...] [facility]-HIV Screening 1960 [facility]-Infant/Child/Adol SDOH Screenings 1962 [facility]- SDOH Screenings 1980 [...] 1-dose series) 2022 [facility]-Depression Screening 05/17/2024 05/17/2023 [id number] Vaccine ( season) 2025 10/14/2021, 01/16/2021, 12/17/2020 [...] (04/26/2024 8:29 AM EDT) Pathologist [facility] POCT Hemoglobin A1C 8.9 <5.7% Non-Diabe tic [facility] Kit Lot Number [id number] [facility] Kit Expiration Date 02/25/2026 [facility] Blood Venous blood specimen / Unknown 04/26/2024 8:29 AM EDT Osmel Auguste MD POINT OF CARE TEST ENTER/ED IT ORDERABLES Final Result Performing Organization Address [facility] Co de Phone Number HEALTHCARE LAB [address] [place] [address] * Acute Hepatitis Panel (07/23/2022 10:53 AM EDT) [facility] Hepatitis B Surf Antigen Negative Negative 07/23/2022 1:41 PM EDT [facility] Hepatitis C Antibody Negative Negative 07/23/2022 1:41 PM EDT [facility] Hepatitis A Antibody IgM Negative Negative 07/23/2022 1:41 PM EDT [facility] Hepatitis B Core Antibody IgM Negative Negative 07/23/2022 1:41 PM EDT [facility] Blood Venous blood specimen / Unknown Venipuncture / Unknown 07/23/2022 10:53 AM EDT 07/23/2022 10:54 AM EDT [facility] BLOOD ORDERABLES Final Resul t Performing Organization Address City/[facility] Co de Phone Number HEALTHCARE LAB [address] [place] [address] from Last 3 Months or Most Recently Relevant to Health Maintenance Insurance ANTHEM Care Teams Grinder Watch Parts Relationship Specialty Start Date End Date Cornelius Aparicio MD [address] [place] [address] PCP - General 04/10/21
--- OUTSIDE RECORDS SUMMARY | 2025-10-28 11:38 | XMS_ITS | Encounter Summary ---
Author Organization [facility] Address [address] [place] [address] Care Team Providers Care Drafting Clerk Name Role Phone Cornelius Aparicio MD Primary Care Provider [phone] Reason for Visit * Reason Comments Med Refill Encounter Details Date Type Department Care Team (Late st Contact Info) Description 03/26/2023 Refill [facility] Endocrinology [address] [place] [address] Osmel Auguste MD [address] [address] Hypothyroidism, unspecified type Social History [...] 90 day supply with 1 refill(s) to [facility] pharmacy. Enough refills until appointment [...] documented as of this encounter Care Teams Drafting Clerk Relationship Specialty Start Date End Date Cornelius Aparicio MD [address] [place] [address] PCP - General 04/10/21 documented as of this encounter
--- OUTSIDE RECORDS SUMMARY | 2025-10-28 11:38 | XMS_ITS | Encounter Summary ---
Author Organization [facility] Address [address] [place] [address] Care Team Providers Care Furniture Associate Name Role Phone Cornelius Aparicio MD Primary Care Provider [phone] Reason for Visit * Reason Comments Med Refill Encounter Details Date Type Department Care Team ([facility] st Contact Info) Description 03/03/[address] [facility] Endocrinology [address] [place] [address] Osmel Auguste MD [address] [address] Type 2 diabetes mellitus without complication, without long-term current use of insulin ([facility]) Social History Tobacco Use Types [...] documented as of this encounter Care Teams Furniture Associate Relationship Specialty Start Date End Date Cornelius Aparicio MD [address] [place] [address] PCP - General 04/10/21 documented as of this encounter
--- OUTSIDE RECORDS SUMMARY | 2025-10-28 11:38 | XMS_ITS | Encounter Summary ---
Author Organization [facility] Address [address] [place] [address] Care Team Providers Care Commercial Engineer Name Role Phone Cornelius Aparicio MD Primary Care Provider [phone] Reason for Visit * Reason Comments Med Refill Encounter Details Date Type Department Care Team (Late st Contact Info) Description 09/25/2023 Refill [place] [facility] [address] [place] [address] Alivia Troy L, PRECISION AGRICULTURE TECHNICIAN [address] [place] [address] Primary osteoarthritis involving multiple joints [...] as of this encounter Care Teams Commercial Engineer Relationship Specialty Start Date End Date Cornelius Aparicio MD [address] [place] [address] PCP - General 04/10/21 documented as of this encounter
--- OUTSIDE RECORDS SUMMARY | 2025-10-28 11:38 | XMS_ITS | Encounter Summary ---
Author Organization [facility] Address [address] [place] [address] Care Team Providers Care Wood Drill Operator Name Role Phone Cornelius Aparicio MD Primary Care Provider [phone] Reason for Referral * Consultation (Routine) - Closed Specialty Diagnoses / Procedures Referred By Enmanuel rich Referred To Contact Rheumatology Diagnoses Elevated sed rate Elevated C-reactive protein Clementine Kohli PA [address] [place] [address] Phone: tel: fax: Referral ID Status Reason Start Date Expiration Date V isits Requested Visits Authorized [id number] Closed Specialty Services Required 06/02/2022 12/02/2023 1 1 Encounter Details Date Type Department Care Team (Late st Contact Info) Description 06/02/2022 Community [facility] [address] [place] [address] Clementine Kohli PA [address] [place] [address] Elevated sed rate (Primary Dx); [...] documented as of this encounter Care Teams Wood Drill Operator Relationship Specialty Start Date End Date Cornelius Aparicio MD [address] [place] [address] PCP - General 04/10/21 documented as of this encounter
== END 2025-10-23 23:59 ==
LOC: LAB.DROPOF 10-28 10:49
PROVIDERS: PCP Internal Medicine; Visit Provider Nurse Practitioner
DX: R35.0 Frequency of micturition (principal)
CPT/HCPCS: 87086; 87088; 87186